=== PATIENT | female | born 1950 | race Caucasian/White ===

== ENCOUNTER 2017-10-15 06:20 | Inpatient (IN) | payer OTHER ==
[2017-10-15] VITALS (10 sets, daily range): BP systolic 91–163; BP diastolic 68–82; PULSE 101–125; TEMP 37–37.3; O2SAT 95–98; BMI 44.3
[~2017-10-15] VITALS: Ht 149.9 cm; Wt 93.9 kg
[~2017-10-15 06:20] MED LIST: AZIT500T3 PO; LISI-1116 PO; METF1000 PO; [UNRECOGNIZED DRUG - REMARK]
[2017-10-15] MEDS ORDERED: NITROGLYCERIN 0.4 MG SL PER TAB CHARGE SL STA (06:41)
[2017-10-15] MEDS ORDERED: FUROSEMIDE 40 MG/4 ML VIAL IV STA ×2 (06:41→10:15)
[2017-10-15] MEDS ORDERED: HydrALAZINE HCL 20 MG/ML VIAL IV. STA (06:41)
[2017-10-15] MEDS ORDERED: NITROGLYCERIN 2% OINTMENT 30GM TUBE EXT ONE (06:45)
[2017-10-15] MEDS ORDERED: SIMV-151 PO (06:46)
[2017-10-15] MEDS ORDERED: CAMPOIN7 TOP (06:48)
--- NOTE | 2017-10-15 06:55 | DIAGNOSTIC IMAGING REPORT ---
CHEST ONE VIEW PORTABLE CLINICAL HISTORY: 67 years-old Female presenting with Evaluate Fever/Sepsis. TECHNIQUE: Portable upright AP view of the chest was obtained. COMPARISON: 08/22/2012. FINDINGS: Atherosclerosis of aortic arch. Cardiac silhouette enlarged. Hazy right mid to lower lung opacities. Minimal left basilar opacity. No large effusion or pneumothorax. Degenerative changes of the thoracic spine. IMPRESSION: 1. Right mid to lower lung consolidation consistent with pneumonia. The left lung base may be minimally involved as well suggesting multifocal pneumonia. Electronically signed by: Selvin Hardin M.D. 10/15/2017 6:54 AM Dictated Date/Time: 10/15/2017 6:53 AM
[2017-10-15 07:26] LABS: PTT PATIENT 24.5 SECONDS (21.0-31.0)
[2017-10-15 07:42] LABS: ALBUMIN 2.4 gm/dl (3.4-5.0); ALT/SGPT 19 U/L (12-78); AST/SGOT 34 U/L (15-37); BLOOD UREA NITROGEN 14 mg/dl (7-18); CALCIUM 8.6 mg/dl (8.5-10.1); CARBON DIOXIDE 24 mmol/L (21-32); CREATININE 1.17 mg/dl (0.60-1.20); GLUCOSE 486 mg/dl (70-99); SODIUM 137 mmol/L (136-145)
[2017-10-15] MEDS ORDERED: CEFTRIAXONE SOD INJ 1 GM ADDVIAL IV STA (07:42)
[2017-10-15] MEDS ORDERED: NovoLIN-R INSULIN PER UNIT CHARGE SC STA (07:44)
[2017-10-15] MEDS ORDERED: AZITHROMYCIN IV 500 MG in DEXTROSE 5% 250ML 250 ML IV ONE (07:45)
[2017-10-15 07:51] LABS: ALKALINE PHOSPHATASE 70 U/L (45-117); CKMB 15.1 ng/ml (0.5-3.6); TOTAL PROTEIN 7.2 gm/dl (6.4-8.2)
[2017-10-15 07:56] LABS: BASO % 0.3 %; BASO ABS # 0.06 K/uL (0-0.2); EOS ABS # 0.23 K/uL (0-0.5); HEMATOCRIT 35.2 % (37-47); HEMOGLOBIN 10.3 g/dL (12.0-16.0); LYMPH ABS # 2.65 K/uL (1.2-3.4); MEAN CELL VOLUME 83.6 fL (80-100); MEAN CORPUSCULAR HEMOGLOBIN 24.5 pg (25-34); MEAN CORPUSCULAR HGB CONC 29.3 g/dl (32-36); MEAN PLATELET VOLUME 9.6 fL (7.4-10.4); MONO % 4.8 %; MONO ABS # 1.05 K/uL (0.11-0.59); NEUT % 81.4 %; NEUT ABS # 17.98 K/uL (1.4-6.5); PLATELET COUNT 550 K/uL (130-400); RED CELL DISTRIBUTION WIDTH CV 15.7 % (11.5-14.5); RED CELL DISTRIBUTION WIDTH SD 47.8 fL (36.4-46.3); WHITE BLOOD COUNT 22.07 K/uL (4.8-10.8)
[2017-10-15] MEDS ORDERED: ASPIRIN 81 MG CHEW PO STA (08:20)
[2017-10-15] MEDS ORDERED: ALBUT/IPRATROP 3MG/0.5MG NEB 3 ML VIAL INH STA (08:27)
[2017-10-15] MEDS ORDERED: POTASSIUM CHLORIDE 10 MEQ TABCR PO STA (09:05)
[2017-10-15] MEDS ORDERED: GLUCAGON FOR INJ 1 MG VIAL SQ PRN (09:15)
[2017-10-15] MEDS ORDERED: MAGNESIUM HYDROXIDE SUSP 30 ML UDC PO PRN (09:15)
[2017-10-15] MEDS ORDERED: ALUMINUM/MAGNESIUM/SIMETH (MAALOX MAX) 30 ML UDC PO PRN (09:15)
[2017-10-15] MEDS ORDERED: GLUCOSE 40% GEL 15 GM TUBE PO PRN (09:15)
[2017-10-15] MEDS ORDERED: NITROGLYCERIN 0.4 MG SL PER TAB CHARGE SL PRN (09:15)
[2017-10-15] MEDS ORDERED: POLYETHYLENE (MIRALAX) 17 GM PACK PO PRN (09:15)
[2017-10-15] MEDS ORDERED: MoRPHine SULFATE 2 MG/ML CARP IV PRN (09:15)
[2017-10-15] MEDS ORDERED: GUAIFENESIN 600 MG TABCR PO PRN (09:15)
[2017-10-15] MEDS ORDERED: GLUCOSE 10 TABS/TUBE PO PRN (09:15)
[2017-10-15] MEDS ORDERED: ZOLPIDEM TARTRATE 5 MG TAB PO PRN ×2 (09:15)
[2017-10-15] MEDS ORDERED: ONDANSETRON INJ 2 MG/ML 2 ML VIAL IV PRN (09:15)
[2017-10-15] MEDS ORDERED: PHARMACY GLYCEMIC MGMT CONSULT PRN (09:51)
--- NOTE | 2017-10-15 10:06 | EMERGENCY ROOM VISIT NOTE ---
History Report prepared by Piedad: Maylin Brar Under the Supervision of: Dr. Neeraj De Guzman D.O. First contact with patient: 06:27 Chief Complaint: SHORTNESS OF BREATH Stated Complaint: SHORT OF BREATH History of Present Illness The patient is a 67 year old female who presents to the Emergency Room with complaints of worsening SOB starting yesterday. The patient presents to the ED by EMS. She has been sick with cold symptoms for a couple days. reports she might have had a fever, but was not coughing. Yesterday, she started having some SOB and spent most of the day resting. She went to bed and woke up at 0200 with increased SOB. She called her home health nurse and they were applying an ointment for colds to no significant relief. They called EMS around 0530. The patient's oxygen saturation was 55 on room air. She was placed on CPAP and her oxygen saturation went up to 84. The patient has a history of diabetes and is on insulin. The history from the patient is limited due to her being on BiPAP. Additional history was obtained from EMS and the patient's . Source of History: spouse/significant other, EMS Onset: yesterday Position: other (breathing) Quality: other (SOB) Timing: worsening Associated Symptoms: + fevers, No cough Review of Systems See HPI for pertinent positives & negatives. A total of 10 systems reviewed and were otherwise negative. Past Medical & Surgical Medical Problems: (1) Diabetes (2) Pneumonia Family History Diabetes mellitus Social History Alcohol Use: none Marital Status: Housing Status: lives with family Current/Historical Medications Scheduled Lisinopril (Lisinopril), 2.5 MG PO DAILY Metformin Hcl (Glucophage), 1,000 MG PO BID Simvastatin (Simvastatin), 1 TAB PO DAILY Scheduled PRN Xoctdng-Unhlwvdddk-Twcvvdy (Vicks Vaporub), 1 APPLN TOP DIRECTED PRN for CONGESTION Allergies Coded Allergies: No Known Allergies (Unverified , 10/15/17) Physical Exam Vital Signs Date Time Temp Pulse Resp B/P (MAP) Pulse Ox O2 Delivery O2 Flow Rate FiO2 10/15/17 09:49 104 24 127/71 97 Room Air 10/15/17 09:23 98 Nasal Cannula 7.0 10/15/17 08:40 113 28 134/49 98 Nebulizer 7.0 10/15/17 07:48 112 28 138/65 100 BiPAP 100 10/15/17 06:50 117 24 192/102 100 BiPAP 10/15/17 06:48 BiPAP 10/15/17 06:47 100 BiPAP 10/15/17 06:35 100 CPAP 10/15/17 06:32 118 20 163/98 100 CPAP 10/15/17 06:27 123 10/15/17 06:25 121 26 199/143 99 BiPAP 100 10/15/17 06:25 125 95 100 Physical Exam CONSTITUTIONAL/VITAL SIGNS: Reviewed / noted above. GENERAL: Non-toxic in appearance. INTEGUMENTARY: Warm, dry, and [place]. HEAD: Normocephalic. EYES: without scleral icterus or trauma. ENT/OROPHARYNX: clear and moist. LYMPHADENOPATHY/NECK: Is supple without lymphadenopathy or meningismus. RESPIRATORY: Rales bilaterally throughout her lungs. CARDIOVASCULAR: Regular rate and rhythm. GI/ABDOMEN: Soft and nontender. No organomegaly or pulsatile mass. No rebound or guarding. Normal bowel sounds. EXTREMITIES: Mild pitting edema bilaterally. BACK: No CVA tenderness. NEUROLOGICAL: Intact without focal deficits. PSYCHIATRIC: normal affect. MUSCULOSKELETAL: Normally developed with good muscle tone. Medical Decision & Procedures ER Provider Diagnostic Interpretation: X ray results and stated below per my interpretation and radiology interpretation. CHEST ONE VIEW PORTABLE CLINICAL HISTORY: 67 years-old Female presenting with Evaluate Fever/Sepsis. TECHNIQUE: Portable upright AP view of the chest was obtained. COMPARISON: 08/22/2012. FINDINGS: Atherosclerosis of aortic arch. Cardiac silhouette enlarged. Hazy right mid to lower lung opacities. Minimal left basilar opacity. No large effusion or pneumothorax. Degenerative changes of the thoracic spine. IMPRESSION: 1. Right mid to lower lung consolidation consistent with pneumonia. The left lung base may be minimally involved as well suggesting multifocal pneumonia. Electronically signed by: Selvin Hardin M.D. 10/15/2017 6:54 AM Dictated Date/Time: 10/15/2017 6:53 AM Laboratory Results 10/15/17 06:59 Red Blood Count 4.21, Mean Corpuscular Volume 83.6, Mean Corpuscular Hemoglobin 24.5, Mean Corpuscular Hemoglobin Concent 29.3, Mean Platelet Volume 9.6, Neutrophils (%) (Auto) 81.4, Lymphocytes (%) (Auto) 12.0, Monocytes (%) (Auto) 4.8, Eosinophils (%) (Auto) 1.0, Basophils (%) (Auto) 0.3, Neutrophils # (Auto) 17.98, Lymphocytes # (Auto) 2.65, Monocytes # (Auto) 1.05, Eosinophils # (Auto) 0.23, Basophils # (Auto) 0.06 10/15/17 06:59 Test 10/15/17 06:37 10/15/17 06:59 10/15/17 07:00 10/15/17 09:12 Urine Color YELLOW Urine Appearance CLEAR (CLEAR) Urine pH 6.5 (4.5-7.5) Urine Specific [place] 1.020 (1.000-1.030) Urine Protein 3+ (NEG) Urine Glucose (UA) 3+ (NEG) Urine Ketones NEG (NEG) Urine Occult Blood 2+ (NEG) Urine Nitrite NEG (NEG) Urine Bilirubin NEG (NEG) Urine Urobilinogen NEG (NEG) Urine Leukocyte Esterase NEG (NEG) Urine WBC (Auto) 1-5 /hpf (0-5) Urine RBC (Auto) 0-4 /hpf (0-4) Urine Hyaline Casts (Auto) 5-10 /lpf (0-5) Urine Epithelial Cells (Auto) >30 /lpf (0-5) Urine Bacteria (Auto) NEG (NEG) White Blood Count 22.07 K/uL (4.8-10.8) Red Blood Count 4.21 M/uL (4.2-5.4) Hemoglobin 10.3 g/dL (12.0-16.0) Hematocrit 35.2 % (37-47) Mean Corpuscular Volume 83.6 fL (80-100) Mean Corpuscular Hemoglobin 24.5 pg (25-34) Mean Corpuscular Hemoglobin Concent 29.3 g/dl (32-36) Platelet Count 550 K/uL (130-400) Mean Platelet Volume 9.6 fL (7.4-10.4) Neutrophils (%) (Auto) 81.4 % Lymphocytes (%) (Auto) 12.0 % Monocytes (%) (Auto) 4.8 % Eosinophils (%) (Auto) 1.0 % Basophils (%) (Auto) 0.3 % Neutrophils # (Auto) 17.98 K/uL (1.4-6.5) Lymphocytes # (Auto) 2.65 K/uL (1.2-3.4) Monocytes # (Auto) 1.05 K/uL (0.11-0.59) Eosinophils # (Auto) 0.23 K/uL (0-0.5) Basophils # (Auto) 0.06 K/uL (0-0.2) RDW Standard Deviation 47.8 fL (36.4-46.3) RDW Coefficient of Variation 15.7 % (11.5-14.5) Immature Granulocyte % (Auto) 0.5 % Immature Granulocyte # (Auto) 0.10 K/uL (0.00-0.02) Prothrombin Time 10.6 SECONDS (9.0-12.0) Prothromb Time International Ratio 1.0 (0.9-1.1) Activated Partial Thromboplast Time 24.5 SECONDS (21.0-31.0) Partial Thromboplastin Ratio 0.9 Anion Gap 10.0 mmol/L (3-11) Estimated GFR () 55.4 Estimated GFR (Non- 47.8 BUN/Creatinine Ratio 12.1 (10-20) Calcium Level 8.6 mg/dl (8.5-10.1) Total Bilirubin 0.1 mg/dl (0.2-1) Direct Bilirubin 0.1 mg/dl (0-0.2) Aspartate Amino Transf (AST/SGOT) 34 U/L (15-37) Alanine Aminotransferase (ALT/SGPT) 19 U/L (12-78) Alkaline Phosphatase 70 U/L (45-117) Total Creatine Kinase 193 U/L (26-192) Creatine Kinase MB 15.1 ng/ml (0.5-3.6) Creatine Kinase MB Ratio 7.8 (0-3.0) Troponin I 0.962 ng/ml (0-0.045) Pro-B-Type Natriuretic Peptide 458 pg/ml (0-900) Total Protein 7.2 gm/dl (6.4-8.2) Albumin 2.4 gm/dl (3.4-5.0) Beta-Hydroxybutyric Acid 3.89 mg/dL (0.2-2.81) Thyroid Stimulating Hormone (TSH) 12.000 uIu/ml (0.300-4.500) Bedside Glucose 406 mg/dl (70-90) Laboratory results as stated above per my review. Medications Administered Medications (Trade) Dose Ordered Sig/Marcelo Route Start Time Stop Time Status Last Admin Dose Admin Nitroglycerin (Nitrostat Tab) 0.4 mg 0641 STAT SL 10/15/17 06:41 10/15/17 06:45 DC 10/15/17 06:57 0.4 MG Nitroglycerin (Nitroglycerin 2% Oint) 1 inch NOW ONCE EXT 10/15/17 06:45 10/15/17 06:46 DC 10/15/17 06:55 1 INCH Hydralazine HCl (HydrALAZINE INJ) 10 mg NOW STAT IV. 10/15/17 06:41 10/15/17 06:45 DC 10/15/17 06:54 10 MG Furosemide (Lasix Inj) 40 mg NOW STAT IV 10/15/17 06:41 10/15/17 06:45 DC 10/15/17 06:54 40 MG Ceftriaxone Sodium (Rocephin Inj) 1 gm NOW STAT IV 10/15/17 07:42 10/15/17 07:44 DC 10/15/17 08:05 1 GM Azithromycin 500 mg/Dextrose 255 ml @ 125 mls/hr ONE ONCE IV 10/15/17 07:45 10/15/17 09:47 DC 10/15/17 08:08 125 MLS/HR Insulin Human Regular (novoLIN-R U-100 PER UNIT) 8 units NOW STAT SC 10/15/17 07:44 10/15/17 07:45 DC 10/15/17 07:56 8 UNITS Aspirin (Aspirin Chew) 324 mg NOW STAT PO 10/15/17 08:20 10/15/17 08:22 DC 10/15/17 08:31 324 MG Albuterol/ Ipratropium (Duoneb) 3 ml NOW STAT INH 10/15/17 08:27 10/15/17 08:28 DC 10/15/17 08:31 3 ML Potassium Chloride (Klor-Con M10) 10 meq ONE STAT PO 10/15/17 09:05 10/15/17 09:38 DC 10/15/17 09:48 10 MEQ ECG Per My Interpretation Indication: SOB/dyspnea Rate (beats per minute): 123 Rhythm: sinus tachycardia Findings: ST depression (Inferolateral), no ectopy Comparison ECG Date: 21-Aug-2012 Change: Changes are new. ED Course 0629: Previous medical records were reviewed. The patient was evaluated in room B9. A complete history and physical examination was performed. 0641: Lasix Inj 40 mg IV, Hydralazine HCl 10 mg IV, Nitroglycerin 0.4 mg SL. 0645: Nitroglycerin 1 inch EXT. 0742: Rocephin Inj 1 gm IV. 0744: Insulin Human Regular 8 units SC. 0745: Azithromycin 500 mg/Dextrose 255 ml @ 125 mls/hr IV. 0809: On reevaluation, the patient is stable. I discussed the results and findings with her and her . They verbalized agreement of the treatment plan. The patient will be evaluated for further management and care. 0817: I discussed the patient's case with Dr. Valdes, [facility] hospitalist. The patient will be evaluated for further treatment and disposition. 0820: Aspirin 324 mg PO. 0827: Duoneb 3 ml INH. Medical Decision Differentials considered include acute myocardial infarction, acute coronary syndrome, myocarditis, pericarditis, pericardial effusions /tamponade, esophageal perforation, pulmonary embolism, pneumonia, pneumothorax, cardiomyopathy, congestive heart, anemia, and COPD/asthma exacerbation. This is a 67-year-old female who presents to the ED with a chief complaint of shortness of breath. History was somewhat difficult from the patient because she was on BiPAP. History was obtained from the . The patient has been reportedly not feeling well for the past couple of days. She became acutely short of breath overnight and was brought to the emergency department this morning by EMS. The patient has an exam suggestive of congestive heart failure and pulmonary edema. She has bilateral rales and also some pedal edema. The patient was placed on CPAP in route by EMS and placed on BiPAP here. Her oxygen saturations were in the 80s prior to BiPAP. With BiPAP she is saturating in the mid to high 90s. A 12-lead EKG shows sinus rhythm with ischemic changes in the inferolateral leads. The patient's white blood cell count was 22,000. Glucose was elevated at 4 86. Troponin was elevated at 0.962. Urine did not show infection. Chest x-ray is suggestive of a multifocal pneumonia. The patient was initially treated with Lasix 40 mg IV, sublingual nitroglycerin, Nitropaste and hydralazine IV for her significant hypertension and what was initially felt to be flash pulmonary edema. She was also placed on BiPAP for this. After this initial treatment, the patient's symptoms did significantly improve, her blood pressure improved and she diuresed 1 L of fluid via a Harris catheter. The patient was able to be removed off of the BiPAP and subsequently placed on nasal cannula oxygen. Her saturations were in the low to mid 90s with this. She was given a DuoNeb treatment, IV Rocephin and IV Zithromax as well as aspirin p.o. and insulin subcutaneously. The patient will be seen by the hospitalist service with whom I spoke. Her overall condition significantly improved during her ED stay. Medication Reconcilliation Current Medication List: was personally reviewed by me Blood Pressure Screening Patient's blood pressure: Elevated blood pressure Referred to hospitalist. Consults Time Called: 08 Consulting Physician: Dr. Valdes [facility] hospitalist Returned Call: 0817 Discussed the patient's case. The patient will be evaluated for further treatment and disposition. Impression Primary Impression: Pneumonia Additional Impressions: Hyperglycemia Hypertensive urgency Elevated troponin Critical Care I have personally spent 35 minutes of critical care time in the direct management of this patient. This includes bedside care, interpretation of diagnostic studies, and testing, discussion with consultants, patient, and family members, and other required patient management activities. Scribe Attestation The scribe's documentation has been prepared under my direction and personally reviewed by me in its entirety. I confirm that the note above accurately reflects all work, treatment, procedures, and medical decision making performed by me. Departure Information Dispostion Being Evaluated By Hospitalist Referrals No Doctor, Assigned (PCP) Patient Instructions My [facility] Problem Qualifiers
[2017-10-15] MEDS ORDERED: METOPROLOL SUCC 25MG EXT REL TAB PO ONE (10:15)
[2017-10-15] MEDS ORDERED: INSU70IN2 SC (10:39)
[2017-10-15] MEDS ORDERED: INSULIN PROTOCOL GOAL RANGE ONE (10:45)
[2017-10-15] MEDS ORDERED: MODERATE STRESS LEVEL ONE (10:45)
[2017-10-15] MEDS ORDERED: INSULIN ASPART 100 UNITS/ML 3 ML PEN SC SCH (11:00)
[2017-10-15] MEDS ORDERED: INSULIN IV INFUSION PROTOCOL STA (11:45)
[2017-10-15] MEDS: INSULIN ASPART 100 UNITS/ML 3 ML PEN SC SCH ×3 (12:00→20:31)
[2017-10-15] MEDS ORDERED: INSULIN HUMAN REGULAR IV BOLUS 2.5 UNIT in SYRINGE 0 ML IV SCH (12:00)
[2017-10-15] MEDS: METHYLPREDNISOLONE IV 20 MG in SYRINGE 0 ML IV SCH ×2 (12:29→20:17)
[2017-10-15] MEDS ORDERED: MAGNESIUM OXIDE 400 MG TAB PO ONE (12:30)
[2017-10-15] MEDS: INSULIN REGULAR 250 UNITS in SODIUM CHLORIDE 0.9% 250ML 250 ML IV SCH (12:35)
[2017-10-15] MEDS ORDERED: ENOXAPARIN 40 MG/0.4 ML SYR SC SCH (13:00)
--- NOTE | 2017-10-15 13:18 | Cardiology Consultation ---
Cardiology Consultation Date of Consultation: Oct 15, 2017. Requesting Physician: Brien Reason for Consultation: dyspnea Pt evaluation today including: conversation w/ patient, physical exam, chart review, lab review, review of studies, review of inpatient medication list History of Present Illness The patient is a 67-year-old woman who was a member of the [facility]. Early this morning she was having difficulty breathing. He states that for approximately 2 days she has had some diffuse symptoms of a nonproductive cough fatigue and mild breathing difficulty. This morning she became acutely worse. She was noted at some point to be significantly hypoxic. An ambulance was summoned and the patient was brought to [facility] for an evaluation. On arrival the patient was noted be dyspneic, tachypneic, hypertensive and tachycardic. She was administered BiPAP, steroids and beta agonists. The patient also underwent diuresis with intravenous Lasix. These interventions improved her symptoms to the point where she can now talk comfortably. Patient states she has had some chest discomfort. This was present primarily this morning while she was having difficulty breathing. She has not have any symptoms of chest discomfort currently. Patient denies symptoms of dizziness or lightheadedness. Patient is not experience palpitations recently. She states that her hands have been somewhat swollen but is not aware of any swelling in her lower extremities. Until the past 2 days she has been feeling well. She denies any difficulty with her bowel or bladder function. He has not noticed any increasing abdominal girth. Past Medical/Surgical History Diabetes mellitus Hyperlipidemia Past surgical history: Hernia repair Family History Diabetes mellitus No premature coronary disease. Diabetes runs in the family. Social History Smoking Status: Never Smoker History of Alcohol Use: No Lives locally with her family. A member of the [facility] Review of Systems Patient did not report subjective fevers or chills. Remainder of the review of systems in the HPI All Other Systems: Reviewed and Negative Allergies Coded Allergies: No Known Allergies (Unverified , 10/15/17) Medications Current Inpatient Medications Medications (Trade) Dose Ordered Sig/Marcelo Route Start Time Stop Time Status Last Admin Dose Admin Budesonide (Pulmicort Respules 0.5MG/ 2ML Neb Soln) 0.5 mg BIDR INH 10/15/17 20:00 11/14/17 19:59 Methylprednisolone Sodium Succinate 20 mg/Syringe 0.32 ml @ 1.5 mls/min Q8H IV 4/10/18 12:00 11/14/17 11:59 10/15/17 12:29 1.5 MLS/MIN Azithromycin 500 mg/Dextrose 255 ml @ 125 mls/hr Q24H IV 10/16/17 09:00 10/22/17 08:59 Guaifenesin (Mucinex Contr Rel Tab) 600 mg Q12 PRN PO 10/15/17 09:15 11/14/17 09:14 Enoxaparin Sodium (Lovenox Inj) 40 mg Q24H SC 10/15/17 13:00 11/14/17 12:59 Acetaminophen (Tylenol Tab) 650 mg Q4H PRN PO 10/15/17 09:15 11/14/17 09:14 Al Hydrox/Mg Hydrox/Simethicone (Maalox Max Susp) 15 ml Q4H PRN PO 10/15/17 09:15 11/14/17 09:14 Magnesium Hydroxide (Milk Of Magnesia Susp) 30 ml Q12H PRN PO 10/15/17 09:15 11/14/17 09:14 Zolpidem Tartrate (Ambien Tab) 5 mg HSZ PRN PO 10/15/17 09:15 11/14/17 09:14 Zolpidem Tartrate (Ambien Tab) 5 mg HSZ PRN PO 10/15/17 09:15 11/14/17 09:14 Ondansetron HCl (Zofran Inj) 4 mg Q6H PRN IV 10/15/17 09:15 11/14/17 09:14 Nitroglycerin (Nitrostat Tab) 0.4 mg UD PRN SL 10/15/17 09:15 11/14/17 09:14 Morphine Sulfate (MoRPHine SULFATE INJ) 2 mg Q30M PRN IV 10/15/17 09:15 10/29/17 09:14 Aspirin (Ecotrin Tab) 81 mg QAM PO 10/16/17 09:00 11/15/17 08:59 Polyethylene (Miralax Powder Packet) 17 gm DAILY PRN PO 10/15/17 09:15 11/14/17 09:14 Glucose (Glucose 40% Gel) 15-30 GRAMS 15 GRAMS... UD PRN PO 10/15/17 09:15 11/14/17 09:14 Glucose (Glucose Chew Tab) 4-8 Tablets 4 Tabl... UD PRN PO 10/15/17 09:15 11/14/17 09:14 Dextrose (Dextrose 50% 50ML Syringe) 25-50ML OF 50% DW IV FOR... UD PRN IV 10/15/17 09:15 11/14/17 09:14 Glucagon (Glucagon Inj) 1 mg UD PRN SQ 10/15/17 09:15 11/14/17 09:14 Miscellaneous Information (Consult Glycemic Management Pharmacy) 1 ea UD PRN N/A 10/15/17 09:51 11/14/17 09:50 Ceftriaxone Sodium 2000 mg/ Dextrose 70 ml @ 140 mls/hr Q24H IV 10/16/17 08:00 10/22/17 07:59 Metoprolol Succinate (Toprol Xl Tab) 12.5 mg BID PO 10/15/17 21:00 11/14/17 20:59 Furosemide 20 mg/ Syringe 2 ml @ 4 mls/min BID17 IV 10/15/17 17:00 11/14/17 16:59 Insulin Aspart (novoLOG ASPART) [facility] 10/15/17 12:00 11/14/17 12:59 Insulin Human Regular 250 units/ Sodium Chloride 252.5 ml @ 0 mls/hr Q24H IV 10/15/17 12:00 11/14/17 11:59 10/15/17 12:35 2.5 MLS/HR Pneumococcal Polysaccharide Vaccine (Pneumovax-23 Inj) 25 mcg ONCE ONCE IM. 10/15/17 14:00 10/15/17 14:01 Ipratropium [place] (Atrovent 0.02% 0.5MG/2.5ML Neb) 0.5 mg Q6R INH 10/15/17 15:00 11/14/17 14:59 Levalbuterol (Xopenex 0.63 Mg/ 3 Ml Neb) 0.63 mg Q6R INH 10/15/17 15:00 11/14/17 14:59 Physical Exam Vital Signs Past 12 Hours Date Time Temp Pulse Resp B/P (MAP) Pulse Ox O2 Delivery O2 Flow Rate FiO2 10/15/17 11:24 37.0 110 20 91/82 (85) 98 Nasal Cannula 4.0 10/15/17 10:58 113 20 125/65 99 Room Air 10/15/17 09:49 104 24 127/71 97 Room Air 10/15/17 09:23 98 Nasal Cannula 7.0 10/15/17 08:40 113 28 134/49 98 Nebulizer 7.0 10/15/17 07:48 112 28 138/65 100 BiPAP 100 10/15/17 06:50 117 24 192/102 100 BiPAP 10/15/17 06:48 BiPAP 10/15/17 06:47 100 BiPAP 10/15/17 06:35 100 CPAP 10/15/17 06:32 118 20 163/98 100 CPAP 10/15/17 06:27 123 10/15/17 06:25 121 26 199/143 99 BiPAP 100 10/15/17 06:25 125 95 100 She is alert and oriented x3. Mood affect appear normal. She answered all questions appropriately. Obese HEENT: Sclerae are anicteric. Pupils are equal and reactive to light and accommodation. Extraocular movements were intact. Neuro: Cranial nerves intact Neck: Examination of the submandibular region did not reveal any significant lymphadenopathy. Carotids are palpable bilaterally and free of bruits on auscultation. There was no evidence of jugular venous distention. The thyroid was not enlarged. Lungs: Reduced breath sounds in the right base. Occasional expiratory bronchial breath sounds. There are no rales or wheezing. She has normal respiratory effort without use of accessory muscles. There is normal pulmonary excursion. Cardiac: The rhythm was regular. S1 and S2 were normal. There are no murmurs on examination. The PMI was not markedly displaced on palpation. Abdomen: The abdomen was soft and nontender. Extremities: Patient has bilateral radial pulses that are equal in intensity. There is no evidence cyanosis or clubbing. There was mild bilateral lower extremity peripheral edema. Skin: There are no rashes noted on examination today. Data Laboratory Results: Last 24 Hours Test 10/15/17 06:37 10/15/17 06:59 10/15/17 07:00 10/15/17 09:12 Urine Color YELLOW Urine Appearance CLEAR Urine pH 6.5 Urine Specific [place] 1.020 Urine Protein 3+ Urine Glucose (UA) 3+ Urine Ketones NEG Urine Occult Blood 2+ Urine Nitrite NEG Urine Bilirubin NEG Urine Urobilinogen NEG Urine Leukocyte Esterase NEG Urine WBC (Auto) 1-5 /hpf Urine RBC (Auto) 0-4 /hpf Urine Hyaline Casts (Auto) 5-10 /lpf Urine Epithelial Cells (Auto) >30 /lpf Urine Bacteria (Auto) NEG White Blood Count 22.07 K/uL Red Blood Count 4.21 M/uL Hemoglobin 10.3 g/dL Hematocrit 35.2 % Mean Corpuscular Volume 83.6 fL Mean Corpuscular Hemoglobin 24.5 pg Mean Corpuscular Hemoglobin Concent 29.3 g/dl Platelet Count 550 K/uL Mean Platelet Volume 9.6 fL Neutrophils (%) (Auto) 81.4 % Lymphocytes (%) (Auto) 12.0 % Monocytes (%) (Auto) 4.8 % Eosinophils (%) (Auto) 1.0 % Basophils (%) (Auto) 0.3 % Neutrophils # (Auto) 17.98 K/uL Lymphocytes # (Auto) 2.65 K/uL Monocytes # (Auto) 1.05 K/uL Eosinophils # (Auto) 0.23 K/uL Basophils # (Auto) 0.06 K/uL RDW Standard Deviation 47.8 fL RDW Coefficient of Variation 15.7 % Immature Granulocyte % (Auto) 0.5 % Immature Granulocyte # (Auto) 0.10 K/uL Prothrombin Time 10.6 SECONDS Prothromb Time International Ratio 1.0 Activated Partial Thromboplast Time 24.5 SECONDS Partial Thromboplastin Ratio 0.9 Sodium Level 137 mmol/L Potassium Level 4.0 mmol/L Chloride Level 103 mmol/L Carbon Dioxide Level 24 mmol/L Anion Gap 10.0 mmol/L Blood Urea Nitrogen 14 mg/dl Creatinine 1.17 mg/dl Estimated GFR () 55.4 Estimated GFR (Non- 47.8 BUN/Creatinine Ratio 12.1 Random Glucose 486 mg/dl Calcium Level 8.6 mg/dl Total Bilirubin 0.1 mg/dl Direct Bilirubin 0.1 mg/dl Aspartate Amino Transf (AST/SGOT) 34 U/L Alanine Aminotransferase (ALT/SGPT) 19 U/L Alkaline Phosphatase 70 U/L Total Creatine Kinase 193 U/L Creatine Kinase MB 15.1 ng/ml Creatine Kinase MB Ratio 7.8 Troponin I 0.962 ng/ml Pro-B-Type Natriuretic Peptide 458 pg/ml Total Protein 7.2 gm/dl Albumin 2.4 gm/dl Beta-Hydroxybutyric Acid 3.89 mg/dL Thyroid Stimulating Hormone (TSH) 12.000 uIu/ml Procalcitonin 0.08 ng/ml Bedside Glucose 406 mg/dl Test 10/15/17 11:40 Imaging: Single-view chest x-ray suggests an infiltrative process involving the right lung EKG: Sinus tachycardia with ischemic ST segment changes Telemetry reviewed: No arrhythmia Echocardiogram performed today revealed preserved LV systolic function with an ejection fraction of 60%. Stage I diastolic dysfunction. Mild mitral regurgitation. Assessment & Plan 1. Dyspnea: This may be multifactorial but is most likely related to a primary pulmonary process. Patient did undergo a diuresis and she did have rapid improvement in her breathing with the use of BiPAP in the other interventions mentioned above. However, her N terminal proBNP was entirely normal. This would be unusual in the setting of significant pulmonary edema and respiratory decompensation due to heart failure. She has what appears to be an infiltrate on x-ray. She has a marked leukocytosis. I suspect the main etiology of her dyspnea is an infectious process. 2. Elevated cardiac biomarkers: While this could represented an acute coronary syndrome given her symptoms of chest discomfort, her symptoms would also be consistent with the aforementioned pulmonary process. Her markers are mildly elevated. They can be trended over time. Most likely this represents injury associated with her known hypoxia, tachycardia and hypertension. The best treatment at this time involves improving her oxygenation and high blood pressure. She has been administered aspirin. She has been started on beta- blockade which seems reasonable choice for an antihypertensive. She could be continued on her outpatient lisinopril as well. 3. Left ventricular hypertrophy: She has evidence of cardiac enlargement on her echocardiogram. She is also markedly hypertensive that time for initial evaluation. I suspect she has had some element of hypertension for long time and may require more aggressive treatment in this regard.
[2017-10-15 13:33] LABS: INFLUENZA A PCR Neg for Influ A (NEG); INFLUENZA B PCR Neg for Influ B (NEG)
[2017-10-15] MEDS ORDERED: PNEUMOCOCCAL ADMINISTRATION CHARGE ONE (14:00)
[2017-10-15] MEDS ORDERED: PNEUMOCOCCAL POLYSACCHARIDES 25 MCG/0.5 ML VIAL/SYR IM. ONE (14:00)
[2017-10-15] MEDS: IPRATROPIUM BROMIDE NEB SOLN 0.02% 2.5 ML VIAL INH SCH ×2 (14:11→18:57)
[2017-10-15] MEDS: LEVALBUTEROL 0.63MG/3 ML NEB INH SCH ×2 (14:11→18:57)
[2017-10-15] MEDS ORDERED: INSULIN GLARGINE SOLOSTAR 100 UNITS/ML 3 ML PEN SC SCH (14:30)
--- NOTE | 2017-10-15 14:41 | ECHOCARDIOGRAM REPORT ---
*NOTICE TO RECEIVING CONSTITUTION PARTY AGENCY This information is strictly Confidential and protected under [place] law. [place] law prohibits you from making any further disclosure of this information unless further disclosure is expressly permitted by the written consent of the person to whom it pertains or is authorized by law. A general authorization for the release of medical or other information is not sufficient for this purpose. Hospital accepts no responsibility if the information is made available to any other person, INCLUDING THE PATIENT. Interpretation Summary * Name: LAWRENCE VU Study Date: 10/15/2017 12:37 PM BP: 91/82 mmHg * Patient Location: C.2E\S\E202\S\1 HR: 107 * : 1950 (M/d/yyyy) Gender: Female Height: 59 in * Age: 67 yrs Ethnicity: CA Weight: 219 lb * Ordering Physician: Dorian Molina * Referring Physician: UNKNOWN * Performed By: Cande Valadez RDCS * * Reason For Study: CHF * BSA: 1.9 m2 * -- Conclusions -- * There is moderate concentric left ventricular hypertrophy. * Left ventricular systolic function is normal. * There is mild mitral regurgitation. Procedure Details * A contrast injection of Definity was performed to improve assessment of LV function. * Contrast was injected into an intravenous site in the left arm. * One vial of Definity ultrasound contrast was diluted in normal saline to a total volume of 10 ml. A total of '2' ml of solution was administered during imaging. * Lot # [id number] of Definity utilized for procedure. * Expiration date OCT 24. * The attending nurse who injected the contrast agent was JARED MUNOZ. Left Ventricle * The left ventricle is normal in size. * There is moderate concentric left ventricular hypertrophy. * Ejection Fraction = 55-60%. * Left ventricular systolic function is normal. * The left ventricular wall motion is normal. Right Ventricle * The right ventricle is grossly normal size. Atria * The left atrial size is normal. * Right atrial size is normal. Mitral Valve * The mitral valve is grossly normal. * There is mild mitral regurgitation. Tricuspid Valve * The tricuspid valve is not well visualized, but is grossly normal. * No tricuspid regurgitation. Aortic Valve * The aortic valve is not well visualized. * No hemodynamically significant valvular aortic stenosis. * There is no significant aortic regurgitation. Pulmonic Valve * The pulmonic valve is not well visualized. Great Vessels * The aortic root is normal size. Pericardium/Pleural * There is no pericardial effusion. MMode 2D Measurements and Calculations IVSd 1.5 cm IVSs 2.0 cm LVIDd 3.9 cm LVIDs 2.8 cm LVPWd 1.8 cm LVPWs 1.9 cm IVS/LVPW 0.83 FS 29.8 % EDV(Teich) 66.7 ml ESV(Teich) 28.3 ml EF(Teich) 57.5 % EDV(cubed) 60.2 ml ESV(cubed) 20.8 ml EF(cubed) 65.4 % % IVS thick 32.0 % % LVPW thick 7.9 % LV mass(C)d 261.4 grams LV mass(C)dI 136.4 grams/m\S\2 LV mass(C)s 228.6 grams LV mass(C)sI 119.3 grams/m\S\2 SV(Teich) 38.4 ml SI(Teich) 20.0 ml/m\S\2 SV(cubed) 39.4 ml SI(cubed) 20.5 ml/m\S\2 Ao root diam 2.7 cm Ao root area 5.5 cm\S\2 LA dimension 3.2 cm LA/Ao 1.2 LVAd ap2 32.0 cm\S\2 LVLd ap2 8.8 cm EDV(MOD-sp2) 97.2 ml EDV(sp2-el) 98.3 ml LVAs ap2 18.8 cm\S\2 LVLs ap2 7.7 cm ESV(MOD-sp2) 40.0 ml ESV(sp2-el) 38.8 ml EF(MOD-sp2) 58.9 % EF(sp2-el) 60.5 % SV(MOD-sp2) 57.3 ml SI(MOD-sp2) 29.9 ml/m\S\2 SV(sp2-el) 59.5 ml SI(sp2-el) 31.0 ml/m\S\2 Doppler Measurements and Calculations MV E max viviane 114.3 cm/sec MV A max viviane 91.7 cm/sec MV E/A 1.2 MV dec time 0.15 sec Ao V2 max 149.5 cm/sec Ao max PG 8.9 mmHg Ao max PG (full) 5.9 mmHg LV V1 max PG 3.0 mmHg LV V1 max 87.1 cm/sec
--- NOTE | 2017-10-15 14:58 | Pharmacy Progress Note ---
Glycemic Control Intl Consult Date of Service Oct 15, 2017. Scope Glycemic Pharmacist consulted by Dr Tesfaye on 10/15/17 for glycemic control and to write orders per [facility] inpatient glycemic control protocol Objective Weight (Kilograms): 99.500 Accuchecks BSG (last 24hrs): Test 10/15/17 06:59 10/15/17 09:12 10/15/17 13:59 Random Glucose 486 mg/dl (70-99) Bedside Glucose 406 mg/dl (70-90) 373 mg/dl (70-90) Laboratory Data (last 24hrs) Test 10/15/17 06:59 Anion Gap 10.0 mmol/L BUN/Creatinine Ratio 12.1 Blood Urea Nitrogen 14 mg/dl Creatinine 1.17 mg/dl Potassium Level 4.0 mmol/L Sodium Level 137 mmol/L White Blood Count 22.07 K/uL Red Blood Count 4.21 M/uL Hemoglobin 10.3 g/dL Hematocrit 35.2 % Mean Corpuscular Volume 83.6 fL Mean Corpuscular Hemoglobin 24.5 pg Mean Corpuscular Hemoglobin Concent 29.3 g/dl Platelet Count 550 K/uL Mean Platelet Volume 9.6 fL Neutrophils (%) (Auto) 81.4 % Lymphocytes (%) (Auto) 12.0 % Monocytes (%) (Auto) 4.8 % Eosinophils (%) (Auto) 1.0 % Basophils (%) (Auto) 0.3 % Neutrophils # (Auto) 17.98 K/uL Lymphocytes # (Auto) 2.65 K/uL Monocytes # (Auto) 1.05 K/uL Eosinophils # (Auto) 0.23 K/uL Basophils # (Auto) 0.06 K/uL HbA1c 11.8% 08/21/12 Recent Pertinent Medications Outpatient Anti-diabetic Regimen: * Metformin 1000mg BIDM, Novolog 70/30 BIDM * A1c = 11.8 % 08/21/12 Risk Factors for Insulin Resistance: * Steroids: solumedrol 20mg q8 * Infection: being treated for a potential underlying CAP: Rocephin + Zithromax * Diet: Low sodium + Boost Assessment & Plan ASSESSMENT: * Ms. Madden is 67yo F p/w dyspnea, elevated cardiac biomarkers, & severe hyperglycemia. Also being worked up for a potential underlying pulmonary infxn. Outpatient regimen is premixed basal/prandial insulin of 70units 70/30 mix insulin BIDM. Pre-mixed insulin is difficult to titrate since it is already in a fixed distribution of basal:prandial insulin. Continuing pre-mixed insulin for admission typically lead to hypoglycemia d/t changing PO status but rapid acting insulin is unable to be held. Ergo, home regimen will be held for admission per pharmacy consult. Her elevated TSH (dampened metabolism) is worrisome from a glycemic standpoint, unsure how her hypothyroidism will affect BSGs. Further, IV solumedrol may cause further glycemic complications. Spoke w / Dr. Tesfaye, he plans to initiate treatment for her elevated TSH on 10/16/17. PLAN FOR INPATIENT GLYCEMIC CONTROL: * Starting IV insulin infusion per moderate stress protocol * Goal Range 140 - 180 mg/dl * Holding outpatient oral diabetes medications * Basal insulin with LANTUS 50units SQ x1 to assist in transitioning Ms. Madden off of the drip * [facility] Novolog ordered * Please note that the plan above was derived based on current level of insulin resistance and hospital stress. These recommendations are appropriate for inpatient admission only. Plan of care upon discharge will need to be reassessed to avoid potential outpatient hypo/hyperglycemia. Thank you.
[2017-10-15] MEDS ORDERED: LEVALBUTEROL/IPRATROPIUM NEB INH SCH (15:00)
[2017-10-15] MEDS ORDERED: HEPARIN IV BOLUS 4,000 UNIT in SYRINGE 0 ML IV ONE (16:45)
[2017-10-15] MEDS ORDERED: INSULIN 70% ASPART PROTAMINE/30% ASPART SC SCH (16:45)
[2017-10-15] MEDS: FUROSEMIDE INJ 20 MG in SYRINGE 0 ML IV SCH (17:05)
[2017-10-15] MEDS: HEPARIN 25,000 UNIT/500ML D5W 500 ML IV SCH (17:24)
[2017-10-15] MEDS: BUDESONIDE 0.5 MG/2 ML VIAL (PULMICORT) INH SCH (18:57)
[2017-10-15] MEDS: METOPROLOL SUCC 25MG EXT REL TAB PO SCH (20:18)
--- NOTE | 2017-10-15 21:16 | History and Physical ---
History & Physical Date & Time of Service: Oct 15, 2017 at 21:06 Chief Complaint: Pneumonia Primary Care Physician: Geoffrey Milton M.D. History of Present Illness Source: patient, family, clinic records, hospital records Past Medical/Surgical History Medical Problems: (1) Diabetes (2) Pneumonia Family History Diabetes mellitus Social History Smoking Status: Never Smoker Marital Status: Immunizations History of Influenza Vaccine: No History of Tetanus Vaccine?: No History of Pneumococcal: No History of Hepatitis B Vaccine: No Allergies Coded Allergies: No Known Allergies (Unverified , 10/15/17) Home Medications Scheduled Insulin Isophan/Regular (Novolin 70/30), 70 SC BIDM Lisinopril (Lisinopril), 2.5 MG PO DAILY Metformin Hcl (Glucophage), 1,000 MG PO BID Simvastatin (Simvastatin), 1 TAB PO DAILY Scheduled PRN [id number] (Vicks Vaporub), 1 APPLN TOP DIRECTED PRN for CONGESTION Review of Systems Constitutional: + fever, + weakness, + fatigue Eyes: No worsening of vision, No eye pain, No redness, No discharge, No diplopia, No problem reported ENT: No hearing loss, No unusual epistaxis, No nasal symptoms, No sore throat, No tinnitus, No dental problems, No trouble swallowing, No problem reported Respiratory: + cough, + wheezing, + shortness of breath, + dyspnea on exertion , + dyspnea at rest, No sputum, No hemoptysis, No problem reported Cardiovascular: + orthopnea, No chest pain, No PND, No edema, No claudication, No palpitations, No problem reported Abdomen: No pain, No nausea, No vomiting, No diarrhea, No constipation, No GI bleeding, No problem reported Musculoskeletal: No joint pain, No muscle pain, No swelling, No calf pain, No problem reported Genitourinary - Female: No dysuria, No urinary frequency, No urinary urgency, No urinary incontinence, No urinary retention, No hematuria, No dysmenorrhea, No menorrhagia, No metrorrhagia, No rash, No vaginal bleeding, No vaginal discharge, No vaginal itching, No vulvodynia, No , No problem reported Neurologic: No memory loss, No paralysis, No weakness, No numbness/tingling, No vertigo, No balance problems, No problem reported Psychiatric: No depression symptoms, No anhedonism, No anxiety, No insomnia, No substance abuse, No problem reported Endocrine: + fatigue, No excessive thirst, No excessive urination, No problem reported Hematologic / Lymphatic: No abnormal bleeding/bruising, No clotting problems, No swollen lymph nodes, No night sweats, No problem reported Integumentary: No rash, No itch, No new/changing skin lesions, No color change , No bleeding, No problem reported Allergic / Immunologic: No environmental allergies, No seasonal allergies, No pet sensitivities, No food allergies, No hives, No frequent infections, No poor healing, No prolonged convalescence, No problem reported Physical Exam Vital Signs Date Time Temp Pulse Resp B/P (MAP) Pulse Ox O2 Delivery O2 Flow Rate FiO2 10/15/17 18:58 103 20 97 Nasal Cannula 2.0 10/15/17 18:44 37.3 101 24 163/82 (109) 97 Room Air 10/15/17 16:00 98 Nasal Cannula 2.0 10/15/17 15:13 37.0 102 23 153/68 (96) 97 Room Air 10/15/17 14:12 101 24 98 Nasal Cannula 2.0 10/15/17 12:00 96 Nasal Cannula 3.0 10/15/17 11:24 37.0 110 20 91/82 (85) 98 Nasal Cannula 4.0 10/15/17 10:58 113 20 125/65 99 Room Air 10/15/17 09:49 104 24 127/71 97 Room Air 10/15/17 09:23 98 Nasal Cannula 7.0 10/15/17 08:40 113 28 134/49 98 Nebulizer 7.0 10/15/17 07:48 112 28 138/65 100 BiPAP 100 10/15/17 06:50 117 24 192/102 100 BiPAP 10/15/17 06:48 BiPAP 10/15/17 06:47 100 BiPAP 10/15/17 06:35 100 CPAP 10/15/17 06:32 118 20 163/98 100 CPAP 10/15/17 06:27 123 10/15/17 06:25 121 26 199/143 99 BiPAP 100 10/15/17 06:25 125 95 100 General Appearance: + moderate distress, + obese Head: normocephalic, atraumatic Eyes: normal inspection, EOMI ENT: normal ENT inspection, hearing grossly normal Neck: supple Respiratory/Chest: + respiratory distress, + decreased breath sounds, + accessory muscle use, + rales, + rhonchi Cardiovascular: regular rate, rhythm, + tachycardia, + systolic murmur Abdomen/GI: normal bowel sounds, non tender, soft, no organomegaly, no pulsatile mass Back: normal inspection, no CVA tenderness Extremities/Musculoskelatal: normal inspection, + pedal edema Neurologic/Psych: underwear welter II-XII nml as tested, no motor/sensory deficits, alert, normal mood/affect, normal reflexes, oriented x 3 Skin: normal color, warm/dry, no rash Diagnostics Laboratory Results Results Past 24 Hours Test 10/15/17 06:37 10/15/17 06:59 10/15/17 07:00 10/15/17 09:12 Range/Units Urine Color YELLOW Urine Appearance CLEAR CLEAR Urine pH 6.5 4.5-7.5 Urine Specific [place] 1.020 1.000-1.030 Urine Protein 3+ NEG Urine Glucose (UA) 3+ NEG Urine Ketones NEG NEG Urine Occult Blood 2+ NEG Urine Nitrite NEG NEG Urine Bilirubin NEG NEG Urine Urobilinogen NEG NEG Urine Leukocyte Esterase NEG NEG Urine WBC (Auto) 1-5 0-5 /hpf Urine RBC (Auto) 0-4 0-4 /hpf Urine Hyaline Casts (Auto) 5-10 0-5 /lpf Urine Epithelial Cells (Auto) >30 0-5 /lpf Urine Bacteria (Auto) NEG NEG White Blood Count 22.07 4.8-10.8 K/uL Red Blood Count 4.21 4.2-5.4 M/uL Hemoglobin 10.3 12.0-16.0 g/dL Hematocrit 35.2 37-47 % Mean Corpuscular Volume 83.6 80-100 fL Mean Corpuscular Hemoglobin 24.5 25-34 pg Mean Corpuscular Hemoglobin Concent 29.3 32-36 g/dl Platelet Count 550 130-400 K/uL Mean Platelet Volume 9.6 7.4-10.4 fL Neutrophils (%) (Auto) 81.4 % Lymphocytes (%) (Auto) 12.0 % Monocytes (%) (Auto) 4.8 % Eosinophils (%) (Auto) 1.0 % Basophils (%) (Auto) 0.3 % Neutrophils # (Auto) 17.98 1.4-6.5 K/uL Lymphocytes # (Auto) 2.65 1.2-3.4 K/uL Monocytes # (Auto) 1.05 0.11-0.59 K/uL Eosinophils # (Auto) 0.23 0-0.5 K/uL Basophils # (Auto) 0.06 0-0.2 K/uL RDW Standard Deviation 47.8 36.4-46.3 fL RDW Coefficient of Variation 15.7 11.5-14.5 % Immature Granulocyte % (Auto) 0.5 % Immature Granulocyte # (Auto) 0.10 0.00-0.02 K/uL Prothrombin Time 10.6 9.0-12.0 SECONDS Prothromb Time International Ratio 1.0 0.9-1.1 Activated Partial Thromboplast Time 24.5 21.0-31.0 SECONDS Partial Thromboplastin Ratio 0.9 Sodium Level 137 136-145 mmol/L Potassium Level 4.0 3.5-5.1 mmol/L Chloride Level 103 98-107 mmol/L Carbon Dioxide Level 24 21-32 mmol/L Anion Gap 10.0 3-11 mmol/L Blood Urea Nitrogen 14 7-18 mg/dl Creatinine 1.17 0.60-1.20 mg/dl Estimated GFR () 55.4 Estimated GFR (Non- 47.8 BUN/Creatinine Ratio 12.1 10-20 Random Glucose 486 70-99 mg/dl Calcium Level 8.6 8.5-10.1 mg/dl Total Bilirubin 0.1 0.2-1 mg/dl Direct Bilirubin 0.1 0-0.2 mg/dl Aspartate Amino Transf (AST/SGOT) 34 15-37 U/L Alanine Aminotransferase (ALT/SGPT) 19 12-78 U/L Alkaline Phosphatase 70 45-117 U/L Total Creatine Kinase 193 26-192 U/L Creatine Kinase MB 15.1 0.5-3.6 ng/ml Creatine Kinase MB Ratio 7.8 0-3.0 Troponin I 0.962 0-0.045 ng/ml Pro-B-Type Natriuretic Peptide 458 0-900 pg/ml Total Protein 7.2 6.4-8.2 gm/dl Albumin 2.4 3.4-5.0 gm/dl Beta-Hydroxybutyric Acid 3.89 0.2-2.81 mg/dL Thyroid Stimulating Hormone (TSH) 12.000 0.300-4.500 uIu/ml Procalcitonin 0.08 0-0.5 ng/ml Bedside Glucose 406 70-90 mg/dl Test 10/15/17 11:25 10/15/17 11:40 10/15/17 12:50 10/15/17 13:59 Range/Units Bedside Glucose 357 373 70-90 mg/dl Influenza Type A (RT-PCR) Neg for Influ A NEG Influenza Type B (RT-PCR) Neg for Influ B NEG Test 10/15/17 14:53 10/15/17 15:04 10/15/17 15:49 10/15/17 16:55 Range/Units Bedside Glucose 302 303 267 70-90 mg/dl Troponin I 31.800 0-0.045 ng/ml Test 10/15/17 17:52 10/15/17 18:45 10/15/17 20:51 Range/Units Bedside Glucose 339 309 70-90 mg/dl Microbiology Results 10/15/17 Blood Culture, Received Pending 10/15/17 Blood Culture, Received Pending Impression Assessment and Plan Assessment: Acute respiratory failure with hypoxemia Acute CHF non specific NSTEMI Right mid to lower lung consolidation consistent with pneumonia Sepsis POA secondary to above Diabetes Mellitus insulin requiring New onset hypothyroidism HTN urgency plan: admit to telemetry obtain serial cardiac enz NTG SL/topical prn cp consult imcu specialist appreciated troponin jumped to 31.8 , EKG showed no change started CTX / Azithro start lactinex pain management repeat EKG prn chest pain Check hemoglobin A1c/lipids to stratify patient risk factors I/Os 2Decho gentle diuresis control blood pressure, afterload and preload DVT prophylaxis Hold on treatment of TSH due to concurrent tachycardia Advanced Directives Existing Living Will: No Existing Power of Lode [employer]: No Resuscitation Status VTE Prophylaxis Will order VTE Prophylaxis: Yes Note Total Time: Critical Care 30 - 74 minutes
[2017-10-15] MEDS: ACETAMINOPHEN 325 MG TAB PO PRN (23:20)
[2017-10-15 23:40] LABS: PTT PATIENT 29.3 SECONDS (21.0-31.0)
[2017-10-16] VITALS (10 sets, daily range): BP systolic 160–190; BP diastolic 79–98; PULSE 91–103; TEMP 36.7–37.1; O2SAT 92–98; BMI 42.9
[2017-10-16] MEDS: DEXTROSE 50% 50 ML SYR IV PRN ×3 (00:10→21:56)
[2017-10-16] MEDS: HEPARIN 25,000 UNIT/500ML D5W 500 ML IV SCH ×3 (00:13→22:11)
[2017-10-16] MEDS ORDERED: HEPARIN IV BOLUS 4,500 UNIT in SYRINGE 0 ML IV ONE ×4 (00:30→22:00)
[2017-10-16] MEDS: IPRATROPIUM BROMIDE NEB SOLN 0.02% 2.5 ML VIAL INH SCH ×5 (02:28→20:28)
[2017-10-16] MEDS: LEVALBUTEROL 0.63MG/3 ML NEB INH SCH ×5 (02:28→20:28)
[2017-10-16 03:21] LABS: BASO % 0.1 %; BASO ABS # 0.01 K/uL (0-0.2); HEMATOCRIT 30.4 % (37-47); HEMOGLOBIN 9.3 g/dL (12.0-16.0); IG# 0.04 K/uL (0.00-0.02); LYMPH ABS # 1.74 K/uL (1.2-3.4); MEAN CELL VOLUME 79.8 fL (80-100); MEAN CORPUSCULAR HEMOGLOBIN 24.4 pg (25-34); MEAN CORPUSCULAR HGB CONC 30.6 g/dl (32-36); MEAN PLATELET VOLUME 9.4 fL (7.4-10.4); MONO % 2.1 %; NEUT % 85.5 %; NEUT ABS # 12.42 K/uL (1.4-6.5); PLATELET COUNT 521 K/uL (130-400); RED CELL DISTRIBUTION WIDTH CV 15.6 % (11.5-14.5); RED CELL DISTRIBUTION WIDTH SD 45.6 fL (36.4-46.3); WHITE BLOOD COUNT 14.51 K/uL (4.8-10.8)
[2017-10-16 03:29] LABS: PTT PATIENT 42.7 SECONDS (21.0-31.0)
[2017-10-16 03:39] LABS: ALBUMIN 2.4 gm/dl (3.4-5.0); CALCIUM 8.5 mg/dl (8.5-10.1); CREATININE 1.26 mg/dl (0.60-1.20)
[2017-10-16 03:55] LABS: PHOSPHORUS 2.6 mg/dl (2.5-4.9); TOTAL PROTEIN 7.2 gm/dl (6.4-8.2)
[2017-10-16] MEDS: METHYLPREDNISOLONE IV 20 MG in SYRINGE 0 ML IV SCH ×3 (04:09→20:15)
[2017-10-16] MEDS: ACETAMINOPHEN 325 MG TAB PO PRN (04:13)
[2017-10-16 06:25] LABS: HEMOGLOBIN A1C 8.3 % (4.5-5.6)
[2017-10-16] MEDS: BUDESONIDE 0.5 MG/2 ML VIAL (PULMICORT) INH SCH ×2 (07:02→19:04)
[2017-10-16] MEDS: INSULIN ASPART 100 UNITS/ML 3 ML PEN SC SCH ×4 (07:58→21:00)
[2017-10-16] MEDS ORDERED: INSULIN ASPART 100 UNITS/ML 3 ML PEN SC ONE (09:00)
[2017-10-16] MEDS ORDERED: INSULIN GLARGINE SOLOSTAR 100 UNITS/ML 3 ML PEN SC ONE (09:15)
[2017-10-16] MEDS: FUROSEMIDE INJ 20 MG in SYRINGE 0 ML IV SCH ×2 (09:39→17:49)
[2017-10-16] MEDS: CEFTRIAXONE SOD INJ 2,000 MG in DEXTROSE 5% 50ML 50 ML IV SCH (09:39)
[2017-10-16] MEDS: ASPIRIN 81 MG ECTAB PO SCH (09:40)
[2017-10-16] MEDS: METOPROLOL SUCC 25MG EXT REL TAB PO SCH ×2 (09:40→21:58)
[2017-10-16] MEDS: AZITHROMYCIN IV 500 MG in DEXTROSE 5% 250ML 250 ML IV SCH (10:09)
[2017-10-16] MEDS: INSULIN REGULAR 250 UNITS in SODIUM CHLORIDE 0.9% 250ML 250 ML IV SCH (11:54)
--- NOTE | 2017-10-16 12:13 | Pharmacy Progress Note ---
Pharmacy Glycemic Short Note 2 Date of Service Oct 16, 2017. OUTPATIENT ANTIDIABETIC REGIMEN: * Premixed insulin: Novolin 70/30 insulin 70 units SQ BIDM * Metformin 1,000mg PO BIDM * A1c = 8.3% on 10/16/17 Item Value Date Time Bedside Glucose 406 mg/dl *H 10/15/17 0912 Bedside Glucose 357 mg/dl *H 10/15/17 1125 Bedside Glucose 373 mg/dl *H 10/15/17 1359 Bedside Glucose 302 mg/dl H 10/15/17 1453 Bedside Glucose 303 mg/dl H 10/15/17 1549 Bedside Glucose 267 mg/dl H 10/15/17 1655 Bedside Glucose 339 mg/dl H 10/15/17 1752 Bedside Glucose 309 mg/dl H 10/15/17 1845 Bedside Glucose 286 mg/dl H 10/15/17 1947 Bedside Glucose 196 mg/dl H 10/15/17 2053 Bedside Glucose 155 mg/dl H 10/15/17 2150 Bedside Glucose 133 mg/dl H 10/15/17 2251 Bedside Glucose 89 mg/dl 10/15/17 2352 Bedside Glucose 139 mg/dl H 10/16/17 0033 Bedside Glucose 132 mg/dl H 10/16/17 0055 Bedside Glucose 145 mg/dl H 10/16/17 0108 Bedside Glucose 164 mg/dl H 10/16/17 0207 Random Glucose 154 mg/dl H 10/16/17 0303 Bedside Glucose 154 mg/dl H 10/16/17 0305 Bedside Glucose 174 mg/dl H 10/16/17 0408 Bedside Glucose 147 mg/dl H 10/16/17 0612 Bedside Glucose 171 mg/dl H 10/16/17 0701 Bedside Glucose 332 mg/dl H 10/16/17 0852 Bedside Glucose 333 mg/dl H 10/16/17 0954 Bedside Glucose 350 mg/dl H 10/16/17 1100 ASSESSMENT: * 67yo T2DM female with severe hyperglycemia secondary to infection & steroids * Insulin resistance may improve with the treatment of hypothyroidism * Pt initiated on IV insulin infusion yesterday. SQ basal bolus insulin also initiated at the time of the infusion to facilitate transitioning off of the drip as quickly as possible * IV insulin infusion has been running at 4-12 units/hr with Lantus 50 units on board. * BSGs well controlled until this morning; now back in the 300's. * Pt uses 140 units of insulin as an outpatient --> need to stress outpatient dose for steroids which correlates to a total daily dose of ~ 180 units/day. * More basal needed since current dosing is based on a total daily dose of ~ 100 units/day. * More carb coverage needed as the max carb ratio the drip uses per protocol is 1 unit for every 5g CHO consumed. PLAN FOR INPATIENT GLYCEMIC CONTROL: Change Sq insulin regimen based on estimated total daily dose of 180 units/day while on IV steroids. Transition off of IV insulin infusion when criteria met * Transition off of IV insulin infusion when criteria met: * May d/c IV insulin infusion when BSG <180 mg/dl AND IV insulin infusion rate is 1 unit/hr or below. Both criteria must be met in order to stop infusion. * Hold outpatient oral diabetes medications * Basal insulin * Lantus 45 units SQ BID * Bolus insulin * Nutritional / Prandial insulin per carb ratio of 1 unit per 3 grams CHO consumed while on IV insulin infusion, do not use CR per protocol (not aggressive enough) * NovoLog per scale ACHS or Q6hrs while NPO (when IV insulin infusion stopped) * Goal Range: Low 110 mg/dL - High 140 mg/dL * Correction Factor: 10 mg/dL/unit * Nutritional / Prandial insulin per carb ratio of 1 unit per 3 grams CHO consumed
[2017-10-16 14:10] LABS: PTT PATIENT 35.2 SECONDS (21.0-31.0)
[2017-10-16] MEDS ORDERED: DC IV INSULIN INFUSION SCH (16:00)
[2017-10-16] MEDS ORDERED: METOPROLOL TARTRATE 1 MG/ML VIAL IV STA (16:42)
[2017-10-16] MEDS ORDERED: HydrALAZINE HCL 20 MG/ML VIAL IV. PRN (16:45)
--- NOTE | 2017-10-16 17:02 | Progress Note ---
Subjective Date of Service: Oct 16, 2017. Subjective Pt evaluation today including: conversation w/ patient, conversation w/ family , physical exam, chart review, lab review, review of studies, conversation w/ oncology consultant, review of inpatient medication list Pain: controlled PO Intake: adequate feeling better no new complaint asked to remove the [place] cath Problem List Medical Problems: (1) Elevated troponin Status: Acute (2) Hyperglycemia Status: Acute (3) Hypertensive urgency Status: Acute Review of Systems Constitutional: No see HPI, No fever, No chills, No sweats, No weight loss, No weakness, No fatigue, No problem reported Eyes: No see HPI, No worsening of vision, No eye pain, No redness, No discharge , No diplopia, No problem reported ENT: No see HPI, No hearing loss, No unusual epistaxis, No nasal symptoms, No sore throat, No tinnitus, No dental problems, No trouble swallowing, No problem reported Respiratory: + shortness of breath, + dyspnea on exertion, + dyspnea at rest, No see HPI, No cough, No sputum, No wheezing, No hemoptysis, No problem reported Cardiac: No see HPI, No chest pain, No orthopnea, No PND, No edema, No claudication, No palpitations, No problem reported Breast: No see HPI, No breast lump, No change in shape, No nipple discharge, No breast pain, No problem reported Abdomen: No see HPI, No pain, No nausea, No vomiting, No diarrhea, No constipation, No GI bleeding, No problem reported Musculoskeletal: No see HPI, No joint pain, No muscle pain, No swelling, No calf pain, No problem reported Female : No see HPI, No dysuria, No urinary frequency, No hematuria, No incontinence, No abnormal vaginal bleeding, No vaginal discharge, No problem reported Neurologic: No see HPI, No memory loss, No paralysis, No weakness, No numbness/ tingling, No vertigo, No balance problems, No problem reported Psychiatric: No see HPI, No depression symptoms, No anhedonism, No anxiety, No insomnia, No substance abuse, No problem reported Heme: No see HPI, No abnormal bleeding/bruising, No clotting problems, No swollen lymph nodes, No night sweats, No problem reported Endo: No see HPI, No fatigue, No excessive thirst, No excessive urination, No problem reported Skin: No see HPI, No rash, No itch, No new/changing skin lesions, No color change, No bleeding, No problem reported Medications Current Inpatient Medications Medications (Trade) Dose Ordered Sig/Marcelo Route Start Time Stop Time Status Last Admin Dose Admin Budesonide (Pulmicort Respules 0.5MG/ 2ML Neb Soln) 0.5 mg BIDR INH 10/15/17 20:00 11/14/17 19:59 10/16/17 07:02 0.5 MG Methylprednisolone Sodium Succinate 20 mg/Syringe 0.32 ml @ 1.5 mls/min Q8H IV 10/15/17 12:00 11/14/17 11:59 10/16/17 12:03 1.5 MLS/MIN Azithromycin 500 mg/Dextrose 255 ml @ 125 mls/hr Q24H IV 10/16/17 09:00 10/22/17 08:59 10/16/17 10:09 125 MLS/HR Guaifenesin (Mucinex Contr Rel Tab) 600 mg Q12 PRN PO 10/15/17 09:15 11/14/17 09:14 Enoxaparin Sodium (Lovenox Inj) 40 mg Q24H SC 10/15/17 13:00 11/14/17 12:59 Future Hold 10/15/17 14:58 40 MG Acetaminophen (Tylenol Tab) 650 mg Q4H PRN PO 10/15/17 09:15 11/14/17 09:14 10/16/17 04:13 650 MG Al Hydrox/Mg Hydrox/Simethicone (Maalox Max Susp) 15 ml Q4H PRN PO 10/15/17 09:15 11/14/17 09:14 Magnesium Hydroxide (Milk Of Magnesia Susp) 30 ml Q12H PRN PO 10/15/17 09:15 11/14/17 09:14 Zolpidem Tartrate (Ambien Tab) 5 mg HSZ PRN PO 10/15/17 09:15 11/14/17 09:14 Ondansetron HCl (Zofran Inj) 4 mg Q6H PRN IV 10/15/17 09:15 11/14/17 09:14 Nitroglycerin (Nitrostat Tab) 0.4 mg UD PRN SL 10/15/17 09:15 11/14/17 09:14 Morphine Sulfate (MoRPHine SULFATE INJ) 2 mg Q30M PRN IV 10/15/17 09:15 10/29/17 09:14 Aspirin (Ecotrin Tab) 81 mg QAM PO 10/16/17 09:00 11/15/17 08:59 10/16/17 09:40 81 MG Polyethylene (Miralax Powder Packet) 17 gm DAILY PRN PO 10/15/17 09:15 11/14/17 09:14 Glucose (Glucose 40% Gel) 15-30 GRAMS 15 GRAMS... UD PRN PO 10/15/17 09:15 11/14/17 09:14 Glucose (Glucose Chew Tab) 4-8 Tablets 4 Tabl... UD PRN PO 10/15/17 09:15 11/14/17 09:14 Dextrose (Dextrose 50% 50ML Syringe) 25-50ML OF 50% DW IV FOR... UD PRN IV 10/15/17 09:15 11/14/17 09:14 10/16/17 00:10 25 ML Glucagon (Glucagon Inj) 1 mg UD PRN SQ 10/15/17 09:15 11/14/17 09:14 Miscellaneous Information (Consult Glycemic Management Pharmacy) 1 ea UD PRN N/A 10/15/17 09:51 11/14/17 09:50 Ceftriaxone Sodium 2000 mg/ Dextrose 70 ml @ 140 mls/hr Q24H IV 10/16/17 08:00 10/22/17 07:59 10/16/17 09:39 140 MLS/HR Metoprolol Succinate (Toprol Xl Tab) 12.5 mg BID PO 10/15/17 21:00 11/14/17 20:59 10/16/17 09:40 12.5 MG Furosemide 20 mg/ Syringe 2 ml @ 4 mls/min BID17 IV 10/15/17 17:00 11/14/17 16:59 10/16/17 09:39 4 MLS/MIN Insulin Aspart (novoLOG ASPART) SLIDING SCALE [facility] 10/15/17 12:00 11/14/17 12:59 10/16/17 12:02 15 UNITS Insulin Human Regular 250 units/ Sodium Chloride 252.5 ml @ 0 mls/hr Q24H IV 10/15/17 12:00 11/14/17 11:59 10/16/17 11:54 12.6 MLS/HR Ipratropium [place] (Atrovent 0.02% 0.5MG/2.5ML Neb) 0.5 mg Q6R INH 10/15/17 15:00 11/14/17 14:59 10/16/17 14:10 0.5 MG Levalbuterol (Xopenex 0.63 Mg/ 3 Ml Neb) 0.63 mg Q6R INH 10/15/17 15:00 11/14/17 14:59 10/16/17 14:10 0.63 MG Heparin Sodium/ Dextrose 500 ml @ 25 mls/hr Q20H IV 10/15/17 16:45 11/14/17 16:44 10/16/17 00:13 16 MLS/HR Miscellaneous Information (Dc Iv Insulin Infusion) 1 ea Q1H N/A 10/16/17 16:00 11/15/17 15:59 Insulin Aspart (novoLOG ASPART) SLIDING SCALE ACHS SC 10/16/17 21:00 11/15/17 20:59 Future Hold Insulin Glargine (Lantus Solostar Pen) 45 units BID SC 10/16/17 18:00 11/15/17 17:59 Objective Vital Signs Date Time Temp Pulse Resp B/P (MAP) Pulse Ox O2 Delivery O2 Flow Rate FiO2 10/16/17 15:07 36.7 98 25 190/98 (128) 93 Room Air 10/16/17 14:12 97 18 93 Room Air 10/16/17 12:00 Room Air 10/16/17 11:05 37.0 96 20 160/81 (107) 94 Room Air 10/16/17 08:00 Room Air 10/16/17 07:39 37.1 98 20 162/90 (114) 97 Nasal Cannula 2.5 10/16/17 07:05 96 20 97 Nasal Cannula 2.0 10/16/17 04:00 Nasal Cannula 2.0 100 10/16/17 03:18 37.0 94 28 164/89 (114) 96 10/16/17 02:28 95 18 98 Nasal Cannula 2.0 10/16/17 00:00 37.1 103 18 172/79 (110) 98 2.0 10/15/17 23:59 97 Nasal Cannula 2.0 100 10/15/17 20:00 Nasal Cannula 2.0 10/15/17 18:58 103 20 97 Nasal Cannula 2.0 10/15/17 18:44 37.3 101 24 163/82 (109) 97 Room Air Physical Exam General Appearance: WD/WN, + obese Eyes: normal inspection, EOMI ENT: normal ENT inspection, hearing grossly normal Neck: supple Respiratory/Chest: chest non-tender, + decreased breath sounds, + rales, + rhonchi, + wheezing Cardiovascular: regular rate, rhythm, no edema, + systolic murmur Abdomen: normal bowel sounds, non tender, soft, no organomegaly, no pulsatile mass Extremities: normal range of motion, non-tender, normal inspection, no pedal edema, no calf tenderness Neurologic/Psychiatric: kick press setter II-XII nml as tested, no motor/sensory deficits, alert, normal mood/affect, oriented x 3 Skin: normal color, warm/dry, no rash Laboratory Results Last 24 Hours Test 10/15/17 16:55 10/15/17 17:52 10/15/17 18:45 10/15/17 19:47 Bedside Glucose 267 mg/dl 339 mg/dl 309 mg/dl 286 mg/dl Test 10/15/17 20:51 10/15/17 20:53 10/15/17 21:50 10/15/17 22:51 Troponin I 24.700 ng/ml Bedside Glucose 196 mg/dl 155 mg/dl 133 mg/dl Test 10/15/17 23:18 10/15/17 23:52 10/16/17 00:33 10/16/17 00:55 Activated Partial Thromboplast Time 29.3 SECONDS Partial Thromboplastin Ratio 1.1 Free Thyroxine 0.79 ng/dl Free Triiodothyronine 1.86 pg/ml Bedside Glucose 89 mg/dl 139 mg/dl 132 mg/dl Test 10/16/17 01:08 10/16/17 02:07 10/16/17 03:03 10/16/17 03:05 Bedside Glucose 145 mg/dl 164 mg/dl 154 mg/dl White Blood Count 14.51 K/uL Red Blood Count 3.81 M/uL Hemoglobin 9.3 g/dL Hematocrit 30.4 % Mean Corpuscular Volume 79.8 fL Mean Corpuscular Hemoglobin 24.4 pg Mean Corpuscular Hemoglobin Concent 30.6 g/dl Platelet Count 521 K/uL Mean Platelet Volume 9.4 fL Neutrophils (%) (Auto) 85.5 % Lymphocytes (%) (Auto) 12.0 % Monocytes (%) (Auto) 2.1 % Eosinophils (%) (Auto) 0.0 % Basophils (%) (Auto) 0.1 % Neutrophils # (Auto) 12.42 K/uL Lymphocytes # (Auto) 1.74 K/uL Monocytes # (Auto) 0.30 K/uL Eosinophils # (Auto) 0.00 K/uL Basophils # (Auto) 0.01 K/uL RDW Standard Deviation 45.6 fL RDW Coefficient of Variation 15.6 % Immature Granulocyte % (Auto) 0.3 % Immature Granulocyte # (Auto) 0.04 K/uL Activated Partial Thromboplast Time 42.7 SECONDS Partial Thromboplastin Ratio 1.6 Sodium Level 136 mmol/L Potassium Level 4.0 mmol/L Chloride Level 103 mmol/L Carbon Dioxide Level 27 mmol/L Anion Gap 6.0 mmol/L Blood Urea Nitrogen 22 mg/dl Creatinine 1.26 mg/dl Est Creatinine Clear Calc Drug Dose 44.3 ml/min Estimated GFR () 50.7 Estimated GFR (Non- 43.7 BUN/Creatinine Ratio 17.5 Random Glucose 154 mg/dl Estimated Average Glucose 192 mg/dl Hemoglobin A1c 8.3 % Lactic Acid Level 1.3 mmol/L Calcium Level 8.5 mg/dl Phosphorus Level 2.6 mg/dl Magnesium Level 2.1 mg/dl Total Bilirubin 0.2 mg/dl Aspartate Amino Transf (AST/SGOT) 100 U/L Alanine Aminotransferase (ALT/SGPT) 29 U/L Alkaline Phosphatase 62 U/L Troponin I 20.100 ng/ml Total Protein 7.2 gm/dl Albumin 2.4 gm/dl Globulin 4.8 gm/dl Albumin/Globulin Ratio 0.5 Triglycerides Level 148 mg/dl Cholesterol Level 151 mg/dl HDL Cholesterol 38 mg/dl LDL Cholesterol, Calculated 83 mg/dl VLDL Cholesterol, Calculated 30 mg/dl Cholesterol/HDL Ratio 4.0 Test 10/16/17 04:08 10/16/17 06:05 10/16/17 06:12 10/16/17 07:01 Bedside Glucose 174 mg/dl 147 mg/dl 171 mg/dl Activated Partial Thromboplast Time 35.0 SECONDS Partial Thromboplastin Ratio 1.3 Test 10/16/17 08:45 10/16/17 08:52 10/16/17 09:54 10/16/17 11:00 Troponin I 14.100 ng/ml Bedside Glucose 332 mg/dl 333 mg/dl 350 mg/dl Test 10/16/17 12:14 10/16/17 13:16 10/16/17 13:40 10/16/17 14:02 Bedside Glucose 378 mg/dl 307 mg/dl 228 mg/dl Activated Partial Thromboplast Time 35.2 SECONDS Partial Thromboplastin Ratio 1.4 Test 10/16/17 15:04 10/16/17 16:03 Bedside Glucose 177 mg/dl 178 mg/dl Assessment and Plan 67 years old female with IDDM P/W one month of progressive SOB, lower ext swelling, 3 days fever and cough, an episode of PND at 2 am in the day of admission. found to have pneumonia and NSTEMI Assessment: Acute respiratory failure with hypoxemia secondary to below Acute CHF non specific NSTEMI Right mid to lower lung consolidation consistent with pneumonia Sepsis POA secondary to above Diabetes Mellitus insulin requiring New onset hypothyroidism HTN urgency plan: continue telemetry troponin is trending down from 31 to 14 today after a long discussion with her and her family, she agreed to cardiac cath in am NTG SL/topical prn cp consult cigar inspector appreciated increase metoprolol dose hydralazine prn sbp>180 continue CTX / Azithro / lactinex continue bronchodilators and steroids pain management repeat EKG prn chest pain hemoglobin A1c is 8.3 lipids showed LDL of 85 I/Os 2Decho continue gentle diuresis, with lasix 20mg bid control blood pressure, afterload and preload DVT prophylaxis Hold on treatment of TSH due to concurrent tachycardia
--- NOTE | 2017-10-16 17:14 | Cardiology Follow-Up ---
Subjective Date of Service: Oct 16, 2017. Pt evaluation today including: conversation w/ patient, conversation w/ family , physical exam, chart review, lab review, review of studies, review of inpatient medication list, conversation w/ attending History of Present Illness The patient feels better this morning and is anxious to go home. She states that her breathing is much better. She has an occasional cough. She has a good appetite. No chest pain. Social History Smoking Status: Never Smoker History of Alcohol Use: No Review of Systems Respiratory: + shortness of breath, + dyspnea on exertion, + dyspnea at rest, No see HPI, No cough, No sputum, No wheezing, No hemoptysis, No problem reported Cardiac: No see HPI, No chest pain, No orthopnea, No PND, No edema, No claudication, No palpitations, No problem reported Patient did not report subjective fevers or chills. Remainder of the review of systems in the [facility] Objective Vital Signs Past 12 Hours Date Time Temp Pulse Resp B/P (MAP) Pulse Ox O2 Delivery O2 Flow Rate FiO2 10/16/17 15:07 36.7 98 25 190/98 (128) 93 Room Air 10/16/17 14:12 97 18 93 Room Air 10/16/17 12:00 Room Air 10/16/17 11:05 37.0 96 20 160/81 (107) 94 Room Air 10/16/17 08:00 Room Air 10/16/17 07:39 37.1 98 20 162/90 (114) 97 Nasal Cannula 2.5 10/16/17 07:05 96 20 97 Nasal Cannula 2.0 Last Recorded Weight-Kilograms: 96.300 Intake & Output 8-Hour Column 10/16/17 10/17/17 10/17/17 16:00 00:00 08:00 Intake Total 1045 ml Output Total 1200 ml Balance -155 ml 24-Hour Column 10/17/17 08:00 Intake Total 1045 ml Output Total 1200 ml Balance -155 ml Physical Exam She is alert and oriented x3. Mood affect appear normal. She answered all questions appropriately. Obese HEENT: Sclerae are anicteric. Pupils are equal and reactive to light and accommodation. Extraocular movements were intact. Neuro: Cranial nerves intact Neck: Examination of the submandibular region did not reveal any significant lymphadenopathy. Carotids are palpable bilaterally and free of bruits on auscultation. There was no evidence of jugular venous distention. The thyroid was not enlarged. Lungs: Reduced breath sounds in the right base. Occasional expiratory bronchial breath sounds. There are no rales or wheezing. She has normal respiratory effort without use of accessory muscles. There is normal pulmonary excursion. Cardiac: The rhythm was regular. S1 and S2 were normal. There are no murmurs on examination. The PMI was not markedly displaced on palpation. Abdomen: The abdomen was soft and nontender. Extremities: Patient has bilateral radial pulses that are equal in intensity. There is no evidence cyanosis or clubbing. There was mild bilateral lower extremity peripheral edema. Skin: There are no rashes noted on examination today. Data Laboratory Results: Last 24 Hours Test 10/15/17 17:52 10/15/17 18:45 10/15/17 19:47 10/15/17 20:51 Bedside Glucose 339 mg/dl 309 mg/dl 286 mg/dl Troponin I 24.700 ng/ml Test 10/15/17 20:53 10/15/17 21:50 10/15/17 22:51 10/15/17 23:18 Bedside Glucose 196 mg/dl 155 mg/dl 133 mg/dl Activated Partial Thromboplast Time 29.3 SECONDS Partial Thromboplastin Ratio 1.1 Free Thyroxine 0.79 ng/dl Free Triiodothyronine 1.86 pg/ml Test 10/15/17 23:52 10/16/17 00:33 10/16/17 00:55 10/16/17 01:08 Bedside Glucose 89 mg/dl 139 mg/dl 132 mg/dl 145 mg/dl Test 10/16/17 02:07 10/16/17 03:03 10/16/17 03:05 10/16/17 04:08 Bedside Glucose 164 mg/dl 154 mg/dl 174 mg/dl White Blood Count 14.51 K/uL Red Blood Count 3.81 M/uL Hemoglobin 9.3 g/dL Hematocrit 30.4 % Mean Corpuscular Volume 79.8 fL Mean Corpuscular Hemoglobin 24.4 pg Mean Corpuscular Hemoglobin Concent 30.6 g/dl Platelet Count 521 K/uL Mean Platelet Volume 9.4 fL Neutrophils (%) (Auto) 85.5 % Lymphocytes (%) (Auto) 12.0 % Monocytes (%) (Auto) 2.1 % Eosinophils (%) (Auto) 0.0 % Basophils (%) (Auto) 0.1 % Neutrophils # (Auto) 12.42 K/uL Lymphocytes # (Auto) 1.74 K/uL Monocytes # (Auto) 0.30 K/uL Eosinophils # (Auto) 0.00 K/uL Basophils # (Auto) 0.01 K/uL RDW Standard Deviation 45.6 fL RDW Coefficient of Variation 15.6 % Immature Granulocyte % (Auto) 0.3 % Immature Granulocyte # (Auto) 0.04 K/uL Activated Partial Thromboplast Time 42.7 SECONDS Partial Thromboplastin Ratio 1.6 Sodium Level 136 mmol/L Potassium Level 4.0 mmol/L Chloride Level 103 mmol/L Carbon Dioxide Level 27 mmol/L Anion Gap 6.0 mmol/L Blood Urea Nitrogen 22 mg/dl Creatinine 1.26 mg/dl Est Creatinine Clear Calc Drug Dose 44.3 ml/min Estimated GFR () 50.7 Estimated GFR (Non- 43.7 BUN/Creatinine Ratio 17.5 Random Glucose 154 mg/dl Estimated Average Glucose 192 mg/dl Hemoglobin A1c 8.3 % Lactic Acid Level 1.3 mmol/L Calcium Level 8.5 mg/dl Phosphorus Level 2.6 mg/dl Magnesium Level 2.1 mg/dl Total Bilirubin 0.2 mg/dl Aspartate Amino Transf (AST/SGOT) 100 U/L Alanine Aminotransferase (ALT/SGPT) 29 U/L Alkaline Phosphatase 62 U/L Troponin I 20.100 ng/ml Total Protein 7.2 gm/dl Albumin 2.4 gm/dl Globulin 4.8 gm/dl Albumin/Globulin Ratio 0.5 Triglycerides Level 148 mg/dl Cholesterol Level 151 mg/dl HDL Cholesterol 38 mg/dl LDL Cholesterol, Calculated 83 mg/dl VLDL Cholesterol, Calculated 30 mg/dl Cholesterol/HDL Ratio 4.0 Test 10/16/17 06:05 10/16/17 06:12 10/16/17 07:01 10/16/17 08:45 Activated Partial Thromboplast Time 35.0 SECONDS Partial Thromboplastin Ratio 1.3 Bedside Glucose 147 mg/dl 171 mg/dl Troponin I 14.100 ng/ml Test 10/16/17 08:52 10/16/17 09:54 10/16/17 11:00 10/16/17 12:14 Bedside Glucose 332 mg/dl 333 mg/dl 350 mg/dl 378 mg/dl Test 10/16/17 13:16 10/16/17 13:40 10/16/17 14:02 10/16/17 15:04 Bedside Glucose 307 mg/dl 228 mg/dl 177 mg/dl Activated Partial Thromboplast Time 35.2 SECONDS Partial Thromboplastin Ratio 1.4 Test 10/16/17 16:03 10/16/17 16:42 Bedside Glucose 178 mg/dl EKG:Sinus rhythm. ST segments improved. Telemetry reviewed: NO arrhythmia Assessment and Plan 1. Dyspnea: Much improved. She diuresed over 2 liters. She was treated for pneumonia. I don't think she has any pulmonary vascular congestion. i think her diuretics could be stopped. 2. Elevated cardiac biomarkers: She had a sizeable injury based on her degree of troponin elevation. Her echocardiogram at the time of admission was essentially normal. The mechanism of her injury is still in question but based on her elevation she was treated for an ACS. No recurrent sx. Would continue aspirin and heparin for now. She will also continue the BB and should be on statin for her risk factors despite any VT. I discussed an angiogram with the patient and her family. This morning they would not agree to a procedure but later they seemed more interested. At this point we will plan for a catheterization in the morning. 3. Left ventricular hypertrophy: She has evidence of cardiac enlargement on her echocardiogram. She is also markedly hypertensive that time for initial evaluation. I suspect she has had some element of hypertension for long time and may require more aggressive treatment in this regard. 4. HTN: Still with elevated BP. Her lisinopril should be re-started. Will continue NTG for now.
[2017-10-16] MEDS ORDERED: NITROGLYCERIN 0.4 MG/HR PATCH TD ONE (17:15)
[2017-10-16] MEDS: INSULIN GLARGINE SOLOSTAR 100 UNITS/ML 3 ML PEN SC SCH (18:10)
[2017-10-16 20:50] LABS: PTT PATIENT 36.6 SECONDS (21.0-31.0)
[2017-10-16] MEDS ORDERED: INSULIN GLARGINE SOLOSTAR 100 UNITS/ML 3 ML PEN SC SCH ×2 (21:00)
[2017-10-17] VITALS (25 sets, daily range): BP systolic 141–168; BP diastolic 54–85; PULSE 87–108; TEMP 36.3–36.9; O2SAT 91–95; Ht 149.9 cm; Wt 93.9 kg
[2017-10-17] MEDS: IPRATROPIUM BROMIDE NEB SOLN 0.02% 2.5 ML VIAL INH SCH ×4 (01:42→19:13)
[2017-10-17] MEDS: LEVALBUTEROL 0.63MG/3 ML NEB INH SCH ×4 (01:43→19:13)
[2017-10-17 03:38] LABS: BASO % 0.1 %; BASO ABS # 0.02 K/uL (0-0.2); HEMATOCRIT 30.9 % (37-47); HEMOGLOBIN 9.6 g/dL (12.0-16.0); IG# 0.08 K/uL (0.00-0.02); LYMPH % 15.1 %; LYMPH ABS # 2.58 K/uL (1.2-3.4); MEAN CELL VOLUME 79.6 fL (80-100); MEAN CORPUSCULAR HEMOGLOBIN 24.7 pg (25-34); MEAN CORPUSCULAR HGB CONC 31.1 g/dl (32-36); MEAN PLATELET VOLUME 9.3 fL (7.4-10.4); MONO % 4.1 %; MONO ABS # 0.71 K/uL (0.11-0.59); NEUT % 80.2 %; NEUT ABS # 13.75 K/uL (1.4-6.5); PLATELET COUNT 535 K/uL (130-400); RED CELL DISTRIBUTION WIDTH CV 15.9 % (11.5-14.5); RED CELL DISTRIBUTION WIDTH SD 46.1 fL (36.4-46.3); WHITE BLOOD COUNT 17.14 K/uL (4.8-10.8)
[2017-10-17 03:58] LABS: ALBUMIN 2.4 gm/dl (3.4-5.0); CALCIUM 8.8 mg/dl (8.5-10.1); CREATININE 1.24 mg/dl (0.60-1.20)
[2017-10-17] MEDS: METHYLPREDNISOLONE IV 20 MG in SYRINGE 0 ML IV SCH ×3 (03:59→21:08)
[2017-10-17 04:04] LABS: TOTAL PROTEIN 7.1 gm/dl (6.4-8.2)
[2017-10-17] MEDS: BUDESONIDE 0.5 MG/2 ML VIAL (PULMICORT) INH SCH ×2 (06:52→19:13)
[2017-10-17] MEDS ORDERED: DC IV INSULIN INFUSION SCH (08:00)
[2017-10-17] MEDS: INSULIN ASPART 100 UNITS/ML 3 ML PEN SC SCH ×4 (08:00→21:10)
--- NOTE | 2017-10-17 08:16 | Pre Sedation Assessment ---
Pre Sedation Assessment General Date of Sedation: Oct 17, 2017. Vital Signs Past 12 Hours Date Time Temp Pulse Resp B/P (MAP) Pulse Ox O2 Delivery O2 Flow Rate FiO2 10/17/17 08:13 36.3 95 16 168/81 (110) 95 Room Air 10/17/17 06:54 93 18 94 Room Air 10/17/17 04:07 36.6 100 18 167/85 (112) 93 Room Air 10/17/17 04:00 Room Air 10/17/17 01:43 96 18 91 Room Air 10/17/17 00:05 36.6 89 18 149/74 (99) 94 Room Air 10/16/17 23:59 Room Air 10/16/17 20:28 91 18 94 Room Air Review Cardiovascular: regular rate, rhythm Pre-Sedation Airway Assessment Smoking Status: Never Smoker Hx of Sleep Apnea: No Hx of difficult intubation: No Short Thick Neck: No Thyro-mental Distance: > 3 Finger Breadths Oral Cavity: Dentures Mallampati Classification: Class III ASA Classification: Class III NPO Status Date of Last Intake of Fluids: Oct 17, 2017 Time of Last Intake of Fluids: 0000 Date of Last Intake of Solids: Oct 16, 2017 Time of Last Intake of Solids: 2000 Procedure Planning Contraindications for Sedation: None Current Medications Reviewed: Yes Notes The planned sedation has been discussed with the patient. Informed Consent was obtained. I have identified the patient, determined the appropriateness of sedation and have assessed the patient immediately prior to the procedure. All medicine(s) and interventions are by my order.
[2017-10-17] MEDS: CEFTRIAXONE SOD INJ 2,000 MG in DEXTROSE 5% 50ML 50 ML IV SCH (08:55)
[2017-10-17] MEDS: AZITHROMYCIN IV 500 MG in DEXTROSE 5% 250ML 250 ML IV SCH (08:55)
[2017-10-17] MEDS: METOPROLOL SUCC 25MG EXT REL TAB PO SCH ×2 (09:24→21:08)
[2017-10-17] MEDS: NITROGLYCERIN 0.4 MG/HR PATCH TD SCH (09:24)
[2017-10-17] MEDS: ASPIRIN 81 MG ECTAB PO SCH (09:25)
[2017-10-17] MEDS: INSULIN GLARGINE SOLOSTAR 100 UNITS/ML 3 ML PEN SC SCH ×2 (09:26→21:11)
[2017-10-17 09:32] LABS: PTT PATIENT 39.4 SECONDS (21.0-31.0)
[2017-10-17] MEDS ORDERED: ACETYLCYSTEINE 600 MG CAP PO STA (09:59)
[2017-10-17] MEDS ORDERED: MIDAZOLAM HCL 1 MG/ML 2ML VIAL ONE ×4 (10:28→12:24)
[2017-10-17] MEDS: FENTANYL CITRATE INJ 50 MCG/1 ML 2 ML VIAL ONE ×2 (10:28→12:11)
[2017-10-17] MEDS ORDERED: NiCARDipine HCL INJ 2.5 MG/ML 10 ML AMP ONE (10:29)
[2017-10-17] MEDS ORDERED: NITROGLYCERIN/D5W 100MCG/ML 20ML SYR ONE (10:29)
[2017-10-17] MEDS ORDERED: HEPARIN SOD (PORCINE) 1000 UNIT/ML 10 ML VIAL ONE (10:29)
[2017-10-17] MEDS ORDERED: LIDOCAINE HCL 1% 20 ML VIAL ONE (10:36)
--- NOTE | 2017-10-17 11:24 | Pharmacy Progress Note ---
Pharmacy Glycemic Short Note 2 Date of Service Oct 17, 2017. OUTPATIENT ANTIDIABETIC REGIMEN: * Premixed insulin: Novolin 70/30 insulin 70 units SQ BIDM * Metformin 1,000mg PO BIDM * A1c = 8.3% on 10/16/17 Test 10/16/17 12:14 10/16/17 13:16 10/16/17 14:02 10/16/17 15:04 Bedside Glucose 378 mg/dl (70-90) 307 mg/dl (70-90) 228 mg/dl (70-90) 177 mg/dl (70-90) Test 10/16/17 16:03 10/16/17 17:04 10/16/17 17:56 10/16/17 19:01 Bedside Glucose 178 mg/dl (70-90) 171 mg/dl (70-90) 198 mg/dl (70-90) 169 mg/dl (70-90) Test 10/16/17 19:58 10/16/17 21:00 10/16/17 21:33 10/16/17 21:46 Bedside Glucose 137 mg/dl (70-90) 92 mg/dl (70-90) 121 mg/dl (70-90) 96 mg/dl (70-90) Test 10/16/17 22:17 10/16/17 22:31 10/16/17 22:48 10/16/17 23:03 Bedside Glucose 192 mg/dl (70-90) 159 mg/dl (70-90) 130 mg/dl (70-90) 121 mg/dl (70-90) Test 10/16/17 23:33 10/17/17 00:00 10/17/17 00:57 10/17/17 01:57 Bedside Glucose 98 mg/dl (70-90) 100 mg/dl (70-90) 105 mg/dl (70-90) 103 mg/dl (70-90) Test 10/17/17 03:07 10/17/17 03:26 10/17/17 03:53 10/17/17 06:06 Bedside Glucose 106 mg/dl (70-90) 111 mg/dl (70-90) 140 mg/dl (70-90) Random Glucose 111 mg/dl (70-99) ASSESSMENT: 10/17/17 * Over the past 24 hours, insulin drip needs have changed significantly * BSGs dropped last evening and the drip was on hold from ~5382-6516 this AM. The overnight pharmacist had the nurse this AM resume the drip at 6 units/hr (~1 /2 of previously stable dose) when the BSG increased to goal range. * Insulin drip course so far today: * 0600 - 1030: 6 units/hr -> 4.4 units/hr -> hold * 1030 - 1300: on hold while in cardiac cath * 1300 - 1430: 2.2 units/hr (BSG 113, 140) * Insulin drip rates today are significantly less than yesterday, with a majority of the time having the insulin drip on hold * Will d/c insulin drip effective now * Will execute previous orders as planned except to add an overnight accucheck and provide a scale for a higher basal dose if necessary 10/16/17 * 67yo T2DM female with severe hyperglycemia secondary to infection & steroids * Insulin resistance may improve with the treatment of hypothyroidism * Pt initiated on IV insulin infusion yesterday. SQ basal bolus insulin also initiated at the time of the infusion to facilitate transitioning off of the drip as quickly as possible * IV insulin infusion has been running at 4-12 units/hr with Lantus 50 units on board. * BSGs well controlled until this morning; now back in the 300's. * Pt uses 140 units of insulin as an outpatient --> need to stress outpatient dose for steroids which correlates to a total daily dose of ~ 180 units/day. * More basal needed since current dosing is based on a total daily dose of ~ 100 units/day. * More carb coverage needed as the max carb ratio the drip uses per protocol is 1 unit for every 5g CHO consumed. PLAN FOR INPATIENT GLYCEMIC CONTROL: * Continue to hold outpatient oral diabetes medications * d/c insulin drip now * Basal insulin - continue BID dosing but add scale * Lantus 45 units SQ BID * Lantus 50 units SQ BID if BSG > 160 * Bolus insulin * NovoLog per scale ACHS or Q6hrs while NPO + 0200 check * Goal Range: Low 110 mg/dL - High 140 mg/dL * Correction Factor: 10 mg/dL/unit * Nutritional / Prandial insulin per carb ratio of 1 unit per 3 grams CHO consumed
--- NOTE | 2017-10-17 12:01 | [facility] Operative Report ---
Operative Report Date of Service Oct 17, 2017. Operative Report Procedure performed: Cardiac catheterization Staff sodium methylate operator: Luke Ch Indication: The patient is a 59-year-old woman who presents to the hospital with symptoms of dyspnea. She did have some element of chest pain is noted to have a market elevation of troponin consistent with non ST elevation myocardial infarction. Based on her symptoms and objective findings she was advised undergo coronary angiography today. Procedure in detail: The patient was informed of the risks benefits and alternatives to the intended procedure, he understood such an which proceed. He was taken to the cardiac catheterization suite in a fasting state. Conscious sedation was administered per protocol the patient was monitored electrocardiographically throughout today 's procedure. The right wrist area was prepped and draped in usual sterile fashion. This area was anesthetized using subcutaneous menstruation lidocaine solution. The right ulnar artery was then accessed using Seldinger technique, and a arterial sheath was placed at this site over a guidewire. The sheath was used to facilitate passage of the cardiac catheter for coronary angiography and left heart catheterization. Coronary angiogram was then obtained in multiple orthogonal views prior to removal of the catheter. At the conclusion of the procedure the sheath was removed and hemostasis was achieved at the access site using manual pressure. The patient tolerated procedure well, there were no immediate complications. Equipment used: 5 Serbian tiger 4 Findings: Opening aortic pressure: 157/76 Closing aortic pressure: 179/85 Coronary angiography: Left main: Left main was normal in size and caliber. It bifurcated into the LAD left circumflex and also produced a medium-sized ramus intermedius. There is no significant disease in left main Left anterior descending: Left anterior descending was a large transapical vessel. It had some distal disease which compromised the lumen 40-50% it produced a medium size 1st diagonal and a diminutive 2nd diagonal. There appeared to be some collateralization from the LAD to the PDA Ramus intermedius: The ramus intermedius was a medium-sized vessel it did appear to have disease at its ostium which likely compromise the lumen to 60-70% . Left circumflex: Left circumflex was a codominant vessel. It produced a large 1st OM system with luminal regularities. The 2nd OM with a large vessel with a fairly discrete 60-70% stenosis in its distal portion. Right coronary artery: Right coronary artery was a dominant vessel producing a small PDA. The overall vessel caliber was small. There were luminal regularities throughout its course and a discrete subtotal occlusion in its midportion at the site of an acute marginal prior to takeoff of the PDA. Impression: Hypertension Acute lesion involving the mid to distal right coronary artery Nonobstructive disease involving the left circumflex and ramus intermedius. I attest to the content of the Intraoperative Record and any orders documented therein. Any exceptions are noted below.
[2017-10-17] MEDS ORDERED: NITROGLYCERIN 2% OINTMENT 30GM TUBE EXT ONE (12:12)
--- NOTE | 2017-10-17 12:30 | Cardiology Follow-Up ---
Subjective Date of Service: Oct 17, 2017. Pt evaluation today including: conversation w/ patient, conversation w/ family , physical exam, chart review, lab review, review of studies, review of inpatient medication list, conversation w/ attending History of Present Illness She claims to be feeling well. No chest pain or other pain. Up in a chair yesterday. Breathing is good. Eating well. Social History Smoking Status: Never Smoker History of Alcohol Use: No Review of Systems Respiratory: + shortness of breath, + dyspnea on exertion, + dyspnea at rest Cardiac: No see HPI, No chest pain, No orthopnea, No PND, No edema, No claudication, No palpitations, No problem reported Patient did not report subjective fevers or chills. Remainder of the review of systems in the [facility] Objective Vital Signs Past 12 Hours Date Time Temp Pulse Resp B/P (MAP) Pulse Ox O2 Delivery O2 Flow Rate FiO2 10/17/17 12:10 89 16 144/78 (100) 96 Mask 3 10/17/17 11:48 36.7 94 19 158/81 (106) 94 Nasal Cannula 3.0 10/17/17 09:23 161/54 (89) 10/17/17 08:13 36.3 95 16 168/81 (110) 95 Room Air 10/17/17 08:00 Room Air 10/17/17 06:54 93 18 94 Room Air 10/17/17 04:07 36.6 100 18 167/85 (112) 93 Room Air 10/17/17 04:00 Room Air 10/17/17 01:43 96 18 91 Room Air Last Recorded Weight-Kilograms: 92.800 Physical Exam She is alert and oriented x3. Mood affect appear normal. She answered all questions appropriately. Obese HEENT: Sclerae are anicteric. Pupils are equal and reactive to light and accommodation. Extraocular movements were intact. Neuro: Cranial nerves intact Neck: Examination of the submandibular region did not reveal any significant lymphadenopathy. Carotids are palpable bilaterally and free of bruits on auscultation. There was no evidence of jugular venous distention. The thyroid was not enlarged. Lungs: Reduced breath sounds in the right base. Occasional expiratory bronchial breath sounds. There are no rales or wheezing. She has normal respiratory effort without use of accessory muscles. There is normal pulmonary excursion. Cardiac: The rhythm was regular. S1 and S2 were normal. There are no murmurs on examination. The PMI was not markedly displaced on palpation. Abdomen: The abdomen was soft and nontender. Extremities: Patient has bilateral radial pulses that are equal in intensity. There is no evidence cyanosis or clubbing. There was mild bilateral lower extremity peripheral edema. Skin: There are no rashes noted on examination today. Data Laboratory Results: Last 24 Hours Test 10/16/17 13:16 10/16/17 13:40 10/16/17 14:02 10/16/17 15:04 Bedside Glucose 307 mg/dl 228 mg/dl 177 mg/dl Activated Partial Thromboplast Time 35.2 SECONDS Partial Thromboplastin Ratio 1.4 Test 10/16/17 16:03 10/16/17 17:04 10/16/17 17:23 10/16/17 17:56 Bedside Glucose 178 mg/dl 171 mg/dl 198 mg/dl Troponin I 10.800 ng/ml Test 10/16/17 19:01 10/16/17 19:58 10/16/17 20:19 10/16/17 21:00 Bedside Glucose 169 mg/dl 137 mg/dl 92 mg/dl Activated Partial Thromboplast Time 36.6 SECONDS Partial Thromboplastin Ratio 1.4 Test 10/16/17 21:33 10/16/17 21:46 10/16/17 22:17 10/16/17 22:31 Bedside Glucose 121 mg/dl 96 mg/dl 192 mg/dl 159 mg/dl Test 10/16/17 22:48 10/16/17 23:03 10/16/17 23:33 10/17/17 00:00 Bedside Glucose 130 mg/dl 121 mg/dl 98 mg/dl 100 mg/dl Test 10/17/17 00:57 10/17/17 01:57 10/17/17 03:07 10/17/17 03:26 Bedside Glucose 105 mg/dl 103 mg/dl 106 mg/dl White Blood Count 17.14 K/uL Red Blood Count 3.88 M/uL Hemoglobin 9.6 g/dL Hematocrit 30.9 % Mean Corpuscular Volume 79.6 fL Mean Corpuscular Hemoglobin 24.7 pg Mean Corpuscular Hemoglobin Concent 31.1 g/dl Platelet Count 535 K/uL Mean Platelet Volume 9.3 fL Neutrophils (%) (Auto) 80.2 % Lymphocytes (%) (Auto) 15.1 % Monocytes (%) (Auto) 4.1 % Eosinophils (%) (Auto) 0.0 % Basophils (%) (Auto) 0.1 % Neutrophils # (Auto) 13.75 K/uL Lymphocytes # (Auto) 2.58 K/uL Monocytes # (Auto) 0.71 K/uL Eosinophils # (Auto) 0.00 K/uL Basophils # (Auto) 0.02 K/uL RDW Standard Deviation 46.1 fL RDW Coefficient of Variation 15.9 % Immature Granulocyte % (Auto) 0.5 % Immature Granulocyte # (Auto) 0.08 K/uL Activated Partial Thromboplast Time 49.0 SECONDS Partial Thromboplastin Ratio 1.9 Sodium Level 138 mmol/L Potassium Level 4.0 mmol/L Chloride Level 104 mmol/L Carbon Dioxide Level 31 mmol/L Anion Gap 3.0 mmol/L Blood Urea Nitrogen 31 mg/dl Creatinine 1.24 mg/dl Est Creatinine Clear Calc Drug Dose 44.2 ml/min Estimated GFR () 51.7 Estimated GFR (Non- 44.6 BUN/Creatinine Ratio 24.8 Random Glucose 111 mg/dl Calcium Level 8.8 mg/dl Total Bilirubin 0.3 mg/dl Aspartate Amino Transf (AST/SGOT) 46 U/L Alanine Aminotransferase (ALT/SGPT) 26 U/L Alkaline Phosphatase 55 U/L Troponin I 10.700 ng/ml Total Protein 7.1 gm/dl Albumin 2.4 gm/dl Globulin 4.7 gm/dl Albumin/Globulin Ratio 0.5 Test 10/17/17 03:53 10/17/17 06:06 10/17/17 07:20 10/17/17 08:18 Bedside Glucose 111 mg/dl 140 mg/dl 135 mg/dl 112 mg/dl Test 10/17/17 09:08 10/17/17 09:20 10/17/17 10:23 Activated Partial Thromboplast Time 39.4 SECONDS Partial Thromboplastin Ratio 1.5 Troponin I 9.240 ng/ml Bedside Glucose 108 mg/dl 96 mg/dl Telemetry reviewed: no significant arrhythmia Cardiac cath: Acute right coronary lesion. Nonobstructive disease in the left coronary circulation. Assessment and Plan 1. Dyspnea: Much improved. She diuresed over 2 liters. She was treated for pneumonia. I don't think she has any pulmonary vascular congestion. i think her diuretics could be stopped. 2. NSTEMI: Coronary angiography revealed an acute right coronary lesion. She did in fact have an acute coronary syndrome associated with her initial presentation. Patient will need to be on dual anti-platelet therapy, continue beta-eileen, aggressive control of her hypertension and start high-dose atorvastatin. 3. Left ventricular hypertrophy: She has evidence of cardiac enlargement on her echocardiogram. She is also markedly hypertensive that time for initial evaluation. I suspect she has had some element of hypertension for long time and may require more aggressive treatment in this regard. 4. HTN: Still with elevated BP. Her lisinopril should be re-started perhaps at a higher dose.
--- NOTE | 2017-10-17 12:34 | Post Sedation Assessment ---
Post Sedation Assessment General Date of Sedation Oct 17, 2017. Vital Signs: Vital Signs Past 12 Hours Date Time Temp Pulse Resp B/P (MAP) Pulse Ox O2 Delivery O2 Flow Rate FiO2 10/17/17 12:30 86 16 132/75 (94) 97 Mask 3 10/17/17 12:20 85 16 155/88 (110) 97 Mask 3 10/17/17 12:10 89 16 144/78 (100) 96 Mask 3 10/17/17 11:48 36.7 94 19 158/81 (106) 94 Nasal Cannula 3.0 10/17/17 09:23 161/54 (89) 10/17/17 08:13 36.3 95 16 168/81 (110) 95 Room Air 10/17/17 08:00 Room Air 10/17/17 06:54 93 18 94 Room Air 10/17/17 04:07 36.6 100 18 167/85 (112) 93 Room Air 10/17/17 04:00 Room Air 10/17/17 01:43 96 18 91 Room Air Post Procedure Recovery Score Activity: (2) Moves 4 extremities * Respiration: (2) Deep breath/cough Circulation: (2) +/-20% PreAnes Value Consciousness: (2) Fully Awake Oxygen Saturation: (1) O2 needed for >90% Post Anesthesia Score: 9 Discharge Sedation Level of Care: Fast Track Phase II Post Sedation Plan On clinical assessment, the patient appears to have tolerated the sedation without complications. Patient is recovering as anticipated. Patient will continue to be monitored by nursing and may be discharged when sedation discharge criteria are met per below protocol. Upon Completions of procedure and additional 15 minutes continue every 5 minute vital signs and the P.A.R. score; then discharge to a Phase I or Fast Track to Phase II per the following guidelines: * Discharge Patient to appropriate Phase II area if PAR is 8 or greater or return to pre- procedure baseline. The post - procedure orders will be as directed. * If PAR score is less than 8 or not return to pre-procedure baseline then patient will follow Phase I monitoring till PAR is reached for Phase II. The Phase I may be done in procedure room or may call to secure a Phase I area. * If naloxone or flumazenil are used for reversal, hold in Phase I for an additional 60 -120 minutes before discharge to Phase II. Please call the Sedation Physician to re-evaluate and complete post-note for discharge to Phase II area. Do NOT discharge from procedure sedation or Phase 1 until post- sedation evaluation note is complete by procedure /sedation MD Sedation Discharge Instructions to be given to the patient at discharge to home.
--- NOTE | 2017-10-17 12:36 | [facility] Post Operative Brief Note ---
Preliminary Procedure Note Procedure Date Oct 17, 2017. Pre-Procedure Diagnosis Non STEMI AUC Score 8 Post-Procedure Diagnosis Severe CAD, Successful PCI Procedure(s) Performed Drug Eluting Stent Jig Grinder John Workplace Relations Adviser(s) Rich Estimated Blood Loss 10 Medication(s) Fentanyl, Heparin, Nicardipine, Nitroglycerin, Versed Preliminary Findings For full details of patient's coronary angiography please cath report dictated by Dr. Ch. Briefly, patient found to have multi-vessel disease including a 99% stenosis involving the mid RCA. Decision to proceed with PCI of RCA Successful PCI of mid RCA with single ALLYSSA (2.25 x 15 [place]). Recommendations Medical therapy and/or Counseling, PCI without planned CABG Specimens None Drains None Anesthesia Moderate Procedural Complication(s) None Disposition PCU
[2017-10-17] MEDS ORDERED: CLOPIDOGREL BISULFATE 300 MG TAB PO ONE (12:38)
[2017-10-17] MEDS ORDERED: SODIUM CHLORIDE 0.9% 1000ML 1,000 ML IV SCH (12:45)
--- NOTE | 2017-10-17 14:39 | Cardiac Catheterization ---
Procedure Note Procedure Date Oct 17, 2017. Pre-Procedure Diagnosis Non STEMI, Valvular Disease AUC Score 8 Post-Procedure Diagnosis Severe CAD Procedure(s) Performed Drug Eluting Stent Natural Resource Specialist John Shoemaking Cutter(s) Rich Estimated Blood Loss 10 Medication(s) Fentanyl, Heparin, Nicardipine, Nitroglycerin, Versed, Lidocaine 1% Summary of Findings Indication: NSTEMI Access: 6Fr right radial artery Catheters: 5Fr JR4 guide Findings: For full details of patient's coronary angiography please cath report dictated by Dr. Ch. Briefly, patient found to have multi-vessel disease including a 99% stenosis involving the mid RCA. Decision to proceed with PCI. -- PCI -- Antithrombotic therapy: Heparin, Clopidogrel Procedure: RCA cannulated with 5Fr JR4 guide Lpta 50 wire passed across lesion into distal vessel Mid RCA lesion predilated with 2.0 compliant balloon Dilated lesion stented with 2.25 x 15 [place] ALLYSSA Stent post-dilated with stent balloon IC vasodilators administered for spasm Post procedure LEONEL 3 flow, stent well expanded with minimal residual stenosis and no apparent cardiac complications. Arterial Closure: TR Band Summary: 1. Successful PCI of mid RCA with single ALLYSSA (2.25 x 15 Arjun) Recommendations: To PCU for continued monitoring Loaded with Clopidogrel 600mg in lab manager Continue dual-antiplatelet therapy for at least 1 year Continue statin, and ASCVD risk factor modification Consult cardiac Rehab Hemodynamics Rest Ao: 180/86/127 Final Ao: 124/41/79 LV: -- Recommendations PCI without planned CABG Specimens None Radiation Exposure (mGy) 2780 Contrast (mls) 115 Visi Fluids (cc crystalloids) 57 Drains None Anesthesia Moderate Procedural Complication(s) None Disposition PCU ACC Data Cardiac Status Clinical evaluation leading to the procedure CAD Presntation: Non STEMI Anginal Classification: CCS III Heart Failure: No Cardiogenic Shock w/in 24Hrs: No Cardiac Arrest w/in 24Hrs: No Imaging studies past 6 months: Yes Stress studies past 6 months: No Closure Device Percutaneous Entry Location: Radial Closure Device: Radial Band Recommendations: PCI without planned CABG PCI Indication: PCI for high risk Non-STEMI Lesion Segment Name: Mid RCA Culprit Artery: Yes Stenosis Prior to Rx (%): 99 Chronic Total Occlusion: No IVUS: No FFR: No Pre-Procedure LEONEL Flow: 3 Previously Treated Lesion: No Lesion Complexity: Non-High/Non-C Lesion Length (mm): 10 Thrombus Present: No Bifurcation Lesion: No Guidewire Across Lesion: Yes Guidewire: Stenosis Post-Procedure (%): 0 Post-Procedure LEONEL Flow: 3 Device(s) Deployed: Yes Intraprocedure Events Significant Dissection: No Perforation: No
--- NOTE | 2017-10-17 14:40 | Progress Note ---
Subjective Date of Service: Oct 17, 2017. Subjective Pt evaluation today including: conversation w/ patient, conversation w/ family , physical exam, chart review, lab review, review of inpatient medication list Pain: Controlled PO Intake: Adequate Voiding: no voiding problems Yesterday patient was resistant to having cardiac catheterization, After explaining the consequences of not doing the cardiac cath, patient agreed to have her cardiac catheterization done. Problem List Medical Problems: (1) Elevated troponin Status: Acute (2) Hyperglycemia Status: Acute (3) Hypertensive urgency Status: Acute Review of Systems Review of system Constitutional: No fever / no chills / no sweats / no weakness / no fatigue Eyes: no blurring of vision / no eye pain / no discharge / no redness ENT: no hearing loss / no epistaxis /no swallowing problems Respiratory: no cough / no wheezing /positive for shortness of breath Cardiovascular: no Chest pain / no lower extremity edema / no palpitation Abdomen: no pain / no nausea / no vomiting / no constipation Musculoskeletal: no joint pain / no muscle pain / no joint swelling Genitourinary: no dysuria / no incontinence / no urinary retention Neurologic: no focal weakness / no numbness/tingling / no ataxia Psychiatric: no depression symptoms / no anxiety / no insomnia Endocrine: no excessive thirst / no excessive urination Hematologic: no abnormal bleeding / no bruising / no LN swelling Skin: No rash / no pallor Objective Vital Signs Date Time Temp Pulse Resp B/P (MAP) Pulse Ox O2 Delivery O2 Flow Rate FiO2 10/17/17 14:29 89 18 92 Nasal Cannula 2.0 10/17/17 13:00 Room Air 10/17/17 12:30 86 16 132/75 (94) 97 Mask 3 10/17/17 12:20 85 16 155/88 (110) 97 Mask 3 10/17/17 12:10 89 16 144/78 (100) 96 Mask 3 10/17/17 11:48 36.7 94 19 158/81 (106) 94 Nasal Cannula 3.0 10/17/17 09:23 161/54 (89) 10/17/17 08:13 36.3 95 16 168/81 (110) 95 Room Air 10/17/17 08:00 Room Air 10/17/17 06:54 93 18 94 Room Air 10/17/17 04:07 36.6 100 18 167/85 (112) 93 Room Air 10/17/17 04:00 Room Air 10/17/17 01:43 96 18 91 Room Air 10/17/17 00:05 36.6 89 18 149/74 (99) 94 Room Air 10/16/17 23:59 Room Air 10/16/17 20:28 91 18 94 Room Air 10/16/17 20:00 Room Air 10/16/17 18:45 36.7 94 25 167/84 (111) 92 Room Air 10/16/17 18:08 108 10/16/17 16:00 Room Air 10/16/17 15:07 36.7 98 25 190/98 (128) 93 Room Air Physical Exam Comments: Physical examination General patient appears to be comfortable, not in acute distress, morbidly obese HEENT: Atraumatic , normocephalic /no jaundice /no pallor /anicteric /no dry mucous membrane /normal external ear inspection Neck: Supple /no swelling /central trach Heart: S1/S2 normal/regular rate and rhythm/no gallop /no rub /no murmur Lungs: Clear to auscultation bilaterally/normal chest with expansion/no rhonchi/ no rales/no wheezing/no use of accessory muscles of respiration Abdomen: Soft/nontender/no guarding/no rebound/no organomegaly/no pulsatile mass Musculoskeletal: No swelling/no edema/no tenderness/normal range of motion Neuro exam: Awake alert oriented 3/cranial nerves II through XII appear to be intact/sensation intact/moves all extremities/no abnormal movements Psychiatric evaluation: No depressed mood/normal affect Skin: No rash on exposed skin area/no erythema Extremity: Normal pulse/no pitting edema/no clubbing or cyanosis Endocrine/lymphatic: No obvious lymphadenopathy /no lymphedema Laboratory Results Last 24 Hours Test 10/16/17 15:04 10/16/17 16:03 10/16/17 17:04 10/16/17 17:23 Bedside Glucose 177 mg/dl 178 mg/dl 171 mg/dl Troponin I 10.800 ng/ml Test 10/16/17 17:56 10/16/17 19:01 10/16/17 19:58 10/16/17 20:19 Bedside Glucose 198 mg/dl 169 mg/dl 137 mg/dl Activated Partial Thromboplast Time 36.6 SECONDS Partial Thromboplastin Ratio 1.4 Test 10/16/17 21:00 10/16/17 21:33 10/16/17 21:46 10/16/17 22:17 Bedside Glucose 92 mg/dl 121 mg/dl 96 mg/dl 192 mg/dl Test 10/16/17 22:31 10/16/17 22:48 10/16/17 23:03 10/16/17 23:33 Bedside Glucose 159 mg/dl 130 mg/dl 121 mg/dl 98 mg/dl Test 10/17/17 00:00 10/17/17 00:57 10/17/17 01:57 10/17/17 03:07 Bedside Glucose 100 mg/dl 105 mg/dl 103 mg/dl 106 mg/dl Test 10/17/17 03:26 10/17/17 03:53 10/17/17 06:06 10/17/17 07:20 White Blood Count 17.14 K/uL Red Blood Count 3.88 M/uL Hemoglobin 9.6 g/dL Hematocrit 30.9 % Mean Corpuscular Volume 79.6 fL Mean Corpuscular Hemoglobin 24.7 pg Mean Corpuscular Hemoglobin Concent 31.1 g/dl Platelet Count 535 K/uL Mean Platelet Volume 9.3 fL Neutrophils (%) (Auto) 80.2 % Lymphocytes (%) (Auto) 15.1 % Monocytes (%) (Auto) 4.1 % Eosinophils (%) (Auto) 0.0 % Basophils (%) (Auto) 0.1 % Neutrophils # (Auto) 13.75 K/uL Lymphocytes # (Auto) 2.58 K/uL Monocytes # (Auto) 0.71 K/uL Eosinophils # (Auto) 0.00 K/uL Basophils # (Auto) 0.02 K/uL RDW Standard Deviation 46.1 fL RDW Coefficient of Variation 15.9 % Immature Granulocyte % (Auto) 0.5 % Immature Granulocyte # (Auto) 0.08 K/uL Activated Partial Thromboplast Time 49.0 SECONDS Partial Thromboplastin Ratio 1.9 Sodium Level 138 mmol/L Potassium Level 4.0 mmol/L Chloride Level 104 mmol/L Carbon Dioxide Level 31 mmol/L Anion Gap 3.0 mmol/L Blood Urea Nitrogen 31 mg/dl Creatinine 1.24 mg/dl Est Creatinine Clear Calc Drug Dose 44.2 ml/min Estimated GFR () 51.7 Estimated GFR (Non- 44.6 BUN/Creatinine Ratio 24.8 Random Glucose 111 mg/dl Calcium Level 8.8 mg/dl Total Bilirubin 0.3 mg/dl Aspartate Amino Transf (AST/SGOT) 46 U/L Alanine Aminotransferase (ALT/SGPT) 26 U/L Alkaline Phosphatase 55 U/L Troponin I 10.700 ng/ml Total Protein 7.1 gm/dl Albumin 2.4 gm/dl Globulin 4.7 gm/dl Albumin/Globulin Ratio 0.5 Bedside Glucose 111 mg/dl 140 mg/dl 135 mg/dl Test 10/17/17 08:18 10/17/17 09:08 10/17/17 09:20 10/17/17 10:23 Bedside Glucose 112 mg/dl 108 mg/dl 96 mg/dl Activated Partial Thromboplast Time 39.4 SECONDS Partial Thromboplastin Ratio 1.5 Troponin I 9.240 ng/ml Test 10/17/17 11:30 10/17/17 11:36 10/17/17 11:56 10/17/17 12:26 Bedside Glucose 89 mg/dl 100 mg/dl Kaolin Activated Coagulation Time 142 SECONDS 197 SECONDS Test 10/17/17 13:00 Bedside Glucose 113 mg/dl Assessment and Plan 67 years old female with IDDM P/W one month of progressive SOB, lower ext swelling, 3 days fever and cough, an episode of PND at 2 am in the day of admission. found to have pneumonia and NSTEMI Assessment: Acute respiratory failure with hypoxemia secondary to below Acute CHF non specific NSTEMI Right mid to lower lung consolidation consistent with pneumonia Sepsis POA secondary to above Diabetes Mellitus insulin requiring New onset hypothyroidism HTN urgency plan: continue telemetry Status post Successful PCI of mid RCA with single ALLYSSA (2.25 x 15 Arjun). troponin is trending down NTG SL/topical prn cp consult multimedia educational specialist appreciated increased metoprolol dose hydralazine prn sbp>180 continue CTX / Azithro / lactinex continue bronchodilators and steroids pain management repeat EKG prn chest pain hemoglobin A1c is 8.3 lipids showed LDL of 85 I/Os 2Decho continue gentle diuresis, with lasix 20mg bid control blood pressure, afterload and preload DVT prophylaxis Hold on treatment of TSH due to concurrent tachycardia We will start low dose of Synthroid in am
[2017-10-17] MEDS: ACETYLCYSTEINE 600 MG CAP PO SCH (21:08)
[2017-10-18] MEDS: LEVALBUTEROL 0.63MG/3 ML NEB INH SCH ×2 (01:51→07:08)
[2017-10-18] MEDS: IPRATROPIUM BROMIDE NEB SOLN 0.02% 2.5 ML VIAL INH SCH ×2 (01:51→07:08)
[2017-10-18 01:53] VITALS: PULSE 89; O2SAT 94
[2017-10-18] MEDS ORDERED: INSULIN ASPART 100 UNITS/ML 3 ML PEN SC ONE (02:00)
[2017-10-18] MEDS ORDERED: NURSING VERBAL MED ORDER ONE ×3 (02:30→10:30)
[2017-10-18] MEDS: METHYLPREDNISOLONE IV 20 MG in SYRINGE 0 ML IV SCH ×2 (04:20→11:46)
[2017-10-18 04:35] VITALS: BP 158/90; PULSE 92; TEMP 36.7; O2SAT 96
[2017-10-18] MEDS ORDERED: LEVOTHYROXINE 50 MCG TAB PO SCH (06:00)
[2017-10-18 06:35] LABS: BASO % 0.1 %; BASO ABS # 0.01 K/uL (0-0.2); HEMATOCRIT 30.5 % (37-47); HEMOGLOBIN 9.3 g/dL (12.0-16.0); IG# 0.08 K/uL (0.00-0.02); LYMPH % 17.6 %; LYMPH ABS # 2.49 K/uL (1.2-3.4); MEAN CELL VOLUME 79.6 fL (80-100); MEAN CORPUSCULAR HEMOGLOBIN 24.3 pg (25-34); MEAN CORPUSCULAR HGB CONC 30.5 g/dl (32-36); MEAN PLATELET VOLUME 9.4 fL (7.4-10.4); MONO % 5.5 %; MONO ABS # 0.77 K/uL (0.11-0.59); NEUT % 76.2 %; NEUT ABS # 10.77 K/uL (1.4-6.5); NUCLEATED RED BLOOD CELL ABS 0.02 K/uL (0-0); PLATELET COUNT 546 K/uL (130-400); PTT PATIENT 21.9 SECONDS (21.0-31.0); RED CELL DISTRIBUTION WIDTH SD 46.5 fL (36.4-46.3); WHITE BLOOD COUNT 14.12 K/uL (4.8-10.8)
[2017-10-18 07:07] LABS: ALBUMIN 2.5 gm/dl (3.4-5.0); CALCIUM 8.1 mg/dl (8.5-10.1); CREATININE 1.34 mg/dl (0.60-1.20); POTASSIUM 4.3 mmol/L (3.5-5.1); TOTAL PROTEIN 6.7 gm/dl (6.4-8.2)
[2017-10-18 07:08] VITALS: PULSE 81; O2SAT 95
[2017-10-18] MEDS: BUDESONIDE 0.5 MG/2 ML VIAL (PULMICORT) INH SCH (07:08)
[2017-10-18 07:55] VITALS: BP 136/60; PULSE 81; TEMP 36.5; O2SAT 97
[2017-10-18] MEDS: METOPROLOL SUCC 25MG EXT REL TAB PO SCH (07:58)
[2017-10-18] MEDS: ACETYLCYSTEINE 600 MG CAP PO SCH (07:58)
[2017-10-18] MEDS: ASPIRIN 81 MG ECTAB PO SCH (07:58)
[2017-10-18] MEDS: NITROGLYCERIN 0.4 MG/HR PATCH TD SCH (07:58)
[2017-10-18] MEDS: CEFTRIAXONE SOD INJ 2,000 MG in DEXTROSE 5% 50ML 50 ML IV SCH (07:59)
[2017-10-18] MEDS: INSULIN ASPART 100 UNITS/ML 3 ML PEN SC SCH ×2 (08:02→11:48)
[2017-10-18] MEDS: INSULIN GLARGINE SOLOSTAR 100 UNITS/ML 3 ML PEN SC SCH (08:03)
[2017-10-18] MEDS: AZITHROMYCIN IV 500 MG in DEXTROSE 5% 250ML 250 ML IV SCH (08:50)
[2017-10-18] MEDS ORDERED: ATORVASTATIN 40 MG TAB PO SCH (09:00)
[2017-10-18] MEDS ORDERED: CLOPIDOGREL BISULFATE 75 MG TAB PO SCH (09:00)
--- NOTE | 2017-10-18 09:40 | Cardiology Follow-Up ---
Subjective Date of Service: Oct 18, 2017. Pt evaluation today including: conversation w/ patient, conversation w/ family , physical exam, chart review, lab review, review of studies, review of inpatient medication list History of Present Illness No pain at the ulnar access site. No breathing difficulty. Occasional cough. No chest pain. Ambulatory to the commode without dizziness or other symptoms. She is anxious to go home. Social History Smoking Status: Never Smoker History of Alcohol Use: No Review of Systems Respiratory: + shortness of breath, + dyspnea on exertion, + dyspnea at rest Cardiac: No see HPI, No chest pain, No orthopnea, No PND, No edema, No claudication, No palpitations, No problem reported Patient did not report subjective fevers or chills. Remainder of the review of systems in the HPI Objective Vital Signs Past 12 Hours Date Time Temp Pulse Resp B/P (MAP) Pulse Ox O2 Delivery O2 Flow Rate FiO2 10/18/17 07:55 36.5 81 20 136/60 (85) 97 Room Air 10/18/17 07:08 81 18 95 Room Air 10/18/17 04:35 36.7 92 20 158/90 (112) 96 Room Air 10/18/17 04:00 Room Air 10/18/17 01:53 89 18 94 Room Air 10/17/17 23:59 Room Air 10/17/17 23:48 36.7 91 20 163/78 (106) 94 Room Air Last Recorded Weight-Kilograms: 93.900 Physical Exam She is alert and oriented x3. Mood affect appear normal. She answered all questions appropriately. Obese HEENT: Sclerae are anicteric. Pupils are equal and reactive to light and accommodation. Extraocular movements were intact. Neuro: Cranial nerves intact. Lungs: Reduced breath sounds in the right base. Occasional expiratory bronchial breath sounds. There are no rales or wheezing. She has normal respiratory effort without use of accessory muscles. There is normal pulmonary excursion. Cardiac: The rhythm was regular. S1 and S2 were normal. There are no murmurs on examination. The PMI was not markedly displaced on palpation. Abdomen: The abdomen was soft and nontender. Extremities: Patient has bilateral radial pulses that are equal in intensity. There is no evidence cyanosis or clubbing. There was mild bilateral lower extremity peripheral edema. The right wrist access site has some mild ecchymosis but the digits are warm. No significant swelling. Skin: There are no rashes noted on examination today. Data Laboratory Results: Last 24 Hours Test 10/17/17 10:23 10/17/17 11:30 10/17/17 11:36 10/17/17 11:56 Bedside Glucose 96 mg/dl 89 mg/dl Kaolin Activated Coagulation Time 142 SECONDS 197 SECONDS Test 10/17/17 12:26 10/17/17 13:00 10/17/17 14:00 10/17/17 15:00 Bedside Glucose 100 mg/dl 113 mg/dl 148 mg/dl Troponin I 7.940 ng/ml Test 10/17/17 16:26 10/17/17 20:00 10/17/17 20:46 10/18/17 02:09 Bedside Glucose 255 mg/dl 355 mg/dl 145 mg/dl Troponin I 6.520 ng/ml Test 10/18/17 05:26 10/18/17 06:56 White Blood Count 14.12 K/uL Red Blood Count 3.83 M/uL Hemoglobin 9.3 g/dL Hematocrit 30.5 % Mean Corpuscular Volume 79.6 fL Mean Corpuscular Hemoglobin 24.3 pg Mean Corpuscular Hemoglobin Concent 30.5 g/dl Platelet Count 546 K/uL Mean Platelet Volume 9.4 fL Neutrophils (%) (Auto) 76.2 % Lymphocytes (%) (Auto) 17.6 % Monocytes (%) (Auto) 5.5 % Eosinophils (%) (Auto) 0.0 % Basophils (%) (Auto) 0.1 % Neutrophils # (Auto) 10.77 K/uL Lymphocytes # (Auto) 2.49 K/uL Monocytes # (Auto) 0.77 K/uL Eosinophils # (Auto) 0.00 K/uL Basophils # (Auto) 0.01 K/uL RDW Standard Deviation 46.5 fL RDW Coefficient of Variation 16.0 % Immature Granulocyte % (Auto) 0.6 % Immature Granulocyte # (Auto) 0.08 K/uL Nucleated RBC Absolute Count (auto) 0.02 K/uL Nucleated Red Blood Cells % 0.2 % Activated Partial Thromboplast Time 21.9 SECONDS Partial Thromboplastin Ratio 0.8 Sodium Level 139 mmol/L Potassium Level 4.3 mmol/L Chloride Level 107 mmol/L Carbon Dioxide Level 26 mmol/L Anion Gap 7.0 mmol/L Blood Urea Nitrogen 33 mg/dl Creatinine 1.34 mg/dl Est Creatinine Clear Calc Drug Dose 40.3 ml/min Estimated GFR () 47.1 Estimated GFR (Non- 40.6 BUN/Creatinine Ratio 24.4 Random Glucose 138 mg/dl Calcium Level 8.1 mg/dl Magnesium Level 2.3 mg/dl Total Bilirubin 0.1 mg/dl Aspartate Amino Transf (AST/SGOT) 46 U/L Alanine Aminotransferase (ALT/SGPT) 30 U/L Alkaline Phosphatase 56 U/L Total Protein 6.7 gm/dl Albumin 2.5 gm/dl Globulin 4.2 gm/dl Albumin/Globulin Ratio 0.6 Chemistry Specimen Hemolysis Bedside Glucose 161 mg/dl Telemetry reviewed: Sinus rhythm without arrhythmia Assessment and Plan 1. Dyspnea: Clinically improved. Being treated for pneumonia 2. NSTEMI: Coronary angiography revealed an acute right coronary lesion. She did in fact have an acute coronary syndrome associated with her initial presentation. Patient will need to be on dual anti-platelet therapy, continue beta-eileen, aggressive control of her hypertension and start high-dose atorvastatin. 3. Left ventricular hypertrophy: She has evidence of cardiac enlargement on her echocardiogram. She is also markedly hypertensive that time for initial evaluation. I suspect she has had some element of hypertension for long time and may require more aggressive treatment in this regard. 4. HTN: Still with elevated BP. Her lisinopril should be re-started perhaps at a higher dose. Patient could be discharged from a cardiology standpoint. She needs to continue her dual anti-platelet therapy, beta blockers and high-dose atorvastatin. Aggressive blood pressure control is also advisable. Patient to follow-up in the cardiology clinic within 1 month.
[2017-10-18] MEDS ORDERED: NTRSLP4 SL (12:04)
[2017-10-18] MEDS ORDERED: SYN50 PO (12:04)
[2017-10-18] MEDS ORDERED: PLV75 PO (12:04)
[2017-10-18] MEDS ORDERED: ATRINS INH (12:04)
[2017-10-18] MEDS ORDERED: PRED10TA PO (12:04)
[2017-10-18] MEDS ORDERED: LPR25 PO (12:04)
[2017-10-18] MEDS ORDERED: ASPI-320 PO (12:04)
[2017-10-18] MEDS ORDERED: METF1000 PO (12:04)
[2017-10-18] MEDS ORDERED: LPT40 PO (12:04)
[2017-10-18] MEDS ORDERED: INSU70IN2 SC (12:06)
--- NOTE | 2017-10-18 12:07 | Discharge Instructions ---
Discharge Instructions Date of Service Oct 18, 2017. Admission Reason for Admission: Pneumonia Discharge Discharge Diagnosis / Problem: acute heart attack Discharge Goals Goal(s): Decrease discomfort Activity Recommendations Activity Limitations: per Instructions/Follow-up section (stop any activity upon shortness of breath or chest pain) . Current Hospital Diet Patient's current hospital diet: Low Sodium Diet (2gm Na), Diabetes Type 2 Diet Discharge Diet Recommended Diet: AHA Diet (Heart Healthy), Diabetes Type 2 Diet Pending Studies Studies pending at discharge: no Laboratory Results Hemoglobin A1c Test 10/16/17 03:03 Range/Units Estimated Average Glucose 192 mg/dl Hemoglobin A1c 8.3 H 4.5-5.6 % Lipid Panel Test 10/16/17 03:03 Range/Units Triglycerides Level 148 0-150 mg/dl Cholesterol Level 151 0-200 mg/dl HDL Cholesterol 38 mg/dl Cholesterol/HDL Ratio 4.0 LDL Cholesterol, Calculated 83 mg/dl Medical Emergencies . Who to Call and When: Medical Emergencies: If at any time you feel your situation is an emergency, please call 911 immediately. . Non-Emergent Contact Non-Emergency issues call your: Primary Care Provider, Orthotist Or Prosthetist . . "Provider Documentation" section prepared by Dorian So. .
--- NOTE | 2017-10-18 12:09 | Pharmacy Progress Note ---
Pharmacy Glycemic Short Note 2 Date of Service Oct 18, 2017. OUTPATIENT ANTIDIABETIC REGIMEN: * Premixed insulin: Novolin 70/30 insulin 70 units SQ BIDM * Metformin 1,000mg PO BIDM * A1c = 8.3% on 10/16/17 Item Value Date Time Bedside Glucose 111 mg/dl H 10/17/17 0353 Bedside Glucose 140 mg/dl H 10/17/17 0606 Bedside Glucose 135 mg/dl H 10/17/17 0720 Bedside Glucose 112 mg/dl H 10/17/17 0818 Bedside Glucose 108 mg/dl H 10/17/17 0920 Bedside Glucose 96 mg/dl H 10/17/17 1023 Bedside Glucose 89 mg/dl 10/17/17 1130 Bedside Glucose 100 mg/dl H 10/17/17 1226 Bedside Glucose 113 mg/dl H 10/17/17 1300 Bedside Glucose 148 mg/dl H 10/17/17 1400 Bedside Glucose 255 mg/dl H 10/17/17 1626 Bedside Glucose 355 mg/dl *H 10/17/17 2000 Bedside Glucose 145 mg/dl H 10/18/17 0209 Bedside Glucose 161 mg/dl H 10/18/17 0656 Bedside Glucose 245 mg/dl H 10/18/17 1107 ASSESSMENT: * 67yo T2DM female with severe hyperglycemia secondary to infection & steroids * Insulin resistance may improve with the treatment of hypothyroidism * Solumedrol dosing remains at 2mg IV Q8hrs --> spoke with hospitalist, pt to discharge today on prednisone taper. * Pt initiated on IV insulin infusion on admission and transitioned off on . SQ basal bolus insulin also initiated at the time of the infusion to facilitate transitioning off of the drip as quickly as possible * Pt initiated on "stressed" outpatient SQ insulin dosing for steroid induced hyperglycemia * Pt has been requiring ~140 units of SQ insulin + IV insulin infusion for near adequate control. * Pt with HIGH BSG last evening at bedtime for unknown reason. Pt did receive CHO coverage at dinner but it is likely that she had a snack between dinner and HS as dinner CHO counts were low. * AM fasting is in range with current orders PLAN FOR INPATIENT GLYCEMIC CONTROL: * May resume metformin since renal function WNL and PO intake adequate * Basal insulin - continue BID dosing but add scale * Lantus 45 units SQ BID * Lantus 50 units SQ BID if BSG > 160 * Bolus insulin * NovoLog per scale ACHS or Q6hrs while NPO + 0200 check * Goal Range: Low 110 mg/dL - High 140 mg/dL * Correction Factor: 10 mg/dL/unit * Nutritional / Prandial insulin per carb ratio of 1 unit per 3 grams CHO consumed Discharge Recommendations: * Pt to discharge on prednisone taper. Outpatient insulin regimen will need adjusted/increased to cover for additional hyperglycemia from steroids. * Recommend resuming outpatient pre-mixed insulin but increasing AM dose only. * Current outpatient regimen = Novolin 70/30 premixed insulin 70units SQ BIDM + metformin * Recommend changing to Novolin 70/30 premixed insulin 80-90 units SQ daily in AM with breakfast + 70 units SQ daily in PM with dinner + metformin * Decrease dose of Novolin 70/30 by 5 units with each step down in steroid dosing until dosing is back at previous outpatient dosing of 70 units SQ BIDM. * Pt to follow up with outpatient provider for further insulin adjustments. Goal A1c likely 7.5 - 8% based on age/comorbidities.
[2017-10-18 12:10] VITALS: BP 146/65; PULSE 92; TEMP 36.7; O2SAT 95
[2017-10-18] MEDS ORDERED: FURO20TA PO (12:24)
[2017-10-18] MEDS ORDERED: LCTX OR (12:39)
[2017-10-18] MEDS ORDERED: LVQ250 OR (12:39)
[2017-10-18 12:50] VITALS: BP 146/65; PULSE 92; TEMP 36.7; O2SAT 95
--- NOTE | 2017-10-18 18:23 | Discharge Summary ---
Discharge Summary Date of Service Oct 18, 2017. Discharge Summary Admission Date: Oct 15, 2017 at 09:20 Discharge Date: Oct 18, 2017 Discharge Disposition: Home Principal Diagnosis: NSTEMI with CHF and acute hypoxic respiratory failure Problems/Secondary Diagnoses: Acute respiratory failure with hypoxemia secondary to below Acute CHF non specific NSTEMI Right mid to lower lung consolidation Sepsis POA secondary to above Diabetes Mellitus insulin requiring New onset hypothyroidism HTN urgency Immunizations: Have You Had Influenza Vaccine: No History of Tetanus Vaccine?: No History of Pneumococcal: No History of Hepatitis B Vaccine: No Procedures: Cardiac catheterization s/p RCA stenting as below Procedure Note Procedure Date Oct 17, 2017. Pre-Procedure Diagnosis Non STEMI, Valvular Disease AUC Score 8 Post-Procedure Diagnosis Severe CAD Procedure(s) Performed Drug Eluting Stent Multiple Slide Operator John [employer] Temperer(s) Rich Estimated Blood Loss 10 Medication(s) Fentanyl, Heparin, Nicardipine, Nitroglycerin, Versed, Lidocaine 1% Summary of Findings Indication: NSTEMI Access: 6Fr right radial artery Catheters: 5Fr JR4 guide Findings: For full details of patient's coronary angiography please cath report dictated by Dr. Ch. Briefly, patient found to have multi-vessel disease including a 99% stenosis involving the mid RCA. Decision to proceed with PCI. -- PCI -- Antithrombotic therapy: Heparin, Clopidogrel Procedure: RCA cannulated with 5Fr JR4 guide Software Integrator 50 wire passed across lesion into distal vessel Mid RCA lesion predilated with 2.0 compliant balloon Dilated lesion stented with 2.25 x 15 [place] ALLYSSA Stent post-dilated with stent balloon IC vasodilators administered for spasm Post procedure LEONEL 3 flow, stent well expanded with minimal residual stenosis and no apparent cardiac complications. Arterial Closure: TR Band Summary: 1. 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 Continue dual-antiplatelet therapy for at least 1 year Continue statin, and ASCVD risk factor modification Consult cardiac Rehab Hemodynamics Rest Ao: 180/86/127 Final Ao: 124/41/79 LV: -- Recommendations PCI without planned CABG Specimens None Radiation Exposure (mGy) 2780 Contrast (mls) 115 Visi Fluids (cc crystalloids) 57 Drains None Anesthesia Moderate Procedural Complication(s) None Disposition PCU ACC Data Cardiac Status Clinical evaluation leading to the procedure CAD Presntation: Non STEMI Anginal Classification: CCS III Heart Failure: No Cardiogenic Shock w/in 24Hrs: No Cardiac Arrest w/in 24Hrs: No Imaging studies past 6 months: Yes Stress studies past 6 months: No Closure Device Percutaneous Entry Location: Radial Closure Device: Radial Band Recommendations: PCI without planned CABG PCI Indication: PCI for high risk Non-STEMI Lesion Segment Name: Mid RCA Culprit Artery: Yes Stenosis Prior to Rx (%): 99 Chronic Total Occlusion: No IVUS: No FFR: No Pre-Procedure LEONEL Flow: 3 Previously Treated Lesion: No Lesion Complexity: Non-High/Non-C Lesion Length (mm): 10 Thrombus Present: No Bifurcation Lesion: No Guidewire Across Lesion: Yes Guidewire: Stenosis Post-Procedure (%): 0 Post-Procedure LEONEL Flow: 3 Device(s) Deployed: Yes Intraprocedure Events Significant Dissection: No Perforation: No Medication Reconciliation New Medications: Furosemide (Lasix) 20 Mg Tab 1 TAB PO DAILY for 30 Days, #30 TAB 1 Refill Lactobacillus Acidophilus (Floranex) 1 Tab Tab 2 TAB OR TID for 7 Days Levofloxacin (Levofloxacin) 250 Mg Tab 2 TAB OR DAILY for 4 Days Metoprolol Tartrate (Lopressor) 25 Mg Tab 25 MG PO BID for 30 Days, #60 TAB 9 Refills Prednisone Tab (Prednisone) 10 Mg Tab 10 MG PO UD for 4 Days, #10 TAB dispense 10 tabs take 40mg (4 tabs) day # 1 take 30mg (3 tabs) day # 2 take 20mg (2 tabs) day # 3 take 10mg (1 tabs) day # 4 then stop Aspirin (Aspirin EC Low Dose) 81 Mg Ectab 81 MG PO QAM for 30 Days, #30 Atorvastatin (Lipitor) 40 Mg Tab 80 MG PO QAM for 30 Days, #60 TAB 9 Refills Clopidogrel Bisulfate (Clopidogrel) 75 Mg Tab 75 MG PO QAM for 30 Days, #30 TAB 11 Refills Levothyroxine Sodium (Synthroid) 50 Mcg Tab 50 MCG PO DAILYBB for 30 Days, #30 TAB Nitroglycerin (Nitrostat) 0.4 Mg/1 Tab Subl 0.4 MG SL UD PRN for Chest Pain for 30 Days, #25 Changed Medications: Insulin Isophan/Regular (Novolin 70/30) Susp 70-80 UNITS SC BIDM for 30 Days, #1 BTL (Changed from: 70 ) 80 units with breakfast 70 units with dinner Metformin Hcl (Glucophage) 1,000 Mg Tab 1000 MG PO BID for 30 Days, #60 TAB (Medication details modified) start the medicine on 10/19/2017 Continued Medications: Lisinopril (Lisinopril) 2.5 Mg Tab 2.5 MG PO DAILY, TAB Discontinued Medications: Bfoluev-Povalbcnlb-Ghzgmnj (Vicks Vaporub) 1 Oin Oin 1 APPLN TOP DIRECTED PRN for CONGESTION Simvastatin (Simvastatin) Unknown Strength Tab 1 TAB PO DAILY Referrals At Discharge Follow up Referrals: Multiple Slide Operator Referral - Within 1-2 Weeks with Luke Ch MD Discharge Exam 2D echo * -- Conclusions -- * There is moderate concentric left ventricular hypertrophy. * Left ventricular systolic function is normal. * There is mild mitral regurgitation. Review of system Constitutional: No fever / no chills / no sweats / no weakness / no fatigue Eyes: no blurring of vision / no eye pain / no discharge / no redness ENT: no hearing loss / no epistaxis /no swallowing problems Respiratory: no cough / no wheezing / no SOB / no hemoptysis Cardiovascular: no Chest pain / no lower extremity edema / no palpitation Abdomen: no pain / no nausea / no vomiting / no constipation Musculoskeletal: no joint pain / no muscle pain / no joint swelling Genitourinary: no dysuria / no incontinence / no urinary retention Neurologic: no focal weakness / no numbness/tingling / no ataxia Psychiatric: no depression symptoms / no anxiety / no insomnia Endocrine: no excessive thirst / no excessive urination Hematologic: no abnormal bleeding / no bruising / no LN swelling Skin: No rash / no pallor Physical examination General patient appears to be comfortable, not in acute distress, morbidly obese HEENT: Atraumatic , normocephalic /no jaundice /no pallor /anicteric /no dry mucous membrane /normal external ear inspection Neck: Supple /no swelling /central trach Heart: S1/S2 normal/regular rate and rhythm/no gallop /no rub /no murmur Lungs: Clear to auscultation bilaterally/normal chest with expansion/no rhonchi/ no rales/no wheezing/no use of accessory muscles of respiration Abdomen: Soft/nontender/no guarding/no rebound/no organomegaly/no pulsatile mass Musculoskeletal: No swelling/no edema/no tenderness/normal range of motion Neuro exam: Awake alert oriented 3/cranial nerves II through XII appear to be intact/sensation intact/moves all extremities/no abnormal movements Psychiatric evaluation: No depressed mood/normal affect Skin: No rash on exposed skin area/no erythema Extremity: Normal pulse/no pitting edema/no clubbing or cyanosis Endocrine/lymphatic: No obvious lymphadenopathy /no lymphedema Hospital Course 67 years old female with IDDM P/W one month of progressive SOB, lower ext swelling, 3 days fever and cough, an episode of PND at 2 am in the day of admission. found to have pneumonia and NSTEMI Patient was admitted to PCU/telemetry Started on Lasix 20 mg IV twice daily for diuresis Started on Solu-Medrol and bronchodilator. Multiple Slide Operator was consulted for troponin of 0.9 Her troponin jumped from 0.9 to 31 in less than 12 hours, she was started on heparin which was stopped after the cardiac catheterization She denied any chest pain. Initially she denied cardiac catheterization, then she agreed to have it. Cardiac cath report is attached above. But in summary she was found to have an RCA lesion status post ALLYSSA stent. She was started on aspirin and Plavix Blood sugar was adjusted as per pharmacy Upon discharge her insulin 7030 was increased from 70 units twice daily to 80 units in the morning and 70 at night, the reason of this change was her hemoglobin A1c being 8.3. lipids showed LDL of 85, simvastatin was switched to Lipitor CXR showed Right mid to lower lung consolidation consistent with pneumonia she was started on ceftriaxone/azithromycin, which was switched upon discharge to levofloxacin She was found to have a TSH of 12, started on a low-dose Synthroid 50 mcg. Instructed to follow-up with another TSH in 4 weeks and adjust Synthroid dose. Patient feels much better today and was stable for discharge Total Time Spent: Greater than 30 minutes This includes examination of the patient, discharge planning, medication reconciliation, and communication with other providers. Discharge Instructions Please refer to the electronic Patient Visit Report (Discharge Instructions) for additional information.
== END 2017-10-18 13:19 | disposition home or self-care (01) | DRG 853 ==
LOC: EDBD 06:20 → C.EDB 06:25 → C.2E 09:20 → ENRESERV 09:58 → CANRESERV 09:58 → ENRESERV 10:21
PROVIDERS: ADMIT Internal Medicine; ATTEND Internal Medicine
PROC: 4A023N7 Measurement of Cardiac Sampling and Pressure, Left Heart, Percutaneous Approach (ICD-10-PCS; 2017-10-17)
PROC: B2111ZZ Fluoroscopy of Multiple Coronary Arteries using Low Osmolar Contrast (ICD-10-PCS; 2017-10-17)
PROC: 027034Z Dilation of Coronary Artery, One Artery with Drug-eluting Intraluminal Device, Percutaneous Approach (ICD-10-PCS; principal; 2017-10-17 10:30)
PROC: 3E033PZ Introduction of Platelet Inhibitor into Peripheral Vein, Percutaneous Approach (ICD-10-PCS; principal; 2017-10-17 10:30)
DX: A41.9 Sepsis, unspecified organism (principal); J18.9 Pneumonia, unspecified organism; I21.4 Non-ST elevation (NSTEMI) myocardial infarction; J96.01 Acute respiratory failure with hypoxia; E11.65 Type 2 diabetes mellitus with hyperglycemia; I25.10 Atherosclerotic heart disease of native coronary artery without angina pectoris; I16.0 Hypertensive urgency; Z79.4 Long term (current) use of insulin; I11.0 Hypertensive heart disease with heart failure; Z79.84 Long term (current) use of oral hypoglycemic drugs; I50.9 Heart failure, unspecified; E03.9 Hypothyroidism, unspecified; E78.5 Hyperlipidemia, unspecified; R65.20 Severe sepsis without septic shock; Z83.3 Family history of diabetes mellitus

== ENCOUNTER 2018-08-08 08:33 | Inpatient (IN) ==
--- NOTE | 2018-08-08 09:05 | XRay Report ---
XR chest 1V portable HISTORY: 68 years-old Female weakness acute weakness COMPARISON: Chest radiograph 10/15/2017 TECHNIQUE: Portable AP view of the chest FINDINGS: Cardiac silhouette is enlarged, unchanged. Calcification of the thoracic aortic arch. Bilateral diffu se mixed alveolar and interstitial opacities are noted without pneumothorax. Mild blunting of the lef t costophrenic angle. Trace fluid noted about the minor fissure. No large pleural effusion. Degenerat francisco changes of the shoulders and spine. IMPRESSION: 1. Cardiomegaly. 2. Bilateral mixed interstitial and alveolar opacities are suggestive of pulmonary edema versus multi focal pneumonia. 3. Suggestion of a trace left pleural effusion. The above report was generated using voice recognition software. It may contain grammatical, syntax o r spelling errors. Electronically signed by: Cristian Dickey M.D. 08/08/2018 9:04 AM
[2018-08-08 09:07] LABS: Hematocrit (blood only) 24.9 % (37-47); Hemoglobin 6.3 g/dL (12.0-16.0); Mean Corpuscular Hgb Conc 25.3 g/dL (32-36); Mean Corpuscular Volume 69.2 fL (80-100); Nucleated RBC # (auto) 0.08 K/uL (0-0); Nucleated RBC % (auto) 0.3 %; Platelet Count 780 K/uL (130-400); RDW Coefficient of Variation 19.4 % (11.5-14.5); RDW Standard Deviation 49.4 fL (36.4-46.3); White Blood Count 29.02 K/uL (4.8-10.8)
[2018-08-08 09:09] LABS: iSTAT Hemoglobin 8.2 g/dl (12.0-16.0); iSTAT Ionized Calcium 1.06 mmol/l (1.12-1.32)
[2018-08-08 09:10] LABS: INR 1.1 (0.9-1.1); Prothrombin Time 11.4 Seconds (9.0-12.0)
[2018-08-08 09:17] LABS: BUN Creatinine Ratio 14.4 (10-20); Calcium 8.6 mg/dl (8.5-10.1); Creatinine Clr Calc Pharmacy 40.2 ml/min; Est GFR (African American) 43.6; Est GFR (Non-African American) 37.6; Magnesium 1.9 mg/dl (1.8-2.4); Potassium 4.4 mmol/L (3.5-5.1)
[2018-08-08] MEDS ORDERED: PIPERACILLIN/TAZOBACTAM 3.375 GM/115 ML BAG IV STA (09:17)
[2018-08-08] MEDS ORDERED: PIPERACILL/TAZOBAC CONSULT ACTIVE PRN (09:17)
[2018-08-08 09:27] LABS: Albumin Globulin Ratio 0.6 (0.9-2); Bilirubin,Total 0.2 mg/dl (0.2-1); Troponin I 2.2 ng/ml (0-0.045)
[2018-08-08 09:35] LABS: Basophils # (auto) 0.03 K/uL (0-0.2); Basophils % (auto) 0.1 %; Eosinophils # (auto) 0.09 K/uL (0-0.5); Eosinophils % (auto) 0.3 %; Immature Granulocytes # (auto) 0.15 K/uL (0.00-0.02); Immature Granulocytes % (auto) 0.5 %; Lymphocytes # (auto) 2.34 K/uL (1.2-3.4); Lymphocytes % (auto) 8.1 %; Microcytosis Present; Monocytes # (auto) 1.24 K/uL (0.11-0.59); Monocytes % (auto) 4.3 %; Neutrophils # (auto) 25.17 K/uL (1.4-6.5); Neutrophils % (auto) 86.7 %; Poikilocytosis Present; Polychromasia 1+; Spherocytes Occasional
[2018-08-08 09:36] LABS: Hematocrit (blood only) 26.2 % (37-47); Hemoglobin 6.8 g/dL (12.0-16.0)
--- NOTE | 2018-08-08 10:17 | Emergency Department Note ---
Entered by Rica Alberto acting as a scribe for Neeraj De Guzman DO History of Present Illness General Chief complaint: Shortness of Breath/Dyspnea Source: patient, family and EMS Mode of arrival: EMS History of Present Illness Provider complaint: shortness of breath Onset (ago): hour(s) (2.5) Location: chest Pain Consistency: + other (persistent) Quality: + other (shortness of breath) Associated symptoms: + other (Denies: chest pain, cold symptoms, runny nose, cough, fever) Treatments prior to arrival: other (oxygen) The patient is a 68 year old female who presents to the Emergency Room with complaints of persistent shortness of breath beginning 2.5 hours ago. EMS reports the patient had 70% O2 saturation on room air prior to being placed on oxygen. The patient denies chest pain. Her notes the patient has not had any cold symptoms recently. He denies recent runny nose, cough, or fever. The states the patient was seen by her PCP for a regular check up yesterday, and had no symptoms at that time. He reports she had pneumonia last year and has a history of stent placement, also last year. Home Medications Home Medications Medication Instructions Recorded Confirmed Type aspirin 81 mg PO QAM 08/08/18 08/08/18 History atorvastatin 40 mg PO BID 08/08/18 08/08/18 History clopidogrel [Plavix] 75 mg PO QAM 08/08/18 08/08/18 History furosemide [Lasix] 20 mg PO QAM 08/08/18 08/08/18 History insulin NPH and regular human 70 - 80 unit SUBCUT BIDM 08/08/18 08/08/18 History [Novolin 70-30 FlexPen U-100] lisinopril 2.5 mg PO QAM 08/08/18 08/08/18 History metformin 1,000 mg PO BID 08/08/18 08/08/18 History metoprolol tartrate [Lopressor] 50 mg PO BID 08/08/18 08/08/18 History nitroglycerin [Nitrostat] 0.4 mg SUBLINGUAL UD 08/08/18 08/08/18 History Allergies Allergy/AdvReac Type Severity Reaction Status Date / Time No Known Allergies Allergy Unverified 08/08/18 09:44 Past Med/Surg History Medical History Pneumonia Diabetes Non-STEMI (non-ST elevated myocardial infarction) Surgical History Hx of cardiac catheterization Family History Other Diabetes Social History marital status: Current Living Situation: Family Feels Safe at Home: Yes Smoking Status: Never smoker Review of Systems See HPI for pertinent positives & negatives. and A total of 10 systems reviewed and were otherwise negative Physical Exam Vital Signs Vital Signs - 24 hr 08/08/18 08:39 08/08/18 08:42 08/08/18 08:44 Temperature 36.4 C L Temperature Source Oral Sepsis Recent Fever Within 48 Hours No Sepsis Action Taken by Nursing No Action Required Pulse Rate 111 H 111 H 109 H Respiratory Rate 20 31 H Respiratory Effort / Characteristics Accessory Muscle Use Labored Short of Breath Spontaneous Short of Breath Respiratory Pattern Tachypnea Blood Pressure 95/64 L 95/64 L Blood Pressure Mean 74 74 Blood Pressure Position Sitting Pulse Oximetry 100 100 100 Oxygen Delivery Method Room Air Oxygen Flow Rate Fraction of Inspired Oxygen 40 08/08/18 08:45 08/08/18 08:54 08/08/18 08:56 Temperature Temperature Source Sepsis Recent Fever Within 48 Hours Sepsis Action Taken by Nursing Pulse Rate 110 H 112 H Respiratory Rate Respiratory Effort / Characteristics Respiratory Pattern Blood Pressure 160/76 H Blood Pressure Mean 104 Blood Pressure Position Pulse Oximetry 99 97 97 Oxygen Delivery Method CPAP Oxygen Flow Rate 40 Fraction of Inspired Oxygen 08/08/18 09:00 08/08/18 09:01 08/08/18 09:15 Temperature Temperature Source Sepsis Recent Fever Within 48 Hours Sepsis Action Taken by Nursing Pulse Rate 112 H 112 H 109 H Respiratory Rate Respiratory Effort / Characteristics Respiratory Pattern Blood Pressure 128/74 Blood Pressure Mean 92 Blood Pressure Position Pulse Oximetry 95 96 99 Oxygen Delivery Method Oxygen Flow Rate Fraction of Inspired Oxygen 08/08/18 09:17 08/08/18 09:30 08/08/18 09:31 Temperature Temperature Source Sepsis Recent Fever Within 48 Hours Sepsis Action Taken by Nursing Pulse Rate 108 H 108 H 107 H Respiratory Rate Respiratory Effort / Characteristics Respiratory Pattern Blood Pressure 113/67 150/66 H Blood Pressure Mean 82 94 Blood Pressure Position Pulse Oximetry 93 100 100 Oxygen Delivery Method Oxygen Flow Rate Fraction of Inspired Oxygen 08/08/18 09:45 08/08/18 09:46 08/08/18 10:00 Temperature Temperature Source Sepsis Recent Fever Within 48 Hours Sepsis Action Taken by Nursing Pulse Rate 108 H 105 H 107 H Respiratory Rate Respiratory Effort / Characteristics Respiratory Pattern Blood Pressure 146/75 H Blood Pressure Mean 98 Blood Pressure Position Pulse Oximetry 100 100 100 Oxygen Delivery Method Oxygen Flow Rate Fraction of Inspired Oxygen 08/08/18 10:01 Temperature Temperature Source Sepsis Recent Fever Within 48 Hours Sepsis Action Taken by Nursing Pulse Rate 108 H Respiratory Rate Respiratory Effort / Characteristics Respiratory Pattern Blood Pressure 161/112 H Blood Pressure Mean 128 Blood Pressure Position Pulse Oximetry 100 Oxygen Delivery Method Oxygen Flow Rate Fraction of Inspired Oxygen CONSTITUTIONAL/VITAL SIGNS: Reviewed / noted above. GENERAL: Non-toxic in appearance. INTEGUMENTARY: Warm, dry, and [place]. HEAD: Normocephalic. EYES: without scleral icterus or trauma. ENT/OROPHARYNX: clear and moist. LYMPHADENOPATHY/NECK: Is supple without lymphadenopathy or meningismus. RESPIRATORY: Rhonchi in bilateral lung schmid. CARDIOVASCULAR: Regular rate and rhythm. GI/ABDOMEN: Soft and nontender. No organomegaly or pulsatile mass. No rebound or guarding. Normal bowel sounds. EXTREMITIES: Warm and well perfused. RECTAL: Light brown stool, trace guaiac positive. BACK: No CVA tenderness. NEUROLOGICAL: Intact without focal deficits. PSYCHIATRIC: normal affect. MUSCULOSKELETAL: Normally developed with good muscle tone. Course 0836: Past medical records reviewed. The patient was evaluated in room B1, and a complete history and physical examination were performed. 0851: I discussed the case with Dr. Lopez [facility] director of publications. He will evaluate the patient. 0902: Upon reevaluation, the patient is feeling slightly better. 0907: I reevaluated the patient. 0942: Upon reevaluation, the patient is resting. I discussed test results. They verbalized agreement with the treatment plan. 0945: I reviewed the patient's case with Dr. Castillo [facility] slunk skinner. He will evaluate the patient. 0954: I discussed the patient's case with Abby Burton PA-C, [facility] hospitalist. She will evaluate the patient for further management. Consultations Consultation #1: I discussed the case with Dr. Lopez [facility] director of publications. He will evaluate the patient. Time: 08:51 Consultation #2: I reviewed the patient's case with Dr. Castillo [facility] slunk skinner. He will evaluate the patient for further management. Time: 09:45 Consultation #3: I discussed the patient's case with Abby Burton PA-C, [facility] hospitalist. She will evaluate the patient for further management. Time: 09:54 Administered Medications Discontinued Medications Piperacillin Sod/Tazobactam Sod (Zosyn) 3.375 gm in 115 mls @ 230 mls/hr IV NOW STA Stop: 08/08/18 09:46 Last Admin: 08/08/18 09:34 Dose: 230 mls/hr Medical Decision Making Differential Diagnosis Etiologies such as infections, reactive airway disease, COPD, pneumonia, pleural effusion, pulmonary edema, ARDS, pneumothorax, CHF, cardiac ischemia, cardiac tamponade, dysrhythmia, anemia, pulmonary embolism, musculoskeletal, gastrointestinal process, as well as others were entertained. Medical Records Attestation: I reviewed the patient's medical records. Home Medications Current Medication List: was personally reviewed by me Laboratory Data Attestation: I reviewed the patient's lab results. Result diagrams: 08/08/18 09:23 08/08/18 08:45 Lab Results 08/08/18 08/08/18 08/08/18 Range/Units 08:45 08:45 08:45 WBC 29.02 H (4.8-10.8) K/uL RBC 3.60 L (4.2-5.4) M/uL Hgb 6.3 L* (12.0-16.0) g/dL POC Hgb (12.0-16.0) g/dl Hct 24.9 L (37-47) % POC Hct (37-47) % MCV 69.2 L (80-100) fL MCH 17.5 L (25-34) pg MCHC 25.3 L (32-36) g/dL RDW Std Deviation 49.4 H (36.4-46.3) fL RDW Coeff of Ching 19.4 H (11.5-14.5) % Plt Count 780 H (130-400) K/uL MPV 9.0 (7.4-10.4) fL Immature Gran % (Auto) 0.5 % Neut % (Auto) 86.7 % Lymph % (Auto) 8.1 % Owsley % (Auto) 4.3 % Eos % (Auto) 0.3 % Baso % (Auto) 0.1 % Immature Gran # (Auto) 0.15 H (0.00-0.02) K/uL Neut # (Auto) 25.17 H (1.4-6.5) K/uL Lymph # (Auto) 2.34 (1.2-3.4) K/uL Owsley # (Auto) 1.24 H (0.11-0.59) K/uL Eos # (Auto) 0.09 (0-0.5) K/uL Baso # (Auto) 0.03 (0-0.2) K/uL Absolute Nucleated RBC 0.08 H (0-0) K/uL Nucleated RBC % (auto) 0.3 % Polychromasia 1+ Poikilocytosis Present Microcytosis Present Spherocytes Occasional PT 11.4 (9.0-12.0) Seconds INR 1.1 (0.9-1.1) POC Sodium (135-144) mEq/L Sodium 135 L (136-145) mmol/L POC Potassium (3.3-5.0) mEq/L Potassium 4.4 (3.5-5.1) mmol/L POC Chloride (101-112) mEq/L Chloride 101 (98-107) mmol/L Carbon Dioxide 23 (21-32) mmol/L POC Total CO2 (24-31) mEq/l Anion Gap 12.0 H (3-11) POC Anion Gap (16-25) mmol/L POC BUN (7-18) mg/dl BUN 21 H (7-18) mg/dl Creatinine 1.42 H (0.6-1.2) mg/dl POC Creatinine (0.6-1.3) mg/dl Est Cr Clr Drug Dosing 40.2 ml/min Est GFR ( Amer) 43.6 Est GFR (Non-Af Amer) 37.6 BUN/Creatinine Ratio 14.4 (10-20) Glucose 367 H* (70-99) mg/dl POC Glucose (other) (70-99) mg/dl POC Lactic Acid Monty (0.90-1.70) mmol/L Calcium 8.6 (8.5-10.1) mg/dl POC Ioniz Calcium Pablo (1.12-1.32) mmol/l Magnesium 1.9 (1.8-2.4) mg/dl Total Bilirubin 0.2 (0.2-1) mg/dl AST 44 H (15-37) U/L ALT 15 (12-78) U/L Alkaline Phosphatase 96 (45-117) U/L POC Troponin I (0-0.045) ng/ml Troponin I 2.200 H* (0-0.045) ng/ml Total Protein 8.0 (6.4-8.2) gm/dl Albumin 3.0 L (3.4-5.0) gm/dl Globulin 5.0 H (2.5-4.0) gm/dl Albumin/Globulin Ratio 0.6 L (0.9-2) Beta-Hydroxybutyric Acd 2.55 (0.2-2.81) mg/dl TSH 6.590 H (0.300-4.500) uIu/ml Influenza Type A Ag (Neg) Influenza Type B Ag (Neg) Crossmatch 08/08/18 08/08/18 08/08/18 Range/Units 08:45 08:50 08:54 WBC (4.8-10.8) K/uL RBC (4.2-5.4) M/uL Hgb (12.0-16.0) g/dL POC Hgb 8.2 L (12.0-16.0) g/dl Hct (37-47) % POC Hct 24 L (37-47) % MCV (80-100) fL MCH (25-34) pg MCHC (32-36) g/dL RDW Std Deviation (36.4-46.3) fL RDW Coeff of Ching (11.5-14.5) % Plt Count (130-400) K/uL MPV (7.4-10.4) fL Immature Gran % (Auto) % Neut % (Auto) % Lymph % (Auto) % Owsley % (Auto) % Eos % (Auto) % Baso % (Auto) % Immature Gran # (Auto) (0.00-0.02) K/uL Neut # (Auto) (1.4-6.5) K/uL Lymph # (Auto) (1.2-3.4) K/uL Owsley # (Auto) (0.11-0.59) K/uL Eos # (Auto) (0-0.5) K/uL Baso # (Auto) (0-0.2) K/uL Absolute Nucleated RBC (0-0) K/uL Nucleated RBC % (auto) % Polychromasia Poikilocytosis Microcytosis Spherocytes PT (9.0-12.0) Seconds INR (0.9-1.1) POC Sodium 137 (135-144) mEq/L Sodium (136-145) mmol/L POC Potassium 4.5 (3.3-5.0) mEq/L Potassium (3.5-5.1) mmol/L POC Chloride 102 (101-112) mEq/L Chloride (98-107) mmol/L Carbon Dioxide (21-32) mmol/L POC Total CO2 21 L (24-31) mEq/l Anion Gap (3-11) POC Anion Gap 20.0 (16-25) mmol/L POC BUN 18 (7-18) mg/dl BUN (7-18) mg/dl Creatinine (0.6-1.2) mg/dl POC Creatinine 1.1 (0.6-1.3) mg/dl Est Cr Clr Drug Dosing ml/min Est GFR ( Amer) Est GFR (Non-Af Amer) BUN/Creatinine Ratio (10-20) Glucose (70-99) mg/dl POC Glucose (other) 375 H* (70-99) mg/dl POC Lactic Acid Monty 6.20 H (0.90-1.70) mmol/L Calcium (8.5-10.1) mg/dl POC Ioniz Calcium Pablo 1.06 L (1.12-1.32) mmol/l Magnesium (1.8-2.4) mg/dl Total Bilirubin (0.2-1) mg/dl AST (15-37) U/L ALT (12-78) U/L Alkaline Phosphatase (45-117) U/L POC Troponin I (0-0.045) ng/ml Troponin I (0-0.045) ng/ml Total Protein (6.4-8.2) gm/dl Albumin (3.4-5.0) gm/dl Globulin (2.5-4.0) gm/dl Albumin/Globulin Ratio (0.9-2) Beta-Hydroxybutyric Acd (0.2-2.81) mg/dl TSH (0.300-4.500) uIu/ml Influenza Type A Ag Neg for Influ A (Neg) Influenza Type B Ag Neg for Influ B (Neg) Crossmatch 08/08/18 08/08/18 08/08/18 Range/Units 08:58 09:23 09:23 WBC (4.8-10.8) K/uL RBC (4.2-5.4) M/uL Hgb 6.8 L* (12.0-16.0) g/dL POC Hgb (12.0-16.0) g/dl Hct 26.2 L (37-47) % POC Hct (37-47) % MCV (80-100) fL MCH (25-34) pg MCHC (32-36) g/dL RDW Std Deviation (36.4-46.3) fL RDW Coeff of Ching (11.5-14.5) % Plt Count (130-400) K/uL MPV (7.4-10.4) fL Immature Gran % (Auto) % Neut % (Auto) % Lymph % (Auto) % Owsley % (Auto) % Eos % (Auto) % Baso % (Auto) % Immature Gran # (Auto) (0.00-0.02) K/uL Neut # (Auto) (1.4-6.5) K/uL Lymph # (Auto) (1.2-3.4) K/uL Owsley # (Auto) (0.11-0.59) K/uL Eos # (Auto) (0-0.5) K/uL Baso # (Auto) (0-0.2) K/uL Absolute Nucleated RBC (0-0) K/uL Nucleated RBC % (auto) % Polychromasia Poikilocytosis Microcytosis Spherocytes PT (9.0-12.0) Seconds INR (0.9-1.1) POC Sodium (135-144) mEq/L Sodium (136-145) mmol/L POC Potassium (3.3-5.0) mEq/L Potassium (3.5-5.1) mmol/L POC Chloride (101-112) mEq/L Chloride (98-107) mmol/L Carbon Dioxide (21-32) mmol/L POC Total CO2 (24-31) mEq/l Anion Gap (3-11) POC Anion Gap (16-25) mmol/L POC BUN (7-18) mg/dl BUN (7-18) mg/dl Creatinine (0.6-1.2) mg/dl POC Creatinine (0.6-1.3) mg/dl Est Cr Clr Drug Dosing ml/min Est GFR ( Amer) Est GFR (Non-Af Amer) BUN/Creatinine Ratio (10-20) Glucose (70-99) mg/dl POC Glucose (other) (70-99) mg/dl POC Lactic Acid Monty (0.90-1.70) mmol/L Calcium (8.5-10.1) mg/dl POC Ioniz Calcium Pablo (1.12-1.32) mmol/l Magnesium (1.8-2.4) mg/dl Total Bilirubin (0.2-1) mg/dl AST (15-37) U/L ALT (12-78) U/L Alkaline Phosphatase (45-117) U/L POC Troponin I 1.20 H (0-0.045) ng/ml Troponin I (0-0.045) ng/ml Total Protein (6.4-8.2) gm/dl Albumin (3.4-5.0) gm/dl Globulin (2.5-4.0) gm/dl Albumin/Globulin Ratio (0.9-2) Beta-Hydroxybutyric Acd (0.2-2.81) mg/dl TSH (0.300-4.500) uIu/ml Influenza Type A Ag (Neg) Influenza Type B Ag (Neg) Crossmatch See Detail Imaging Data Radiologist's Impression: Radiology results as stated below per my review and the radiologist's interpretation: XR chest 1V portable HISTORY: 68 years-old Female weakness acute weakness COMPARISON: Chest radiograph 10/15/2017 TECHNIQUE: Portable AP view of the chest FINDINGS: Cardiac silhouette is enlarged, unchanged. Calcification of the thoracic aortic arch. Bilateral diffuse mixed alveolar and interstitial opacities are noted without pneumothorax. Mild blunting of the left costophrenic angle. Trace fluid noted about the minor fissure. No large pleural effusion. Degenerative changes of the shoulders and spine. IMPRESSION: 1. Cardiomegaly. 2. Bilateral mixed interstitial and alveolar opacities are suggestive of pulmonary edema versus multifocal pneumonia. 3. Suggestion of a trace left pleural effusion. The above report was generated using voice recognition software. It may contain grammatical, syntax or spelling errors. Electronically signed by: Cristian Dickey M.D. 08/08/2018 9:04 AM ECG Data Attestation: I personally reviewed and interpreted this ECG as follows: Indication: SOB/dyspnea Rate (beats per minute): 112 Rhythm: sinus tachycardia Findings: + ST depression (marked ST depressions in inferior, anterior, lateral) Comparison ECG Date: from (08/19/17) Change: the following changes noted (ST depressions are new) Blood Pressure Blood Pressure Findings: Elevated blood pressure Blood Pressure Disposition: further management by hospitalist QUINTON Narrative This is a 68-year-old female who presents to the ED with a chief complaint of acute respiratory failure. The patient presented via EMS. She reported that she suddenly developed shortness of breath at 6 AM today. When EMS arrived on scene, they found her to have a pulse ox of 70%. The patient was started here. During transport, the EMS transport team contacted me in route here. They reported the patient's symptoms and history and I ordered them to give her 40 mg of IV Lasix as well as 3 additional sublingual nitroglycerin for her hypertension as her blood pressure was around 190 systolic. Upon her arrival, she had received the 40 mg of IV Lasix as well as 6 sublingual nitroglycerin tablets. The patient was also on CPAP. She was transferred [facility] here. Her blood pressure initially here was 95 systolic. Her exam reveals findings concerning for acute pulmonary edema. She does have rales on exam as well as some bilateral pedal edema. Her twelve-lead EKG reveals a sinus tach at a rate of 112 with symptoms that are concerning for a posterior TN. She is has diffuse ST depressions. I did speak with Dr. Lopez about the patient. He evaluated the patient in the emergency department. She does have a history of cardiac cath with stent to the RCA in October of last year. Because the patient' s hemoglobin came back at 6.3, the patient does not have chest pain and she is in acute pulmonary edema, the decision was made to stabilize the patient as opposed to take her immediately to the cardiac minilab operator. A flu swab was negative, the white blood cell count was 29,000. Chest x-ray was read by the radiologist as pulmonary edema versus bilateral pneumonia. She was treated empirically with Zosyn IV. Blood transfusion for 2 units has been ordered. The patient's rectal exam was light brown and at best, trace positive. I spoke with the slunk skinner about the patient. They saw the patient in the emergency department. 2 IVs were established by nursing staff here. The patient's symptoms did improve some during her ED stay and her breathing seemed to improve. I spoke with the hospitalist as well about the patient. They will admit the patient. Impression & Plan Respiratory failure, Myocardial infarction, Acute pulmonary edema, Anemia Critical Care Time I have personally spent greater than 35 minutes of critical care time in the direct management of this patient. This includes bedside care, interpretation of diagnostic studies, and testing, discussion with consultants, patient, and family members, and other required patient management activities. This 35 minutes is in excess of all separately billable procedures. Critical Care Time: Yes Total Critical Care Time: 35 Discharge Plan Visit Data Chief Complaint: Shortness of Breath/Dyspnea ED Provider: Neeraj De Guzman Discharge Problem: Respiratory failure, Myocardial infarction, Acute pulmonary edema, Anemia Patient Disposition: Admitted As Inpatient Forms Stand Alone Forms: [facility] Prescriptions Prescriptions: No Action atorvastatin 80 mg Tablet 40 mg PO BID RF: 0 clopidogrel [Plavix] 75 mg Tablet 75 mg PO QAM RF: 0 aspirin 81 mg Tablet,Delayed Release (Dr/Ec) 81 mg PO QAM RF: 0 metformin 1,000 mg Tablet 1,000 mg PO BID RF: 0 metoprolol tartrate [Lopressor] 50 mg Tablet 50 mg PO BID RF: 0 nitroglycerin [Nitrostat] 0.4 mg Tablet, Sublingual 0.4 mg Sublingual UD RF: 0 furosemide [Lasix] 20 mg Tablet 20 mg PO QAM RF: 0 lisinopril 2.5 mg Tablet 2.5 mg PO QAM RF: 0 insulin NPH and regular human [Novolin 70-30 FlexPen U-100] 100 unit/mL (70-30 ) Insulin Pen 70 - 80 unit SUBCUT BIDM RF: 0 Referrals Referrals: Geoffrey Milton [Primary Care Provider] - The scribe's documentation has been prepared under my direction and personally reviewed by me in its entirety. I confirm that the note above accurately reflects all work, treatment, procedures, and medical decision making performed by me.
--- NOTE | 2018-08-08 10:17 | History & Physical Report ---
Date of Service August 08, 2018 Assessment & Plan (1) Acute respiratory failure with hypoxia: -Admit the patient to the ICU -Continue BiPAP, typically does not wear supplemental O2 at baseline, Sats were low 70s prior to O2. -Likely secondary to volume overload in the setting of myocardial infarction and acute diastolic CHF exacerbation -If worsening status will check ABG, no prior ABG to review. patient appears comfortable on BiPAP at this time. -Treat anemia as below, administer IV Lasix after first PRBC to prevent further volume overload. (2) Pneumonia: -WBC significantly elevated at 20 9K, with a left shift, LA elevated at 6. so will trend for resolvement, patient reports being afebrile yet has slight chills. -Treated with IV Zosyn in the ER, will continue for now -Supportive care with BiPAP, no supplemental O2 at baseline, sputum culture not indicated as patient with dry cough. If she begins producing mucus then will order. -CXR reviewed: will treat her infectious process with diffuse pulmonary edema versus multifocal pneumonia (3) Acute pulmonary edema: -Likely secondary to CHF exacerbation -IV Lasix 40 mg IV administered in EMS upon arrival. Continue IV diuresis pending response. -Follow strict I/os with fluid restriction once diet allowed, daily weights, dry weight of 199-200. -Consult cardiology, follows with Dr. Lopez as an outpatient (4) Myocardial infarction: -EKG reviewed: Possible inferior and anteriolateral HI with marked ST wave elevation. -ER had spoken with Dr. Lopez, cardiology and reported that they would treat the patient conservatively at this time. -Cardiology consulted for further recommendations -History of previous NSTEMI with stent x1 in RCA -Continue atorvastatin, lisinopril, metoprolol. -HOLD asa and plavix in the setting of possible GI bleed. (5) Anemia: -Hemoglobin upon arrival was 6.3, rechecked at 6.8, possibly secondary acute GI bleed with trace positive guaiac stools im ER. -Discussed w/ cardiology, Dr. Lopez: will hold asa and plavix at this time. Appreciate recs. -Blood consented, type and screen, plan to transfuse 2 U PRBC, give Lasix in between units. -Hgb baseline of 9-10 (6) HTN (hypertension): -Continue antihypertensive meds as above -BP within acceptable range at this time. (7) HLD (hyperlipidemia): -Continue high-dose statin (8) CAD (coronary artery disease): - Multivessel - Previous stenting to the RCA in October 2017, holding asa and plavix. (9) DM II (diabetes mellitus, type II), controlled: -Hold NovoLog 70/30 mix, glycemic pharmacy consulted with administration of Zosyn and ICU status -ISS with Accu-Cheks ACHS or q6h while n.p.o. -Glucose =375 on admission. -Follows with special educator as an outpatient, saw this provider yesterday in [place]. -Last A1c was 8.2 in October 2017 (10) DVT prophylaxis: -Teds, SCDs. No chemical anticoagulation in the setting of possible GI bleed and significant anemia. History of Present Illness Chief Complaint: shortness of breath Primary Care Provider: Geoffrey Milton This is a 68 yo F with PMHx of Acute respiratory failure with hypoxemia secondary to flash pulmonary edema, chronic diastolic CHF, multivessel CAD, hx of NSTEMI in October 2017 s/p PCI and stent to the RCA, DM II, hypothyroidism, HTN , HLD who presented with shortness of breath which started around 6 AM this morning. Patient reports progressive SOB over the last 3-4 weeks. This morning she was unable to get out of bed or perform ADLs without significant exertional dyspnea. She admits to having a dry cough. Patient denies any chest pain, palpitation, flutter, dizziness, lightheadedness or recent falls. She did admit to a slight headache this morning. She has never required supplemental O2 before. Patient denies any recent change in diet, excessive fluid intake, high sodium diet, and states her dry weight is typically around 200 lbs. Yesterday she was seen by her diabetic nurse in [place], and reports her weight was 199 pounds, and that other vital signs were reasonable. She denies any recent sick contacts. Patient reports she has been having regular bowel movements, denies dark tarry stools, BRBPR, or blood streaking. She has been taking her medications routinely which include Plavix and baby aspirin daily for cardiac stent. Patient did not take any medications this morning. EMS was called at the time of their arrival SBP was elevated in the 190s, Lasix and sublingual nitro was administered in EMS, BP improved down to systolic 95 at the time of arrival in the ER. Patient found to have an elevated lactic acid = 6.2. Hemoglobin is significantly low at 6.8 on recheck, trace positive guaiac stool. Glucose elevated = 375. Her troponin is elevated at 2.20. Allergies Allergy/AdvReac Type Severity Reaction Status Date / Time No Known Allergies Allergy Unverified 08/08/18 09:44 Home Medications Home Medications Medication Instructions Recorded Confirmed Type aspirin 81 mg PO QAM 08/08/18 08/08/18 History atorvastatin 40 mg PO BID 08/08/18 08/08/18 History insulin NPH and regular human 70 - 80 unit SUBCUT BIDM 08/08/18 08/08/18 History [Novolin 70-30 FlexPen U-100] metformin 1,000 mg PO BID 08/08/18 08/08/18 History metoprolol tartrate [Lopressor] 50 mg PO BID 08/08/18 08/08/18 History nitroglycerin [Nitrostat] 0.4 mg SUBLINGUAL UD 08/08/18 08/08/18 History ferrous sulfate 325 mg PO QAM 30 Days #30 tab 08/12/18 Rx folic acid 1 mg PO QAM #30 tab 08/12/18 Rx furosemide [Lasix] 40 mg PO QAM 30 Days #60 tab 08/12/18 Rx lisinopril [Zestril] 5 mg PO QAM 30 Days #30 tab 08/12/18 Rx pantoprazole 40 mg PO DAILY 30 Days #30 tab 08/12/18 Rx Past Med/Surg History Medical History DVT prophylaxis DM II (diabetes mellitus, type II), controlled (Chronic) CAD (coronary artery disease) (Chronic) HLD (hyperlipidemia) HTN (hypertension) (Chronic) Acute respiratory failure with hypoxia (Resolved) Myocardial infarction (Acute) Acute pulmonary edema (Acute) Anemia (Acute) Pneumonia Diabetes Non-STEMI (non-ST elevated myocardial infarction) Surgical History Hx of cardiac catheterization Family History Other Diabetes Social History marital status: Current Living Situation: Spouse and Family Other Information That Helps Us Care for You: No Feels Safe at Home: Yes Safety Concerns: Feels Safe At This Time Smoking Status: Never smoker Do You Dip or Chew Tobacco: No Second Hand Exposure: No Tobacco Cessation Education Requested by Patient: No Hx Alcohol Use: No Hx Substance Use: No Beliefs That Will Affect Care: None Preferred Language: Occitan Review of Systems Constitutional: No fever, sweats or chills Eyes: No diplopia, no worsening or blurred vision ENT: normal hearing, no trouble swallowing Respiratory: See HPI. Cardiovascular: See HPI. Abdomen: No pain, nausea, vomiting, diarrhea or constipation Musculoskeletal: No joint pain, calf pain, swelling Neurologic: No weakness, numbness/tingling, or balance problems Psychiatric: No anxiety or depression Skin: No rash or itch Physical Exam 2 Vital Signs (Past 24 Hours): Last Vital Signs Temp 36.4 C L 08/08/18 08:42 Pulse 108 H 08/08/18 10:01 Resp 31 H 08/08/18 08:44 BP 161/112 H 08/08/18 10:01 Pulse Ox 100 08/08/18 10:01 Physical Exam: General: awake, alert, no apparent distress, wearing BiPAP, obese Head: Normocephalic, atraumatic ENT: PERRL, EOMI, oropharynx not examined due to wearing BiPAP Chest: On BiPAP, diminished breath sounds throughout, no wheezes, rales or rhonchi Cardiac: Tachycardic, HR = low 100s at bedside, no murmur, JVD difficult to assess due to body habitus, normal peripheral pulses, good capillary refill Abdominal: NABS x 4 quadrants, soft, nontender to palpation, no rebound, guarding or tenderness Extremities: Normal inspection, +1 peripheral edema of BLE, no erythema, calfs nontender to palpation Psych: Normal mood and affect Neuro: AAO x 3, no motor deficits, speech is clear, no peripheral sensory deficits Results & Data Diagnostic Findings XR chest 1V portable HISTORY: 68 years-old Female weakness acute weakness COMPARISON: Chest radiograph 10/15/2017 TECHNIQUE: Portable AP view of the chest FINDINGS: Cardiac silhouette is enlarged, unchanged. Calcification of the thoracic aortic arch. Bilateral diffuse mixed alveolar and interstitial opacities are noted without pneumothorax. Mild blunting of the left costophrenic angle. Trace fluid noted about the minor fissure. No large pleural effusion. Degenerative changes of the shoulders and spine. IMPRESSION: 1. Cardiomegaly. 2. Bilateral mixed interstitial and alveolar opacities are suggestive of pulmonary edema versus multifocal pneumonia. 3. Suggestion of a trace left pleural effusion. The above report was generated using voice recognition software. It may contain grammatical, syntax or spelling errors. Electronically signed by: Cristian Dickey M.D. 08/08/2018 9:04 AM ECG Additional Comments: 08-AUG-2018 08:39:13 [facility] Sinus tachycardia with Premature atrial complexes with Aberrant conduction Marked ST abnormality, possible inferior subendocardial injury Marked ST abnormality, possible anterolateral subendocardial injury Abnormal ECG When compared with ECG of 17-OCT-2017 14:06, Aberrant conduction is now Present ST now depressed in Inferior leads ST more depressed Anterolateral leads T wave inversion now evident in Anterior leads Vent. rate 112 BPM W[place] interval 162 ms QRS duration 78 ms QT/QTc 342/466 ms P-R-T axes 82 62 207 Code Status & VTE Plan Code Status DNR Supervising Physician Co-Signing Physician Notes I obtained a history and physical during my face to face encounter with the patient. I agree with above note. Patient appears to be in respiratory distress due to fluid overload likely from heart failure. Patient has signs of pulmonary edema. Will maintain patient on bipap. Patient will be admitted to the ICU. Combined patient encounter with myself and physician academic affairs assistant, 31 minutes in critical care management. _ (1) Anemia Anemia type: unspecified type Bone marrow failure anemia type: Chronic kidney disease stage: Folate deficiency anemia type: Hemolytic anemia type: Iron deficiency anemia type: Other causes of anemia: Vitamin B12 deficiency anemia type: Qualified Code(s): D64.9 - Anemia, unspecified (2) Myocardial infarction Involved coronary artery: Myocardial infarction type: non-ST elevation myocardial infarction Qualified Code(s): I21.4 - Non-ST elevation (NSTEMI) myocardial infarction
[2018-08-08] MEDS ORDERED: DEXTROSE 50% 50 ML SYRINGE IV PRN (11:30)
[2018-08-08] MEDS ORDERED: GLUCOSE 40% GEL 15 GM TUBE PO PRN (11:30)
[2018-08-08] MEDS ORDERED: NITROGLYCERIN SL 0.4 MG/TAB TAB SL PRN (11:30)
[2018-08-08] MEDS ORDERED: INSULIN ASPART 100 UNITS/ML 3 ML PEN SC SCH (11:30)
[2018-08-08] MEDS ORDERED: GLUCAGON FOR INJ 1 MG VIAL SQ PRN (11:30)
[2018-08-08] MEDS ORDERED: CARBOHYDRATES FOR HYPOGLYCEMIA PO PRN (11:30)
[2018-08-08] MEDS ORDERED: GLUCOSE 10 TABS/TUBE PO PRN (11:30)
[2018-08-08] MEDS ORDERED: ONDANSETRON INJ 2 MG/ML 2 ML VIAL IV PRN (11:30)
--- NOTE | 2018-08-08 11:36 | Critical Care Consultation ---
Date of Consultation August 08, 2018 Assessment & Plan (1) Acute respiratory failure with hypoxia: 68-year-old female was admitted to the ICU on 08 August 2018 for acute shortness of breath, anemia, and potential posterior LA. 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 No known acute issues. Pulm: Presented with acute hypoxic respiratory failure. Placed on BiPAP with noted improvement. CXR suggestive of edema vs. multifocal pneumonia. Given IV Lasix and sublingual nitroglycerin. CVS: Patient denies chest pain. EKG is sinus tachycardia [address] depressions inferiolaterally and anteriorly, concerning for posterior LA. TnI 2.2, will trend. Some brief initial hypotension, resolved. Discussed with cardiology early, will stabilize with transfusion prior to potential cath. PMH NSTEMI and PCI with stent to RCA in October 2017, HTN, HLD. Continue ASA, lipitor , plavix, lisinopril, metoprolol. - Ordered echocardiogram. ID: Initially afebrile, WBC 29 influenza negative, POC lactate 6.2, with potential bilateral pneumonia on CXR. Will trend lactates. BCx pending. Treated empirically with Zosyn. - Will hold on further antibiotics for now. Checking pro-calcitonin. Endo: PMH hypothyroidism. TSH here 6.59. At home is on synthroid. PMH insulin -dependent DM2. Admit glucose 367, normal BHB. Begin ICU hyperglycemia protocol. Checking hemoglobin A1c. Renal/Lytes: Admit Cr 1.42, with Oct 2017 comparisions in 1.2 range. Mild BUN elevation. Monitoring. GI: By report, rectal exam was light brown with questionable trace positive Hemoccult. LFTs okay. NPO for now. - Checking iron and reticulocyte studies. Heme: Admit Hb 6.3. No obvious source of bleeding. Consented and will transfuse TWO units PRBCs. Goal Hb >10. Platelets 780, likely acute stress reaction. Serial monitoring. INR 1.1. DVT prophy: SCDs. Held due to acute anemia. Lines: PIV x 2. Code status: After discussion with patient and family in the ED, she would NOT wish to have cardiac compressions in the event of cardiac arrest. However, she DOES consent to endotracheal intubation and placement of a central line if needed. PT/OT: Ordered. Disposition: Critically ill. Admitted to ICU. (2) Acute pulmonary edema: (3) Myocardial infarction: (4) HTN (hypertension): (5) HLD (hyperlipidemia): (6) CAD (coronary artery disease): (7) Hypothyroidism: (8) Diabetes mellitus: (9) Anemia: Supervising Physician Co-Signing Physician Notes Dr. Mixon was resident physician during care of patient. I separately evaluated patient for culp portions of the history and the exam. I was present during the critical portion of medical decision making, and I discussed the case with the resident. I generally agree with the findings and plan. Patient with known triple-vessel cardiac disease, EKG felt to be consistent with global ischemia, will transfuse the patient to hemoglobin of 10, will need evaluation for blood loss anemia, I feel this is subacute. Patient is critically ill due to active cardiac ischemia in the setting of anemia. An extensive discussion with the patient with in the presence of the patient's son and [id number] and . She would not want to go undergo heroic resuscitative efforts in event of cardiac arrest however she would undergo temporary intubation and mechanical ventilation for correctable conditions. I have personally spent 35 minutes of critical care time in the direct management of this patient. This is a life/limb threatening event. This includes time spent evaluating patient, direct bedside care, chart review, placing orders, interpretation of diagnostic studies, discussion with consultants, patient, and/or family members regarding treatment decisions, as well as other required patient management activities. This time is exclusive of all separately billable procedures, and teaching time and separate from and in addition to any other critical care service time. History of Present Illness Attending Physician: Solo Valdes History of Present Illness 68-year-old female presented to the emergency department with shortness of breath beginning about 2 hours prior to arrival. She was noted to be hypoxic ( room SpO2 70%). Apparently she had a PCP checkup yesterday with no symptoms at that time. She denies any other concurrent symptoms to include chest pain, abdominal pain, recent fever illness, or other acute concerns. Allergies Allergy/AdvReac Type Severity Reaction Status Date / Time No Known Allergies Allergy Unverified 08/08/18 09:44 Home Medications Home Medications Medication Instructions Recorded Confirmed Type aspirin 81 mg PO QAM 08/08/18 08/08/18 History atorvastatin 40 mg PO BID 08/08/18 08/08/18 History clopidogrel [Plavix] 75 mg PO QAM 08/08/18 08/08/18 History furosemide [Lasix] 20 mg PO QAM 08/08/18 08/08/18 History insulin NPH and regular human 70 - 80 unit SUBCUT BIDM 08/08/18 08/08/18 History [Novolin 70-30 FlexPen U-100] lisinopril 2.5 mg PO QAM 08/08/18 08/08/18 History metformin 1,000 mg PO BID 08/08/18 08/08/18 History metoprolol tartrate [Lopressor] 50 mg PO BID 08/08/18 08/08/18 History nitroglycerin [Nitrostat] 0.4 mg SUBLINGUAL UD 08/08/18 08/08/18 History Patient History Medical History DVT prophylaxis DM II (diabetes mellitus, type II), controlled CAD (coronary artery disease) HLD (hyperlipidemia) HTN (hypertension) Acute respiratory failure with hypoxia Myocardial infarction (Acute) Acute pulmonary edema (Acute) Anemia (Acute) Pneumonia Diabetes Non-STEMI (non-ST elevated myocardial infarction) Surgical History Hx of cardiac catheterization Family History Other Diabetes Social History marital status: Current Living Situation: Spouse and Family Other Information That Helps Us Care for You: No Feels Safe at Home: Yes Safety Concerns: Feels Safe At This Time Smoking Status: Never smoker Do You Dip or Chew Tobacco: No Second Hand Exposure: No Tobacco Cessation Education Requested by Patient: No Hx Alcohol Use: No Hx Substance Use: No Beliefs That Will Affect Care: None Preferred Language: [place]orese Communication Ability: Effective Guide Plant Required: No Review of Systems Constitutional: Denies fevers, chills, focal weakness Eyes: Denies any visual loss or diplopia ENT: Denies any ear/nose/throat pain or difficulty speaking or swallowing Respiratory: See HPI. Cardiovascular: Denies any chest pain or feeling of edema Gastrointestinal: Denies any abdominal pain, nausea/vomiting/diarrhea Musculoskeletal: Denies any acute extremity pains, myalgias, or focal weakness Skin: Denies any known acute rashes or lesions Neuro: Denies any headache, acute focal weakness or numbness, or difficulties with speech or swallow. Physical Exam 2 Vital Signs (Past 24 Hours): Last Vital Signs Temp 36.4 C L 08/08/18 11:05 Pulse 102 H 08/08/18 11:05 Resp 16 08/08/18 11:05 BP 150/70 H 08/08/18 11:05 Pulse Ox 100 08/08/18 10:44 Physical Exam: Vital signs reviewed. Patient examined on arrival to the ICU. GENERAL: Awake, alert, well-appearing, has BiPAP in place, does not appear in acute distress. HENT: Normocephalic, atraumatic. EYES: Normal conjunctiva. Sclera non-icteric. NECK: Inspection normal. Non-tender. Supple and full ROM. No nuchal rigidity. CARDIAC: +S1S2 regular tachycardia, no murmurs. RESPIRATORY: Rhonchi in bilateral lung schmid. Normal respiratory effort on BiPAP. GI: +BS, soft, non-distended. No tenderness to palpation. No rebound or guarding. EXTREMITIES: No pedal edema or calf tenderness. Moving all extremities naturally and easily. NEURO: No gross neuro deficits. Results & Data Laboratory Results 08/08/18 08/08/18 08/08/18 Range/Units 10:00 09:23 09:23 WBC (4.8-10.8) K/uL RBC (4.2-5.4) M/uL Hgb 6.8 L* (12.0-16.0) g/dL POC Hgb (12.0-16.0) g/dl Hct 26.2 L (37-47) % POC Hct (37-47) % MCV (80-100) fL MCH (25-34) pg MCHC (32-36) g/dL RDW Std Deviation (36.4-46.3) fL RDW Coeff of Ching (11.5-14.5) % Plt Count (130-400) K/uL MPV (7.4-10.4) fL Immature Gran % (Auto) % Neut % (Auto) % Lymph % (Auto) % [place] % (Auto) % Eos % (Auto) % Baso % (Auto) % Immature Gran # (Auto) (0.00-0.02) K/uL Neut # (Auto) (1.4-6.5) K/uL Lymph # (Auto) (1.2-3.4) K/uL [place] # (Auto) (0.11-0.59) K/uL Eos # (Auto) (0-0.5) K/uL Baso # (Auto) (0-0.2) K/uL Absolute Nucleated RBC (0-0) K/uL Nucleated RBC % (auto) % Polychromasia Poikilocytosis Microcytosis Spherocytes PT (9.0-12.0) Seconds INR (0.9-1.1) POC Sodium (135-144) mEq/L Sodium (136-145) mmol/L POC Potassium (3.3-5.0) mEq/L Potassium (3.5-5.1) mmol/L POC Chloride (101-112) mEq/L Chloride (98-107) mmol/L Carbon Dioxide (21-32) mmol/L POC Total CO2 (24-31) mEq/l Anion Gap (3-11) POC Anion Gap (16-25) mmol/L POC BUN (7-18) mg/dl BUN (7-18) mg/dl Creatinine (0.6-1.2) mg/dl POC Creatinine (0.6-1.3) mg/dl Est Cr Clr Drug Dosing ml/min Est GFR ( Amer) Est GFR (Non-Af Amer) BUN/Creatinine Ratio (10-20) Glucose (70-99) mg/dl POC Glucose (other) (70-99) mg/dl POC Lactic Acid Monty (0.90-1.70) mmol/L Calcium (8.5-10.1) mg/dl POC Ioniz Calcium Pablo (1.12-1.32) mmol/l Magnesium (1.8-2.4) mg/dl Total Bilirubin (0.2-1) mg/dl AST (15-37) U/L ALT (12-78) U/L Alkaline Phosphatase (45-117) U/L POC Troponin I (0-0.045) ng/ml Troponin I (0-0.045) ng/ml Total Protein (6.4-8.2) gm/dl Albumin (3.4-5.0) gm/dl Globulin (2.5-4.0) gm/dl Albumin/Globulin Ratio (0.9-2) Beta-Hydroxybutyric Acd (0.2-2.81) mg/dl TSH (0.300-4.500) uIu/ml Influenza Type A Ag (Neg) Influenza Type B Ag (Neg) Blood Type A Positive Blood Type Recheck A Positive Antibody Screen NEGATIVE Crossmatch See Detail 08/08/18 08/08/18 08/08/18 Range/Units 08:58 08:54 08:50 WBC (4.8-10.8) K/uL RBC (4.2-5.4) M/uL Hgb (12.0-16.0) g/dL POC Hgb 8.2 L (12.0-16.0) g/dl Hct (37-47) % POC Hct 24 L (37-47) % MCV (80-100) fL MCH (25-34) pg MCHC (32-36) g/dL RDW Std Deviation (36.4-46.3) fL RDW Coeff of Ching (11.5-14.5) % Plt Count (130-400) K/uL MPV (7.4-10.4) fL Immature Gran % (Auto) % Neut % (Auto) % Lymph % (Auto) % [place] % (Auto) % Eos % (Auto) % Baso % (Auto) % Immature Gran # (Auto) (0.00-0.02) K/uL Neut # (Auto) (1.4-6.5) K/uL Lymph # (Auto) (1.2-3.4) K/uL [place] # (Auto) (0.11-0.59) K/uL Eos # (Auto) (0-0.5) K/uL Baso # (Auto) (0-0.2) K/uL Absolute Nucleated RBC (0-0) K/uL Nucleated RBC % (auto) % Polychromasia Poikilocytosis Microcytosis Spherocytes PT (9.0-12.0) Seconds INR (0.9-1.1) POC Sodium 137 (135-144) mEq/L Sodium (136-145) mmol/L POC Potassium 4.5 (3.3-5.0) mEq/L Potassium (3.5-5.1) mmol/L POC Chloride 102 (101-112) mEq/L Chloride (98-107) mmol/L Carbon Dioxide (21-32) mmol/L POC Total CO2 21 L (24-31) mEq/l Anion Gap (3-11) POC Anion Gap 20.0 (16-25) mmol/L POC BUN 18 (7-18) mg/dl BUN (7-18) mg/dl Creatinine (0.6-1.2) mg/dl POC Creatinine 1.1 (0.6-1.3) mg/dl Est Cr Clr Drug Dosing ml/min Est GFR ( Amer) Est GFR (Non-Af Amer) BUN/Creatinine Ratio (10-20) Glucose (70-99) mg/dl POC Glucose (other) 375 H* (70-99) mg/dl POC Lactic Acid Monty 6.20 H (0.90-1.70) mmol/L Calcium (8.5-10.1) mg/dl POC Ioniz Calcium Pablo 1.06 L (1.12-1.32) mmol/l Magnesium (1.8-2.4) mg/dl Total Bilirubin (0.2-1) mg/dl AST (15-37) U/L ALT (12-78) U/L Alkaline Phosphatase (45-117) U/L POC Troponin I 1.20 H (0-0.045) ng/ml Troponin I (0-0.045) ng/ml Total Protein (6.4-8.2) gm/dl Albumin (3.4-5.0) gm/dl Globulin (2.5-4.0) gm/dl Albumin/Globulin Ratio (0.9-2) Beta-Hydroxybutyric Acd (0.2-2.81) mg/dl TSH (0.300-4.500) uIu/ml Influenza Type A Ag (Neg) Influenza Type B Ag (Neg) Blood Type Blood Type Recheck Antibody Screen Crossmatch 08/08/18 08/08/18 08/08/18 Range/Units 08:45 08:45 08:45 WBC (4.8-10.8) K/uL RBC (4.2-5.4) M/uL Hgb (12.0-16.0) g/dL POC Hgb (12.0-16.0) g/dl Hct (37-47) % POC Hct (37-47) % MCV (80-100) fL MCH (25-34) pg MCHC (32-36) g/dL RDW Std Deviation (36.4-46.3) fL RDW Coeff of Ching (11.5-14.5) % Plt Count (130-400) K/uL MPV (7.4-10.4) fL Immature Gran % (Auto) % Neut % (Auto) % Lymph % (Auto) % [place] % (Auto) % Eos % (Auto) % Baso % (Auto) % Immature Gran # (Auto) (0.00-0.02) K/uL Neut # (Auto) (1.4-6.5) K/uL Lymph # (Auto) (1.2-3.4) K/uL [place] # (Auto) (0.11-0.59) K/uL Eos # (Auto) (0-0.5) K/uL Baso # (Auto) (0-0.2) K/uL Absolute Nucleated RBC (0-0) K/uL Nucleated RBC % (auto) % Polychromasia Poikilocytosis Microcytosis Spherocytes PT 11.4 (9.0-12.0) Seconds INR 1.1 (0.9-1.1) POC Sodium (135-144) mEq/L Sodium 135 L (136-145) mmol/L POC Potassium (3.3-5.0) mEq/L Potassium 4.4 (3.5-5.1) mmol/L POC Chloride (101-112) mEq/L Chloride 101 (98-107) mmol/L Carbon Dioxide 23 (21-32) mmol/L POC Total CO2 (24-31) mEq/l Anion Gap 12.0 H (3-11) POC Anion Gap (16-25) mmol/L POC BUN (7-18) mg/dl BUN 21 H (7-18) mg/dl Creatinine 1.42 H (0.6-1.2) mg/dl POC Creatinine (0.6-1.3) mg/dl Est Cr Clr Drug Dosing 40.2 ml/min Est GFR ( Amer) 43.6 Est GFR (Non-Af Amer) 37.6 BUN/Creatinine Ratio 14.4 (10-20) Glucose 367 H* (70-99) mg/dl POC Glucose (other) (70-99) mg/dl POC Lactic Acid Monty (0.90-1.70) mmol/L Calcium 8.6 (8.5-10.1) mg/dl POC Ioniz Calcium Pablo (1.12-1.32) mmol/l Magnesium 1.9 (1.8-2.4) mg/dl Total Bilirubin 0.2 (0.2-1) mg/dl AST 44 H (15-37) U/L ALT 15 (12-78) U/L Alkaline Phosphatase 96 (45-117) U/L POC Troponin I (0-0.045) ng/ml Troponin I 2.200 H* (0-0.045) ng/ml Total Protein 8.0 (6.4-8.2) gm/dl Albumin 3.0 L (3.4-5.0) gm/dl Globulin 5.0 H (2.5-4.0) gm/dl Albumin/Globulin Ratio 0.6 L (0.9-2) Beta-Hydroxybutyric Acd 2.55 (0.2-2.81) mg/dl TSH 6.590 H (0.300-4.500) uIu/ml Influenza Type A Ag Neg for Influ A (Neg) Influenza Type B Ag Neg for Influ B (Neg) Blood Type Blood Type Recheck Antibody Screen Crossmatch 08/08/18 Range/Units 08:45 WBC 29.02 H (4.8-10.8) K/uL RBC 3.60 L (4.2-5.4) M/uL Hgb 6.3 L* (12.0-16.0) g/dL POC Hgb (12.0-16.0) g/dl Hct 24.9 L (37-47) % POC Hct (37-47) % MCV 69.2 L (80-100) fL MCH 17.5 L (25-34) pg MCHC 25.3 L (32-36) g/dL RDW Std Deviation 49.4 H (36.4-46.3) fL RDW Coeff of Ching 19.4 H (11.5-14.5) % Plt Count 780 H (130-400) K/uL MPV 9.0 (7.4-10.4) fL Immature Gran % (Auto) 0.5 % Neut % (Auto) 86.7 % Lymph % (Auto) 8.1 % [place] % (Auto) 4.3 % Eos % (Auto) 0.3 % Baso % (Auto) 0.1 % Immature Gran # (Auto) 0.15 H (0.00-0.02) K/uL Neut # (Auto) 25.17 H (1.4-6.5) K/uL Lymph # (Auto) 2.34 (1.2-3.4) K/uL [place] # (Auto) 1.24 H (0.11-0.59) K/uL Eos # (Auto) 0.09 (0-0.5) K/uL Baso # (Auto) 0.03 (0-0.2) K/uL Absolute Nucleated RBC 0.08 H (0-0) K/uL Nucleated RBC % (auto) 0.3 % Polychromasia 1+ Poikilocytosis Present Microcytosis Present Spherocytes Occasional PT (9.0-12.0) Seconds INR (0.9-1.1) POC Sodium (135-144) mEq/L Sodium (136-145) mmol/L POC Potassium (3.3-5.0) mEq/L Potassium (3.5-5.1) mmol/L POC Chloride (101-112) mEq/L Chloride (98-107) mmol/L Carbon Dioxide (21-32) mmol/L POC Total CO2 (24-31) mEq/l Anion Gap (3-11) POC Anion Gap (16-25) mmol/L POC BUN (7-18) mg/dl BUN (7-18) mg/dl Creatinine (0.6-1.2) mg/dl POC Creatinine (0.6-1.3) mg/dl Est Cr Clr Drug Dosing ml/min Est GFR ( Amer) Est GFR (Non-Af Amer) BUN/Creatinine Ratio (10-20) Glucose (70-99) mg/dl POC Glucose (other) (70-99) mg/dl POC Lactic Acid Monty (0.90-1.70) mmol/L Calcium (8.5-10.1) mg/dl POC Ioniz Calcium Pablo (1.12-1.32) mmol/l Magnesium (1.8-2.4) mg/dl Total Bilirubin (0.2-1) mg/dl AST (15-37) U/L ALT (12-78) U/L Alkaline Phosphatase (45-117) U/L POC Troponin I (0-0.045) ng/ml Troponin I (0-0.045) ng/ml Total Protein (6.4-8.2) gm/dl Albumin (3.4-5.0) gm/dl Globulin (2.5-4.0) gm/dl Albumin/Globulin Ratio (0.9-2) Beta-Hydroxybutyric Acd (0.2-2.81) mg/dl TSH (0.300-4.500) uIu/ml Influenza Type A Ag (Neg) Influenza Type B Ag (Neg) Blood Type Blood Type Recheck Antibody Screen Crossmatch Medications Administered Current Inpatient Medications Acetaminophen (Tylenol) 650 mg PO Q4H PRN PRN Reason: Moderate Pain Stop: 09/07/18 11:29 Atorvastatin Calcium (Lipitor) 40 mg PO BID MARCELO Stop: 09/07/18 11:29 Dextrose (Dextrose 50%) 25 - 50 ml IV UD PRN; Protocol PRN Reason: Hypoglycemia Protocol Stop: 09/07/18 11:29 Furosemide (Lasix) 20 mg IV ONE ONE Stop: 08/08/18 12:01 Glucagon (Glucagen) 1 mg SQ UD PRN; Protocol PRN Reason: Hypoglycemia Protocol Stop: 09/07/18 11:29 Glucose (Glucose 40%) 15 - 30 gm PO UD PRN; Protocol PRN Reason: Hypoglycemia Protocol Stop: 09/07/18 11:29 Glucose (Dex4 Glucose) 4 - 8 tabs PO UD PRN; Protocol PRN Reason: Hypoglycemia Protocol Stop: 09/07/18 11:29 Insulin Aspart (Novolog Flexpen) 0 units SC ACHS [facility] Stop: 09/07/18 11:29 Lisinopril (Zestril) 2.5 mg PO QAM MARCELO Stop: 09/08/18 08:59 Metoprolol Tartrate (Lopressor) 50 mg PO BID [facility] Stop: 09/07/18 20:59 Miscellaneous (Carbohydrates For Hypoglycemia) 15 - 30 gm PO UD PRN PRN Reason: Hypoglycemia Treatment Stop: 09/07/18 11:29 Miscellaneous Information (Consult) 1 ea N/A UD PRN PRN Reason: Consult Stop: 09/07/18 09:16 Miscellaneous Information (Consult Glycemic Management Pharmacy) 1 ea N/A NOW STA; Protocol Stop: 08/08/18 11:31 Nitroglycerin (Nitrostat) 0.4 mg SL UD [facility] Stop: 09/07/18 11:29 Ondansetron HCl (Zofran) 4 mg IV Q4H PRN PRN Reason: Nausea And Vomiting Stop: 09/07/18 11:29 Resident Activity Tracking Resident Involvement: Resident Care Provided Care Provided: Adult [facility] Medicine _ (1) Anemia Anemia type: unspecified type Bone marrow failure anemia type: Chronic kidney disease stage: Folate deficiency anemia type: Hemolytic anemia type: Iron deficiency anemia type: Other causes of anemia: Vitamin B12 deficiency anemia type: Qualified Code(s): D64.9 - Anemia, unspecified (2) Myocardial infarction Involved coronary artery: Myocardial infarction type: non-ST elevation myocardial infarction Qualified Code(s): I21.4 - Non-ST elevation (NSTEMI) myocardial infarction
[2018-08-08] MEDS ORDERED: PHARMACY GLYCEMIC MGMT CONSULT PRN (11:43)
[2018-08-08] MEDS ORDERED: MODERATE STRESS LEVEL ONE (11:48)
[2018-08-08] MEDS ORDERED: INSULIN PROTOCOL GOAL RANGE ONE (11:48)
[2018-08-08 11:49] LABS: Reticulocyte % 2.7 % (0.5-2.0)
[2018-08-08 11:53] LABS: Estimated Average Glucose 157 mg/dl
[2018-08-08] MEDS ORDERED: Nursing to Pharmacy Communication ONE (11:54)
[2018-08-08] MEDS ORDERED: ICU PROTOCOL FOR HYPERGLYCEMIA ONE (12:00)
[2018-08-08] MEDS ORDERED: FUROSEMIDE 40 MG/4 ML VIAL IV SCH (12:00)
[2018-08-08 12:08] LABS: Ferritin 6.5 ng/ml (8-388)
[2018-08-08] MEDS ORDERED: NovoLIN-R BOLUS FROM BAG IV ONE (12:15)
[2018-08-08] MEDS: INSULIN REGULAR 250 UNITS in SODIUM CHLORIDE 0.9% 247.5 ML IV SCH (12:22)
[2018-08-08] MEDS: ATORVASTATIN 40 MG TAB PO SCH ×2 (12:24→20:33)
[2018-08-08] MEDS: INSULIN ASPART 100 UNITS/ML 3 ML PEN SC SCH ×3 (13:36→20:34)
--- NOTE | 2018-08-08 14:15 | Cardiology Consultation ---
Date of Consultation August 08, 2018 Assessment & Plan (1) Acute diastolic heart failure: 2. Acute anemia 3. Multivessel coronary artery disease post prior PCI to mid RCA 4. Hypertension 5. Mild ELLA 6. Type 2 diabetes Patient seen in the setting of respiratory failure requiring BiPAP secondary to apparent acute decompensated heart failure. Some initial concern that acute event triggered by acute coronary syndrome. However, feel that EKG more consistent with global ischemia and suspect EKG/elevated troponin secondary to new anemia, chronic multivessel disease and heart failure. Patient now comfortable in the ICU receiving first unit of packed red blood cells and with respiratory status improved now on nasal cannula following diuresis of more than 800 following Lasix in the ED. Going forward: Continue twice daily IV diuretics. Agree with transfusion to hemoglobin greater than 8. Okay to hold aspirin/Plavix. Continue home beta-eileen, high intensity statin. Trend troponin until peak Repeat echocardiogram In the setting of anemia/questionable bleeding we defer cardiac catheterization/intervention unless refractory chest pain, hemodynamic instability. Thank you for allowing us to participate in the care of this patient. Please contact with any questions. History of Present Illness Attending Physician: Solo Valdes History of Present Illness Mrs. Madden is a very pleasant 67-year-old woman who was seen urgently in the [facility] ED in the setting of acute onset dyspnea, dynamic ST changes and apparent heart failure. Patient known to me from prior hospitalization and outpatient follow-up. Follows with Dr. Ch. She was previously admitted to [facility] back in October 2017 when admitted with progressive shortness of breath. Treated with IV diuretics for acute heart failure. Echo showed preserved LV function with moderate LVH. Troponin peaked 31 and cardiac catheterization revealed a acute subtotal occlusion of mid RCA which was treated with 1 drug-eluting stent. Patient discharged on dual antiplatelet therapy with aspirin and Plavix and p.o. Lasix 20 mg daily. Was last seen by Dr. Ch in May 2018 at which time noted to have mild congestion and maintenance Lasix increased to 40 mg daily. Patient has been doing well until 6 AM this morning when was awoken with acute onset shortness of breath. Denies any associated chest pain, palpitations, presyncope. No recent illness, change in dietary habits, change in medications. In route received sublingual nitroglycerin, Lasix. On arrival initially hypertensive to the 160s, SBP down to the 90s with nitro. She was hypoxic to the 70s requiring initiation of BiPAP. Initial EKG showed sinus tachycardia with prominent anterolateral ST depressions, inferior ST depressions and elevation in aVR. Interventional cardiology contacted for need of possible emergent intervention. Noted to have new anemia with hemoglobin down to 6 and intervention was deferred. Prior cardiovascular studies: Cardiac catheterization (10/2017): Lad to 50% distal, moderate caliber ramus with 60-70% ostial, codominant circumflex gives off large OM 2 with 60-70% distal stenosis; RCA dominant focal 99% mid segment stenosis, small PDA with some [id number] collaterals noted PCI to mid RCA with single drug-eluting stent (2.25 x 15 bong) Echo (10/2017): Moderate LVH, LVEF 55-60%, no significant valvular pathology Allergies Allergy/AdvReac Type Severity Reaction Status Date / Time No Known Allergies Allergy Unverified 08/08/18 09:44 Home Medications Home Medications Medication Instructions Recorded Confirmed Type aspirin 81 mg PO QAM 08/08/18 08/08/18 History atorvastatin 40 mg PO BID 08/08/18 08/08/18 History clopidogrel [Plavix] 75 mg PO QAM 08/08/18 08/08/18 History furosemide [Lasix] 20 mg PO QAM 08/08/18 08/08/18 History insulin NPH and regular human 70 - 80 unit SUBCUT BIDM 08/08/18 08/08/18 History [Novolin 70-30 FlexPen U-100] lisinopril 2.5 mg PO QAM 08/08/18 08/08/18 History metformin 1,000 mg PO BID 08/08/18 08/08/18 History metoprolol tartrate [Lopressor] 50 mg PO BID 08/08/18 08/08/18 History nitroglycerin [Nitrostat] 0.4 mg SUBLINGUAL UD 08/08/18 08/08/18 History Patient History Medical History DVT prophylaxis DM II (diabetes mellitus, type II), controlled CAD (coronary artery disease) HLD (hyperlipidemia) HTN (hypertension) Acute respiratory failure with hypoxia Myocardial infarction (Acute) Acute pulmonary edema (Acute) Anemia (Acute) Pneumonia Diabetes Non-STEMI (non-ST elevated myocardial infarction) Surgical History Hx of cardiac catheterization Family History Other Diabetes Social History marital status: Current Living Situation: Spouse and Family Other Information That Helps Us Care for You: No Feels Safe at Home: Yes Safety Concerns: Feels Safe At This Time Smoking Status: Never smoker Do You Dip or Chew Tobacco: No Second Hand Exposure: No Tobacco Cessation Education Requested by Patient: No Hx Alcohol Use: No Hx Substance Use: No Beliefs That Will Affect Care: None Preferred Language: Malay Communication Ability: Effective Trailer Steerer Required: No Review of Systems 10 point review of systems was completed and was otherwise negative unless stated in HPI Physical Exam 2 Vital Signs (Past 24 Hours): Last Vital Signs Temp 36.5 C 08/08/18 13:45 Pulse 103 H 08/08/18 13:45 Resp 20 08/08/18 13:45 BP 140/70 08/08/18 13:45 Pulse Ox 98 08/08/18 13:45 Physical Exam: General: Comfortable, respiratory distress on arrival with BiPAP Eyes: Sclerae anicteric, extraocular movements intact HENT: Oropharynx clear mucous membranes moist Neck: Unable to assess JVD Lungs: Tachypnea, diffuse rhonchi, crackles at the bases bilaterally Cardiac: Distant heart sounds, tachycardic, no regional murmurs Vascular: Extremities warm, no significant edema Abdomen: Soft, nontender, nondistended, positive bowel sounds. Skin: No rashes or lesions. Neuro: Nonfocal Psych: Alert orient x3, normal affect and mood
[2018-08-08] MEDS ORDERED: FUROSEMIDE 20 MG in SYRINGE 0 ML IV ONE (16:00)
--- NOTE | 2018-08-08 16:17 | XRay Report ---
XR chest 1V portable CLINICAL HISTORY: eval edema status pain. Dyspnea. COMPARISON STUDY: 08/08/2018 8:44 AM FINDINGS: Study again confirms pulmonary edema. Improved aeration both lung bases. Mild stable cardio megaly. IMPRESSION: ] Pulmonary edema slightly improved from the prior exam. The above report was generated using voice recognition software. It may contain grammatical, syntax or spelling errors. Electronically signed by: Bradley Landry M.D. 08/08/2018 4:15 PM
[2018-08-08] MEDS ORDERED: FUROSEMIDE 40 MG in SYRINGE 0 ML IV ONE (16:26)
[2018-08-08] MEDS: NITROGLYCERIN 2% OINTMENT 30GM TUBE ONE ×2 (16:28→16:43)
[2018-08-08] MEDS ORDERED: NITROGLYCERIN 2% OINTMENT 30GM TUBE EXT SCH (16:30)
[2018-08-08] MEDS: NITROGLYCERIN/D5W 100MCG/ML 250 ML IV SCH (16:44)
[2018-08-08] MEDS ORDERED: LABETALOL HCL IV 5 MG/ML 20ML IV STA (16:46)
[2018-08-08] MEDS ORDERED: MoRPHine SULFATE 2 MG/ML CARP IV STA (16:52)
[2018-08-08] MEDS ORDERED: MoRPHine SULFATE 4 MG/ML 1 ML CARP\\VIAL ONE (16:52)
[2018-08-08] MEDS ORDERED: BUMETANIDE 1 MG in SYRINGE 0 ML IV ONE (20:00)
[2018-08-08] MEDS: POTASSIUM ACETATE 10 MEQ in 0.9 % SODIUM CHLORIDE 100 ML IV SCH ×2 (20:14→21:30)
[2018-08-08] MEDS: MAGNESIUM OXIDE 400 MG TAB PO SCH (20:33)
[2018-08-08] MEDS: METOPROLOL TARTRATE 50 MG TAB PO SCH (20:33)
[2018-08-08 20:53] LABS: BUN Creatinine Ratio 17.4 (10-20); Calcium 8.6 mg/dl (8.5-10.1); Est GFR (African American) 49.4; Est GFR (Non-African American) 42.6
[2018-08-08 22:06] LABS: Troponin I 65.9 ng/ml (0-0.045)
[2018-08-09] MEDS: ACETAMINOPHEN 325 MG TAB PO PRN ×3 (00:11→15:43)
[2018-08-09] MEDS: NITROGLYCERIN/D5W 100MCG/ML 250 ML IV SCH (03:20)
[2018-08-09 04:36] LABS: Hematocrit (blood only) 31.3 % (37-47); Hemoglobin 9.5 g/dL (12.0-16.0); Mean Corpuscular Hgb Conc 30.4 g/dL (32-36); Mean Corpuscular Volume 71.6 fL (80-100); Mean Platelet Volume 9.4 fL (7.4-10.4); Platelet Count 546 K/uL (130-400); RDW Coefficient of Variation 21.1 % (11.5-14.5); RDW Standard Deviation 54.9 fL (36.4-46.3); Red Blood Count 4.37 M/uL (4.2-5.4); White Blood Count 14.19 K/uL (4.8-10.8)
[2018-08-09 04:43] LABS: INR 1.1 (0.9-1.1); Prothrombin Time 11.4 Seconds (9.0-12.0)
[2018-08-09 04:50] LABS: Albumin Level 2.7 gm/dl (3.4-5.0); BUN Creatinine Ratio 19.4 (10-20); Calcium 8.5 mg/dl (8.5-10.1); Creatinine Clr Calc Pharmacy 45.8 ml/min; Est GFR (African American) 51.8; Est GFR (Non-African American) 44.7; Magnesium 1.9 mg/dl (1.8-2.4); Potassium 4.3 mmol/L (3.5-5.1)
[2018-08-09 04:53] LABS: Albumin Globulin Ratio 0.6 (0.9-2); Bilirubin,Total 0.6 mg/dl (0.2-1); Globulin 4.3 gm/dl (2.5-4.0); Phosphorus 4.1 mg/dl (2.5-4.9)
[2018-08-09] MEDS: MAGNESIUM SULFATE / D5W 1 GM/100 ML BAG IV SCH ×2 (06:15→07:14)
--- NOTE | 2018-08-09 07:18 | Cardiology Progress Note ---
Date of Service August 09, 2018 Assessment & Plan (1) NSTEMI (non-ST elevated myocardial infarction): No angina. Her troponin peaked at 65.9. She presented with profound anemia with documented CAD and prior RCA stent. Overall, she has improved. Aspirin and Plavix have been held secondary to hemoglobin of less than 7 on presentation and concern for potential bleed. If/when safe, would recommend restarting anti-platelet therapy. Ideally dual anti-platelet therapy should be continued for a full year from prior PCI in October of 2017, but with current presentation, anti-platelet therapy has been held due to risk of life- threatening bleed. Continue high-intensity statin therapy. Continue beta- eileen and NORBERTO-inhibitor. LV systolic function mildly reduced per echo report. Medical therapy has been recommended unless refractory angina (but no angina thus far). (2) Acute diastolic heart failure: She has improved with diuresis. She has had a mild response to diuretic therapy but also received units of packed red blood cells. It is difficult to assess her volume status on exam but she does continue to have rales and requires oxygen, suggesting hypervolemia. Recommend Lasix 40 mg IV x1 now. If she does not have an adequate response for a goal of at least 1 L negative today , consider another dose this afternoon. Low-sodium diet. Strict I&Os. Daily weights. (3) CAD (coronary artery disease): Prior RCA PCI in October 2017. She also had distal LAD 50% ostial ramus 60- 70%. Codominant circumflex. Large OM2 distal 60-70%. [id number] collaterals with mid RCA 99% which underwent 2.25 x 15 mm PCI. Continue medical therapy as above. Cardiac catheterization has not been performed for her presentation due to profound anemia. She was evaluated by interventional Cardiology upon presentation. (4) HTN (hypertension): Blood pressure is reasonably controlled however while in the room, her blood pressure was elevated with a systolic of 160mmHg. Increase lisinopril to 5 mg daily. (5) HLD (hyperlipidemia): Continue high-intensity statin therapy. (6) Anemia: She presented with profound anemia. Anti-platelet therapy held as above. Consider GI consultation. Anemia workup as per primary service and critical care team. She has received packed red blood cells and her hemoglobin has improved. (7) Acute respiratory failure with hypoxia: Likely secondary to acute diastolic CHF related to ischemic heart disease in the setting of profound anemia and underlying coronary artery disease. She has improved with medical therapy, diuresis, and blood transfusion. Continue to wean supplemental oxygen as possible. Disposition: Cardiology will continue to follow. Patient care discussed with Dr. Mixon or the critical care team. Subjective She denies chest pain, syncope, near-syncope, palpitations, or bleeding such as melena, hematochezia, or hematuria. She states that her breathing is back to baseline although she is still using supplemental oxygen. She denies orthopnea overnight but admits that she had orthopnea prior to presentation. Her , son, [id number] are present at the bedside. Her biggest complaint is that she is hungry. Review of systems: As above. Physical Exam 2 Vital Signs (Past 24 Hours): Last Vital Signs Temp 37.0 C 08/09/18 06:00 Pulse 83 08/09/18 07:01 Resp 16 08/09/18 07:01 BP 154/54 H 08/09/18 07:01 Pulse Ox 97 08/09/18 07:01 Intake & Output 08/07/18 08/08/18 08/09/18 08/10/18 06:59 06:59 06:59 06:59 Intake Total 1881.758 / 1881.75 8 182.233 / 182.233 Output Total 2400 / 2400 Balance -518.242 / -518.24 2 182.233 / 182.233 Weight 89.3 kg 89.7 kg Physical Exam: Gen.: No acute distress. Alert and oriented. HEENT: Anicteric sclera. Neck: Thick neck. Cardiac: Regular rate and rhythm. Normal S1-S2. No audible murmurs, rubs, or gallops. Pulmonary: Bibasilar rales. Abdomen: Soft, nontender, nondistended, with normoactive bowel sounds. No bruits noted. Extremities: 2+ radial pulses bilaterally. 2+ posterior tibialis pulses bilaterally. No edema or cyanosis. Psychiatric: Affect appears appropriate. Results & Data Laboratory Results Laboratory Results - last 24 hr 08/08/18 08/08/18 08/08/18 08:45 08:45 08:45 WBC 29.02 H RBC 3.60 L Hgb 6.3 L* POC Hgb Hct 24.9 L POC Hct MCV 69.2 L MCH 17.5 L MCHC 25.3 L RDW Std Deviation 49.4 H RDW Coeff of Ching 19.4 H Plt Count 780 H MPV 9.0 Immature Gran % (Auto) 0.5 Neut % (Auto) 86.7 Lymph % (Auto) 8.1 [place] % (Auto) 4.3 Eos % (Auto) 0.3 Baso % (Auto) 0.1 Reticulocyte % (Auto) 2.7 H Immature Gran # (Auto) 0.15 H Neut # (Auto) 25.17 H Lymph # (Auto) 2.34 [place] # (Auto) 1.24 H Eos # (Auto) 0.09 Baso # (Auto) 0.03 Reticulocyte # 0.10 Absolute Nucleated RBC 0.08 H Nucleated RBC % (auto) 0.3 Polychromasia 1+ Poikilocytosis Present Microcytosis Present Spherocytes Occasional Peripher Smr Path Cons PT 11.4 INR 1.1 POC Sodium Sodium 135 L POC Potassium Potassium 4.4 POC Chloride Chloride 101 Carbon Dioxide 23 POC Total CO2 Anion Gap 12.0 H POC Anion Gap POC BUN BUN 21 H Creatinine 1.42 H POC Creatinine Est Cr Clr Drug Dosing 40.2 Est GFR ( Amer) 43.6 Est GFR (Non-Af Amer) 37.6 BUN/Creatinine Ratio 14.4 Glucose 367 H* POC Glucose POC Glucose (other) Estimat Average Glucose Hemoglobin A1c POC Lactic Acid Monty Lactate Calcium 8.6 POC Ioniz Calcium Pablo Phosphorus Magnesium 1.9 Iron TIBC Ferritin Total Bilirubin 0.2 AST 44 H ALT 15 Alkaline Phosphatase 96 POC Troponin I Troponin I 2.200 H* Total Protein 8.0 Albumin 3.0 L Globulin 5.0 H Albumin/Globulin Ratio 0.6 L Beta-Hydroxybutyric Acd 2.55 Procalcitonin TSH 6.590 H Nasal Screen MRSA (PCR) Influenza Type A Ag Influenza Type B Ag Blood Type Blood Type Recheck Antibody Screen Crossmatch 08/08/18 08/08/18 08/08/18 08:45 08:45 08:50 WBC RBC Hgb POC Hgb Hct POC Hct MCV MCH MCHC RDW Std Deviation RDW Coeff of Ching Plt Count MPV Immature Gran % (Auto) Neut % (Auto) Lymph % (Auto) [place] % (Auto) Eos % (Auto) Baso % (Auto) Reticulocyte % (Auto) Immature Gran # (Auto) Neut # (Auto) Lymph # (Auto) [place] # (Auto) Eos # (Auto) Baso # (Auto) Reticulocyte # Absolute Nucleated RBC Nucleated RBC % (auto) Polychromasia Poikilocytosis Microcytosis Spherocytes Peripher Smr Path Cons PT INR POC Sodium Sodium POC Potassium Potassium POC Chloride Chloride Carbon Dioxide POC Total CO2 Anion Gap POC Anion Gap POC BUN BUN Creatinine POC Creatinine Est Cr Clr Drug Dosing Est GFR ( Amer) Est GFR (Non-Af Amer) BUN/Creatinine Ratio Glucose POC Glucose POC Glucose (other) Estimat Average Glucose Hemoglobin A1c POC Lactic Acid Monty 6.20 H Lactate Calcium POC Ioniz Calcium Pablo Phosphorus Magnesium Iron 12 L TIBC 406 Ferritin 6.5 L Total Bilirubin AST ALT Alkaline Phosphatase POC Troponin I Troponin I Cancelled Total Protein Albumin Globulin Albumin/Globulin Ratio Beta-Hydroxybutyric Acd Procalcitonin TSH Nasal Screen MRSA (PCR) Influenza Type A Ag Neg for Influ A Influenza Type B Ag Neg for Influ B Blood Type Blood Type Recheck Antibody Screen Crossmatch 08/08/18 08/08/18 08/08/18 08:54 08:58 09:23 WBC RBC Hgb POC Hgb 8.2 L Hct POC Hct 24 L MCV MCH MCHC RDW Std Deviation RDW Coeff of Ching Plt Count MPV Immature Gran % (Auto) Neut % (Auto) Lymph % (Auto) [place] % (Auto) Eos % (Auto) Baso % (Auto) Reticulocyte % (Auto) Immature Gran # (Auto) Neut # (Auto) Lymph # (Auto) [place] # (Auto) Eos # (Auto) Baso # (Auto) Reticulocyte # Absolute Nucleated RBC Nucleated RBC % (auto) Polychromasia Poikilocytosis Microcytosis Spherocytes Peripher Smr Path Cons PT INR POC Sodium 137 Sodium POC Potassium 4.5 Potassium POC Chloride 102 Chloride Carbon Dioxide POC Total CO2 21 L Anion Gap POC Anion Gap 20.0 POC BUN 18 BUN Creatinine POC Creatinine 1.1 Est Cr Clr Drug Dosing Est GFR ( Amer) Est GFR (Non-Af Amer) BUN/Creatinine Ratio Glucose POC Glucose POC Glucose (other) 375 H* Estimat Average Glucose Hemoglobin A1c POC Lactic Acid Monty Lactate Calcium POC Ioniz Calcium Pablo 1.06 L Phosphorus Magnesium Iron TIBC Ferritin Total Bilirubin AST ALT Alkaline Phosphatase POC Troponin I 1.20 H Troponin I Total Protein Albumin Globulin Albumin/Globulin Ratio Beta-Hydroxybutyric Acd Procalcitonin TSH Nasal Screen MRSA (PCR) Influenza Type A Ag Influenza Type B Ag Blood Type A Positive Blood Type Recheck Antibody Screen NEGATIVE Crossmatch See Detail 08/08/18 08/08/18 08/08/18 09:23 10:00 11:30 WBC RBC Hgb 6.8 L* POC Hgb Hct 26.2 L POC Hct MCV MCH MCHC RDW Std Deviation RDW Coeff of Ching Plt Count MPV Immature Gran % (Auto) Neut % (Auto) Lymph % (Auto) [place] % (Auto) Eos % (Auto) Baso % (Auto) Reticulocyte % (Auto) Immature Gran # (Auto) Neut # (Auto) Lymph # (Auto) [place] # (Auto) Eos # (Auto) Baso # (Auto) Reticulocyte # Absolute Nucleated RBC Nucleated RBC % (auto) Polychromasia Poikilocytosis Microcytosis Spherocytes Peripher Smr Path Cons PT INR POC Sodium Sodium POC Potassium Potassium POC Chloride Chloride Carbon Dioxide POC Total CO2 Anion Gap POC Anion Gap POC BUN BUN Creatinine POC Creatinine Est Cr Clr Drug Dosing Est GFR ( Amer) Est GFR (Non-Af Amer) BUN/Creatinine Ratio Glucose POC Glucose POC Glucose (other) Estimat Average Glucose Hemoglobin A1c POC Lactic Acid Monty Lactate Calcium POC Ioniz Calcium Pablo Phosphorus Magnesium Iron TIBC Ferritin Total Bilirubin AST ALT Alkaline Phosphatase POC Troponin I Troponin I Total Protein Albumin Globulin Albumin/Globulin Ratio Beta-Hydroxybutyric Acd Procalcitonin TSH Nasal Screen MRSA (PCR) Negative Influenza Type A Ag Influenza Type B Ag Blood Type Blood Type Recheck A Positive Antibody Screen Crossmatch 08/08/18 08/08/18 08/08/18 11:32 11:36 11:36 WBC RBC Hgb POC Hgb Hct POC Hct MCV MCH MCHC RDW Std Deviation RDW Coeff of Ching Plt Count MPV Immature Gran % (Auto) Neut % (Auto) Lymph % (Auto) [place] % (Auto) Eos % (Auto) Baso % (Auto) Reticulocyte % (Auto) Immature Gran # (Auto) Neut # (Auto) Lymph # (Auto) [place] # (Auto) Eos # (Auto) Baso # (Auto) Reticulocyte # Absolute Nucleated RBC Nucleated RBC % (auto) Polychromasia Poikilocytosis Microcytosis Spherocytes Peripher Smr Path Cons PT INR POC Sodium Sodium POC Potassium Potassium POC Chloride Chloride Carbon Dioxide POC Total CO2 Anion Gap POC Anion Gap POC BUN BUN Creatinine POC Creatinine Est Cr Clr Drug Dosing Est GFR ( Amer) Est GFR (Non-Af Amer) BUN/Creatinine Ratio Glucose POC Glucose POC Glucose (other) Estimat Average Glucose 157 Hemoglobin A1c 7.1 H POC Lactic Acid Monty Lactate 2.0 Calcium POC Ioniz Calcium Pablo Phosphorus Magnesium Iron TIBC Ferritin Total Bilirubin AST ALT Alkaline Phosphatase POC Troponin I Troponin I Total Protein Albumin Globulin Albumin/Globulin Ratio Beta-Hydroxybutyric Acd Procalcitonin 0.48 TSH Nasal Screen MRSA (PCR) Influenza Type A Ag Influenza Type B Ag Blood Type Blood Type Recheck Antibody Screen Crossmatch 08/08/18 08/08/18 08/08/18 11:36 13:17 14:24 WBC RBC Hgb POC Hgb Hct POC Hct MCV MCH MCHC RDW Std Deviation RDW Coeff of Ching Plt Count MPV Immature Gran % (Auto) Neut % (Auto) Lymph % (Auto) [place] % (Auto) Eos % (Auto) Baso % (Auto) Reticulocyte % (Auto) Immature Gran # (Auto) Neut # (Auto) Lymph # (Auto) [place] # (Auto) Eos # (Auto) Baso # (Auto) Reticulocyte # Absolute Nucleated RBC Nucleated RBC % (auto) Polychromasia Poikilocytosis Microcytosis Spherocytes Peripher Smr Path Cons PT INR POC Sodium Sodium POC Potassium Potassium POC Chloride Chloride Carbon Dioxide POC Total CO2 Anion Gap POC Anion Gap POC BUN BUN Creatinine POC Creatinine Est Cr Clr Drug Dosing Est GFR ( Amer) Est GFR (Non-Af Amer) BUN/Creatinine Ratio Glucose POC Glucose 321 H 227 H 189 H POC Glucose (other) Estimat Average Glucose Hemoglobin A1c POC Lactic Acid Monty Lactate Calcium POC Ioniz Calcium Pablo Phosphorus Magnesium Iron TIBC Ferritin Total Bilirubin AST ALT Alkaline Phosphatase POC Troponin I Troponin I Total Protein Albumin Globulin Albumin/Globulin Ratio Beta-Hydroxybutyric Acd Procalcitonin TSH Nasal Screen MRSA (PCR) Influenza Type A Ag Influenza Type B Ag Blood Type Blood Type Recheck Antibody Screen Crossmatch 08/08/18 08/08/18 08/08/18 15:22 16:34 17:34 WBC RBC Hgb POC Hgb Hct POC Hct MCV MCH MCHC RDW Std Deviation RDW Coeff of Ching Plt Count MPV Immature Gran % (Auto) Neut % (Auto) Lymph % (Auto) [place] % (Auto) Eos % (Auto) Baso % (Auto) Reticulocyte % (Auto) Immature Gran # (Auto) Neut # (Auto) Lymph # (Auto) [place] # (Auto) Eos # (Auto) Baso # (Auto) Reticulocyte # Absolute Nucleated RBC Nucleated RBC % (auto) Polychromasia Poikilocytosis Microcytosis Spherocytes Peripher Smr Path Cons PT INR POC Sodium Sodium POC Potassium Potassium POC Chloride Chloride Carbon Dioxide POC Total CO2 Anion Gap POC Anion Gap POC BUN BUN Creatinine POC Creatinine Est Cr Clr Drug Dosing Est GFR ( Amer) Est GFR (Non-Af Amer) BUN/Creatinine Ratio Glucose POC Glucose 184 H 226 H 244 H POC Glucose (other) Estimat Average Glucose Hemoglobin A1c POC Lactic Acid Monty Lactate Calcium POC Ioniz Calcium Pablo Phosphorus Magnesium Iron TIBC Ferritin Total Bilirubin AST ALT Alkaline Phosphatase POC Troponin I Troponin I Total Protein Albumin Globulin Albumin/Globulin Ratio Beta-Hydroxybutyric Acd Procalcitonin TSH Nasal Screen MRSA (PCR) Influenza Type A Ag Influenza Type B Ag Blood Type Blood Type Recheck Antibody Screen Crossmatch 08/08/18 08/08/18 08/08/18 17:47 17:48 18:29 WBC RBC Hgb 8.5 L POC Hgb Hct POC Hct MCV MCH MCHC RDW Std Deviation RDW Coeff of Ching Plt Count MPV Immature Gran % (Auto) Neut % (Auto) Lymph % (Auto) [place] % (Auto) Eos % (Auto) Baso % (Auto) Reticulocyte % (Auto) Immature Gran # (Auto) Neut # (Auto) Lymph # (Auto) [place] # (Auto) Eos # (Auto) Baso # (Auto) Reticulocyte # Absolute Nucleated RBC Nucleated RBC % (auto) Polychromasia Poikilocytosis Microcytosis Spherocytes Peripher Smr Path Cons PT INR POC Sodium Sodium POC Potassium Potassium POC Chloride Chloride Carbon Dioxide POC Total CO2 Anion Gap POC Anion Gap POC BUN BUN Creatinine POC Creatinine Est Cr Clr Drug Dosing Est GFR ( Amer) Est GFR (Non-Af Amer) BUN/Creatinine Ratio Glucose POC Glucose 209 H POC Glucose (other) Estimat Average Glucose Hemoglobin A1c POC Lactic Acid Monty Lactate 1.4 Calcium POC Ioniz Calcium Pablo Phosphorus Magnesium Iron TIBC Ferritin Total Bilirubin AST ALT Alkaline Phosphatase POC Troponin I Troponin I Total Protein Albumin Globulin Albumin/Globulin Ratio Beta-Hydroxybutyric Acd Procalcitonin TSH Nasal Screen MRSA (PCR) Influenza Type A Ag Influenza Type B Ag Blood Type Blood Type Recheck Antibody Screen Crossmatch 08/08/18 08/08/18 08/08/18 19:42 19:59 20:42 WBC RBC Hgb POC Hgb Hct POC Hct MCV MCH MCHC RDW Std Deviation RDW Coeff of Ching Plt Count MPV Immature Gran % (Auto) Neut % (Auto) Lymph % (Auto) [place] % (Auto) Eos % (Auto) Baso % (Auto) Reticulocyte % (Auto) Immature Gran # (Auto) Neut # (Auto) Lymph # (Auto) [place] # (Auto) Eos # (Auto) Baso # (Auto) Reticulocyte # Absolute Nucleated RBC Nucleated RBC % (auto) Polychromasia Poikilocytosis Microcytosis Spherocytes Peripher Smr Path Cons PT INR POC Sodium Sodium 138 POC Potassium Potassium 5.0 POC Chloride Chloride 103 Carbon Dioxide 26 POC Total CO2 Anion Gap 9.0 POC Anion Gap POC BUN BUN 22 H Creatinine 1.28 H POC Creatinine Est Cr Clr Drug Dosing 44.0 Est GFR ( Amer) 49.4 Est GFR (Non-Af Amer) 42.6 BUN/Creatinine Ratio 17.4 Glucose 160 H POC Glucose 156 H 154 H POC Glucose (other) Estimat Average Glucose Hemoglobin A1c POC Lactic Acid Monty Lactate Calcium 8.6 POC Ioniz Calcium Pablo Phosphorus Magnesium Iron TIBC Ferritin Total Bilirubin AST ALT Alkaline Phosphatase POC Troponin I Troponin I 65.900 H* Total Protein Albumin Globulin Albumin/Globulin Ratio Beta-Hydroxybutyric Acd Procalcitonin TSH Nasal Screen MRSA (PCR) Influenza Type A Ag Influenza Type B Ag Blood Type Blood Type Recheck Antibody Screen Crossmatch 08/08/18 08/08/18 08/08/18 21:32 22:39 23:32 WBC RBC Hgb POC Hgb Hct POC Hct MCV MCH MCHC RDW Std Deviation RDW Coeff of Ching Plt Count MPV Immature Gran % (Auto) Neut % (Auto) Lymph % (Auto) [place] % (Auto) Eos % (Auto) Baso % (Auto) Reticulocyte % (Auto) Immature Gran # (Auto) Neut # (Auto) Lymph # (Auto) [place] # (Auto) Eos # (Auto) Baso # (Auto) Reticulocyte # Absolute Nucleated RBC Nucleated RBC % (auto) Polychromasia Poikilocytosis Microcytosis Spherocytes Peripher Smr Path Cons PT INR POC Sodium Sodium POC Potassium Potassium POC Chloride Chloride Carbon Dioxide POC Total CO2 Anion Gap POC Anion Gap POC BUN BUN Creatinine POC Creatinine Est Cr Clr Drug Dosing Est GFR ( Amer) Est GFR (Non-Af Amer) BUN/Creatinine Ratio Glucose POC Glucose 129 H 140 H 132 H POC Glucose (other) Estimat Average Glucose Hemoglobin A1c POC Lactic Acid Monty Lactate Calcium POC Ioniz Calcium Pablo Phosphorus Magnesium Iron TIBC Ferritin Total Bilirubin AST ALT Alkaline Phosphatase POC Troponin I Troponin I Total Protein Albumin Globulin Albumin/Globulin Ratio Beta-Hydroxybutyric Acd Procalcitonin TSH Nasal Screen MRSA (PCR) Influenza Type A Ag Influenza Type B Ag Blood Type Blood Type Recheck Antibody Screen Crossmatch 08/09/18 08/09/18 08/09/18 00:33 01:26 02:28 WBC RBC Hgb POC Hgb Hct POC Hct MCV MCH MCHC RDW Std Deviation RDW Coeff of Ching Plt Count MPV Immature Gran % (Auto) Neut % (Auto) Lymph % (Auto) [place] % (Auto) Eos % (Auto) Baso % (Auto) Reticulocyte % (Auto) Immature Gran # (Auto) Neut # (Auto) Lymph # (Auto) [place] # (Auto) Eos # (Auto) Baso # (Auto) Reticulocyte # Absolute Nucleated RBC Nucleated RBC % (auto) Polychromasia Poikilocytosis Microcytosis Spherocytes Peripher Smr Path Cons PT INR POC Sodium Sodium POC Potassium Potassium POC Chloride Chloride Carbon Dioxide POC Total CO2 Anion Gap POC Anion Gap POC BUN BUN Creatinine POC Creatinine Est Cr Clr Drug Dosing Est GFR ( Amer) Est GFR (Non-Af Amer) BUN/Creatinine Ratio Glucose POC Glucose 152 H 124 H POC Glucose (other) Estimat Average Glucose Hemoglobin A1c POC Lactic Acid Monty Lactate Calcium POC Ioniz Calcium Pablo Phosphorus Magnesium Iron TIBC Ferritin Total Bilirubin AST ALT Alkaline Phosphatase POC Troponin I Troponin I 53.200 H* Total Protein Albumin Globulin Albumin/Globulin Ratio Beta-Hydroxybutyric Acd Procalcitonin TSH Nasal Screen MRSA (PCR) Influenza Type A Ag Influenza Type B Ag Blood Type Blood Type Recheck Antibody Screen Crossmatch 08/09/18 08/09/18 08/09/18 04:15 04:15 04:15 WBC 14.19 H D RBC 4.37 Hgb 9.5 L POC Hgb Hct 31.3 L POC Hct MCV 71.6 L MCH 21.7 L MCHC 30.4 L D RDW Std Deviation 54.9 H RDW Coeff of Ching 21.1 H Plt Count 546 H MPV 9.4 Immature Gran % (Auto) Neut % (Auto) Lymph % (Auto) [place] % (Auto) Eos % (Auto) Baso % (Auto) Reticulocyte % (Auto) Immature Gran # (Auto) Neut # (Auto) Lymph # (Auto) [place] # (Auto) Eos # (Auto) Baso # (Auto) Reticulocyte # Absolute Nucleated RBC Nucleated RBC % (auto) Polychromasia Poikilocytosis Microcytosis Spherocytes Peripher Smr Path Cons PT 11.4 INR 1.1 POC Sodium Sodium POC Potassium Potassium POC Chloride Chloride Carbon Dioxide POC Total CO2 Anion Gap POC Anion Gap POC BUN BUN Creatinine POC Creatinine Est Cr Clr Drug Dosing Est GFR ( Amer) Est GFR (Non-Af Amer) BUN/Creatinine Ratio Glucose POC Glucose POC Glucose (other) Estimat Average Glucose Hemoglobin A1c POC Lactic Acid Monty Lactate 1.1 Calcium POC Ioniz Calcium Pablo Phosphorus Magnesium Iron TIBC Ferritin Total Bilirubin AST ALT Alkaline Phosphatase POC Troponin I Troponin I Total Protein Albumin Globulin Albumin/Globulin Ratio Beta-Hydroxybutyric Acd Procalcitonin TSH Nasal Screen MRSA (PCR) Influenza Type A Ag Influenza Type B Ag Blood Type Blood Type Recheck Antibody Screen Crossmatch 08/09/18 08/09/18 08/09/18 04:15 04:35 06:26 WBC RBC Hgb POC Hgb Hct POC Hct MCV MCH MCHC RDW Std Deviation RDW Coeff of [place] Plt Count MPV Immature Gran % (Auto) Neut % (Auto) Lymph % (Auto) [place] % (Auto) Eos % (Auto) Baso % (Auto) Reticulocyte % (Auto) Immature Gran # (Auto) Neut # (Auto) Lymph # (Auto) [place] # (Auto) Eos # (Auto) Baso # (Auto) Reticulocyte # Absolute Nucleated RBC Nucleated RBC % (auto) Polychromasia Poikilocytosis Microcytosis Spherocytes Peripher Smr Path Cons PT INR POC Sodium Sodium 137 POC Potassium Potassium 4.3 POC Chloride Chloride 102 Carbon Dioxide 29 POC Total CO2 Anion Gap 6.0 POC Anion Gap POC BUN BUN 24 H Creatinine 1.23 H POC Creatinine Est Cr Clr Drug Dosing 45.8 Est GFR ( Amer) 51.8 Est GFR (Non-Af Amer) 44.7 BUN/Creatinine Ratio 19.4 Glucose 109 H POC Glucose 115 H 103 H POC Glucose (other) Estimat Average Glucose Hemoglobin A1c POC Lactic Acid Monty Lactate Calcium 8.5 POC Ioniz Calcium Pablo Phosphorus 4.1 Magnesium 1.9 Iron TIBC Ferritin Total Bilirubin 0.6 AST 153 H ALT 24 Alkaline Phosphatase 76 POC Troponin I Troponin I Total Protein 7.0 Albumin 2.7 L Globulin 4.3 H Albumin/Globulin Ratio 0.6 L Beta-Hydroxybutyric Acd Procalcitonin TSH Nasal Screen MRSA (PCR) Influenza Type A Ag Influenza Type B Ag Blood Type Blood Type Recheck Antibody Screen Crossmatch Diagnostic Findings Telemetry personally reviewed: Sinus rhythm. No arrhythmia. ECG personally reviewed: ECG 08/09/2018: Sinus rhythm [address] abnormality diffusely. Echo 08/08/2018: Reported as mildly reduced systolic function with an EF of 45- 50%. Hypokinesis of the apical inferior wall. Mild MR. Normal RVSP. Medications Administered Current Inpatient Medications Acetaminophen (Tylenol) 650 mg PO Q4H PRN PRN Reason: Moderate Pain Stop: 09/07/18 11:29 Last Admin: 08/09/18 06:21 Dose: 650 mg Ascorbic Acid (Vitamin C) 500 mg PO QAM [facility] Stop: 09/08/18 08:59 Atorvastatin Calcium (Lipitor) 40 mg PO BID [facility] Stop: 09/07/18 11:29 Last Admin: 08/08/18 20:33 Dose: 40 mg Dextrose (Dextrose 50%) 25 - 50 ml IV UD PRN; Protocol PRN Reason: Hypoglycemia Protocol Stop: 09/07/18 11:29 Ferrous Sulfate (Feosol) 325 mg PO QAM [facility] Stop: 09/08/18 08:59 Folic Acid (Folvite) 1 mg PO QAM [facility] Stop: 09/08/18 08:59 Glucagon (Glucagen) 1 mg SQ UD PRN; Protocol PRN Reason: Hypoglycemia Protocol Stop: 09/07/18 11:29 Glucose (Glucose 40%) 15 - 30 gm PO UD PRN; Protocol PRN Reason: Hypoglycemia Protocol Stop: 09/07/18 11:29 Glucose (Dex4 Glucose) 4 - 8 tabs PO UD PRN; Protocol PRN Reason: Hypoglycemia Protocol Stop: 09/07/18 11:29 Insulin Human Regular 250 (units/ Sodium Chloride) 250 mls @ 1 mls/hr IV .Q24H [facility]; Protocol Stop: 09/07/18 11:59 Last Titration: 08/09/18 07:09 Dose: 1 units/hr, 1 mls/hr Nitroglycerin/Dextrose (Nitroglycerin/D5w 100 Mcg/Ml) 250 mls @ 24 mls/hr IV .[id number] [facility]; Protocol Stop: 09/07/18 16:29 Last Titration: 08/09/18 07:09 Dose: 40 mcg/min, 24 mls/hr Magnesium Sulfate/Dextrose (Magnesium Sulfate / D5w) 1 gm in 100 mls @ 100 mls/ hr IV Q1H [facility] Stop: 08/09/18 08:00 Last Infusion: 08/09/18 07:09 Dose: 100 mls/hr Furosemide 40 mg/ Syringe 4 mls @ 4 mls/min IV ONE ONE Stop: 08/09/18 07:16 Insulin Aspart (Novolog Flexpen) 0 units SC [facility] Stop: 09/07/18 12:59 Last Admin: 08/08/18 20:34 Dose: Not Given Lisinop[facility] ([facility]estril) [facility] [place] Stop: 09/08/18 08:59 Magnesium Oxide (Mag-Ox) 400 mg PO [facility] Stop: 09/07/18 20:59 Last Admin: 08/08/18 20:33 Dose: 400 mg Metoprolol Tartrate (Lopressor) 50 mg PO BID [facility] Stop: 09/07/18 20:59 Last Admin: 08/08/18 20:33 Dose: 50 mg Miscellaneous (Carbohydrates For Hypoglycemia) 15 - 30 gm PO UD PRN PRN Reason: Hypoglycemia Treatment Stop: 09/07/18 11:29 Multivitamins (Multivitamin Tab) 1 tab PO [facility] Stop: 09/08/18 08:59 Nitroglycerin (Nitrostat) 0.4 mg SL UD PRN PRN Reason: CHEST PAIN Stop: 09/07/18 11:29 Ondansetron HCl (Zofran) 4 mg IV Q4H PRN PRN Reason: Nausea And Vomiting Stop: 09/07/18 11:29 _ (1) Anemia Anemia type: unspecified type Bone marrow failure anemia type: Chronic kidney disease stage: Folate deficiency anemia type: Hemolytic anemia type: Iron deficiency anemia type: Other causes of anemia: Vitamin B12 deficiency anemia type: Qualified Code(s): D64.9 - Anemia, unspecified
--- NOTE | 2018-08-09 07:57 | Critical Care Progress Note ---
Date of Service August 09, 2018 Assessment & Plan (1) Acute respiratory failure with hypoxia: 68-year-old female was admitted to the ICU on 08 August 2018 for acute shortness of breath, anemia, and potential posterior OH. 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 No known acute issues. Pulm: Presented with acute hypoxic respiratory failure. Placed on BiPAP with noted improvement. CXR suggestive of edema vs. multifocal pneumonia. Given IV Lasix and (at times) nitroglycerin drip. CVS: Patient denies chest pain. EKG is sinus tachycardia [address] depressions inferiolaterally and anteriorly, concerning for global ischemia. TnI max to 65.9. Some brief initial hypotension, resolved. Discussed with cardiology, no role for emergent cath. Echo notes EF 45-50% with interval reduced LVSF and worse MR. PMH NSTEMI and PCI with stent to RCA in October 2017, HTN, HLD. Continue lipitor, plavix, lisinopril, metoprolol. - May need ASA and/or plavix restarted in near-term. ID: Initially afebrile, WBC down to 14, influenza negative, lactate down to 1.1 , with potential bilateral pneumonia on CXR. BCx pending. Single empiric Zosyn in ED. Procalcitonin negative. Holding on further antibiotics for now. Endo: PMH hypothyroidism. TSH here 6.59. May have been previously on synthroid. PMH insulin-dependent DM2. Admit glucose 367, trending to normal, with normal BHB. On ICU hyperglycemia protocol. HbA1c 7.1. Renal/Lytes: Admit Cr 1.42, back down to around baseline 1.2 range. Mild BUN elevation. Monitoring. GI: By report, rectal exam was light brown with questionable trace positive Hemoccult. LFTs okay. - Advance to heart healthy, carb count diabetic diet. - Consulted GI to help evaluation potential cause of anemia. Heme: Admit Hb 6.3. No obvious source of bleeding. Transfused THREE units PRBCs. Repeat Hb 9.5. Has some iron-deficiency, started on iron supplement. Thrombocytosis improving to 546. INR 1.1. Elevated retic count. DVT prophy: SCDs. Held due to acute anemia. Lines: PIV x 2. Code status: After discussion with patient and family in the ED, she would NOT wish to have cardiac compressions in the event of cardiac arrest. However, she DOES consent to endotracheal intubation and placement of a central line if needed. PT/OT: Ordered. Disposition: Admitted to ICU. Stable for downgrade to telemetry. (2) Acute pulmonary edema: (3) Myocardial infarction: (4) HTN (hypertension): (5) HLD (hyperlipidemia): (6) CAD (coronary artery disease): (7) Hypothyroidism: (8) Diabetes mellitus: (9) Anemia: Supervising Physician Co-Signing Physician Notes Dr. Mixon was resident physician during care of patient. I separately evaluated patient for culp portions of the history and the exam. I was present during the critical portion of medical decision making, and I discussed the case with the resident. I generally agree with the findings and plan. No chest pain no shortness of breath now at hemoglobin goal. Troponins downtrending. Transitioning off insulin infusion will have carb consistent diet. Stable for downgrade to telemetry status. Subjective The patient sitting up in bed this morning, getting her hair done. She appeared quite comfortable. She says that she has no present shortness of breath, no chest pain or abdominal concerns, or any other immediate concerns. Physical Exam 2 Vital Signs (Past 24 Hours): Last Vital Signs Temp 37.0 C 08/09/18 06:00 Pulse 83 08/09/18 07:01 Resp 16 08/09/18 07:01 BP 154/54 H 08/09/18 07:01 Pulse Ox 97 08/09/18 07:01 Physical Exam: General Appearance: Awake, alert & oriented, comfortable in general, NAD. CV: +S1S2 RRR, no murmur. Pulm: Diminished breath sounds in the bases. Oxygen mask in place. Abdomen: +BS, soft, non-tender, non-distended. Extremities: No pedal edema or calf tenderness. Moving all extremities naturally and easily. Neuro: No gross neuro deficits. Results & Data Laboratory Results 08/09/18 08/09/18 08/09/18 Range/Units 07:38 06:26 04:35 WBC (4.8-10.8) K/uL RBC (4.2-5.4) M/uL Hgb (12.0-16.0) g/dL POC Hgb (12.0-16.0) g/dl Hct (37-47) % POC Hct (37-47) % MCV (80-100) fL MCH (25-34) pg MCHC (32-36) g/dL RDW Std Deviation (36.4-46.3) fL RDW Coeff of Ching (11.5-14.5) % Plt Count (130-400) K/uL MPV (7.4-10.4) fL Immature Gran % (Auto) % Neut % (Auto) % Lymph % (Auto) % [place] % (Auto) % Eos % (Auto) % Baso % (Auto) % Reticulocyte % (Auto) (0.5-2.0) % Immature Gran # (Auto) (0.00-0.02) K/uL Neut # (Auto) (1.4-6.5) K/uL Lymph # (Auto) (1.2-3.4) K/uL [place] # (Auto) (0.11-0.59) K/uL Eos # (Auto) (0-0.5) K/uL Baso # (Auto) (0-0.2) K/uL Reticulocyte # (0.02-0.10) 10^6/uL Absolute Nucleated RBC (0-0) K/uL Nucleated RBC % (auto) % Polychromasia Poikilocytosis Microcytosis Spherocytes Peripher Smr Path Cons PT (9.0-12.0) Seconds INR (0.9-1.1) POC Sodium (135-144) mEq/L Sodium (136-145) mmol/L POC Potassium (3.3-5.0) mEq/L Potassium (3.5-5.1) mmol/L POC Chloride (101-112) mEq/L Chloride (98-107) mmol/L Carbon Dioxide (21-32) mmol/L POC Total CO2 (24-31) mEq/l Anion Gap (3-11) POC Anion Gap (16-25) mmol/L POC BUN (7-18) mg/dl BUN (7-18) mg/dl Creatinine (0.6-1.2) mg/dl POC Creatinine (0.6-1.3) mg/dl Est Cr Clr Drug Dosing ml/min Est GFR ( Amer) Est GFR (Non-Af Amer) BUN/Creatinine Ratio (10-20) Glucose (70-99) mg/dl POC Glucose 130 H 103 H 115 H (70-99) POC Glucose (other) (70-99) mg/dl Estimat Average Glucose mg/dl Hemoglobin A1c (4.5-5.6) % POC Lactic Acid Monty (0.90-1.70) mmol/L Lactate (0.4-2.0) mmol/L Calcium (8.5-10.1) mg/dl POC Ioniz Calcium Pablo (1.12-1.32) mmol/l Phosphorus (2.5-4.9) mg/dl Magnesium (1.8-2.4) mg/dl Iron (35-150) mcg/dl TIBC (250-450) mcg/dl Ferritin (8-388) ng/ml Total Bilirubin (0.2-1) mg/dl AST (15-37) U/L ALT (12-78) U/L Alkaline Phosphatase (45-117) U/L POC Troponin I (0-0.045) ng/ml Troponin I (0-0.045) ng/ml Total Protein (6.4-8.2) gm/dl Albumin (3.4-5.0) gm/dl Globulin (2.5-4.0) gm/dl Albumin/Globulin Ratio (0.9-2) Vitamin B12 Folate Beta-Hydroxybutyric Acd (0.2-2.81) mg/dl Procalcitonin (0-0.5) ng/ml TSH (0.300-4.500) uIu/ml Nasal Screen MRSA (PCR) (Negative) Influenza Type A Ag (Neg) Influenza Type B Ag (Neg) Blood Type Blood Type Recheck Antibody Screen Crossmatch 08/09/18 08/09/18 08/09/18 Range/Units 04:15 04:15 04:15 WBC (4.8-10.8) K/uL RBC (4.2-5.4) M/uL Hgb (12.0-16.0) g/dL POC Hgb (12.0-16.0) g/dl Hct (37-47) % POC Hct (37-47) % MCV (80-100) fL MCH (25-34) pg MCHC (32-36) g/dL RDW Std Deviation (36.4-46.3) fL RDW Coeff of Ching (11.5-14.5) % Plt Count (130-400) K/uL MPV (7.4-10.4) fL Immature Gran % (Auto) % Neut % (Auto) % Lymph % (Auto) % [place] % (Auto) % Eos % (Auto) % Baso % (Auto) % Reticulocyte % (Auto) (0.5-2.0) % Immature Gran # (Auto) (0.00-0.02) K/uL Neut # (Auto) (1.4-6.5) K/uL Lymph # (Auto) (1.2-3.4) K/uL [place] # (Auto) (0.11-0.59) K/uL Eos # (Auto) (0-0.5) K/uL Baso # (Auto) (0-0.2) K/uL Reticulocyte # (0.02-0.10) 10^6/uL Absolute Nucleated RBC (0-0) K/uL Nucleated RBC % (auto) % Polychromasia Poikilocytosis Microcytosis Spherocytes Peripher Smr Path Cons PT 11.4 (9.0-12.0) Seconds INR 1.1 (0.9-1.1) POC Sodium (135-144) mEq/L Sodium 137 (136-145) mmol/L POC Potassium (3.3-5.0) mEq/L Potassium 4.3 (3.5-5.1) mmol/L POC Chloride (101-112) mEq/L Chloride 102 (98-107) mmol/L Carbon Dioxide 29 (21-32) mmol/L POC Total CO2 (24-31) mEq/l Anion Gap 6.0 (3-11) POC Anion Gap (16-25) mmol/L POC BUN (7-18) mg/dl BUN 24 H (7-18) mg/dl Creatinine 1.23 H (0.6-1.2) mg/dl POC Creatinine (0.6-1.3) mg/dl Est Cr Clr Drug Dosing 45.8 ml/min Est GFR ( Amer) 51.8 Est GFR (Non-Af Amer) 44.7 BUN/Creatinine Ratio 19.4 (10-20) Glucose 109 H (70-99) mg/dl POC Glucose (70-99) POC Glucose (other) (70-99) mg/dl Estimat Average Glucose mg/dl Hemoglobin A1c (4.5-5.6) % POC Lactic Acid Monty (0.90-1.70) mmol/L Lactate (0.4-2.0) mmol/L Calcium 8.5 (8.5-10.1) mg/dl POC Ioniz Calcium Pablo (1.12-1.32) mmol/l Phosphorus 4.1 (2.5-4.9) mg/dl Magnesium 1.9 (1.8-2.4) mg/dl Iron (35-150) mcg/dl TIBC (250-450) mcg/dl Ferritin (8-388) ng/ml Total Bilirubin 0.6 (0.2-1) mg/dl AST 153 H (15-37) U/L ALT 24 (12-78) U/L Alkaline Phosphatase 76 (45-117) U/L POC Troponin I (0-0.045) ng/ml Troponin I (0-0.045) ng/ml Total Protein 7.0 (6.4-8.2) gm/dl Albumin 2.7 L (3.4-5.0) gm/dl Globulin 4.3 H (2.5-4.0) gm/dl Albumin/Globulin Ratio 0.6 L (0.9-2) Vitamin B12 Pending Folate Pending Beta-Hydroxybutyric Acd (0.2-2.81) mg/dl Procalcitonin (0-0.5) ng/ml TSH (0.300-4.500) uIu/ml Nasal Screen MRSA (PCR) (Negative) Influenza Type A Ag (Neg) Influenza Type B Ag (Neg) Blood Type Blood Type Recheck Antibody Screen Crossmatch 08/09/18 08/09/18 08/09/18 Range/Units 04:15 04:15 02:28 WBC 14.19 H D (4.8-10.8) K/uL RBC 4.37 (4.2-5.4) M/uL Hgb 9.5 L (12.0-16.0) g/dL POC Hgb (12.0-16.0) g/dl Hct 31.3 L (37-47) % POC Hct (37-47) % MCV 71.6 L (80-100) fL MCH 21.7 L (25-34) pg MCHC 30.4 L D (32-36) g/dL RDW Std Deviation 54.9 H (36.4-46.3) fL RDW Coeff of Ching 21.1 H (11.5-14.5) % Plt Count 546 H (130-400) K/uL MPV 9.4 (7.4-10.4) fL Immature Gran % (Auto) % Neut % (Auto) % Lymph % (Auto) % [place] % (Auto) % Eos % (Auto) % Baso % (Auto) % Reticulocyte % (Auto) (0.5-2.0) % Immature Gran # (Auto) (0.00-0.02) K/uL Neut # (Auto) (1.4-6.5) K/uL Lymph # (Auto) (1.2-3.4) K/uL [place] # (Auto) (0.11-0.59) K/uL Eos # (Auto) (0-0.5) K/uL Baso # (Auto) (0-0.2) K/uL Reticulocyte # (0.02-0.10) 10^6/uL Absolute Nucleated RBC (0-0) K/uL Nucleated RBC % (auto) % Polychromasia Poikilocytosis Microcytosis Spherocytes Peripher Smr Path Cons PT (9.0-12.0) Seconds INR (0.9-1.1) POC Sodium (135-144) mEq/L Sodium (136-145) mmol/L POC Potassium (3.3-5.0) mEq/L Potassium (3.5-5.1) mmol/L POC Chloride (101-112) mEq/L Chloride (98-107) mmol/L Carbon Dioxide (21-32) mmol/L POC Total CO2 (24-31) mEq/l Anion Gap (3-11) POC Anion Gap (16-25) mmol/L POC BUN (7-18) mg/dl BUN (7-18) mg/dl Creatinine (0.6-1.2) mg/dl POC Creatinine (0.6-1.3) mg/dl Est Cr Clr Drug Dosing ml/min Est GFR ( Amer) Est GFR (Non-Af Amer) BUN/Creatinine Ratio (10-20) Glucose (70-99) mg/dl POC Glucose 124 H (70-99) POC Glucose (other) (70-99) mg/dl Estimat Average Glucose mg/dl Hemoglobin A1c (4.5-5.6) % POC Lactic Acid Monty (0.90-1.70) mmol/L Lactate 1.1 (0.4-2.0) mmol/L Calcium (8.5-10.1) mg/dl POC Ioniz Calcium Pablo (1.12-1.32) mmol/l Phosphorus (2.5-4.9) mg/dl Magnesium (1.8-2.4) mg/dl Iron (35-150) mcg/dl TIBC (250-450) mcg/dl Ferritin (8-388) ng/ml Total Bilirubin (0.2-1) mg/dl AST (15-37) U/L ALT (12-78) U/L Alkaline Phosphatase (45-117) U/L POC Troponin I (0-0.045) ng/ml Troponin I (0-0.045) ng/ml Total Protein (6.4-8.2) gm/dl Albumin (3.4-5.0) gm/dl Globulin (2.5-4.0) gm/dl Albumin/Globulin Ratio (0.9-2) Vitamin B12 Folate Beta-Hydroxybutyric Acd (0.2-2.81) mg/dl Procalcitonin (0-0.5) ng/ml TSH (0.300-4.500) uIu/ml Nasal Screen MRSA (PCR) (Negative) Influenza Type A Ag (Neg) Influenza Type B Ag (Neg) Blood Type Blood Type Recheck Antibody Screen Crossmatch 08/09/18 08/09/18 08/08/18 Range/Units 01:26 00:33 23:32 WBC (4.8-10.8) K/uL RBC (4.2-5.4) M/uL Hgb (12.0-16.0) g/dL POC Hgb (12.0-16.0) g/dl Hct (37-47) % POC Hct (37-47) % MCV (80-100) fL MCH (25-34) pg MCHC (32-36) g/dL RDW Std Deviation (36.4-46.3) fL RDW Coeff of Ching (11.5-14.5) % Plt Count (130-400) K/uL MPV (7.4-10.4) fL Immature Gran % (Auto) % Neut % (Auto) % Lymph % (Auto) % [place] % (Auto) % Eos % (Auto) % Baso % (Auto) % Reticulocyte % (Auto) (0.5-2.0) % Immature Gran # (Auto) (0.00-0.02) K/uL Neut # (Auto) (1.4-6.5) K/uL Lymph # (Auto) (1.2-3.4) K/uL [place] # (Auto) (0.11-0.59) K/uL Eos # (Auto) (0-0.5) K/uL Baso # (Auto) (0-0.2) K/uL Reticulocyte # (0.02-0.10) 10^6/uL Absolute Nucleated RBC (0-0) K/uL Nucleated RBC % (auto) % Polychromasia Poikilocytosis Microcytosis Spherocytes Peripher Smr Path Cons PT (9.0-12.0) Seconds INR (0.9-1.1) POC Sodium (135-144) mEq/L Sodium (136-145) mmol/L POC Potassium (3.3-5.0) mEq/L Potassium (3.5-5.1) mmol/L POC Chloride (101-112) mEq/L Chloride (98-107) mmol/L Carbon Dioxide (21-32) mmol/L POC Total CO2 (24-31) mEq/l Anion Gap (3-11) POC Anion Gap (16-25) mmol/L POC BUN (7-18) mg/dl BUN (7-18) mg/dl Creatinine (0.6-1.2) mg/dl POC Creatinine (0.6-1.3) mg/dl Est Cr Clr Drug Dosing ml/min Est GFR ( Amer) Est GFR (Non-Af Amer) BUN/Creatinine Ratio (10-20) Glucose (70-99) mg/dl POC Glucose 152 H 132 H (70-99) POC Glucose (other) (70-99) mg/dl Estimat Average Glucose mg/dl Hemoglobin A1c (4.5-5.6) % POC Lactic Acid Monty (0.90-1.70) mmol/L Lactate (0.4-2.0) mmol/L Calcium (8.5-10.1) mg/dl POC Ioniz Calcium Pablo (1.12-1.32) mmol/l Phosphorus (2.5-4.9) mg/dl Magnesium (1.8-2.4) mg/dl Iron (35-150) mcg/dl TIBC (250-450) mcg/dl Ferritin (8-388) ng/ml Total Bilirubin (0.2-1) mg/dl AST (15-37) U/L ALT (12-78) U/L Alkaline Phosphatase (45-117) U/L POC Troponin I (0-0.045) ng/ml Troponin I 53.200 H* (0-0.045) ng/ml Total Protein (6.4-8.2) gm/dl Albumin (3.4-5.0) gm/dl Globulin (2.5-4.0) gm/dl Albumin/Globulin Ratio (0.9-2) Vitamin B12 Folate Beta-Hydroxybutyric Acd (0.2-2.81) mg/dl Procalcitonin (0-0.5) ng/ml TSH (0.300-4.500) uIu/ml Nasal Screen MRSA (PCR) (Negative) Influenza Type A Ag (Neg) Influenza Type B Ag (Neg) Blood Type Blood Type Recheck Antibody Screen Crossmatch 08/08/18 08/08/18 08/08/18 Range/Units 22:39 21:32 20:42 WBC (4.8-10.8) K/uL RBC (4.2-5.4) M/uL Hgb (12.0-16.0) g/dL POC Hgb (12.0-16.0) g/dl Hct (37-47) % POC Hct (37-47) % MCV (80-100) fL MCH (25-34) pg MCHC (32-36) g/dL RDW Std Deviation (36.4-46.3) fL RDW Coeff of Ching (11.5-14.5) % Plt Count (130-400) K/uL MPV (7.4-10.4) fL Immature Gran % (Auto) % Neut % (Auto) % Lymph % (Auto) % [place] % (Auto) % Eos % (Auto) % Baso % (Auto) % Reticulocyte % (Auto) (0.5-2.0) % Immature Gran # (Auto) (0.00-0.02) K/uL Neut # (Auto) (1.4-6.5) K/uL Lymph # (Auto) (1.2-3.4) K/uL [place] # (Auto) (0.11-0.59) K/uL Eos # (Auto) (0-0.5) K/uL Baso # (Auto) (0-0.2) K/uL Reticulocyte # (0.02-0.10) 10^6/uL Absolute Nucleated RBC (0-0) K/uL Nucleated RBC % (auto) % Polychromasia Poikilocytosis Microcytosis Spherocytes Peripher Smr Path Cons PT (9.0-12.0) Seconds INR (0.9-1.1) POC Sodium (135-144) mEq/L Sodium (136-145) mmol/L POC Potassium (3.3-5.0) mEq/L Potassium (3.5-5.1) mmol/L POC Chloride (101-112) mEq/L Chloride (98-107) mmol/L Carbon Dioxide (21-32) mmol/L POC Total CO2 (24-31) mEq/l Anion Gap (3-11) POC Anion Gap (16-25) mmol/L POC BUN (7-18) mg/dl BUN (7-18) mg/dl Creatinine (0.6-1.2) mg/dl POC Creatinine (0.6-1.3) mg/dl Est Cr Clr Drug Dosing ml/min Est GFR ( Amer) Est GFR (Non-Af Amer) BUN/Creatinine Ratio (10-20) Glucose (70-99) mg/dl POC Glucose 140 H 129 H 154 H (70-99) POC Glucose (other) (70-99) mg/dl Estimat Average Glucose mg/dl Hemoglobin A1c (4.5-5.6) % POC Lactic Acid Monty (0.90-1.70) mmol/L Lactate (0.4-2.0) mmol/L Calcium (8.5-10.1) mg/dl POC Ioniz Calcium Pablo (1.12-1.32) mmol/l Phosphorus (2.5-4.9) mg/dl Magnesium (1.8-2.4) mg/dl Iron (35-150) mcg/dl TIBC (250-450) mcg/dl Ferritin (8-388) ng/ml Total Bilirubin (0.2-1) mg/dl AST (15-37) U/L ALT (12-78) U/L Alkaline Phosphatase (45-117) U/L POC Troponin I (0-0.045) ng/ml Troponin I (0-0.045) ng/ml Total Protein (6.4-8.2) gm/dl Albumin (3.4-5.0) gm/dl Globulin (2.5-4.0) gm/dl Albumin/Globulin Ratio (0.9-2) Vitamin B12 Folate Beta-Hydroxybutyric Acd (0.2-2.81) mg/dl Procalcitonin (0-0.5) ng/ml TSH (0.300-4.500) uIu/ml Nasal Screen MRSA (PCR) (Negative) Influenza Type A Ag (Neg) Influenza Type B Ag (Neg) Blood Type Blood Type Recheck Antibody Screen Crossmatch 08/08/18 08/08/18 08/08/18 Range/Units 19:59 19:42 18:29 WBC (4.8-10.8) K/uL RBC (4.2-5.4) M/uL Hgb (12.0-16.0) g/dL POC Hgb (12.0-16.0) g/dl Hct (37-47) % POC Hct (37-47) % MCV (80-100) fL MCH (25-34) pg MCHC (32-36) g/dL RDW Std Deviation (36.4-46.3) fL RDW Coeff of Ching (11.5-14.5) % Plt Count (130-400) K/uL MPV (7.4-10.4) fL Immature Gran % (Auto) % Neut % (Auto) % Lymph % (Auto) % [place] % (Auto) % Eos % (Auto) % Baso % (Auto) % Reticulocyte % (Auto) (0.5-2.0) % Immature Gran # (Auto) (0.00-0.02) K/uL Neut # (Auto) (1.4-6.5) K/uL Lymph # (Auto) (1.2-3.4) K/uL [place] # (Auto) (0.11-0.59) K/uL Eos # (Auto) (0-0.5) K/uL Baso # (Auto) (0-0.2) K/uL Reticulocyte # (0.02-0.10) 10^6/uL Absolute Nucleated RBC (0-0) K/uL Nucleated RBC % (auto) % Polychromasia Poikilocytosis Microcytosis Spherocytes Peripher Smr Path Cons PT (9.0-12.0) Seconds INR (0.9-1.1) POC Sodium (135-144) mEq/L Sodium 138 (136-145) mmol/L POC Potassium (3.3-5.0) mEq/L Potassium 5.0 (3.5-5.1) mmol/L POC Chloride (101-112) mEq/L Chloride 103 (98-107) mmol/L Carbon Dioxide 26 (21-32) mmol/L POC Total CO2 (24-31) mEq/l Anion Gap 9.0 (3-11) POC Anion Gap (16-25) mmol/L POC BUN (7-18) mg/dl BUN 22 H (7-18) mg/dl Creatinine 1.28 H (0.6-1.2) mg/dl POC Creatinine (0.6-1.3) mg/dl Est Cr Clr Drug Dosing 44.0 ml/min Est GFR ( Amer) 49.4 Est GFR (Non-Af Amer) 42.6 BUN/Creatinine Ratio 17.4 (10-20) Glucose 160 H (70-99) mg/dl POC Glucose 156 H 209 H (70-99) POC Glucose (other) (70-99) mg/dl Estimat Average Glucose mg/dl Hemoglobin A1c (4.5-5.6) % POC Lactic Acid Monty (0.90-1.70) mmol/L Lactate (0.4-2.0) mmol/L Calcium 8.6 (8.5-10.1) mg/dl POC Ioniz Calcium Pablo (1.12-1.32) mmol/l Phosphorus (2.5-4.9) mg/dl Magnesium (1.8-2.4) mg/dl Iron (35-150) mcg/dl TIBC (250-450) mcg/dl Ferritin (8-388) ng/ml Total Bilirubin (0.2-1) mg/dl AST (15-37) U/L ALT (12-78) U/L Alkaline Phosphatase (45-117) U/L POC Troponin I (0-0.045) ng/ml Troponin I 65.900 H* (0-0.045) ng/ml Total Protein (6.4-8.2) gm/dl Albumin (3.4-5.0) gm/dl Globulin (2.5-4.0) gm/dl Albumin/Globulin Ratio (0.9-2) Vitamin B12 Folate Beta-Hydroxybutyric Acd (0.2-2.81) mg/dl Procalcitonin (0-0.5) ng/ml TSH (0.300-4.500) uIu/ml Nasal Screen MRSA (PCR) (Negative) Influenza Type A Ag (Neg) Influenza Type B Ag (Neg) Blood Type Blood Type Recheck Antibody Screen Crossmatch 08/08/18 08/08/18 08/08/18 Range/Units 17:48 17:47 17:34 WBC (4.8-10.8) K/uL RBC (4.2-5.4) M/uL Hgb 8.5 L (12.0-16.0) g/dL POC Hgb (12.0-16.0) g/dl Hct (37-47) % POC Hct (37-47) % MCV (80-100) fL MCH (25-34) pg MCHC (32-36) g/dL RDW Std Deviation (36.4-46.3) fL RDW Coeff of Ching (11.5-14.5) % Plt Count (130-400) K/uL MPV (7.4-10.4) fL Immature Gran % (Auto) % Neut % (Auto) % Lymph % (Auto) % [place] % (Auto) % Eos % (Auto) % Baso % (Auto) % Reticulocyte % (Auto) (0.5-2.0) % Immature Gran # (Auto) (0.00-0.02) K/uL Neut # (Auto) (1.4-6.5) K/uL Lymph # (Auto) (1.2-3.4) K/uL [place] # (Auto) (0.11-0.59) K/uL Eos # (Auto) (0-0.5) K/uL Baso # (Auto) (0-0.2) K/uL Reticulocyte # (0.02-0.10) 10^6/uL Absolute Nucleated RBC (0-0) K/uL Nucleated RBC % (auto) % Polychromasia Poikilocytosis Microcytosis Spherocytes Peripher Smr Path Cons PT (9.0-12.0) Seconds INR (0.9-1.1) POC Sodium (135-144) mEq/L Sodium (136-145) mmol/L POC Potassium (3.3-5.0) mEq/L Potassium (3.5-5.1) mmol/L POC Chloride (101-112) mEq/L Chloride (98-107) mmol/L Carbon Dioxide (21-32) mmol/L POC Total CO2 (24-31) mEq/l Anion Gap (3-11) POC Anion Gap (16-25) mmol/L POC BUN (7-18) mg/dl BUN (7-18) mg/dl Creatinine (0.6-1.2) mg/dl POC Creatinine (0.6-1.3) mg/dl Est Cr Clr Drug Dosing ml/min Est GFR ( Amer) Est GFR (Non-Af Amer) BUN/Creatinine Ratio (10-20) Glucose (70-99) mg/dl POC Glucose 244 H (70-99) POC Glucose (other) (70-99) mg/dl Estimat Average Glucose mg/dl Hemoglobin A1c (4.5-5.6) % POC Lactic Acid Monty (0.90-1.70) mmol/L Lactate 1.4 (0.4-2.0) mmol/L Calcium (8.5-10.1) mg/dl POC Ioniz Calcium Pablo (1.12-1.32) mmol/l Phosphorus (2.5-4.9) mg/dl Magnesium (1.8-2.4) mg/dl Iron (35-150) mcg/dl TIBC (250-450) mcg/dl Ferritin (8-388) ng/ml Total Bilirubin (0.2-1) mg/dl AST (15-37) U/L ALT (12-78) U/L Alkaline Phosphatase (45-117) U/L POC Troponin I (0-0.045) ng/ml Troponin I (0-0.045) ng/ml Total Protein (6.4-8.2) gm/dl Albumin (3.4-5.0) gm/dl Globulin (2.5-4.0) gm/dl Albumin/Globulin Ratio (0.9-2) Vitamin B12 Folate Beta-Hydroxybutyric Acd (0.2-2.81) mg/dl Procalcitonin (0-0.5) ng/ml TSH (0.300-4.500) uIu/ml Nasal Screen MRSA (PCR) (Negative) Influenza Type A Ag (Neg) Influenza Type B Ag (Neg) Blood Type Blood Type Recheck Antibody Screen Crossmatch 08/08/18 08/08/18 08/08/18 Range/Units 16:34 15:22 14:24 WBC (4.8-10.8) K/uL RBC (4.2-5.4) M/uL Hgb (12.0-16.0) g/dL POC Hgb (12.0-16.0) g/dl Hct (37-47) % POC Hct (37-47) % MCV (80-100) fL MCH (25-34) pg MCHC (32-36) g/dL RDW Std Deviation (36.4-46.3) fL RDW Coeff of Ching (11.5-14.5) % Plt Count (130-400) K/uL MPV (7.4-10.4) fL Immature Gran % (Auto) % Neut % (Auto) % Lymph % (Auto) % [place] % (Auto) % Eos % (Auto) % Baso % (Auto) % Reticulocyte % (Auto) (0.5-2.0) % Immature Gran # (Auto) (0.00-0.02) K/uL Neut # (Auto) (1.4-6.5) K/uL Lymph # (Auto) (1.2-3.4) K/uL [place] # (Auto) (0.11-0.59) K/uL Eos # (Auto) (0-0.5) K/uL Baso # (Auto) (0-0.2) K/uL Reticulocyte # (0.02-0.10) 10^6/uL Absolute Nucleated RBC (0-0) K/uL Nucleated RBC % (auto) % Polychromasia Poikilocytosis Microcytosis Spherocytes Peripher Smr Path Cons PT (9.0-12.0) Seconds INR (0.9-1.1) POC Sodium (135-144) mEq/L Sodium (136-145) mmol/L POC Potassium (3.3-5.0) mEq/L Potassium (3.5-5.1) mmol/L POC Chloride (101-112) mEq/L Chloride (98-107) mmol/L Carbon Dioxide (21-32) mmol/L POC Total CO2 (24-31) mEq/l Anion Gap (3-11) POC Anion Gap (16-25) mmol/L POC BUN (7-18) mg/dl BUN (7-18) mg/dl Creatinine (0.6-1.2) mg/dl POC Creatinine (0.6-1.3) mg/dl Est Cr Clr Drug Dosing ml/min Est GFR ( Amer) Est GFR (Non-Af Amer) BUN/Creatinine Ratio (10-20) Glucose (70-99) mg/dl POC Glucose 226 H 184 H 189 H (70-99) POC Glucose (other) (70-99) mg/dl Estimat Average Glucose mg/dl Hemoglobin A1c (4.5-5.6) % POC Lactic Acid Monty (0.90-1.70) mmol/L Lactate (0.4-2.0) mmol/L Calcium (8.5-10.1) mg/dl POC Ioniz Calcium Pablo (1.12-1.32) mmol/l Phosphorus (2.5-4.9) mg/dl Magnesium (1.8-2.4) mg/dl Iron (35-150) mcg/dl TIBC (250-450) mcg/dl Ferritin (8-388) ng/ml Total Bilirubin (0.2-1) mg/dl AST (15-37) U/L ALT (12-78) U/L Alkaline Phosphatase (45-117) U/L POC Troponin I (0-0.045) ng/ml Troponin I (0-0.045) ng/ml Total Protein (6.4-8.2) gm/dl Albumin (3.4-5.0) gm/dl Globulin (2.5-4.0) gm/dl Albumin/Globulin Ratio (0.9-2) Vitamin B12 Folate Beta-Hydroxybutyric Acd (0.2-2.81) mg/dl Procalcitonin (0-0.5) ng/ml TSH (0.300-4.500) uIu/ml Nasal Screen MRSA (PCR) (Negative) Influenza Type A Ag (Neg) Influenza Type B Ag (Neg) Blood Type Blood Type Recheck Antibody Screen Crossmatch 08/08/18 08/08/18 08/08/18 Range/Units 13:17 11:36 11:36 WBC (4.8-10.8) K/uL RBC (4.2-5.4) M/uL Hgb (12.0-16.0) g/dL POC Hgb (12.0-16.0) g/dl Hct (37-47) % POC Hct (37-47) % MCV (80-100) fL MCH (25-34) pg MCHC (32-36) g/dL RDW Std Deviation (36.4-46.3) fL RDW Coeff of Ching (11.5-14.5) % Plt Count (130-400) K/uL MPV (7.4-10.4) fL Immature Gran % (Auto) % Neut % (Auto) % Lymph % (Auto) % [place] % (Auto) % Eos % (Auto) % Baso % (Auto) % Reticulocyte % (Auto) (0.5-2.0) % Immature Gran # (Auto) (0.00-0.02) K/uL Neut # (Auto) (1.4-6.5) K/uL Lymph # (Auto) (1.2-3.4) K/uL [place] # (Auto) (0.11-0.59) K/uL Eos # (Auto) (0-0.5) K/uL Baso # (Auto) (0-0.2) K/uL Reticulocyte # (0.02-0.10) 10^6/uL Absolute Nucleated RBC (0-0) K/uL Nucleated RBC % (auto) % Polychromasia Poikilocytosis Microcytosis Spherocytes Peripher Smr Path Cons PT (9.0-12.0) Seconds INR (0.9-1.1) POC Sodium (135-144) mEq/L Sodium (136-145) mmol/L POC Potassium (3.3-5.0) mEq/L Potassium (3.5-5.1) mmol/L POC Chloride (101-112) mEq/L Chloride (98-107) mmol/L Carbon Dioxide (21-32) mmol/L POC Total CO2 (24-31) mEq/l Anion Gap (3-11) POC Anion Gap (16-25) mmol/L POC BUN (7-18) mg/dl BUN (7-18) mg/dl Creatinine (0.6-1.2) mg/dl POC Creatinine (0.6-1.3) mg/dl Est Cr Clr Drug Dosing ml/min Est GFR ( Amer) Est GFR (Non-Af Amer) BUN/Creatinine Ratio (10-20) Glucose (70-99) mg/dl POC Glucose 227 H 321 H (70-99) POC Glucose (other) (70-99) mg/dl Estimat Average Glucose mg/dl Hemoglobin A1c (4.5-5.6) % POC Lactic Acid Monty (0.90-1.70) mmol/L Lactate (0.4-2.0) mmol/L Calcium (8.5-10.1) mg/dl POC Ioniz Calcium Pablo (1.12-1.32) mmol/l Phosphorus (2.5-4.9) mg/dl Magnesium (1.8-2.4) mg/dl Iron (35-150) mcg/dl TIBC (250-450) mcg/dl Ferritin (8-388) ng/ml Total Bilirubin (0.2-1) mg/dl AST (15-37) U/L ALT (12-78) U/L Alkaline Phosphatase (45-117) U/L POC Troponin I (0-0.045) ng/ml Troponin I (0-0.045) ng/ml Total Protein (6.4-8.2) gm/dl Albumin (3.4-5.0) gm/dl Globulin (2.5-4.0) gm/dl Albumin/Globulin Ratio (0.9-2) Vitamin B12 Folate Beta-Hydroxybutyric Acd (0.2-2.81) mg/dl Procalcitonin 0.48 (0-0.5) ng/ml TSH (0.300-4.500) uIu/ml Nasal Screen MRSA (PCR) (Negative) Influenza Type A Ag (Neg) Influenza Type B Ag (Neg) Blood Type Blood Type Recheck Antibody Screen Crossmatch 08/08/18 08/08/18 08/08/18 Range/Units 11:36 11:32 11:30 WBC (4.8-10.8) K/uL RBC (4.2-5.4) M/uL Hgb (12.0-16.0) g/dL POC Hgb (12.0-16.0) g/dl Hct (37-47) % POC Hct (37-47) % MCV (80-100) fL MCH (25-34) pg MCHC (32-36) g/dL RDW Std Deviation (36.4-46.3) fL RDW Coeff of Ching (11.5-14.5) % Plt Count (130-400) K/uL MPV (7.4-10.4) fL Immature Gran % (Auto) % Neut % (Auto) % Lymph % (Auto) % Coryell % (Auto) % Eos % (Auto) % Baso % (Auto) % Reticulocyte % (Auto) (0.5-2.0) % Immature Gran # (Auto) (0.00-0.02) K/uL Neut # (Auto) (1.4-6.5) K/uL Lymph # (Auto) (1.2-3.4) K/uL Coryell # (Auto) (0.11-0.59) K/uL Eos # (Auto) (0-0.5) K/uL Baso # (Auto) (0-0.2) K/uL Reticulocyte # (0.02-0.10) 10^6/uL Absolute Nucleated RBC (0-0) K/uL Nucleated RBC % (auto) % Polychromasia Poikilocytosis Microcytosis Spherocytes Peripher Smr Path Cons PT (9.0-12.0) Seconds INR (0.9-1.1) POC Sodium (135-144) mEq/L Sodium (136-145) mmol/L POC Potassium (3.3-5.0) mEq/L Potassium (3.5-5.1) mmol/L POC Chloride (101-112) mEq/L Chloride (98-107) mmol/L Carbon Dioxide (21-32) mmol/L POC Total CO2 (24-31) mEq/l Anion Gap (3-11) POC Anion Gap (16-25) mmol/L POC BUN (7-18) mg/dl BUN (7-18) mg/dl Creatinine (0.6-1.2) mg/dl POC Creatinine (0.6-1.3) mg/dl Est Cr Clr Drug Dosing ml/min Est GFR ( Amer) Est GFR (Non-Af Amer) BUN/Creatinine Ratio (10-20) Glucose (70-99) mg/dl POC Glucose (70-99) POC Glucose (other) (70-99) mg/dl Estimat Average Glucose 157 mg/dl Hemoglobin A1c 7.1 H (4.5-5.6) % POC Lactic Acid Monty (0.90-1.70) mmol/L Lactate 2.0 (0.4-2.0) mmol/L Calcium (8.5-10.1) mg/dl POC Ioniz Calcium Pablo (1.12-1.32) mmol/l Phosphorus (2.5-4.9) mg/dl Magnesium (1.8-2.4) mg/dl Iron (35-150) mcg/dl TIBC (250-450) mcg/dl Ferritin (8-388) ng/ml Total Bilirubin (0.2-1) mg/dl AST (15-37) U/L ALT (12-78) U/L Alkaline Phosphatase (45-117) U/L POC Troponin I (0-0.045) ng/ml Troponin I (0-0.045) ng/ml Total Protein (6.4-8.2) gm/dl Albumin (3.4-5.0) gm/dl Globulin (2.5-4.0) gm/dl Albumin/Globulin Ratio (0.9-2) Vitamin B12 Folate Beta-Hydroxybutyric Acd (0.2-2.81) mg/dl Procalcitonin (0-0.5) ng/ml TSH (0.300-4.500) uIu/ml Nasal Screen MRSA (PCR) Negative (Negative) Influenza Type A Ag (Neg) Influenza Type B Ag (Neg) Blood Type Blood Type Recheck Antibody Screen Crossmatch 08/08/18 08/08/18 08/08/18 Range/Units 10:00 09:23 09:23 WBC (4.8-10.8) K/uL RBC (4.2-5.4) M/uL Hgb 6.8 L* (12.0-16.0) g/dL POC Hgb (12.0-16.0) g/dl Hct 26.2 L (37-47) % POC Hct (37-47) % MCV (80-100) fL MCH (25-34) pg MCHC (32-36) g/dL RDW Std Deviation (36.4-46.3) fL RDW Coeff of Ching (11.5-14.5) % Plt Count (130-400) K/uL MPV (7.4-10.4) fL Immature Gran % (Auto) % Neut % (Auto) % Lymph % (Auto) % [place] % (Auto) % Eos % (Auto) % Baso % (Auto) % Reticulocyte % (Auto) (0.5-2.0) % Immature Gran # (Auto) (0.00-0.02) K/uL Neut # (Auto) (1.4-6.5) K/uL Lymph # (Auto) (1.2-3.4) K/uL Coryell # (Auto) (0.11-0.59) K/uL Eos # (Auto) (0-0.5) K/uL Baso # (Auto) (0-0.2) K/uL Reticulocyte # (0.02-0.10) 10^6/uL Absolute Nucleated RBC (0-0) K/uL Nucleated RBC % (auto) % Polychromasia Poikilocytosis Microcytosis Spherocytes Peripher Smr Path Cons PT (9.0-12.0) Seconds INR (0.9-1.1) POC Sodium (135-144) mEq/L Sodium (136-145) mmol/L POC Potassium (3.3-5.0) mEq/L Potassium (3.5-5.1) mmol/L POC Chloride (101-112) mEq/L Chloride (98-107) mmol/L Carbon Dioxide (21-32) mmol/L POC Total CO2 (24-31) mEq/l Anion Gap (3-11) POC Anion Gap (16-25) mmol/L POC BUN (7-18) mg/dl BUN (7-18) mg/dl Creatinine (0.6-1.2) mg/dl POC Creatinine (0.6-1.3) mg/dl Est Cr Clr Drug Dosing ml/min Est GFR ( Amer) Est GFR (Non-Af Amer) BUN/Creatinine Ratio (10-20) Glucose (70-99) mg/dl POC Glucose (70-99) POC Glucose (other) (70-99) mg/dl Estimat Average Glucose mg/dl Hemoglobin A1c (4.5-5.6) % POC Lactic Acid Monty (0.90-1.70) mmol/L Lactate (0.4-2.0) mmol/L Calcium (8.5-10.1) mg/dl POC Ioniz Calcium Pablo (1.12-1.32) mmol/l Phosphorus (2.5-4.9) mg/dl Magnesium (1.8-2.4) mg/dl Iron (35-150) mcg/dl TIBC (250-450) mcg/dl Ferritin (8-388) ng/ml Total Bilirubin (0.2-1) mg/dl AST (15-37) U/L ALT (12-78) U/L Alkaline Phosphatase (45-117) U/L POC Troponin I (0-0.045) ng/ml Troponin I (0-0.045) ng/ml Total Protein (6.4-8.2) gm/dl Albumin (3.4-5.0) gm/dl Globulin (2.5-4.0) gm/dl Albumin/Globulin Ratio (0.9-2) Vitamin B12 Folate Beta-Hydroxybutyric Acd (0.2-2.81) mg/dl Procalcitonin (0-0.5) ng/ml TSH (0.300-4.500) uIu/ml Nasal Screen MRSA (PCR) (Negative) Influenza Type A Ag (Neg) Influenza Type B Ag (Neg) Blood Type A Positive Blood Type Recheck A Positive Antibody Screen NEGATIVE Crossmatch See Detail 08/08/18 08/08/18 08/08/18 Range/Units 08:58 08:54 08:50 WBC (4.8-10.8) K/uL RBC (4.2-5.4) M/uL Hgb (12.0-16.0) g/dL POC Hgb 8.2 L (12.0-16.0) g/dl Hct (37-47) % POC Hct 24 L (37-47) % MCV (80-100) fL MCH (25-34) pg MCHC (32-36) g/dL RDW Std Deviation (36.4-46.3) fL RDW Coeff of Ching (11.5-14.5) % Plt Count (130-400) K/uL MPV (7.4-10.4) fL Immature Gran % (Auto) % Neut % (Auto) % Lymph % (Auto) % [place] % (Auto) % Eos % (Auto) % Baso % (Auto) % Reticulocyte % (Auto) (0.5-2.0) % Immature Gran # (Auto) (0.00-0.02) K/uL Neut # (Auto) (1.4-6.5) K/uL Lymph # (Auto) (1.2-3.4) K/uL [place] # (Auto) (0.11-0.59) K/uL Eos # (Auto) (0-0.5) K/uL Baso # (Auto) (0-0.2) K/uL Reticulocyte # (0.02-0.10) 10^6/uL Absolute Nucleated RBC (0-0) K/uL Nucleated RBC % (auto) % Polychromasia Poikilocytosis Microcytosis Spherocytes Peripher Smr Path Cons PT (9.0-12.0) Seconds INR (0.9-1.1) POC Sodium 137 (135-144) mEq/L Sodium (136-145) mmol/L POC Potassium 4.5 (3.3-5.0) mEq/L Potassium (3.5-5.1) mmol/L POC Chloride 102 (101-112) mEq/L Chloride (98-107) mmol/L Carbon Dioxide (21-32) mmol/L POC Total CO2 21 L (24-31) mEq/l Anion Gap (3-11) POC Anion Gap 20.0 (16-25) mmol/L POC BUN 18 (7-18) mg/dl BUN (7-18) mg/dl Creatinine (0.6-1.2) mg/dl POC Creatinine 1.1 (0.6-1.3) mg/dl Est Cr Clr Drug Dosing ml/min Est GFR ( Amer) Est GFR (Non-Af Amer) BUN/Creatinine Ratio (10-20) Glucose (70-99) mg/dl POC Glucose (70-99) POC Glucose (other) 375 H* (70-99) mg/dl Estimat Average Glucose mg/dl Hemoglobin A1c (4.5-5.6) % POC Lactic Acid Monty 6.20 H (0.90-1.70) mmol/L Lactate (0.4-2.0) mmol/L Calcium (8.5-10.1) mg/dl POC Ioniz Calcium Pablo 1.06 L (1.12-1.32) mmol/l Phosphorus (2.5-4.9) mg/dl Magnesium (1.8-2.4) mg/dl Iron (35-150) mcg/dl TIBC (250-450) mcg/dl Ferritin (8-388) ng/ml Total Bilirubin (0.2-1) mg/dl AST (15-37) U/L ALT (12-78) U/L Alkaline Phosphatase (45-117) U/L POC Troponin I 1.20 H (0-0.045) ng/ml Troponin I (0-0.045) ng/ml Total Protein (6.4-8.2) gm/dl Albumin (3.4-5.0) gm/dl Globulin (2.5-4.0) gm/dl Albumin/Globulin Ratio (0.9-2) Vitamin B12 Folate Beta-Hydroxybutyric Acd (0.2-2.81) mg/dl Procalcitonin (0-0.5) ng/ml TSH (0.300-4.500) uIu/ml Nasal Screen MRSA (PCR) (Negative) Influenza Type A Ag (Neg) Influenza Type B Ag (Neg) Blood Type Blood Type Recheck Antibody Screen Crossmatch 08/08/18 08/08/1819 Range/Units 08:45 08:45 08:45 WBC (4.8-10.8) K/uL RBC (4.2-5.4) M/uL Hgb (12.0-16.0) g/dL POC Hgb (12.0-16.0) g/dl Hct (37-47) % POC Hct (37-47) % MCV (80-100) fL MCH (25-34) pg MCHC (32-36) g/dL RDW Std Deviation (36.4-46.3) fL RDW Coeff of Ching (11.5-14.5) % Plt Count (130-400) K/uL MPV (7.4-10.4) fL Immature Gran % (Auto) % Neut % (Auto) % Lymph % (Auto) % [place] % (Auto) % Eos % (Auto) % Baso % (Auto) % Reticulocyte % (Auto) (0.5-2.0) % Immature Gran # (Auto) (0.00-0.02) K/uL Neut # (Auto) (1.4-6.5) K/uL Lymph # (Auto) (1.2-3.4) K/uL [place] # (Auto) (0.11-0.59) K/uL Eos # (Auto) (0-0.5) K/uL Baso # (Auto) (0-0.2) K/uL Reticulocyte # (0.02-0.10) 10^6/uL Absolute Nucleated RBC (0-0) K/uL Nucleated RBC % (auto) % Polychromasia Poikilocytosis Microcytosis Spherocytes Peripher Smr Path Cons PT (9.0-12.0) Seconds INR (0.9-1.1) POC Sodium (135-144) mEq/L Sodium 135 L (136-145) mmol/L POC Potassium (3.3-5.0) mEq/L Potassium 4.4 (3.5-5.1) mmol/L POC Chloride (101-112) mEq/L Chloride 101 (98-107) mmol/L Carbon Dioxide 23 (21-32) mmol/L POC Total CO2 (24-31) mEq/l Anion Gap 12.0 H (3-11) POC Anion Gap (16-25) mmol/L POC BUN (7-18) mg/dl BUN 21 H (7-18) mg/dl Creatinine 1.42 H (0.6-1.2) mg/dl POC Creatinine (0.6-1.3) mg/dl Est Cr Clr Drug Dosing 40.2 ml/min Est GFR ( Amer) 43.6 Est GFR (Non-Af Amer) 37.6 BUN/Creatinine Ratio 14.4 (10-20) Glucose 367 H* (70-99) mg/dl POC Glucose (70-99) POC Glucose (other) (70-99) mg/dl Estimat Average Glucose mg/dl Hemoglobin A1c (4.5-5.6) % POC Lactic Acid Monty (0.90-1.70) mmol/L Lactate (0.4-2.0) mmol/L Calcium 8.6 (8.5-10.1) mg/dl POC Ioniz Calcium Pablo (1.12-1.32) mmol/l Phosphorus (2.5-4.9) mg/dl Magnesium 1.9 (1.8-2.4) mg/dl Iron 12 L (35-150) mcg/dl TIBC 406 (250-450) mcg/dl Ferritin 6.5 L (8-388) ng/ml Total Bilirubin 0.2 (0.2-1) mg/dl AST 44 H (15-37) U/L ALT 15 (12-78) U/L Alkaline Phosphatase 96 (45-117) U/L POC Troponin I (0-0.045) ng/ml Troponin I Cancelled 2.200 H* (0-0.045) ng/ml Total Protein 8.0 (6.4-8.2) gm/dl Albumin 3.0 L (3.4-5.0) gm/dl Globulin 5.0 H (2.5-4.0) gm/dl Albumin/Globulin Ratio 0.6 L (0.9-2) Vitamin B12 Folate Beta-Hydroxybutyric Acd 2.55 (0.2-2.81) mg/dl Procalcitonin (0-0.5) ng/ml TSH 6.590 H (0.300-4.500) uIu/ml Nasal Screen MRSA (PCR) (Negative) Influenza Type A Ag Neg for Influ A (Neg) Influenza Type B Ag Neg for Influ B (Neg) Blood Type Blood Type Recheck Antibody Screen Crossmatch 08/08/18 08/08/18 Range/Units 08:45 08:45 WBC 29.02 H (4.8-10.8) K/uL RBC 3.60 L (4.2-5.4) M/uL Hgb 6.3 L* (12.0-16.0) g/dL POC Hgb (12.0-16.0) g/dl Hct 24.9 L (37-47) % POC Hct (37-47) % MCV 69.2 L (80-100) fL MCH 17.5 L (25-34) pg MCHC 25.3 L (32-36) g/dL RDW Std Deviation 49.4 H (36.4-46.3) fL RDW Coeff of Ching 19.4 H (11.5-14.5) % Plt Count 780 H (130-400) K/uL MPV 9.0 (7.4-10.4) fL Immature Gran % (Auto) 0.5 % Neut % (Auto) 86.7 % Lymph % (Auto) 8.1 % [place] % (Auto) 4.3 % Eos % (Auto) 0.3 % Baso % (Auto) 0.1 % Reticulocyte % (Auto) 2.7 H (0.5-2.0) % Immature Gran # (Auto) 0.15 H (0.00-0.02) K/uL Neut # (Auto) 25.17 H (1.4-6.5) K/uL Lymph # (Auto) 2.34 (1.2-3.4) K/uL [place] # (Auto) 1.24 H (0.11-0.59) K/uL Eos # (Auto) 0.09 (0-0.5) K/uL Baso # (Auto) 0.03 (0-0.2) K/uL Reticulocyte # 0.10 (0.02-0.10) 10^6/uL Absolute Nucleated RBC 0.08 H (0-0) K/uL Nucleated RBC % (auto) 0.3 % Polychromasia 1+ Poikilocytosis Present Microcytosis Present Spherocytes Occasional Peripher Smr Path Cons PT 11.4 (9.0-12.0) Seconds INR 1.1 (0.9-1.1) POC Sodium (135-144) mEq/L Sodium (136-145) mmol/L POC Potassium (3.3-5.0) mEq/L Potassium (3.5-5.1) mmol/L POC Chloride (101-112) mEq/L Chloride (98-107) mmol/L Carbon Dioxide (21-32) mmol/L POC Total CO2 (24-31) mEq/l Anion Gap (3-11) POC Anion Gap (16-25) mmol/L POC BUN (7-18) mg/dl BUN (7-18) mg/dl Creatinine (0.6-1.2) mg/dl POC Creatinine (0.6-1.3) mg/dl Est Cr Clr Drug Dosing ml/min Est GFR ( Amer) Est GFR (Non-Af Amer) BUN/Creatinine Ratio (10-20) Glucose (70-99) mg/dl POC Glucose (70-99) POC Glucose (other) (70-99) mg/dl Estimat Average Glucose mg/dl Hemoglobin A1c (4.5-5.6) % POC Lactic Acid Monty (0.90-1.70) mmol/L Lactate (0.4-2.0) mmol/L Calcium (8.5-10.1) mg/dl POC Ioniz Calcium Pablo (1.12-1.32) mmol/l Phosphorus (2.5-4.9) mg/dl Magnesium (1.8-2.4) mg/dl Iron (35-150) mcg/dl TIBC (250-450) mcg/dl Ferritin (8-388) ng/ml Total Bilirubin (0.2-1) mg/dl AST (15-37) U/L ALT (12-78) U/L Alkaline Phosphatase (45-117) U/L POC Troponin I (0-0.045) ng/ml Troponin I (0-0.045) ng/ml Total Protein (6.4-8.2) gm/dl Albumin (3.4-5.0) gm/dl Globulin (2.5-4.0) gm/dl Albumin/Globulin Ratio (0.9-2) Vitamin B12 Folate Beta-Hydroxybutyric Acd (0.2-2.81) mg/dl Procalcitonin (0-0.5) ng/ml TSH (0.300-4.500) uIu/ml Nasal Screen MRSA (PCR) (Negative) Influenza Type A Ag (Neg) Influenza Type B Ag (Neg) Blood Type Blood Type Recheck Antibody Screen Crossmatch Medications Administered Current Inpatient Medications Acetaminophen (Tylenol) 650 mg PO Q4H PRN PRN Reason: Moderate Pain Stop: 09/07/18 11:29 Last Admin: 08/09/18 06:21 Dose: 650 mg Ascorbic Acid (Vitamin C) 500 mg PO [facility] Stop: 09/08/18 08:59 Last Admin: 08/09/18 08:24 Dose: 500 mg Atorvastatin Calcium (Lipitor) 40 mg PO BID [facility] Stop: 09/07/18 11:29 Last Admin: 08/09/18 08:24 Dose: 40 mg Dextrose (Dextrose 50%) 25 - 50 ml IV UD PRN; Protocol PRN Reason: Hypoglycemia Protocol Stop: 09/07/18 11:29 Ferrous Sulfate (Feosol) 325 mg PO [facility] Stop: 09/08/18 08:59 Last Admin: 08/09/18 08:24 Dose: 325 mg Folic Acid (Folvite) 1 mg PO [facility] Stop: 09/08/18 08:59 Last Admin: 08/09/18 08:24 Dose: 1 mg Glucagon (Glucagen) 1 mg SQ UD PRN; Protocol PRN Reason: Hypoglycemia Protocol Stop: 09/07/18 11:29 Glucose (Glucose 40%) 15 - 30 gm PO UD PRN; Protocol PRN Reason: Hypoglycemia Protocol Stop: 09/07/18 11:29 Glucose (Dex4 Glucose) 4 - 8 tabs PO UD PRN; Protocol PRN Reason: Hypoglycemia Protocol Stop: 09/07/18 11:29 Nitroglycerin/Dextrose (Nitroglycerin/D5w 100 Mcg/Ml) 250 mls @ 24 mls/hr IV .[id number] [facility]; Protocol Stop: 09/07/18 16:29 Last Titration: 08/09/18 07:09 Dose: 40 mcg/min, 24 mls/hr Insulin Aspart (Novolog Flexpen) 0 units SC [facility] Stop: 09/07/18 12:59 Last Admin: 08/08/18 20:34 Dose: Not Given Lisinopril (Zestril) 5 mg PO QAM [facility] Stop: 09/08/18 08:59 Last Admin: 08/09/18 08:24 Dose: 5 mg Magnesium Oxide (Mag-Ox) 400 mg PO HS [facility] Stop: 09/07/18 20:59 Last Admin: 08/08/18 20:33 Dose: 400 mg Metoprolol Tartrate (Lopressor) 50 mg PO BID [facility] Stop: 09/07/18 20:59 Last Admin: 08/09/18 08:25 Dose: 50 mg Miscellaneous (Carbohydrates For Hypoglycemia) 15 - 30 gm PO UD PRN PRN Reason: Hypoglycemia Treatment Stop: 09/07/18 11:29 Multivitamins (Multivitamin Tab) 1 tab PO QAM [facility] Stop: 09/08/18 08:59 Last Admin: 08/09/18 08:24 Dose: 1 tab Nitroglycerin (Nitrostat) 0.4 mg SL UD PRN PRN Reason: CHEST PAIN Stop: 09/07/18 11:29 Ondansetron HCl (Zofran) 4 mg IV Q4H PRN PRN Reason: Nausea And Vomiting Stop: 09/07/18 11:29 Resident Activity Tracking Resident Involvement: Resident Care Provided Care Provided: [facility] _ (1) Anemia Anemia type: unspecified type Bone marrow failure anemia type: Chronic kidney disease stage: Folate deficiency anemia type: Hemolytic anemia type: Iron deficiency anemia type: Other causes of anemia: Vitamin B12 deficiency anemia type: Qualified Code(s): D64.9 - Anemia, unspecified (2) Myocardial infarction Involved coronary artery: Myocardial infarction type: non-ST elevation myocardial infarction Qualified Code(s): I21.4 - Non-ST elevation (NSTEMI) myocardial infarction
[2018-08-09] MEDS ORDERED: FUROSEMIDE 40 MG in SYRINGE 0 ML IV ONE ×2 (08:15→15:15)
[2018-08-09] MEDS: ASCORBIC ACID 500 MG TAB PO SCH (08:24)
[2018-08-09] MEDS: ATORVASTATIN 40 MG TAB PO SCH ×2 (08:24→20:02)
[2018-08-09] MEDS: LISINOPRIL 5 MG TAB PO SCH (08:24)
[2018-08-09] MEDS: FERROUS SULFATE 325 MG TAB PO SCH (08:24)
[2018-08-09] MEDS: MULTIVITAMIN TAB PO SCH (08:24)
[2018-08-09] MEDS: FOLIC ACID 1 MG TAB PO SCH (08:24)
[2018-08-09] MEDS: METOPROLOL TARTRATE 50 MG TAB PO SCH ×2 (08:25→20:02)
[2018-08-09 08:46] LABS: Folate (Folic Acid) 14.62 ng/ml (>5.38)
[2018-08-09] MEDS ORDERED: LISINOPRIL 2.5 MG TAB PO SCH (09:00)
[2018-08-09] MEDS: INSULIN ASPART 100 UNITS/ML 3 ML PEN SC SCH ×5 (09:09→20:08)
[2018-08-09] MEDS ORDERED: DC IV INSULIN INFUSION 1 EA DEVI ONE (09:41)
[2018-08-09] MEDS ORDERED: INSULIN GLARGINE SOLOSTAR 100 UNITS/ML 3 ML PEN SC ONE (10:00)
--- NOTE | 2018-08-09 10:48 | Pharmacy Report ---
Glycemic Control Consultation - Date of Service August 09, 2018 - Scope Scope: Glycemic Pharmacist consulted by Dr Mixon on 08/09 for glycemic control and to write orders per [facility] inpatient glycemic control protocol - Objective Weight: 89.7 kg Accuchecks BSG (last 24hrs): 08/08/18 08/08/18 08/08/18 11:36 13:17 14:24 Glucose POC Glucose 321 H 227 H 189 H 08/08/18 08/08/18 08/08/18 15:22 16:34 17:34 Glucose POC Glucose 184 H 226 H 244 H 08/08/18 08/08/18 08/08/18 18:29 19:42 19:59 Glucose 160 H POC Glucose 209 H 156 H 08/08/18 08/08/18 08/08/18 20:42 21:32 22:39 Glucose POC Glucose 154 H 129 H 140 H 08/08/18 08/09/18 08/09/18 23:32 00:33 02:28 Glucose POC Glucose 132 H 152 H 124 H 08/09/18 08/09/18 08/09/18 04:15 04:35 06:26 Glucose 109 H POC Glucose 115 H 103 H 08/09/18 08/09/18 08/09/18 07:38 08:37 09:36 Glucose POC Glucose 130 H 127 H 232 H Laboratory Data (last 24hrs): 08/08/18 08/09/18 19:59 04:15 Potassium 5.0 4.3 Carbon Dioxide 26 29 Anion Gap 9.0 6.0 Creatinine 1.28 H 1.23 H Est Cr Clr Drug Dosing 44.0 45.8 HbA1c: Hemoglobin A1c 7.1 % (4.5-5.6) H 08/08/18 11:36 - Recent Pertinent Medications Outpatient Anti-diabetic Regimen: * metformin 1000mg BID; insulin 70/30 70-80 units BIDM * A1c = 7.1 % 08/08/18 The patient is currently receiving: * Basal insulin: insulin infusion * Correctional Insulin: Novolog Correction per scale [facility] Risk Factors for Insulin Resistance: * Resp failure/flash pulm * Diet: snacking - Assessment & Plan Assessment & Plan: ASSESSMENT: * Patient presenting with acute respiratory failure and hyperglycemia necessitating an insulin infusion. Now ready to transition off the drip. It is noted patient is ordered a diet, but is snacking per nurse. PLAN FOR INPATIENT GLYCEMIC CONTROL: * IV insulin infusion * Drip to turn off by itself or be shut off in 6 hours (~1600), whichever comes first * Basal insulin * Lantus 22 units SQ X 1 to facilitate drip transition * Lantus 15 units BID @ 2100 * Bolus insulin * NovoLog per scale ACHS (starting when drip off) * Goal Range: Low 120 mg/dL - High 160 mg/dL * Correction Factor: 25 mg/dL/unit * Nutritional / Prandial insulin per carb ratio of 1 unit per 10 grams CHO consumed * Please note that the plan above was derived based on current level of insulin resistance and hospital stress. These recommendations are appropriate for inpatient admission only. Plan of care upon discharge will need to be reassessed to avoid potential outpatient hypo/hyperglycemia. Thank you.
--- NOTE | 2018-08-09 12:00 | Gastrointestinal Consultation ---
Date of Consultation August 09, 2018 Assessment & Plan (1) Anemia: No overt ongoing GI bleeding, H/H improved with PRBC transfusion. Antiplatelet on hold. She will definitely benefit from EGD and colonoscopy only once she is stable from her cardiopulmonary stand point. Recommend: PO PPI for now. Monitor H/H will arrange for EGD/Colonoscopy this admission once out of the ICU and stable from cardiopulmonary point. Can resume low dose ASA from GI point. History of Present Illness Attending Physician: Solo Valdes 68 years old female patient with medical comorbids of CHF, CAD, hx of NSTEMI in October 2017 s/p PCI and stent placement, on ASA and Plavix, DM II, hypothyroidism , HTN, HLD admitted to the ICU with Acute respiratory failure and acute CHF exacerbation. GI consulted for acute anemia. Patient denies any abdominal pain, nausea or vomiting, no diarrhea or constipation, no hematemesis, rectal bleeding or melena and her stool is brown. Her baseline Hgb is 10 based on records in 2012, on admission it was 6.8 which improved tpo >9 after PRBC transfusion. Never had any endoscopy in the past. Allergies Allergy/AdvReac Type Severity Reaction Status Date / Time No Known Allergies Allergy Unverified 08/08/18 09:44 Home Medications Home Medications Medication Instructions Recorded Confirmed Type aspirin 81 mg PO QAM 08/08/18 08/08/18 History atorvastatin 40 mg PO BID 08/08/18 08/08/18 History clopidogrel [Plavix] 75 mg PO QAM 08/08/18 08/08/18 History furosemide [Lasix] 20 mg PO QAM 08/08/18 08/08/18 History insulin NPH and regular human 70 - 80 unit SUBCUT BIDM 08/08/18 08/08/18 History [Novolin 70-30 FlexPen U-100] lisinopril 2.5 mg PO QAM 08/08/18 08/08/18 History metformin 1,000 mg PO BID 08/08/18 08/08/18 History metoprolol tartrate [Lopressor] 50 mg PO BID 08/08/18 08/08/18 History nitroglycerin [Nitrostat] 0.4 mg SUBLINGUAL UD 08/08/18 08/08/18 History Patient History Medical History DVT prophylaxis DM II (diabetes mellitus, type II), controlled CAD (coronary artery disease) HLD (hyperlipidemia) HTN (hypertension) Acute respiratory failure with hypoxia Myocardial infarction (Acute) Acute pulmonary edema (Acute) Anemia (Acute) Pneumonia Diabetes Non-STEMI (non-ST elevated myocardial infarction) Surgical History Hx of cardiac catheterization Family History Other Diabetes Social History marital status: Current Living Situation: Spouse and Family Other Information That Helps Us Care for You: No Feels Safe at Home: Yes Safety Concerns: Feels Safe At This Time Smoking Status: Never smoker Do You Dip or Chew Tobacco: No Second Hand Exposure: No Tobacco Cessation Education Requested by Patient: No Hx Alcohol Use: No Hx Substance Use: No Beliefs That Will Affect Care: None Preferred Language: German Communication Ability: Effective Mail Room Clerk Required: No Review of Systems Constitutional: no fever, no chills, no fatigue and no weight loss Eyes: no eye pain and no worsening vision Ear, Nose, Mouth, Throat: no tinnitus, no dizziness, no nasal discharge and no epistaxis Respiratory: + dyspnea and + dyspnea on exertion; no cough and no wheezing Cardiovascular: no chest pain, no orthopnea, no palpitations and no edema Gastrointestinal: as per Subjective / HPI Genitourinary (Female): no dysuria, no urinary frequency, no urinary incontinence and no hematuria Musculoskeletal: no stiffness and no myalgia Neurologic: no localized weakness, no paralysis, no tremor(s) and no headache(s) Endocrine: no polydipsia and no polyuria Hematologic / Lymphatic: no easy bleeding and no night sweats Physical Exam 2 Vital Signs (Past 24 Hours): Last Vital Signs Temp 36.7 C 08/09/18 08:00 Pulse 81 08/09/18 10:00 Resp 14 08/09/18 10:00 BP 108/50 L 08/09/18 10:00 Pulse Ox 96 08/09/18 10:00 Constitutional: + well hydrated, cooperative and comfortable Eyes: PERRL, conjunctivae normal, anicteric sclerae ENMT: external ear and nose normal, oropharynx normal Neck: normal visual inspection and trachea midline Respiratory: normal respiratory effort, lungs clear to auscultation Auscultation: no wheezes Cardiovascular: RRR, no murmur, no edema Gastrointestinal (Abdomen): normal bowel sounds, soft, nontender, no hepatosplenomegaly Musculoskeletal: no cyanosis or clubbing, extremities motor strength 5/5 Skin: no rashes, warm and dry Neurologic: awake; no focal motor deficits Motor/Sensory: no tremor Results & Data Laboratory Results Laboratory Results - last 24 hr 08/08/18 08/08/18 08/08/18 08:45 09:23 11:30 WBC 29.02 H RBC 3.60 L Hgb 6.3 L* Hct 24.9 L MCV 69.2 L MCH 17.5 L MCHC 25.3 L RDW Std Deviation 49.4 H RDW Coeff of Ching 19.4 H Plt Count 780 H MPV 9.0 Immature Gran % (Auto) 0.5 Neut % (Auto) 86.7 Lymph % (Auto) 8.1 Harlan % (Auto) 4.3 Eos % (Auto) 0.3 Baso % (Auto) 0.1 Reticulocyte % (Auto) 2.7 H Immature Gran # (Auto) 0.15 H Neut # (Auto) 25.17 H Lymph # (Auto) 2.34 Harlan # (Auto) 1.24 H Eos # (Auto) 0.09 Baso # (Auto) 0.03 Reticulocyte # 0.10 Absolute Nucleated RBC 0.08 H Nucleated RBC % (auto) 0.3 Polychromasia 1+ Poikilocytosis Present Microcytosis Present Spherocytes Occasional Peripher Smr Path Cons PT INR Sodium Potassium Chloride Carbon Dioxide Anion Gap BUN Creatinine Est Cr Clr Drug Dosing Est GFR ( Amer) Est GFR (Non-Af Amer) BUN/Creatinine Ratio Glucose POC Glucose Lactate Calcium Phosphorus Magnesium Total Bilirubin AST ALT Alkaline Phosphatase Troponin I Total Protein Albumin Globulin Albumin/Globulin Ratio Vitamin B12 Folate Nasal Screen MRSA (PCR) Negative Blood Type A Positive Antibody Screen NEGATIVE Crossmatch See Detail 08/08/18 08/08/18 08/08/18 14:24 15:22 16:34 WBC RBC Hgb Hct MCV MCH MCHC RDW Std Deviation RDW Coeff of Chnig Plt Count MPV Immature Gran % (Auto) Neut % (Auto) Lymph % (Auto) Harlan % (Auto) Eos % (Auto) Baso % (Auto) Reticulocyte % (Auto) Immature Gran # (Auto) Neut # (Auto) Lymph # (Auto) Harlan # (Auto) Eos # (Auto) Baso # (Auto) Reticulocyte # Absolute Nucleated RBC Nucleated RBC % (auto) Polychromasia Poikilocytosis Microcytosis Spherocytes Peripher Smr Path Cons PT INR Sodium Potassium Chloride Carbon Dioxide Anion Gap BUN Creatinine Est Cr Clr Drug Dosing Est GFR ( Amer) Est GFR (Non-Af Amer) BUN/Creatinine Ratio Glucose POC Glucose 189 H 184 H 226 H Lactate Calcium Phosphorus Magnesium Total Bilirubin AST ALT Alkaline Phosphatase Troponin I Total Protein Albumin Globulin Albumin/Globulin Ratio Vitamin B12 Folate Nasal Screen MRSA (PCR) Blood Type Antibody Screen Crossmatch 08/08/18 08/08/18 08/08/18 17:34 17:47 17:48 WBC RBC Hgb 8.5 L Hct MCV MCH MCHC RDW Std Deviation RDW Coeff of Ching Plt Count MPV Immature Gran % (Auto) Neut % (Auto) Lymph % (Auto) Harlan % (Auto) Eos % (Auto) Baso % (Auto) Reticulocyte % (Auto) Immature Gran # (Auto) Neut # (Auto) Lymph # (Auto) Harlan # (Auto) Eos # (Auto) Baso # (Auto) Reticulocyte # Absolute Nucleated RBC Nucleated RBC % (auto) Polychromasia Poikilocytosis Microcytosis Spherocytes Peripher Smr Path Cons PT INR Sodium Potassium Chloride Carbon Dioxide Anion Gap BUN Creatinine Est Cr Clr Drug Dosing Est GFR ( Amer) Est GFR (Non-Af Amer) BUN/Creatinine Ratio Glucose POC Glucose 244 H Lactate 1.4 Calcium Phosphorus Magnesium Total Bilirubin AST ALT Alkaline Phosphatase Troponin I Total Protein Albumin Globulin Albumin/Globulin Ratio Vitamin B12 Folate Nasal Screen MRSA (PCR) Blood Type Antibody Screen Crossmatch 08/08/18 08/08/18 08/08/18 18:29 19:42 19:59 WBC RBC Hgb Hct MCV MCH MCHC RDW Std Deviation RDW Coeff of Ching Plt Count MPV Immature Gran % (Auto) Neut % (Auto) Lymph % (Auto) Harlan % (Auto) Eos % (Auto) Baso % (Auto) Reticulocyte % (Auto) Immature Gran # (Auto) Neut # (Auto) Lymph # (Auto) Harlan # (Auto) Eos # (Auto) Baso # (Auto) Reticulocyte # Absolute Nucleated RBC Nucleated RBC % (auto) Polychromasia Poikilocytosis Microcytosis Spherocytes Peripher Smr Path Cons PT INR Sodium 138 Potassium 5.0 Chloride 103 Carbon Dioxide 26 Anion Gap 9.0 BUN 22 H Creatinine 1.28 H Est Cr Clr Drug Dosing 44.0 Est GFR ( Amer) 49.4 Est GFR (Non-Af Amer) 42.6 BUN/Creatinine Ratio 17.4 Glucose 160 H POC Glucose 209 H 156 H Lactate Calcium 8.6 Phosphorus Magnesium Total Bilirubin AST ALT Alkaline Phosphatase Troponin I 65.900 H* Total Protein Albumin Globulin Albumin/Globulin Ratio Vitamin B12 Folate Nasal Screen MRSA (PCR) Blood Type Antibody Screen Crossmatch 08/08/18 08/08/18 08/08/18 20:42 21:32 22:39 WBC RBC Hgb Hct MCV MCH MCHC RDW Std Deviation RDW Coeff of Ching Plt Count MPV Immature Gran % (Auto) Neut % (Auto) Lymph % (Auto) Harlan % (Auto) Eos % (Auto) Baso % (Auto) Reticulocyte % (Auto) Immature Gran # (Auto) Neut # (Auto) Lymph # (Auto) Harlan # (Auto) Eos # (Auto) Baso # (Auto) Reticulocyte # Absolute Nucleated RBC Nucleated RBC % (auto) Polychromasia Poikilocytosis Microcytosis Spherocytes Peripher Smr Path Cons PT INR Sodium Potassium Chloride Carbon Dioxide Anion Gap BUN Creatinine Est Cr Clr Drug Dosing Est GFR ( Amer) Est GFR (Non-Af Amer) BUN/Creatinine Ratio Glucose POC Glucose 154 H 129 H 140 H Lactate Calcium Phosphorus Magnesium Total Bilirubin AST ALT Alkaline Phosphatase Troponin I Total Protein Albumin Globulin Albumin/Globulin Ratio Vitamin B12 Folate Nasal Screen MRSA (PCR) Blood Type Antibody Screen Crossmatch 08/08/18 08/09/18 08/09/18 23:32 00:33 01:26 WBC RBC Hgb Hct MCV MCH MCHC RDW Std Deviation RDW Coeff of Ching Plt Count MPV Immature Gran % (Auto) Neut % (Auto) Lymph % (Auto) Harlan % (Auto) Eos % (Auto) Baso % (Auto) Reticulocyte % (Auto) Immature Gran # (Auto) Neut # (Auto) Lymph # (Auto) Harlan # (Auto) Eos # (Auto) Baso # (Auto) Reticulocyte # Absolute Nucleated RBC Nucleated RBC % (auto) Polychromasia Poikilocytosis Microcytosis Spherocytes Peripher Smr Path Cons PT INR Sodium Potassium Chloride Carbon Dioxide Anion Gap BUN Creatinine Est Cr Clr Drug Dosing Est GFR ( Amer) Est GFR (Non-Af Amer) BUN/Creatinine Ratio Glucose POC Glucose 132 H 152 H Lactate Calcium Phosphorus Magnesium Total Bilirubin AST ALT Alkaline Phosphatase Troponin I 53.200 H* Total Protein Albumin Globulin Albumin/Globulin Ratio Vitamin B12 Folate Nasal Screen MRSA (PCR) Blood Type Antibody Screen Crossmatch 08/09/18 08/09/18 08/09/18 02:28 04:15 04:15 WBC 14.19 H D RBC 4.37 Hgb 9.5 L Hct 31.3 L MCV 71.6 L MCH 21.7 L MCHC 30.4 L D RDW Std Deviation 54.9 H RDW Coeff of Ching 21.1 H Plt Count 546 H MPV 9.4 Immature Gran % (Auto) Neut % (Auto) Lymph % (Auto) Harlan % (Auto) Eos % (Auto) Baso % (Auto) Reticulocyte % (Auto) Immature Gran # (Auto) Neut # (Auto) Lymph # (Auto) Harlan # (Auto) Eos # (Auto) Baso # (Auto) Reticulocyte # Absolute Nucleated RBC Nucleated RBC % (auto) Polychromasia Poikilocytosis Microcytosis Spherocytes Peripher Smr Path Cons PT INR Sodium Potassium Chloride Carbon Dioxide Anion Gap BUN Creatinine Est Cr Clr Drug Dosing Est GFR ( Amer) Est GFR (Non-Af Amer) BUN/Creatinine Ratio Glucose POC Glucose 124 H Lactate 1.1 Calcium Phosphorus Magnesium Total Bilirubin AST ALT Alkaline Phosphatase Troponin I Total Protein Albumin Globulin Albumin/Globulin Ratio Vitamin B12 Folate Nasal Screen MRSA (PCR) Blood Type Antibody Screen Crossmatch 08/09/18 08/09/18 08/09/18 04:15 04:15 04:15 WBC RBC Hgb Hct MCV MCH MCHC RDW Std Deviation RDW Coeff of Ching Plt Count MPV Immature Gran % (Auto) Neut % (Auto) Lymph % (Auto) Harlan % (Auto) Eos % (Auto) Baso % (Auto) Reticulocyte % (Auto) Immature Gran # (Auto) Neut # (Auto) Lymph # (Auto) Harlan # (Auto) Eos # (Auto) Baso # (Auto) Reticulocyte # Absolute Nucleated RBC Nucleated RBC % (auto) Polychromasia Poikilocytosis Microcytosis Spherocytes Peripher Smr Path Cons PT 11.4 INR 1.1 Sodium 137 Potassium 4.3 Chloride 102 Carbon Dioxide 29 Anion Gap 6.0 BUN 24 H Creatinine 1.23 H Est Cr Clr Drug Dosing 45.8 Est GFR ( Amer) 51.8 Est GFR (Non-Af Amer) 44.7 BUN/Creatinine Ratio 19.4 Glucose 109 H POC Glucose Lactate Calcium 8.5 Phosphorus 4.1 Magnesium 1.9 Total Bilirubin 0.6 AST 153 H ALT 24 Alkaline Phosphatase 76 Troponin I Total Protein 7.0 Albumin 2.7 L Globulin 4.3 H Albumin/Globulin Ratio 0.6 L Vitamin B12 140 L Folate 14.62 Nasal Screen MRSA (PCR) Blood Type Antibody Screen Crossmatch 08/09/18 08/09/18 08/09/18 04:35 06:26 07:38 WBC RBC Hgb Hct MCV MCH MCHC RDW Std Deviation RDW Coeff of Ching Plt Count MPV Immature Gran % (Auto) Neut % (Auto) Lymph % (Auto) Harlan % (Auto) Eos % (Auto) Baso % (Auto) Reticulocyte % (Auto) Immature Gran # (Auto) Neut # (Auto) Lymph # (Auto) Harlan # (Auto) Eos # (Auto) Baso # (Auto) Reticulocyte # Absolute Nucleated RBC Nucleated RBC % (auto) Polychromasia Poikilocytosis Microcytosis Spherocytes Peripher Smr Path Cons PT INR Sodium Potassium Chloride Carbon Dioxide Anion Gap BUN Creatinine Est Cr Clr Drug Dosing Est GFR ( Amer) Est GFR (Non-Af Amer) BUN/Creatinine Ratio Glucose POC Glucose 115 H 103 H 130 H Lactate Calcium Phosphorus Magnesium Total Bilirubin AST ALT Alkaline Phosphatase Troponin I Total Protein Albumin Globulin Albumin/Globulin Ratio Vitamin B12 Folate Nasal Screen MRSA (PCR) Blood Type Antibody Screen Crossmatch 08/09/18 08/09/18 08/09/18 08:37 09:36 10:38 WBC RBC Hgb Hct MCV MCH MCHC RDW Std Deviation RDW Coeff of Ching Plt Count MPV Immature Gran % (Auto) Neut % (Auto) Lymph % (Auto) Harlan % (Auto) Eos % (Auto) Baso % (Auto) Reticulocyte % (Auto) Immature Gran # (Auto) Neut # (Auto) Lymph # (Auto) Harlan # (Auto) Eos # (Auto) Baso # (Auto) Reticulocyte # Absolute Nucleated RBC Nucleated RBC % (auto) Polychromasia Poikilocytosis Microcytosis Spherocytes Peripher Smr Path Cons PT INR Sodium Potassium Chloride Carbon Dioxide Anion Gap BUN Creatinine Est Cr Clr Drug Dosing Est GFR ( Amer) Est GFR (Non-Af Amer) BUN/Creatinine Ratio Glucose POC Glucose 127 H 232 H 267 H Lactate Calcium Phosphorus Magnesium Total Bilirubin AST ALT Alkaline Phosphatase Troponin I Total Protein Albumin Globulin Albumin/Globulin Ratio Vitamin B12 Folate Nasal Screen MRSA (PCR) Blood Type Antibody Screen Crossmatch 08/09/18 08/09/18 11:35 12:41 WBC RBC Hgb Hct MCV MCH MCHC RDW Std Deviation RDW Coeff of Ching Plt Count MPV Immature Gran % (Auto) Neut % (Auto) Lymph % (Auto) Harlan % (Auto) Eos % (Auto) Baso % (Auto) Reticulocyte % (Auto) Immature Gran # (Auto) Neut # (Auto) Lymph # (Auto) Harlan # (Auto) Eos # (Auto) Baso # (Auto) Reticulocyte # Absolute Nucleated RBC Nucleated RBC % (auto) Polychromasia Poikilocytosis Microcytosis Spherocytes Peripher Smr Path Cons PT INR Sodium Potassium Chloride Carbon Dioxide Anion Gap BUN Creatinine Est Cr Clr Drug Dosing Est GFR ( Amer) Est GFR (Non-Af Amer) BUN/Creatinine Ratio Glucose POC Glucose 242 H 266 H Lactate Calcium Phosphorus Magnesium Total Bilirubin AST ALT Alkaline Phosphatase Troponin I Total Protein Albumin Globulin Albumin/Globulin Ratio Vitamin B12 Folate Nasal Screen MRSA (PCR) Blood Type Antibody Screen Crossmatch _ (1) Anemia Anemia type: unspecified type Bone marrow failure anemia type: Chronic kidney disease stage: Folate deficiency anemia type: Hemolytic anemia type: Iron deficiency anemia type: Other causes of anemia: Vitamin B12 deficiency anemia type: Qualified Code(s): D64.9 - Anemia, unspecified
[2018-08-09] MEDS: INSULIN REGULAR 250 UNITS in SODIUM CHLORIDE 0.9% 247.5 ML IV SCH (12:03)
--- NOTE | 2018-08-09 14:54 | Hospitalist Progress Note ---
Date of Service August 09, 2018 Assessment & Plan (1) Acute respiratory failure with hypoxia: -Admitted the patient to the ICU -Patient is now off bipap. Patient rpeorts having less shortness of breath on rest. Patient is now on nasal cannula. Patient will continue on intermitten diuretics. Patient will receive about 80 mg of IV lasix today. Patient is negative 500 ml. Will transfer patient to PACU. (2) Pneumonia: -WBC significantly elevated at 20 9K, with a left shift, LA elevated at 6 WBC improved to 14 -Treated with IV Zosyn in the ER, will continue for now -CXR reviewed: will treat her infectious process with diffuse pulmonary edema versus multifocal pneumonia (3) Acute pulmonary edema: -Likely secondary to CHF exacerbation -IV Lasix 40 mg IV administered in EMS upon arrival. Continue IV diuresis -Follow strict I/os with fluid restriction once diet allowed, daily weights, dry weight of 199-200. Appreciate cardio input (4) Myocardial infarction: -EKG reviewed: Possible inferior and anteriolateral DC with marked ST wave elevation. -ER had spoken with Dr. Lopez, cardiology and reported that they would treat the patient conservatively at this time. -Cardiology consulted for further recommendations -History of previous NSTEMI with stent x1 in RCA -Continue atorvastatin, lisinopril, metoprolol. -HOLD asa and plavix in the setting of possible GI bleed. (5) Anemia: -Hemoglobin upon arrival was 6.3, rechecked at 6.8, possibly secondary acute GI bleed with trace positive guaiac stools im ER. -Discussed w/ cardiology, Dr. Lopez: will hold asa and plavix at this time. Appreciate recs. -Blood consented, type and screen, plan to transfuse 2 U PRBC, give Lasix in between units. -Hgb baseline of 9-10 Hemoglobin today is at baseline 9.5 (2/2) (6) HTN (hypertension): -Continue antihypertensive meds as above -BP within acceptable range at this time. (7) HLD (hyperlipidemia): -Continue high-dose statin (8) CAD (coronary artery disease): - Multivessel - Previous stenting to the RCA in October 2017, holding asa and plavix. (9) DM II (diabetes mellitus, type II), controlled: -Hold NovoLog 70/30 mix, glycemic pharmacy consulted with administration of Zosyn and ICU status -ISS with Accu-Cheks ACHS -Glucose =375 on admission. -Follows with staff development educator as an outpatient, saw this provider yesterday in [place]. -Last A1c was 8.2 in October 2017 (10) DVT prophylaxis: -Teds, SCDs. No chemical anticoagulation in the setting of possible GI bleed and significant anemia. SPent 35 minutes in management of patient. Subjective 68 yo female reports feeling better. She is less short of breath at rest. Patient denies fever, chill,s nausea, vomiting. Physical Exam 2 Vital Signs (Past 24 Hours): Last Vital Signs Temp 36.8 C 08/09/18 12:00 Pulse 85 08/09/18 13:01 Resp 14 08/09/18 13:01 BP 126/50 L 08/09/18 13:01 Pulse Ox 95 08/09/18 13:01 Physical Exam: General: awake, alert, no apparent distress, obese Head: Normocephalic, atraumatic ENT: PERRL, EOMI, oropharynx not examined due to wearing BiPAP Chest: Improved breath sounds, no wheezes, rales or rhonchi Cardiac: normal rate, no murmur, JVD difficult to assess due to body habitus, normal peripheral pulses, good capillary refill Abdominal: NABS x 4 quadrants, soft, nontender to palpation, no rebound, guarding or tenderness Extremities: Normal inspection, +1 peripheral edema of BLE, no erythema, calfs nontender to palpation Psych: Normal mood and affect Neuro: AAO x 3, no motor deficits, speech is clear, no peripheral sensory deficits _ (1) Anemia Anemia type: unspecified type Bone marrow failure anemia type: Chronic kidney disease stage: Folate deficiency anemia type: Hemolytic anemia type: Iron deficiency anemia type: Other causes of anemia: Vitamin B12 deficiency anemia type: Qualified Code(s): D64.9 - Anemia, unspecified (2) Myocardial infarction Involved coronary artery: Myocardial infarction type: non-ST elevation myocardial infarction Qualified Code(s): I21.4 - Non-ST elevation (NSTEMI) myocardial infarction
[2018-08-09] MEDS ORDERED: INSULIN GLARGINE SOLOSTAR 100 UNITS/ML 3 ML PEN SC STA (15:13)
[2018-08-09] MEDS ORDERED: Nursing to Pharmacy Communication STA (15:16)
[2018-08-09] MEDS ORDERED: Nursing to Pharmacy Communication ONE (16:02)
[2018-08-09] MEDS: MAGNESIUM OXIDE 400 MG TAB PO SCH (20:03)
[2018-08-09] MEDS ORDERED: INSULIN GLARGINE SOLOSTAR 100 UNITS/ML 3 ML PEN SC SCH (21:00)
[2018-08-10] MEDS: INSULIN ASPART 100 UNITS/ML 3 ML PEN SC SCH ×6 (00:03→20:44)
[2018-08-10 06:40] LABS: Hematocrit (blood only) 32.1 % (37-47); Hemoglobin 9.6 g/dL (12.0-16.0); Mean Corpuscular Hgb Conc 29.9 g/dL (32-36); Mean Corpuscular Volume 73.8 fL (80-100); Mean Platelet Volume 9.4 fL (7.4-10.4); Platelet Count 537 K/uL (130-400); RDW Coefficient of Variation 22.2 % (11.5-14.5); Red Blood Count 4.35 M/uL (4.2-5.4); White Blood Count 12.28 K/uL (4.8-10.8)
[2018-08-10 06:50] LABS: INR 1.1 (0.9-1.1)
[2018-08-10 07:15] LABS: Albumin Level 2.5 gm/dl (3.4-5.0); BUN Creatinine Ratio 21.4 (10-20); Calcium 8.5 mg/dl (8.5-10.1); Creatinine Clr Calc Pharmacy 42.4 ml/min; Est GFR (African American) 47.6; Est GFR (Non-African American) 41.1; Magnesium 2.4 mg/dl (1.8-2.4); Potassium 3.9 mmol/L (3.5-5.1)
[2018-08-10 07:18] LABS: Albumin Globulin Ratio 0.6 (0.9-2); Bilirubin,Total 0.3 mg/dl (0.2-1); Globulin 4.5 gm/dl (2.5-4.0)
[2018-08-10] MEDS: METOPROLOL TARTRATE 50 MG TAB PO SCH ×2 (08:26→20:42)
[2018-08-10] MEDS: ASCORBIC ACID 500 MG TAB PO SCH (08:27)
[2018-08-10] MEDS: LISINOPRIL 5 MG TAB PO SCH (08:27)
[2018-08-10] MEDS: FERROUS SULFATE 325 MG TAB PO SCH (08:27)
[2018-08-10] MEDS: MULTIVITAMIN TAB PO SCH (08:27)
[2018-08-10] MEDS: ATORVASTATIN 40 MG TAB PO SCH ×2 (08:27→20:42)
[2018-08-10] MEDS: INSULIN GLARGINE SOLOSTAR 100 UNITS/ML 3 ML PEN SC SCH ×2 (08:27→20:43)
[2018-08-10] MEDS: FOLIC ACID 1 MG TAB PO SCH (08:27)
--- NOTE | 2018-08-10 10:39 | Pharmacy Report ---
Pharmacy Glycemic Short Note 2 - Date of Service August 10, 2018 - Glycemic Short BSG Results (Last 24 hours): 08/09/18 08/09/18 08/09/18 10:38 11:35 12:41 Glucose POC Glucose 267 H 242 H 266 H 08/09/18 08/09/18 08/09/18 13:53 14:59 16:23 Glucose POC Glucose 232 H 222 H 165 H 08/09/18 08/09/18 08/09/18 17:49 20:06 23:54 Glucose POC Glucose 185 H 201 H 234 H 08/10/18 08/10/18 08/10/18 04:04 05:52 07:27 Glucose 179 H POC Glucose 192 H 180 H OUTPATIENT ANTIDIABETIC REGIMEN: * Metformin 1,000mg PO BIDM * Novolin 70/30 pre-mixed insulin * 60 units with breakfast * 40 units with dinner * A1c = 7.1% on 08/08/18 ASSESSMENT: * 68yo T2DM female with adequate outpatient control per A1c * Pt with severe hyperglycemia on admission requiring IV insulin infusion. Pt transitioned to SQ basal bolus insulin regimen yesterday when criteria met. * Pt transitioned to Lantus + NovoLog since outpatient regimen is pre-mixed insulin * Pre-mixed insulin is difficult to titrate since it is already in a fixed distribution of basal:prandial insulin. Continuing pre-mixed insulin for admission typically lead to hypoglycemia d/t changing PO status but rapid acting insulin is unable to be held. * Anticipating that patient will need ~ 100 units/day which is similar to outpatient regimen * Will distribute this in a 50%basal:50%prandial ratio to prevent hypo if/when PO intake changes PLAN FOR INPATIENT GLYCEMIC CONTROL: * Hold outpatient oral diabetes medications * Basal insulin * Lantus 25 units SQ BID * Bolus insulin * NovoLog per scale ACHS or Q6hrs while NPO * Goal Range: Low 110 mg/dL - High 140 mg/dL * Correction Factor: 15 mg/dL/unit * Nutritional / Prandial insulin per carb ratio of 1 unit per 5 grams CHO consumed PLAN FOR DISCHARGE: * No changes needed to outpatient regimen. A1c is in target range based on age/ co-morbidities.
--- NOTE | 2018-08-10 12:30 | Progress Note ---
Date of Service August 10, 2018 Subjective I have seen and examined the patient, she is much better, sitting in chair comfortably. I have discussed with her and her family at bedside regarding the need for EGD and colonoscopy in order to r/o GI source of blood loss prior to reinstating her dual antiplatelet therapy. On exam abdomen is soft. Recommend: - EGD and colonoscopy tomorrow, patient and family agreed. - Clear liquids now. - NPO after midnight. - Golytely 4L and Dulcolax 25mg. - Continue PPI. Physical Exam 2 Vital Signs (Past 24 Hours): Last Vital Signs Temp 36.9 C 08/10/18 11:50 Pulse 70 08/10/18 11:50 Resp 20 08/10/18 11:50 BP 134/77 08/10/18 11:50 Pulse Ox 98 08/10/18 11:50
--- NOTE | 2018-08-10 14:19 | Cardiology Progress Note ---
Date of Service August 10, 2018 Assessment & Plan (1) NSTEMI (non-ST elevated myocardial infarction): No angina. Her troponin peaked at 65.9. She presented with profound anemia with documented CAD and prior RCA stent. Overall, she has improved. Aspirin and Plavix have been held secondary to hemoglobin of less than 7 on presentation and concern for potential bleed. If/when safe, would recommend restarting anti-platelet therapy. Ideally dual anti-platelet therapy should be continued for a full year from prior PCI in October of 2017, but with current presentation, anti-platelet therapy has been held due to risk of life- threatening bleed. GI evaluated her and stated that aspirin 81 mg daily can be restarted. Continue high-intensity statin therapy. Continue beta-eileen and NORBERTO-inhibitor. LV systolic function mildly reduced per echo report. Medical therapy has been recommended unless refractory angina (but no angina thus far). Continue medical therapy. (2) Acute diastolic heart failure: Symptoms have improved with diuresis. She continues to have rales and her breathing is not back to baseline. Lasix 40 mg IV x1 now and daily. Low- sodium diet. Strict I&Os. Daily weights. (3) CAD (coronary artery disease): Prior RCA PCI in October 2017. She also had distal LAD 50% ostial ramus 60- 70%. Codominant circumflex. Large OM2 distal 60-70%. Tend-db-udrcg collaterals with mid RCA 99% which underwent 2.25 x 15 mm PCI. Continue medical therapy as above. Cardiac catheterization has not been performed for her presentation due to profound anemia. She was evaluated by interventional Cardiology upon presentation. Continue medical therapy. Resume anti-platelet therapy in the form of aspirin 81 mg daily (okay by GI). (4) HTN (hypertension): Blood pressure well controlled. Lisinopril was increased to 5 mg yesterday. Continue current regimen. (5) HLD (hyperlipidemia): Continue high-intensity statin therapy. (6) Anemia: She presented with profound anemia. Appreciate GI consultation. She is not yet euvolemic and therefore would recommend further diuresis before elective endoscopy. Hopefully within 1 or 2 days, she would be better optimized. (7) Acute respiratory failure with hypoxia: Likely secondary to acute diastolic CHF related to ischemic heart disease in the setting of profound anemia and underlying coronary artery disease. She has improved with medical therapy, diuresis, and blood transfusion. Continue to wean supplemental oxygen as possible. Disposition: Cardiology will continue to follow. Dr. Lopez or Dr. Ch resume her cardiology care tomorrow. Patient care communicated with Dr. Valdes of primary service. Subjective Her breathing is much better than yesterday. Her breathing is not yet back to baseline however. She denies chest pain, syncope, near-syncope, palpitations, or bleeding. Review of systems: As above. Physical Exam 2 Vital Signs (Past 24 Hours): Last Vital Signs Temp 36.9 C 08/10/18 11:50 Pulse 70 08/10/18 11:50 Resp 20 08/10/18 11:50 BP 134/77 08/10/18 11:50 Pulse Ox 98 08/10/18 11:50 Intake & Output 08/08/18 08/09/18 08/10/18 08/11/18 06:59 06:59 06:59 06:59 Intake Total 1881.758 / 1881.75 8 1285.488 / 1285.48 8 Output Total 2400 / 2400 2801 / 2801 Balance -518.242 / -518.24 2 -1515.512 / -1515. 512 Weight 89.3 kg 88.4 kg Physical Exam: Gen.: No acute distress. Alert and oriented. HEENT: Anicteric sclera. Neck: No appreciable JVD. Cardiac: Regular. Normal S1-S2. 1/6 systolic ejection murmur. No rubs, or gallops. Pulmonary: Bilateral rales. Abdomen: Soft, nontender, nondistended, with normoactive bowel sounds. No bruits noted. Extremities: Trace bilateral lower extremity edema. No cyanosis. Psychiatric: Affect appears appropriate. Results & Data Laboratory Results Laboratory Results - last 24 hr 08/09/18 08/09/18 08/09/18 13:53 14:59 16:23 WBC RBC Hgb Hct MCV MCH MCHC RDW Std Deviation RDW Coeff of Ching Plt Count MPV PT INR Sodium Potassium Chloride Carbon Dioxide Anion Gap BUN Creatinine Est Cr Clr Drug Dosing Est GFR ( Amer) Est GFR (Non-Af Amer) BUN/Creatinine Ratio Glucose POC Glucose 232 H 222 H 165 H Calcium Magnesium Total Bilirubin AST ALT Alkaline Phosphatase Total Protein Albumin Globulin Albumin/Globulin Ratio 08/09/18 08/09/18 08/09/18 17:49 20:06 23:54 WBC RBC Hgb Hct MCV MCH MCHC RDW Std Deviation RDW Coeff of Ching Plt Count MPV PT INR Sodium Potassium Chloride Carbon Dioxide Anion Gap BUN Creatinine Est Cr Clr Drug Dosing Est GFR ( Amer) Est GFR (Non-Af Amer) BUN/Creatinine Ratio Glucose POC Glucose 185 H 201 H 234 H Calcium Magnesium Total Bilirubin AST ALT Alkaline Phosphatase Total Protein Albumin Globulin Albumin/Globulin Ratio 08/10/18 08/10/18 08/10/18 04:04 05:52 05:52 WBC 12.28 H RBC 4.35 Hgb 9.6 L Hct 32.1 L MCV 73.8 L MCH 22.1 L MCHC 29.9 L RDW Std Deviation 59.0 H RDW Coeff of Ching 22.2 H Plt Count 537 H MPV 9.4 PT 11.0 INR 1.1 Sodium Potassium Chloride Carbon Dioxide Anion Gap BUN Creatinine Est Cr Clr Drug Dosing Est GFR ( Amer) Est GFR (Non-Af Amer) BUN/Creatinine Ratio Glucose POC Glucose 192 H Calcium Magnesium Total Bilirubin AST ALT Alkaline Phosphatase Total Protein Albumin Globulin Albumin/Globulin Ratio 08/10/18 08/10/18 08/10/18 05:52 07:27 11:18 WBC RBC Hgb Hct MCV MCH MCHC RDW Std Deviation RDW Coeff of [place] Plt Count MPV PT INR Sodium 140 Potassium 3.9 Chloride 103 Carbon Dioxide 30 Anion Gap 7.0 BUN 28 H Creatinine 1.32 H Est Cr Clr Drug Dosing 42.4 Est GFR ( Amer) 47.6 Est GFR (Non-Af Amer) 41.1 BUN/Creatinine Ratio 21.4 H Glucose 179 H POC Glucose 180 H 225 H Calcium 8.5 Magnesium 2.4 Total Bilirubin 0.3 AST 58 H ALT 18 Alkaline Phosphatase 76 Total Protein 7.0 Albumin 2.5 L Globulin 4.5 H Albumin/Globulin Ratio 0.6 L Diagnostic Findings Telemetry personally reviewed: Sinus rhythm. No arrhythmia. Medications Administered Current Inpatient Medications Acetaminophen (Tylenol) 650 mg PO Q4H PRN PRN Reason: Moderate Pain Stop: 09/07/18 11:29 Last Admin: 08/09/18 15:43 Dose: 650 mg Ascorbic Acid (Vitamin C) 500 mg PO QAM MARCELO Stop: 09/08/18 08:59 Last Admin: 08/10/18 08:27 Dose: 500 mg Atorvastatin Calcium (Lipitor) 40 mg PO BID ON LICENSE OF [facility] Stop: 09/07/18 11:29 Last Admin: 08/10/18 08:27 Dose: 40 mg Bisacodyl (Dulcolax) 20 mg PO HS ONE Stop: 08/10/18 21:01 Dextrose (Dextrose 50%) 25 - 50 ml IV UD PRN; Protocol PRN Reason: Hypoglycemia Protocol Stop: 09/07/18 11:29 Ferrous Sulfate (Feosol) 325 mg PO QAM ON LICENSE OF [facility] Stop: 09/08/18 08:59 Last Admin: 08/10/18 08:27 Dose: 325 mg Folic Acid (Folvite) [facility] Stop: 09/08/18 08:59 Last Admin: 08/10/18 08:27 Dose: 1 mg Glucagon (Glucagen) 1 mg SQ UD PRN; Protocol PRN Reason: Hypoglycemia Protocol Stop: 09/07/18 11:29 Glucose (Glucose 40%) 15 - 30 gm PO UD PRN; Protocol PRN Reason: Hypoglycemia Protocol Stop: 09/07/18 11:29 Glucose (Dex4 Glucose) 4 - 8 tabs PO UD PRN; Protocol PRN Reason: Hypoglycemia Protocol Stop: 09/07/18 11:29 Furosemide 40 mg/ Syringe 4 mls @ 4 mls/min [facility] Stop: 09/09/18 14:14 Insulin Aspart (Novolog Flexpen) 0 units SC ACHS ON LICENSE OF [facility] Stop: 09/08/18 16:29 Last Admin: 08/10/18 12:25 Dose: 6 units Insulin Glargine (Lantus Solostar Pen) 25 units SC Q12 ON LICENSE OF [facility]; Protocol Stop: 09/09/18 08:59 Last Admin: 08/10/18 08:27 Dose: 25 units Lisinopril (Zestril) 5 mg PO QAM ON LICENSE OF [facility] Stop: 09/08/18 08:59 Last Admin: 08/10/18 08:27 Dose: 5 mg Magnesium Oxide (Mag-Ox) 400 mg PO HS ON LICENSE OF [facility] Stop: 09/07/18 20:59 Last Admin: 08/09/18 20:03 Dose: 400 mg Metoprolol Tartrate (Lopressor) 50 mg PO BID ON LICENSE OF [facility] Stop: 09/07/18 20:59 Last Admin: 08/10/18 08:26 Dose: 50 mg Miscellaneous (Carbohydrates For Hypoglycemia) 15 - 30 gm PO UD PRN PRN Reason: Hypoglycemia Treatment Stop: 09/07/18 11:29 Miscellaneous Information (Consult Glycemic Management Pharmacy) 1 ea N/A UD PRN; Protocol PRN Reason: Consult Stop: 09/07/18 11:42 Multivitamins (Multivitamin Tab) 1 tab PO QAM MARCELO Stop: 09/08/18 08:59 Last Admin: 08/10/18 08:27 Dose: 1 tab Nitroglycerin (Nitrostat) 0.4 mg SL UD PRN PRN Reason: CHEST PAIN Stop: 09/07/18 11:29 Ondansetron HCl (Zofran) 4 mg IV Q4H PRN PRN Reason: Nausea And Vomiting Stop: 09/07/18 11:29 Polyethylene Glycol/Electrolytes (Golytely) 16 dose PO TODAY@1600 MARCELO Stop: 08/10/18 16:01 _ (1) Anemia Anemia type: unspecified type Bone marrow failure anemia type: Chronic kidney disease stage: Folate deficiency anemia type: Hemolytic anemia type: Iron deficiency anemia type: Other causes of anemia: Vitamin B12 deficiency anemia type: Qualified Code(s): D64.9 - Anemia, unspecified
[2018-08-10] MEDS: FUROSEMIDE 40 MG in SYRINGE 0 ML IV SCH (15:00)
[2018-08-10] MEDS: ASPIRIN 81 MG ECTAB PO SCH (15:01)
--- NOTE | 2018-08-10 15:06 | Progress Note ---
Date of Service August 10, 2018 Subjective Patient seen by Cardiology who recommended further optimization of her cardiopulmonary status with diuresis for 1 to 2 days prior to EGD and colonoscopy hence will hold off on the planned procedure for tomorrow till patient is cleared by Cardiology. Please resume diet and cancel her bowel prep. Please recall GI when ready for scope. Physical Exam 2 Vital Signs (Past 24 Hours): Last Vital Signs Temp 36.9 C 08/10/18 11:50 Pulse 70 08/10/18 11:50 Resp 20 08/10/18 11:50 BP 134/77 08/10/18 11:50 Pulse Ox 98 08/10/18 11:50
[2018-08-10] MEDS ORDERED: LAVAGE SOLUTION 4000ML PO SCH (16:00)
[2018-08-10] MEDS ORDERED: FUROSEMIDE 40 MG in SYRINGE 0 ML IV ONE (16:00)
[2018-08-10] MEDS: MAGNESIUM OXIDE 400 MG TAB PO SCH (20:42)
[2018-08-10] MEDS ORDERED: BISACODYL 5 MG TABEC PO ONE (21:00)
--- NOTE | 2018-08-10 23:37 | Hospitalist Progress Note ---
Date of Service August 10, 2018 Assessment & Plan (1) Acute respiratory failure with hypoxia: -Admitted the patient to the ICU Now in telemetry. -Patient is now off bipap. Patient reports having less shortness of breath on rest. Patient is now on nasal cannula. Patient will continue on intermitten diuretics. Patient will receive about 40 mg of IV lasix today. (2/3) Patient is negative 2 liters since admission Patient still in failure though, will hold off GI scope once she has diuresed/ (2) Pneumonia: Doubt diagnosis. Patient only received zosyn in ED. Patient is improving. cornelio hold further antibioitcs. (3) Acute pulmonary edema: -Likely secondary to CHF exacerbation -IV Lasix 40 mg IV administered in EMS upon arrival. Continue IV diuresis -Follow strict I/os with fluid restriction once diet allowed, daily weights, dry weight of 199-200. Appreciate cardio input (4) Myocardial infarction: -EKG reviewed: Possible inferior and anteriolateral VA with marked ST wave elevation. -ER had spoken with Dr. Lopez, cardiology and reported that they would treat the patient conservatively at this time. -Cardiology consulted for further recommendations -History of previous NSTEMI with stent x1 in RCA -Continue atorvastatin, lisinopril, metoprolol. -HOLD asa and plavix in the setting of possible GI bleed. (5) Anemia: -Hemoglobin upon arrival was 6.3, rechecked at 6.8, possibly secondary acute GI bleed with trace positive guaiac stools im ER. -Discussed w/ cardiology, Dr. Lopez: will hold asa and plavix at this time. Appreciate recs. -Blood consented, type and screen, plan to transfuse 2 U PRBC, give Lasix in between units. -Hgb baseline of 9-10 Hemoglobin today is at baseline (2/3) Awaiting scope upper and lower once patient is not in failure. will need prep. Please inform GI once patient can take prep. (6) HTN (hypertension): -Continue antihypertensive meds as above -BP within acceptable range at this time. (7) HLD (hyperlipidemia): -Continue high-dose statin (8) CAD (coronary artery disease): - Multivessel - Previous stenting to the RCA in October 2017, holding asa and plavix. (9) DM II (diabetes mellitus, type II), controlled: -Hold NovoLog 70/30 mix, glycemic pharmacy consulted with administration of Zosyn and ICU status -ISS with Accu-Cheks ACHS -Glucose =375 on admission. -Follows with coding educator as an outpatient, saw this provider yesterday in [place]. -Last A1c was 8.2 in October 2017 (10) DVT prophylaxis: -Teds, SCDs. No chemical anticoagulation in the setting of possible GI bleed and significant anemia. SPent 35 minutes in management of patient. Subjective 68 yo female reports feeling better. She is less short of breath at rest. Patient denies any new complaints. Patient denies fever, chill,s nausea, vomiting. Physical Exam 2 Vital Signs (Past 24 Hours): Last Vital Signs Temp 36.3 C L 08/10/18 23: Pulse 79 08/10/18 23:03 Resp 16 08/10/18 23:03 BP 150/80 H 08/10/18 23: Pulse Ox 99 08/10/18 23:03 Physical Exam: General: awake, alert, no apparent distress, obese Head: Normocephalic, atraumatic ENT: PERRL, EOMI, oropharynx not examined due to wearing BiPAP Chest: Improved breath sounds, no wheezes, rales or rhonchi Cardiac: normal rate, no murmur, JVD difficult to assess due to body habitus, normal peripheral pulses, good capillary refill Abdominal: NABS x 4 quadrants, soft, nontender to palpation, no rebound, guarding or tenderness Extremities: Normal inspection, +1 peripheral edema of BLE, no erythema, calfs nontender to palpation Psych: Normal mood and affect Neuro: AAO x 3, no motor deficits, speech is clear, no peripheral sensory deficits _ (1) Anemia Anemia type: unspecified type Bone marrow failure anemia type: Chronic kidney disease stage: Folate deficiency anemia type: Hemolytic anemia type: Iron deficiency anemia type: Other causes of anemia: Vitamin B12 deficiency anemia type: Qualified Code(s): D64.9 - Anemia, unspecified (2) Myocardial infarction Involved coronary artery: Myocardial infarction type: non-ST elevation myocardial infarction Qualified Code(s): I21.4 - Non-ST elevation (NSTEMI) myocardial infarction
[2018-08-11 05:33] LABS: Hematocrit (blood only) 34.2 % (37-47); Hemoglobin 9.9 g/dL (12.0-16.0); Mean Corpuscular Hgb Conc 28.9 g/dL (32-36); Mean Corpuscular Volume 74.8 fL (80-100); Mean Platelet Volume 9.5 fL (7.4-10.4); Platelet Count 548 K/uL (130-400); RDW Coefficient of Variation 23.2 % (11.5-14.5); RDW Standard Deviation 62.9 fL (36.4-46.3); Red Blood Count 4.57 M/uL (4.2-5.4); White Blood Count 12.49 K/uL (4.8-10.8)
[2018-08-11 05:38] LABS: INR 1.1 (0.9-1.1); Prothrombin Time 10.8 Seconds (9.0-12.0)
[2018-08-11 05:57] LABS: Albumin Level 2.6 gm/dl (3.4-5.0); BUN Creatinine Ratio 23.3 (10-20); Calcium 8.9 mg/dl (8.5-10.1); Creatinine Clr Calc Pharmacy 42.3 ml/min; Est GFR (African American) 47.2; Est GFR (Non-African American) 40.7; Magnesium 2.4 mg/dl (1.8-2.4); Potassium 4.2 mmol/L (3.5-5.1)
[2018-08-11 05:59] LABS: Albumin Globulin Ratio 0.6 (0.9-2); Bilirubin,Total 0.4 mg/dl (0.2-1); Globulin 4.3 gm/dl (2.5-4.0); Total Protein 6.9 gm/dl (6.4-8.2)
[2018-08-11] MEDS: METOPROLOL TARTRATE 50 MG TAB PO SCH ×2 (08:30→20:35)
[2018-08-11] MEDS: ATORVASTATIN 40 MG TAB PO SCH ×2 (08:30→20:35)
[2018-08-11] MEDS: ASPIRIN 81 MG ECTAB PO SCH (08:30)
[2018-08-11] MEDS: FERROUS SULFATE 325 MG TAB PO SCH (08:30)
[2018-08-11] MEDS: FUROSEMIDE 40 MG in SYRINGE 0 ML IV SCH (08:30)
[2018-08-11] MEDS: LISINOPRIL 5 MG TAB PO SCH (08:30)
[2018-08-11] MEDS: FOLIC ACID 1 MG TAB PO SCH (08:30)
[2018-08-11] MEDS: MULTIVITAMIN TAB PO SCH (08:30)
[2018-08-11] MEDS: ASCORBIC ACID 500 MG TAB PO SCH (08:30)
[2018-08-11] MEDS: INSULIN GLARGINE SOLOSTAR 100 UNITS/ML 3 ML PEN SC SCH ×2 (08:31→20:31)
[2018-08-11] MEDS: INSULIN ASPART 100 UNITS/ML 3 ML PEN SC SCH ×4 (08:35→20:32)
--- NOTE | 2018-08-11 09:06 | Procedure Note ---
Procedure Note Date of Service August 11, 2018 GI quick note. Pt was seen and evaluated this AM, chart reviewed. Denies any past/current evidence of GI blood loss, specifically denies black/bloody stools/ emesis. No abd pain, dysphagia. Has never had EGD/Colon. No CP. Denies SOB. Feels as if her breathing is slowly improving - although still weak/tired. No acute distress + systolic murmur. Regular rate, rhythm Abd is soft, non-distended, non-tender without rebound or guarding. Bowel sounds present x 4. 68 year old female admitted with NSTEMI, acute respiratory failure secondary to acute pulm edema and heart failure w profound anemia w/o evidence of acute GI blood loss. Presently hemodynamically stable w/ stable H&H post RBC transfusion. Once clinically stable, GI would recommend endoscopic evaluation with both EGD/Colonoscopy. This can also be performed as an outpatient pending her clinical course. We will sign off for now - but please recall with any questions or concerns or it she is deemed a candidate for endoscopy. Supervising Physician Co-Signing Physician Notes I saw and evaluated the patient. She notes that her shortness of breath is improving. Given the patient's complicated history I think it may be best to postpone her upper endoscopy and colonoscopy for a few weeks until she recovers from her non-STEMI myocardial infarction. If there is any questions or concerns during the remainder of the hospital admission please feel free to contact our service.
[2018-08-11] MEDS: INSULIN REGULAR 250 UNITS in SODIUM CHLORIDE 0.9% 247.5 ML IV SCH ×2 (10:20→10:21)
[2018-08-11] MEDS ORDERED: INSULIN GLARGINE SOLOSTAR 100 UNITS/ML 3 ML PEN SC STA (14:38)
--- NOTE | 2018-08-11 14:48 | Pharmacy Report ---
Pharmacy Glycemic Short Note 2 - Date of Service August 11, 2018 - Glycemic Short BSG Results (Last 24 hours): 08/10/18 08/10/18 08/11/18 16:03 19:55 05:09 Glucose 194 H POC Glucose 229 H 190 H 08/11/18 08/11/18 07:15 11:03 Glucose POC Glucose 240 H 226 H OUTPATIENT ANTIDIABETIC REGIMEN: * Metformin 1,000mg PO BIDM * Novolin 70/30 pre-mixed insulin * 60 units with breakfast * 40 units with dinner * A1c = 7.1% on 08/08/18 ASSESSMENT: * Ms. Madden has had sustained hyperglycemia over the previous 24 hrs. Will increase lantus to 30 units BID and tighten correctional insulin PLAN FOR INPATIENT GLYCEMIC CONTROL: * Hold outpatient oral diabetes medications * Basal insulin - increased * Lantus 30 units SQ BID * Bolus insulin - tightened * NovoLog per scale ACHS or Q6hrs while NPO * Goal Range: Low 110 mg/dL - High 140 mg/dL * Correction Factor: 15 mg/dL/unit * Nutritional / Prandial insulin per carb ratio of 1 unit per 4 grams CHO consumed * will add checks PLAN FOR DISCHARGE: * No changes needed to outpatient regimen. A1c is in target range based on age/ co-morbidities.
--- NOTE | 2018-08-11 16:26 | Hospitalist Progress Note ---
Date of Service August 11, 2018 Assessment & Plan (1) Acute respiratory failure with hypoxia: - Initially admitted to the ICU and currently weaned to RA and reporting baseline respiratory status at this time - This appears related to pulmonary edema/CHF exacerbation - still slightly volume up but doing well Present on Admission?: Yes (2) Acute diastolic heart failure: - Currently at a negative 3.3 L and weaned to RA - Will continue Lasix 40 mg IV daily and follow labs in AM Present on Admission?: Yes (3) NSTEMI (non-ST elevated myocardial infarction): - Troponins peaked at 65.9 and trending down - no cardiac symptoms at this time - Continue medical management at this time - ASA 81 mg daily; Plavix on hold 2/2 suspected GI bleed - Cardiology following - appreciate input Present on Admission?: Yes (4) Anemia: - Hgb was 6.3 on admission and currently remaining stable at 9.9 after transfusion support - baseline around 9-10 - Holding on EGD/Colonoscopy due to needs for diuresis - if counts stay stable could consider outpatient scopes - GI saw patient today and can be consulted again if necessary vs outpatient F/U - Check CBC in AM Present on Admission?: Yes (5) CAD (coronary artery disease): - H/O PCI in October 2017 - ASA therapy; Holding Plavix - Atorvastatin 40 mg BID?; Lisinopril 5 mg daily (recently increased); Metoprolol 50 mg BID Present on Admission?: Yes (6) HTN (hypertension): - STABLE Present on Admission?: Yes (7) DM II (diabetes mellitus, type II), controlled: - Holding home regimen; Glycemic management following - appreciate input -Last A1c was 8.2 in October 2017 Present on Admission?: Yes (8) DVT prophylaxis: - ARISTIDES/SCDs; No chemical anticoagulation in the setting of possible GI bleed and significant anemia. Disposition: Possible D/C next 1-2 days with outpatient EGD/Colonoscopy - will await AM labs and clinical assessment of resolution of hypervolemia Subjective Reports feeling much better today and feels that her breathing is back to baseline. Has been up into the bathroom and denies SOB. Hgb remaining stable at 9.9. States she hasn't noticed any rectal bleeding/ melena. Never had scopes in the past Constitutional: no fever and no chills Respiratory: no cough, no dyspnea and no dyspnea on exertion Cardiovascular: no chest pain, no palpitations, no edema and no calf pain Gastrointestinal: no abdominal pain, no nausea, no vomiting, no constipation, no diarrhea/loose stools and no melena Genitourinary (Female): no dysuria Integumentary: no rash Physical Exam 2 Vital Signs (Past 24 Hours): Last Vital Signs Temp 36.9 C 08/11/18 15:10 Pulse 85 08/11/18 15:10 Resp 16 08/11/18 15:10 BP 130/75 08/11/18 15:10 Pulse Ox 92 08/11/18 15:10 Constitutional: well developed and well nourished; no acute distress Eyes: + anicteric sclerae Neck: trachea midline Respiratory: normal respiratory effort Auscultation: + crackles (bases b/l ) Cardiovascular: Rate/Rhythm: regular rate and regular rhythm Heart Sounds: + murmur Extremities: no calf tenderness and no edema Gastrointestinal (Abdomen): Inspection/Auscultation: normal bowel sounds Percussion/Palpation: abdomen soft; abdomen nontender Musculoskeletal: Head/Neck/Chest: normocephalic, head atraumatic and neck supple Skin: no rashes, warm and dry Neurologic: moves all extremities Psychiatric: A+Ox3, euthymic affect _ (1) Anemia Anemia type: unspecified type Bone marrow failure anemia type: Chronic kidney disease stage: Folate deficiency anemia type: Hemolytic anemia type: Iron deficiency anemia type: Other causes of anemia: Vitamin B12 deficiency anemia type: Qualified Code(s): D64.9 - Anemia, unspecified
[2018-08-11] MEDS: MAGNESIUM OXIDE 400 MG TAB PO SCH (20:35)
[2018-08-12 06:36] LABS: Hematocrit (blood only) 35.7 % (37-47); Hemoglobin 10.7 g/dL (12.0-16.0); Mean Corpuscular Volume 73.9 fL (80-100); Platelet Count 572 K/uL (130-400); Red Blood Count 4.83 M/uL (4.2-5.4); White Blood Count 12.33 K/uL (4.8-10.8)
[2018-08-12 06:49] LABS: BUN Creatinine Ratio 26.3 (10-20); Calcium 8.9 mg/dl (8.5-10.1); Est GFR (African American) 49.4; Est GFR (Non-African American) 42.6
[2018-08-12] MEDS: METOPROLOL TARTRATE 50 MG TAB PO SCH (07:55)
[2018-08-12] MEDS: ATORVASTATIN 40 MG TAB PO SCH (07:56)
[2018-08-12] MEDS: FOLIC ACID 1 MG TAB PO SCH (07:56)
[2018-08-12] MEDS: FUROSEMIDE 40 MG in SYRINGE 0 ML IV SCH (07:56)
[2018-08-12] MEDS: MULTIVITAMIN TAB PO SCH (07:56)
[2018-08-12] MEDS: ASPIRIN 81 MG ECTAB PO SCH (07:56)
[2018-08-12] MEDS: ASCORBIC ACID 500 MG TAB PO SCH (07:56)
[2018-08-12] MEDS: INSULIN ASPART 100 UNITS/ML 3 ML PEN SC SCH ×2 (08:06→11:58)
[2018-08-12] MEDS: INSULIN GLARGINE SOLOSTAR 100 UNITS/ML 3 ML PEN SC SCH (08:06)
[2018-08-12] MEDS: LISINOPRIL 5 MG TAB PO SCH (08:13)
[2018-08-12] MEDS: FERROUS SULFATE 325 MG TAB PO SCH (08:13)
--- NOTE | 2018-08-12 13:35 | Cardiology Progress Note ---
Date of Service August 12, 2018 Assessment & Plan (1) NSTEMI (non-ST elevated myocardial infarction): No angina. She did receive a transfusion. He has not had symptoms with ambulation. Aspirin has been restarted and in an ideal scenario she would be back on Plavix until October. (2) Acute diastolic heart failure: Symptoms have improved with diuresis. She continues to have rales. However, she claims to be asymptomatic. I think would be reasonable to discharge her on a higher dose of oral diuretic. We can follow her in the clinic for improvement in her exam. (3) CAD (coronary artery disease): Prior RCA PCI in October 2017. She also had distal LAD 50% ostial ramus 60- 70%. Codominant circumflex. Large OM2 distal 60-70%. [id number] collaterals with mid RCA 99% which underwent 2.25 x 15 mm PCI. Continue medical therapy as above. Cardiac catheterization has not been performed for her presentation due to profound anemia. She was evaluated by interventional Cardiology upon presentation. Continue medical therapy. Resume anti-platelet therapy in the form of aspirin 81 mg daily (okay by GI). (4) HTN (hypertension): Blood pressure well controlled. Lisinopril was increased to 5 mg Continue current regimen. (5) HLD (hyperlipidemia): Continue high-intensity statin therapy. (6) Anemia: She presented with profound anemia. She did not undergo endoscopy. However, hemoglobin appears to have stabilized.. (7) Acute respiratory failure with hypoxia: Likely secondary to acute diastolic CHF related to ischemic heart disease in the setting of profound anemia and underlying coronary artery disease. She has improved and reportedly back to baseline. Subjective This morning the patient claims to be feeling back to her baseline. She states she did not have significant dyspnea while ambulating yesterday. She has no symptoms of chest pain or palpitation. Physical Exam 2 Vital Signs (Past 24 Hours): Last Vital Signs Temp 36.7 C 08/12/18 12:43 Pulse 85 08/12/18 12:43 Resp 18 08/12/18 12:43 BP 144/66 H 08/12/18 12:43 Pulse Ox 93 08/12/18 12:43 Physical Exam: She is alert and oriented x3. Mood affect appear normal. She answered all questions appropriately. HEENT: Sclerae are anicteric. Pupils are equal and reactive to light and accommodation. Extraocular movements were intact. Neuro: Cranial nerves intact Neck: Examination of the submandibular region did not reveal any significant lymphadenopathy. Carotids are palpable bilaterally and free of bruits on auscultation. There was no evidence of jugular venous distention. The thyroid was not enlarged. Lungs: Bibasilar rales. Cardiac: The rhythm was regular. S1 and S2 were normal. There are no murmurs on examination. The PMI was not markedly displaced on palpation. Abdomen: The abdomen was soft and nontender. Extremities: Patient has bilateral radial pulses that are equal in intensity. There is no evidence cyanosis or clubbing. Skin: There are no rashes noted on examination today. Results & Data Laboratory Results Abnormal Lab Results 08/11/18 08/11/18 08/12/18 16:08 20:01 05:58 WBC 12.33 H RBC 4.83 Hgb 10.7 L Hct 35.7 L MCV 73.9 L MCH 22.2 L MCHC 30.0 L Plt Count 572 H Sodium Potassium Chloride Carbon Dioxide Anion Gap BUN Creatinine Est Cr Clr Drug Dosing Est GFR ( Amer) Est GFR (Non-Af Amer) BUN/Creatinine Ratio Glucose POC Glucose 164 H 286 H Calcium 08/12/18 08/12/18 08/12/18 05:58 07:17 11:35 WBC RBC Hgb Hct MCV MCH MCHC Plt Count Sodium 139 Potassium 4.0 Chloride 103 Carbon Dioxide 29 Anion Gap 6.0 BUN 34 H Creatinine 1.28 H Est Cr Clr Drug Dosing 43.0 Est GFR ( Amer) 49.4 Est GFR (Non-Af Amer) 42.6 BUN/Creatinine Ratio 26.3 H Glucose 137 H POC Glucose 160 H 256 H Calcium 8.9 _ (1) Anemia Anemia type: unspecified type Bone marrow failure anemia type: Chronic kidney disease stage: Folate deficiency anemia type: Hemolytic anemia type: Iron deficiency anemia type: Other causes of anemia: Vitamin B12 deficiency anemia type: Qualified Code(s): D64.9 - Anemia, unspecified
--- NOTE | 2018-08-12 17:47 | Discharge Summary ---
Date of Service August 12, 2018 Admission HPI Per Admitting Provider This is a 68 yo F with PMHx of Acute respiratory failure with hypoxemia secondary to flash pulmonary edema, chronic diastolic CHF, multivessel CAD, hx of NSTEMI in October 2017 s/p PCI and stent to the RCA, DM II, hypothyroidism, HTN , HLD who presented with shortness of breath which started around 6 AM this morning. Patient reports progressive SOB over the last 3-4 weeks. This morning she was unable to get out of bed or perform ADLs without significant exertional dyspnea. She admits to having a dry cough. Patient denies any chest pain, palpitation, flutter, dizziness, lightheadedness or recent falls. She did admit to a slight headache this morning. She has never required supplemental O2 before. Patient denies any recent change in diet, excessive fluid intake, high sodium diet, and states her dry weight is typically around 200 lbs. Yesterday she was seen by her diabetic nurse in [place], and reports her weight was 199 pounds, and that other vital signs were reasonable. She denies any recent sick contacts. Patient reports she has been having regular bowel movements, denies dark tarry stools, BRBPR, or blood streaking. She has been taking her medications routinely which include Plavix and baby aspirin daily for cardiac stent. Patient did not take any medications this morning. EMS was called at the time of their arrival SBP was elevated in the 190s, Lasix and sublingual nitro was administered in EMS, BP improved down to systolic 95 at the time of arrival in the ER. Patient found to have an elevated lactic acid = 6.2. Hemoglobin is significantly low at 6.8 on recheck, trace positive guaiac stool. Glucose elevated = 375. Her troponin is elevated at 2.20. Principal Diagnosis Acute hypoxic respiratory failure due to diastolic CHF; anemia requiring transfusion Discharge Exam Constitutional well developed and well nourished; no acute distress Eyes + anicteric sclerae Neck trachea midline Respiratory normal respiratory effort Auscultation: + crackles (bases b/l) Cardiovascular Rate/Rhythm: regular rate and regular rhythm Heart Sounds: + murmur Extremities: no calf tenderness and no edema Gastrointestinal (Abdomen) Inspection/Auscultation: normal bowel sounds Percussion/Palpation: abdomen soft; abdomen nontender Musculoskeletal Head/Neck/Chest: normocephalic, head atraumatic and neck supple Skin no rashes, warm and dry Neurologic moves all extremities Psychiatric A+Ox3, euthymic affect Discharge Data Allergies Allergy/AdvReac Type Severity Reaction Status Date / Time No Known Allergies Allergy Unverified 08/08/18 09:44 Consultations 08/08/18 10:07 ED Decision to Admit Stat 08/08/18 11:30 Consult Cardiology Routine Consult Materials Tech Routine 08/09/18 08:30 Consult Gastroenterology Routine Hospital Course (1) Acute respiratory failure with hypoxia: - Initially admitted to the ICU and currently weaned to RA and reporting baseline respiratory status at this time - This appears related to pulmonary edema/CHF exacerbation - still slightly volume up but doing well -no indication for supplemental oxygen at this time (2) Acute diastolic heart failure: - Currently at a negative 4.4 L and weaned to RA -Planning to utilize Lasix 40 mg daily which is slightly increased from her normal baseline dose -does have some mild crackles on assessment and will need close follow-up with the CHF clinic -Have a call out to Gloria Stringer PA-C to discuss case. Follow-up appointment has been established (3) NSTEMI (non-ST elevated myocardial infarction): - Troponins peaked at 65.9 and trending down - no cardiac symptoms at this time - Continue medical management at this time - ASA 81 mg daily; Plavix on hold 2/2 suspected GI bleed -ultimately should be on dual coverage until October 2018 however this can be further discussed after outpatient EGD/colonoscopy - Cardiology followed -discussed with Dr. Ch prior to discharge -plan as above (4) Anemia: - Hgb was 6.3 on admission and currently remaining stable at 10.7 after transfusion support - baseline around 9-10 -Due to stabilization of her hemoglobin -plan is to pursue an outpatient EGD/ colonoscopy -Did provide a prescription for repeat blood work in the next couple days to further assess for any changes in her hemoglobin -results to PCP -Started Protonix 40 mg daily -at this time it is unknown if gastric or duodenal ulcers could be contributing -patient does not report any history of changes in bowel habits or melena/hematochezia -she reports no previous colonoscopies and will need to determine because of anemia (5) CAD (coronary artery disease): - H/O PCI in October 2017 - ASA therapy; Holding Plavix until proven no GI bleed - Atorvastatin 40 mg BID?; Lisinopril 5 mg daily (increased this admission); Metoprolol 50 mg BID (6) HTN (hypertension): - STABLE (7) DM II (diabetes mellitus, type II), controlled: -Follows with a diabetic specialist -continue metformin 1000 mg BID and NPH -Last A1c was 8.2 in October 2017 (8) DVT prophylaxis: Disposition: Will have close follow-up with CHF clinic; provided patient and family with contact information for [facility] to coordinate outpatient follow-up and EGD/colonoscopy -Patient and family provided a different number to contact them -[phone] at extension 2 Total Time Total Time Spent Total Time Spent (In Minutes): Greater than 30 minutes Discharge Plan Discharge Items Patient Disposition: Home - Self-Care Reason For Visit: PULMONARY EDEMA, ANEMIA Discharge Diagnosis: Heart Failure and Low Blood Counts Discharge Goals: Decrease discomfort, Improve function and Prevent disease Activity: Resume your previous activity Non-emergency contact: Primary Care Provider Call non-emergency contact if: you have any medication questions, your symptoms worsen and you have a fever Follow-up/Referrals: Gloria Stringer PA-C [Physician] - 08/20/18 2:00 pm (Please, follow up at [facility] Cardiology Office (CHF Clinic) with Edith Stringer PA-C on SaturdayAugust 20 at 2:00 pm. *This office is located in [address] [facility]. This is the big building next to this [facility]. If you need to change this appointment, call the office at [phone].) Geoffrey Milton [Primary Care Provider] - 08/15/18 10:00 am (Please, follow up at Dr. Geoffrey Milton's office on SaturdayAugust 15 at 10:00 am. *If you need to change this appointment, call the office at [phone].) Diet: Carb Consistent or DM2 Addtl Provider Instructions: Shortness of Breath from Heart Failure: - Some times the heart causes some back up of fluid that can push around the lungs making breathing hard to do - The treatment for this is to use a diuretic or "water pill" like Furosemide ( Lasix). - To help get more fluid off we did increase your home Furosemide to 40 mg daily - Recommend to check your weight on the same scale every day and write them down for your heart doctor. If you gain more than 2-3 pounds in a day please call the heart doctor. - We will have a follow-up appointment placed for the heart clinic to help monitor you to help prevent this from happening again. We will have them call you. Heart Disease: - You had a history of needing a stent placed in your heart vessels in October 2017. Due to the low blood counts (hemoglobin) the plan is to just use a daily aspirin 81 mg daily and stop the Plavix for now to prevent issues with bleeding. - Your Lisinopril was increased to 5 mg daily and a new prescription was sent to your pharmacy Anemia: - Low blood counts or low hemoglobin levels. Hemoglobin is responsible for transporting oxygen through the blood to all your body parts. When this hemoglobin level drops low you can get shortness of breath, chest pain, and feeling very tired. You did get some blood to help bring these blood counts ( hemoglobin) up to a good level - You will need a scope to look at the stomach and a scope to look at the bowels to check for any signs of bleeding. The doctors that will perform these tests are GI doctors. -- [facility] [place]: [address] [place] [id number] and there number is [phone] and you can call and make a follow-up appointment for these test - Also gave a prescription for iron supplements daily and folic acid which are two supplements that help the body make blood cells. - Will also give a prescription for a once daily acid reducing medication. This is in case there is a stomach ulcer that is causing your low blood counts. - Will give you a prescription to have your blood work checked in a couple days. You can take this to where you normally get your blood work. Prescriptions: New folic acid 1 mg Tablet 1 mg PO QAM Qty: 30 RF: 0 lisinopril [Zestril] 5 mg Tablet 5 mg PO QAM 30 Days Qty: 30 RF: 0 ferrous sulfate 325 mg (65 mg iron) Tablet,Delayed Release (Dr/Ec) 325 mg PO QAM 30 Days Qty: 30 RF: 0 pantoprazole 40 mg tablet,delayed release (DR/EC) 40 mg PO DAILY 30 Days Qty: 30 RF: 0 Continue atorvastatin 80 mg Tablet 40 mg PO BID RF: 0 aspirin 81 mg Tablet,Delayed Release (Dr/Ec) 81 mg PO QAM RF: 0 metformin 1,000 mg Tablet 1,000 mg PO BID RF: 0 metoprolol tartrate [Lopressor] 50 mg Tablet 50 mg PO BID RF: 0 nitroglycerin [Nitrostat] 0.4 mg Tablet, Sublingual 0.4 mg Sublingual UD RF: 0 insulin NPH and regular human [Novolin 70-30 FlexPen U-100] 100 unit/mL (70-30 ) Insulin Pen 70 - 80 unit SUBCUT BIDM RF: 0 Changed furosemide [Lasix] 20 mg Tablet 40 mg PO QAM 30 Days Qty: 60 RF: 0 Discontinued clopidogrel [Plavix] 75 mg Tablet 75 mg PO QAM RF: 0 lisinopril 2.5 mg Tablet 2.5 mg PO QAM RF: 0 Stand-Alone Forms: [facility] Discharge Orders: Discharge Order (Routine); Ordered 08/12/18 Ordered By: Jm Segura Admission Data Admit Date/Time: 08/08/18 10:41 Attending Provider: Jm Segura Admit Provider: Solo Valdes Primary Care Provider: Geoffrey Milton Other Providers: Solo Valdes ; Kirk Ch ; Vineet Rodriguez ; Yue Roger ; Selvin Guzmán ; Miguelito Castillo ; Pietro Napoles ; Jatinder Patterson ; Jazmin Nuñez ; Chelsea Moore ; Dena Casey ; Vladislav Clements ; Agustin Zuleta ; Davis Allen ; Uriah Solis Service: Telemetry Other Interventions: Discharge Summary Assessment (RN) Last Done: 08/12/18 12:43 Pending Studies at Discharge: No DC Date/Time DO NOT enter until pt leaves facility: 08/12/18 13:34
== END 2018-08-12 13:34 | disposition home or self-care (01) | DRG 280 ==
LOC: ED 08:33 → SUATTDRO 10:41 → 1E 10:41 → 2S 08-09 21:27

== ENCOUNTER 2024-07-25 21:03 | Inpatient (IN) ==
--- OUTSIDE RECORDS SUMMARY | 2024-07-25 21:09 | External Medical Summary | Summary of Care ---
Author Name Unknown Organization [facility] Address [address] [facility] [address] [address] [address] Care Team Providers Care Steel Heater Name Role Phone Peg Galvan PA-C Primary Care Pr ovider Reason for Visit * Reason Comments eRx-Medication Refill Encounter Details Date Type Department Care Team (Late st Contact Info) Description 07/06/2024 Refill Family Medicine, [facility] [address] [place] [phone] Tabby Diana PA-C [address] [place] [address] [address] Wheezing* Allergies No known active allergiesdocumented as of this encounter (statuses as of 07/07/2024) Medications Folic Acid 1 MG Oral Tablet TAKE 1 TABLET BY MOUTH DAILY 90 Tablet 3 3 Active Aspirin 81 MG Oral Tablet Delayed Release Take 1 Tablet by mouth in the morning. Active Levothyroxine Sodium 25 MCG Oral Capsule (Tirosint) Take 1 Capsule by mouth daily first thing in the morning. (at least 30 min prior to breakfast or other meds) Active Insulin Aspart Prot & Aspart (70-30) 100 UNIT/ML Subcutaneous Suspension Inject under the skin at bedtime. 60 U in the am, 40 U in the pm Active metFORMIN HCl 1000 MG Oral Tablet (Glucophage) Take 1 Tablet by mouth 2 times a day with morning and evening meals. Active Nitroglycerin 0.4 MG Sublingual Tablet Sublingual (Nitrostat) Place 1 Tablet under the tongue every 5 minutes as needed. Active Metoprolol Tartrate 50 MG Oral Tablet (Lopressor) TAKE 1 TABLET BY MOUTH DAILY 90 Tablet 3 3 Active Furosemide 20 MG Oral Tablet (Lasix) TAKE 2 TABLETS ONCE DAILY FOR FLUID 180 Tablet 3 3 Active Atorvastatin Calcium 80 MG Oral Tablet (Lipitor) TAKE 1 TABLET ONCE DAILY FOR CHOLESTEROL. 90 Tablet 3 3 Active Ventolin HFA 108 (90 Base) MCG/ACT Inhalation Aerosol SolutionIndicatio ns:Wheezing Inhale 2 Puffs by mouth every 4 hours as needed for Wheezing or Shortness of Breath. 18 g 4 Active documented as of this encounter (statuses as of 07/07/2024) Active Problems Problem Noted Date Diagnosed Date Anemia 10/02/2022 Diastolic heart failure 10/02/2022 Type 2 diabetes mellitus wit h hemoglobin A1c goal of less than 7.0% 10/02/2022 Essential hypertension 10/02/2022 Hypothyroidism 10/02/2022 Hyperlipidemia 10/02/2022 H/O heart artery stent 10/02/2022 Microalbuminuria 10/02/2022 GERD (gastroesophageal reflux disease) Coronary arteriosclerosis 10/02/2022 Chronic ischemic heart disease 10/02/2022 documented as of this encounter (statuses as of 07/07/2024) Immunizations Name Administration Dates Next Due Pneumococcal Polysaccharide PPV23 (Pneumovax) Seasonal Influenza Virus Vac cine, Unspecified Formulation 07/08/2014 documented as of this encounter Social History Tobacco Use Types Packs/Day Years Used Date Smoking Tobacco: Never Assessed PHQ-2 Answer Date Recorded PHQ Adult Total Score 0 12/05/2023 Hunger Vital Sign Answer Date Recorded Within the past 12 months, y ou worried that your food would run out before you got the money to buy more. Patient declined Within the past 12 months, t he food you bought just didn't last and you didn't have money to get more. Patient declined Childcare Answer Date Recorded Do you feel overwhelmed with taking care of a child, family member or friend? No 12/05/2023 Does your family need help f inding childcare? (Household - for ages 0-17 years) Not on file 12/05/2023 Clothing Answer Date Recorded Have you been unable to get clothing when it was really needed? No 12/05/2023 Is your family able to get c lothes or diapers when needed? (Household - for ages 0-17 years) Not on file 12/05/2023 Personal Safety Answer Date Recorded Do you feel unsafe or have concerns for your saf ety? No 12/05/2023 Do you have concerns for you r family's safety? (Household - for ages 0-17 years) Not on file 12/05/2023 Utilities Answer Date Recorded Do you have trouble paying y our heating, water, or electric bill? No 12/05/2023 Is your family able to pay t he heat, water, or electric bill? (Household - for ages 0-17 years) Not on file 12/05/2023 Does your family have access to good internet? (Household - for ages 0-17 years) Not on file 12/05/2023 Employment Status Answer Date Recorded Are you unemployed or without regular income? No 12/05/2023 Does the household have a re lar source of income? (Household - for ages 0-17 years) Not on file 12/05/2023 Social Connections Answer Date Recorded How often do you feel lonely or isolated from th ose around you? Never 12/05/2023 Financial Resource Strain Answer Date R ecorded Do you have any trouble payi ng for your medications, or do you think you might in the future? No 12/05/2023 Does your family have troubl e paying for medicine? (Household - for ages 0-17 years) Not on file 12/05/2023 Transportation Needs Answer Date Record ed READ ONLY Do you have troubl e getting a ride to medical visits or work? Never True 12/05/2023 Does your family have a hard time getting a ride to doctors visits? (Household - for ages 0-17 years) Not on file 12/05/2023 Has lack of transportation k ept you from medical appointments, meetings, work, or from getting things needed for daily living? Check all that apply. (Adult - for ages 18 years and over) Not on file 12/05/2023 Do you (or your family) have trouble finding or paying for a ride (transportation)? (Household - for ages 0-17 years) Not on file 12/05/2023 Housing Stability Answer Date Recorded Do you currently live in a s helter or have no steady place to sleep at night? No 12/05/2023 READ ONLY Do you think you a re at risk of becoming homeless? No 12/05/2023 Does your family worry about paying for your home or becoming homeless? (Household - for ages 0-17 years) Not on file 0 12/05/2023 Are you homeless or worried that you might be in the future? (Adult - for ages 18 years and over) Not on file Are you (or your family) cyndi eless or worried that you might be in the future? (Household - for ages 0-17 years) Not on file Food Insecurity Answer Date Recorded Do you need food for this week? No 12/05/2023 Are you able to get enough f ood for your family? (Household - for ages 0-17 years) Not on file 12/05/2023 Does your family need food t his week? (Household - for ages 0-17 years) Not on file 12/05/2023 Do you always have enough fo od for your family? (Household - for ages 0-17 years) Not on file 12/05/2023 Comments Unknown Sex and Gender Information Value Date Recorded Sex Assigned at Not on file Legal Sex Female 4:09 PM EST Gender Identity Not on file Sexual Orientation Not on file documented as of this encounter Miscellaneous Notes * Telephone Encounter - Seymour Meng LPN - 07/07/2024 1:16 PM EST Left second message to call back to ask how she is taking this medication. * Telephone Encounter - Seymour Meng LPN - 07/06/2024 3:20 PM EST LMTCB to see if she needs this refilled * Telephone Encounter - Peg Galvan PA-C - 07/06/2024 11:49 AM EST Pt prescribed inhaler less than 1 month ago, if she is going through 1 inhaler a month she needs anappointment to discuss further tx options as that is not appropriate use of the inhaler * Telephone Encounter - Peg Galvan PA-C - 07/06/2024 11:49 AM ESTRefused Prescriptions: Disp Refills Albuterol Sulfate HFA 108 (90 Base) MCG/AC*18 g 0 Sig: Inhale 2 Puffs by mouth every 4 hours as needed for Wheezing or Shortness of Breath. Refused By: PEG GALVAN Reason for Refusal: Too soon * Telephone Encounter - Haley Ybarra MED ASSIST - 07/06/2024 11:41 AM EST Pending Prescriptions: Disp Refills Albuterol Sulfate HFA 108 (90 Base) MCG/AC*18 g 0 Sig: Inhale 2Puffs by mouth every 4 hours as needed for Wheezing or Shortness of Breath. documented in this encounter Plan of Treatment Upcoming Encounters Date Type Department Care Team (Late st Contact Info) Description 12/07/2024 9:00 AM EDT Office Visit [facility] [address] [address] [phone] Peg Galvan PA-C [address] [place] [address] Health Maintenance Due Date Last Done Comments Albumin/Creatinine Ratio 1967 Diabetic Eye Exam 1967 Hepatitis C Screening 1967 DXA Scan 2014 Pneumococcal Vaccine: 50+ Years (2 of 2 - PCV) 10/15/2018 10/15/2017 Depression Screening 12/04/2024 12/05/2023 HbA1c 12/07/2024 06/08/2024, 04/09/2023, 10/03/2022 GFR 06/08/2025 06/08/2024, 04/09/2023, 10/03/2022 TSH 06/08/2025 06/08/2024, 04/09/2023 COVID-19 Vaccine Discontinued DTap/Tdap Vaccines Discontinued Diabetic Foot Exam Discontinued HPV (Gardasil) Vaccine Aged Out No lo nger eligible based on patient's age to complete this topic Hepatitis B Vaccine Aged Out No longe r eligible based on patient's age to complete this topic MENINGOCOCCAL (MENACTRA/MENVEO) Aged Out No longer eligible based on patient's age to complete this topic Zoster Vaccines Discontinued documented as of this encounter Medical Devices Not on filedocumented as of this encounter Visit Diagnoses Diagnosis Wheezing- Primary documented in this encounter Care Teams Steel Heater Relationship Specialty Start Date End Date Peg Galvan PA-C [address] [place] [address] PCP - General Physician Field Administrator 06/08/24 documented as of this encounter
--- OUTSIDE RECORDS SUMMARY | 2024-07-25 21:09 | External Medical Summary | Summary of Care ---
Author Name Unknown Organization [facility] Address [address] [facility] [address] [address] [address] Care Team Providers Care Aeronautical Engineering Technologist Name Role Phone Peg Galvan PA-C Primary Care Pr ovider Reason for Visit * Reason Comments eRx-Medication Refill Encounter Details Date Type Department Care Team (Late st Contact Info) Description 07/06/2024 Refill Family Medicine, [place] [facility] [address] [place] [phone] Tabby Diana PA-C [address] [place] [address] [address] Wheezing* Allergies No known active allergiesdocumented as of this encounter (statuses as of 07/06/2024) Medications Folic Acid 1 MG Oral Tablet [...] as of this encounter (statuses as of 07/06/2024) Active Problems Problem Noted Date Diagnosed Date Anemia 10/02/2022 Diastolic heart failure 10/02/2022 Type 2 diabetes mellitus wit h hemoglobin A1c goal of less than 7.0% 10/02/2022 Essential hypertension 10/02/2022 Hypothyroidism 10/02/2022 Hyperlipidemia 10/02/2022 H/O heart artery stent 10/02/2022 Microalbuminuria 10/02/2022 GERD (gastroesophageal reflux disease) Coronary arteriosclerosis 10/02/2022 Chronic ischemic heart disease 10/02/2022 documented as of this encounter (statuses as of 07/06/2024) Immunizations Name Administration Dates Next Due Pneumococcal [...] Description 12/07/2024 9:00 AM EDT Office Visit [facility] [address] [place] [address] [address] [phone] Peg Galvan PA-C [address] [facility] [place] [id number] Health Maintenance Due Date Last Done Comments [...] Primary documented in this encounter Care Teams Aeronautical Engineering Technologist Relationship Specialty Start Date End Date Peg Galvan PA-C [address] [place] [id number] PCP - General Physician Treer 06/08/24 documented as of this encounter
--- OUTSIDE RECORDS SUMMARY | 2024-07-25 21:09 | External Medical Summary ---
Author Name Unknown Address Unknown Organization [place] [address] Laboratory Report Ordering Provider Test Date Status COLE RUVALCABA 06/08/2024 09:40:55 Final Observation Date Value Abnormality Reference (Units ) Status [facility] TSH 06/08/2024 09:40:55 6.44 Above high normal 0.27-4.20 (mIU/mL) [place] [address]
--- OUTSIDE RECORDS SUMMARY | 2024-07-25 21:09 | External Medical Summary | Summary of Care ---
Author Name Unknown Organization [facility] Address 1 [facility] [place] [address] Care Team Providers Care Architectural Associate Name Role Phone Peg Galvan PA-C Primary Care Pr ovider Reason for Visit * Reason Comments eRx-Medication Refill Encounter Details Date Type Department Care Team (Late st Contact Info) Description 07/06/2024 Refill Family [facility], [place] [facility] [address] [place] [phone] Tabby Diana PA-C [address] [place] [address] [address] Wheezing* Allergies No known active allergiesdocumented as of this encounter (statuses as of 07/09/2024) Medications Folic Acid 1 MG Oral Tablet [...] as of this encounter (statuses as of 07/09/2024) Active Problems Problem Noted Date Diagnosed Date Anemia 10/02/2022 Diastolic heart failure 10/02/2022 Type 2 diabetes mellitus wit h hemoglobin A1c goal of less than 7.0% 10/02/2022 Essential hypertension 10/02/2022 Hypothyroidism 10/02/2022 Hyperlipidemia 10/02/2022 H/O heart artery stent 10/02/2022 Microalbuminuria 10/02/2022 GERD (gastroesophageal reflux disease) Coronary arteriosclerosis 10/02/2022 Chronic ischemic heart disease 10/02/2022 documented as of this encounter (statuses as of 07/09/2024) Immunizations Name Administration Dates Next Due Pneumococcal [...] as of this encounter Miscellaneous Notes * Addendum Note - Aniya Cortés OSA - 07/09/2024 10:05 AM ESTAddended by: ANIYA CORTÉS on: 07/09/2024 10:05 AM Modules accepted: Orders * Telephone Encounter - Aniya Cortés OSA - 07/09/2024 10:04 AM EST Spoke to she is not using it very often, but he would like to have one on hand in case she needs it and since they live so far away and only come to town once a month if that. * Telephone Encounter - Seymour Meng LPN [...] Description 12/07/2024 9:00 AM EDT [facility] [address] [facility] [place] [phone] Peg Galvan PA-C [address] [place] [address] Health Maintenance Due Date Last Done Comments [...] Primary documented in this encounter Care Teams Architectural Associate Relationship Specialty Start Date End Date Peg Galvan PA-C [address] [place] [address] PCP - General Physician Hydropress Operator 06/08/24 documented as of this encounter
--- OUTSIDE RECORDS SUMMARY | 2024-07-25 21:09 | External Medical Summary ---
Author Name Unknown Address Unknown Organization K0N:[place] [address] Laboratory Report Ordering Provider Test Date Status COLE RUVALCABA 06/08/2024 09:40:55 Final Observation Date Value Abnormality Reference (Units ) Status [facility] NEUTROPHIL % - AUTO 06/08/2024 09:40:55 61.7 37.0-63.0 (%) Final [facility] LYMPHOCYTE % - AUTO 06/08/2024 09:40:55 27.3 Below low normal 33.0-37.0 (%) Final [facility] MONOCYTE % - AUTO 06/08/2024 09:40:55 8.1 0.0-9.0 (%) Final [facility] EOSINOPHIL % - AUTO 06/08/2024 09:40:55 2.4 0.0-7.0 (%) Final [facility] BASOPHILS % - AUTO 06/08/2024 09:40:55 0.5 0.0-1.0 (%) Final [facility] NEUTROPHIL # - AUTO 06/08/2024 09:40:55 6.7 Above high normal 1.5-6.6 (K/uL) Final [facility] LYMPHOCYTE # - AUTO 06/08/2024 09:40:55 3.0 1.5-3.5 (K/uL) Final [facility] MONOCYTE # - AUTO 06/08/2024 09:40:55 0.9 0.0-1.0 (K/uL) Final [facility] EOSINOPHIL # - AUTO 06/08/2024 09:40:55 0.3 0.0-0.7 (K/uL) Final [facility] BASOPHILS # - AUTO 06/08/2024 09:40:55 0.1 0.0-0.1 (K/uL) Final [facility] NRBC% AUTOMATED DIFFERENTIAL 06/08/2024 09:40:55 0.0 <0.01 (%) Final Performing Location [place] [address]
--- OUTSIDE RECORDS SUMMARY | 2024-07-25 21:09 | External Medical Summary ---
Author Name Unknown Address Unknown Organization K0N:[facility], [place] [address] Laboratory Report Ordering Provider Test Date Status COLE RUVALCABA 06/08/2024 09:40:55 Final Observation Date Value Abnormality Reference (Units ) Status [facility] WHITE BLOOD CELL COUNT 06/08/2024 09:40:55 10.9 Above high normal 4.0-10.5 (K/uL) Final [facility] RED BLOOD CELL COUNT 06/08/2024 09:40:55 3.59 Below low normal 4.20-5.40 Final Hemoglobin 06/08/2024 09:40:55 9.8 Below low normal 12.5-16 (g/dL) Final HCT 06/08/2024 09:40:55 31.3 Below low normal 37-47 (%) Final [facility] MEAN CORPUSCULAR VOLUME 06/08/2024 09:40:55 87.2 78.0-100.0 (fl) Final [facility] MCH 06/08/2024 09:40:55 27.2 27.0-31.0 (pg) Final [facility] MCHC 06/08/2024 09:40:55 31.2 Below low normal 32.5-36.0 (g/dL) Final [facility] RED CELL DIST WIDTH 06/08/2024 09:40:55 16.5 Above high normal 11.5-14.0 (%) Final [facility] PLATELET COUNT 06/08/2024 09:40:55 359 150-450 (K/uL) Final [facility] MPV 06/08/2024 09:40:55 9.1 6.5-9.5 (fL) Final Performing Location [facility], [place] [address]
--- OUTSIDE RECORDS SUMMARY | 2024-07-25 21:09 | External Medical Summary ---
Author Name Unknown Address Unknown Organization K0N:[facility], [place] [address] Laboratory Report Ordering Provider Test Date Status COLE RUVALCABA 06/08/2024 09:40:55 Final Observation Date Value Abnormality Reference (Units ) Status [facility] GLYCOHEMOGLOBIN (A1C) 06/08/2024 09:40:55 9.7 Above high normal 4.0-6.4 (%) Final Based on 2015 guidelines fro m the [place] [employer]:

Normal <= 5.6%
Prediabetes 5.7-6.4%
Diabetes >= 6.5%
Glycemic goals for adult diabetes <7.0%

HbA1c values are lowered in hemolytic anemia because of the shortened life of erythrocytes. Iron deficiency anemia can lead to an increased erythrocyte mass. In either case, the average age of the erythrocytes is altered. Caution should be exercised when interpreting the HbA1c results from patients with these conditions, and when the total hemoglobin is <9.0 mgdL[place] [address]
--- OUTSIDE RECORDS SUMMARY | 2024-07-25 21:09 | External Medical Summary ---
Author Name Unknown Address Unknown Organization K0N:[facility], [place] [address] Laboratory Report Ordering Provider Test Date Status COLE RUVALCABA 06/08/2024 09:40:55 Final Observation Date Value Abnormality Reference (Units ) Status [facility] SODIUM 06/08/2024 09:40:55 141 135-146 (mmol/L) Final [facility] POTASSIUM 06/08/2024 09:40:55 5.2 Above high normal 3.5-5.1 (mmol/L) Final [facility] CHLORIDE 06/08/2024 09:40:55 112 Above high normal 98-107 (mmol/L) Final [facility] CO2 06/08/2024 09:40:55 18 Below low normal 22-32 (mmol/L) Final [facility] ANION GAP 06/08/2024 09:40:55 16 10-20 (mmol/L) Final [facility] BUN 06/08/2024 09:40:55 74 Above high normal 6-20 (mg/dL) Final [facility] CREATININE 06/08/2024 09:40:55 3.9 Above high normal 0.5-0.9 (mg/dL) Final [facility] ESTIMATED GLOMERULAR FILTRATION RATE 06/08/2024 09:40:55 11 Final [facility] BUN/CREATININE RATIO 06/08/2024 09:40:55 19.0 12.0-20.0 Final [facility] GLUCOSE 06/08/2024 09:40:55 83 70-120 (mg/dL) Final [facility] CALCIUM 06/08/2024 09:40:55 8.5 8.4-10.2 (mg/dL) Final [facility] AST/SGOT 06/08/2024 09:40:55 15 10-35 (U/L) Final [facility] ALKALINE PHOSPHATASE 06/08/2024 09:40:55 93 48-153 (U/L) Final [facility] ALT/SGPT 06/08/2024 09:40:55 10 10-35 (U/L) Final [facility] BILIRUBIN, TOTAL 06/08/2024 09:40:55 <^0.15 0.00-1.20 (mg/dL) Final [facility] PROTEIN, TOTAL 06/08/2024 09:40:55 7.6 6.0-8.3 (g/dL) Final [facility] ALBUMIN 06/08/2024 09:40:55 3.4 Below low normal 3.8-5.0 (g/dL) Final [facility] GLOBULIN 06/08/2024 09:40:55 4.2 Above high normal 1.8-3.8 (g/dL) Final [facility] ALBUMIN/GLOBULIN RATIO 06/08/2024 09:40:55 0.8 Below low normal 1.0-2.4 [place] [address]
--- OUTSIDE RECORDS SUMMARY | 2024-07-25 21:09 | External Medical Summary | Summary of Care ---
Author Name Unknown Organization [facility] Address 1 [facility] [place] [address] Care Team Providers Care Corrections Lieutenant Name Role Phone Kelly Riggs PA-C Primary Care Pr ovider Reason for Visit * Reason Comments Follow Up The patient is here for a 6 mo f/u of chronic conditions. DM-2, Heart failure, HTN, hypothyroidism, hyperlipidemia and GERD. No recent labs obtained. She has a cough that started yesterday. Encounter Details Date Type Department Care Team (Late st Contact Info) Description 06/08/2024 9:00 AM EST Office Visit [facility] EMS [address] [facility] [place] [phone] Kelly Riggs PA-C [address] [place] [address] Type 2 diabetes mellitus with hemoglobin A1c goal of less than 7.0% ([facility])*; Essential hypertension; Acquired hypothyroidism; Anemia due to stage 4 chronic kidney disease (HCC); Wheezing Allergies No known active allergiesdocumented as of this encounter (statuses as of 06/08/2024) Medications Folic Acid 1 MG Oral Tablet [...] as of this encounter (statuses as of 06/08/2024) Active Problems Problem Noted Date Diagnosed Date Anemia 10/02/2022 Diastolic heart failure 10/02/2022 Type 2 diabetes mellitus wit h hemoglobin A1c goal of less than 7.0% 10/02/2022 Essential hypertension 10/02/2022 Hypothyroidism 10/02/2022 Hyperlipidemia 10/02/2022 H/O heart artery stent 10/02/2022 Microalbuminuria 10/02/2022 GERD (gastroesophageal reflux disease) Coronary arteriosclerosis 10/02/2022 Chronic ischemic heart disease 10/02/2022 documented as of this encounter (statuses as of 06/08/2024) Immunizations Name Administration Dates Next Due Pneumococcal [...] on file documented as of this encounter Last Filed Vital Signs Vital Sign Reading Time Taken Comments Blood Pressure 144/72 06/08/2024 8:55 AM EST Pulse 60 06/08/2024 8:55 AM EST Temperature - - Respiratory Rate 18 06/08/2024 8:55 AM EST Oxygen Saturation 99% 06/08/2024 8:55 AM EST Inhaled Oxygen Concentration - - Weight 90.8 kg (200 lb 3.2 oz) 06/08/2024 8:55 A M EST Height - - Body Mass Index 39.1 12/05/2023 10:11 AM EDT documented in this encounter Progress Notes * Kelly Riggs PA-C - 06/08/2024 9:02 AM EST Images from the original note were not included. History of Present Illness Rica Madden is a 74 year old female that presents for Follow Up (The patient is here for a 6 mof/u of chronic conditions. DM-2, Heart failure, HTN, hypothyroidism, hyperlipidemia and GERD. No recent labs obtained. She has a cough that started yesterday. ) Patient presents for routine follow up Cold sxs for a few days No sore throat, ear pain Some sinus sxs Productive cough No fever, chills, SOB BS's Around 200's, up and down Checking BS's About 1x daily or fwhen she doesn't feel good Low 87 BP slightly above goal Pt did take her meds today Pt did NOT get labs done from last visit Drinking 3 8oz water daily Physical Exam Vitals: 06/08/24 0855 Pulse: 60 Resp: 18 SpO2: 99% BP: 144/72 BP Readings from Last 3 Encounters: 06/08/24 144/72 12/05/23 140/70 04/09/23 136/60 Wt Readings from Last 3 Encounters: 06/08/24 90.8 kg (200 lb 3.2 oz) 12/05/23 90.8 kg (200 lb 4 oz) 04/09/23 88.5 kg (195 lb) Physical Exam Constitutional: General: She is not in acute distress. Appearance: She is obese. She is not ill-appearing or diaphoretic. Cardiovascular: Rate and Rhythm: Normal rate and regular rhythm. Pulmonary: Effort: Pulmonary effort is normal. Breath sounds: Decreased air movement present. Wheezing (throughout) present. No decreased breath sounds or rhonchi. Musculoskeletal: Right lower leg: No edema. Left lower leg: No edema. Neurological: General: No focal deficit present. Mental Status: She is alert. I have reviewed the following results: None Assessment and Plan Type 2 diabetes mellitus with hemoglobin A1c goal of less than 7.0% (HCC) (Primary) -likely uncontrolled from BS's pt is reporting, need updated labs, will adjust after labs received Essential hypertension -continue current regimen -increase water intake Acquired hypothyroidism -recheck levels -continue current regimen Anemia due to stage 4 chronic kidney disease (HCC) -due for labs -ckd likely due to uncontrolled DM -increase water intake -limit salt intake -avoid NSAIDS Wheezing - Ventolin HFA 108 (90 Base) MCG/ACT Inhalation Aerosol Solution; Inhale 2 Puffs by mouth every 4 hours as needed for Wheezing or Shortness of Breath. Wrap-Up Follow Up: Return in about 6 months (around 12/07/2024) for with Dr. Mcleod . | For: with Dr. Mcleod | Check-out note: Lab today Time: I spent a total of 30-39 minutes (exact time 32 mins) on the date of service in preparation, delivery, and documentation of the care provided to Rica Madden excluding any time spent in the performance of separately billed services. Kelly Riggs PA-C [place] [address] [place] [place] [phone] documented in this encounter Plan of Treatment Upcoming Encounters Date Type Department Care Team (Late st Contact Info) Description 12/07/2024 9:00 AM EDT Office Visit Family [place] [address] [phone] Kelly Riggs PA-C [address] [place] [address] Pending Results Name Type Priority Associated Diagnoses Date /Time CBC WITH WBC DIFFERENTIAL Lab Routine Type 2 diabetes mellitus with hemoglobin A1c goal of less than 7.0% ([facility]) 06/08/2024 9:40 AM EST HEMOGLOBIN A1C Lab Routine Type 2 diabetes mellitus with hemoglobin A1c goal of less than 7.0% ([facility]) 06/08/2024 9:40 AM EST LIPID PANEL - ([facility] ONLY) Lab Routine Type 2 diabetes mellitus with hemoglobin A1c goal of less than 7.0% ([facility]) 06/08/2024 9:40 AM EST TSH WITH FREE T4 IF INDICATED Lab Routine Type 2 diabetes mellitus with hemoglobin A1c goal of less than 7.0% (HCC) Acquired hypothyroidism 06/08/2024 9:40 AM EST COMPREHENSIVE METABOLIC PANEL Lab Routine Type 2 diabetes mellitus with hemoglobin A1c goal of less than 7.0% (HCC) 06/08/2024 9:40 AM EST CBC Lab Routine Type 2 diabetes mellitus with hemoglobin A1c goal of less than 7.0% (HCC) 06/08/2024 9:40 AM EST DIFFERENTIAL, AUTOMATED Lab Routine Type 2 diabetes mellitus with hemoglobin A1c goal of less than 7.0% (HCC) 06/08/2024 9:40 AM EST Scheduled Orders Name Type Priority Associated Diagnoses Orde r Schedule CBC WITH WBC DIFFERENTIAL Lab Routine Type 2 diabetes mellitus with hemoglobin A1c goal of less than 7.0% (HCC) Expected: 06/08/2024, Expires: 06/08/2025 HEMOGLOBIN A1C Lab Routine Type 2 diabetes mellitus with hemoglobin A1c goal of less than 7.0% (HCC) Expected: 06/08/2024, Expires: 06/08/2025 LIPID PANEL - ([facility] ONLY) Lab Routine Type 2 diabetes mellitus with hemoglobin A1c goal of less than 7.0% (HCC) Expected: 06/08/2024, Expires: 06/08/2025 ALBUMIN / CREATININE RATIO, URINE Lab Routine Type 2 diabetes mellitus with hemoglobin A1c goal of less than 7.0% (HCC) Expected: 06/08/2024, Expires: 06/08/2025 TSH WITH FREE T4 IF INDICATED Lab Routine Type 2 diabetes mellitus with hemoglobin A1c goal of less than 7.0% (HCC) Acquired hypothyroidism Expected: 06/08/2024, Expires: 06/08/2025 COMPREHENSIVE METABOLIC PANEL Lab Routine Type 2 diabetes mellitus with hemoglobin A1c goal of less than 7.0% (HCC) Expected: 06/08/2024, Expires: 06/08/2025 Health Maintenance Due Date Last Done Comments Albumin/Creatinine Ratio 1968 Diabetic Eye Exam 1968 Hepatitis C Screening 1968 DXA Scan 2014 Pneumococcal Vaccine: 65+ Years (2 of 2 - PCV) 10/15/2018 10/15/2017 HbA1c 10/09/2023 04/09/2023, 10/03/2022 GFR 04/09/2024 04/09/2023, 10/03/2022 TSH 04/09/2024 04/09/2023 Depression Screening 12/04/2024 12/05/2023 COVID-19 Vaccine Discontinued DTap/Tdap Vaccines Discontinued Diabetic [...] as of this encounter Visit Diagnoses Diagnosis Type 2 diabetes mellitus with hemoglobin A1c goal of less than 7.0% (HCC)- Primary Essential hypertension Unspecified essential hypertension Acquired hypothyroidism Unspecified hypothyroidism Anemia due to stage 4 chronic kidney disease (HCC) Wheezing documented in this encounter Care Teams Corrections Lieutenant Relationship Specialty Start Date End Date Kelly Riggs PA-C [address] [place] [address] [phone] PCP - General Physician Grounds Supervisor 06/08/24 documented as of this encounter"
--- OUTSIDE RECORDS SUMMARY | 2024-07-25 21:09 | External Medical Summary ---
Author Name Unknown Address Unknown Organization K0N:[facility] [address], [place] [address] Laboratory Report Ordering Provider Test Date Status PEGCOLE 06/08/2024 09:40:55 Final Observation Date Value Abnormality Reference (Units ) Status [facility] CHOLESTEROL 06/08/2024 09:40:55 131 <200 (mg/dL) Final Age <18 Years >=18 Years<br/ >Desirable <170 mgdL <200 mgdL
Borderline High 170-199 mgdL 200-239 mgdL
High >=200 mgdL >= 240 mgdL

Based on National Cholesterol Education program (NCEP) guidelines. [facility] TRIGLYCERIDES 06/08/2024 09:40:55 223 Above hi gh normal <150 (mg/dL) Final Normal <150 mgdL
Borderl ine High 150-199 mgdL
High 200-499 mgdL
Very High >499 mgdL

Based on National Cholesterol Education Program (NCEP) guidelines. [facility] HDL CHOLESTEROL 06/08/2024 09:40:55 30 Below low normal >=60 (mg/dL) Final Age <18 Years >=18 Years<br/ >Low (Undesirable) <35 mgdL <40 mgdL
High (Desirable) >45 mgdL >=60 mgdL

Based on National Cholesterol Education program (NCEP) guidelines. [facility] NON-HDL CHOLESTEROL 06/08/2024 09:40:55 101 <130 (mg/dL) Final Age <18 Years
Acceptab le <140 mgdL
Borderline High 140-159 mgdL
High >=160 mgdL

Age >=18 Years
Optimal <130 mgdL
Near or Above Optimal 130-159 mgdL
Borderline High 160-189 mgdL
High 190-219 mgdL
Very High >=220 mgdL [facility] LDL, CALCULATED 06/08/2024 09:40:55 56 <100 (mg/dL) Final Age <18 Years
Acceptabl e <110 mgdL
Borderline High 110-129 mgdL
High >=130 mgdL

Age >=18 Years
Optimal <100 mgdL
Near or Above Optimal 100-129 mgdL
Borderline High 130-159 mgdL
High 160-189 mgdL
Very High >=190 mgdL

Based on National Cholesterol Education Program (NCEP) guidelines. [facility] VLDL, CALCULATED 06/08/2024 09:40:55 45 Above high normal 8-32 (mg/dL) Final Performing Location [facility] [place] [address]
--- OUTSIDE RECORDS SUMMARY | 2024-07-25 21:09 | External Medical Summary | Summary of Care ---
Author Name Unknown Organization [facility] Address 1 [facility] [place] [address] Care Team Providers Care Delivery Driver Name Role Phone Peg Galvan PA-C Primary Care Pr ovider Reason for Visit * Reason Onset Date Comments Medication Refill 07/09/2024 Encounter Details Date Type Department Care Team (Late st Contact Info) Description 07/09/2024 Refill [facility] E[facility] [address] [place] [phone] Peg Galvan PA-C [address] [place] [address] Pure hypercholesterolemia*; Diastolic heart failure (HCC); Essential hypertension Allergies No known active allergiesdocumented as of this encounter (statuses as of 07/09/2024) Medications Folic Acid 1 MG Oral Tablet TAKE 1 TABLET BY MOUTH DAILY 90 Tablet 3 07/18/19 23 Active Aspirin 81 MG Oral Tablet Delayed [...] tongue every 5 minutes as needed. Active Ventolin HFA 108 (90 Base) MCG/ACT Inhalation Aerosol SolutionIndications:Whe ezing Inhale 2 Puffs by mouth every 4 hours as needed for Wheezing or Shortness of Breath. 18 g 06/08/20 24 Active Metoprolol Tartrate 50 MG Oral Tablet (Lopressor)Indications: Essential hypertension Take 1 Tablet by mouth in the morning. 90 Tablet 1 07/09/19 25 Active Furosemide 20 MG Oral Tablet (Lasix)Indications:Gloria tolic heart failure (HCC) Take 2 Tablets by mouth in the morning. 180 Tablet 1 07/09/19 25 Active Atorvastatin Calcium 80 MG Oral Tablet (Lipitor)Indications:Pu re hypercholesterolemia Take 1 Tablet by mouth in the morning. 90 Tablet 1 07/09/19 25 Active Metoprolol Tartrate 50 MG Oral Tablet (Lopressor) TAKE 1 TABLET BY MOUTH DAILY 90 Tablet 3 07/04/20 23 2024 Disconti nued(Ref ill) Furosemide 20 MG Oral Tablet (Lasix) TAKE 2 TABLETS ONCE DAILY FOR FLUID 180 Tablet 3 07/04/20 23 2024 Disconti nued(Ref ill) Atorvastatin Calcium 80 MG Oral Tablet (Lipitor) TAKE 1 TABLET ONCE DAILY FOR CHOLESTEROL. 90 Tablet 3 07/04/20 23 2024 Disconti nued(Ref ill) documented as of this encounter (statuses as [...] 12/05/2023 Does the household have a re gular source of income? (Household - for ages [...] encounter Miscellaneous Notes * Telephone Encounter - Peg Galvan PA-C - 07/09/2024 12:35 PM ESTSigned Prescriptions: Disp Refills Metoprolol Tartrate 50 MG Oral Tablet (Lop*90 Tab*1 Sig: Take 1 Tablet by mouth in the morning.Authorizing Provider: PEG GALVAN Furosemide 20 MG Oral Tablet (Lasix) 180 Ta*1 Sig: Take 2 Tablets by mouth in the morning.Authorizing Provider: PEG GALVAN Atorvastatin Calcium 80 MG Oral Tablet (Li*90 Tab*1 Sig: Take 1 Tabletby mouth in the morning.Authorizing Provider: PEG GALVAN documented in this encounter Plan of Treatment Upcoming Encounters Date Type Department Care Team (Late st Contact Info) Description 12/07/2024 9:00 AM EDT Office Visit [facility] EMS 101 [facility] [place] [address] Peg Galvan PA-C [address] [place] [address] Health Maintenance Due Date Last Done Comments [...] as of this encounter Visit Diagnoses Diagnosis Pure hypercholesterolemia- Primary Diastolic heart failure (HCC) Unspecified diastolic heart failure Essential hypertension Unspecified essential hypertension documented in this encounter Care Teams Delivery Driver Relationship Specialty Start Date End Date Peg Galvan PA-C [address] [place] [address] [phone] PCP - General Physician Wind Site Manager 06/08/24 documented as of this encounter
--- OUTSIDE RECORDS SUMMARY | 2024-07-25 21:09 | External Medical Summary ---
Author Name Unknown Address Unknown Organization K0N:[facility] [place] [address] Laboratory Report Ordering Provider Test Date Status COLE RUVALCABA 06/08/2024 09:40:55 Final Observation Date Value Abnormality Reference (Units ) Status [facility] T4 FREE 06/08/2024 09:40:55 0.89 Below low norm al 0.90-1.70 (ng/dL) [place] [address]
--- NOTE | 2024-07-25 21:19 | Emergency Department Note ---
Impression & Plan Acute respiratory failure with hypoxia and hypercarbia, Non-ST elevation HI (NSTEMI), ELLA (acute kidney injury), Hyperkalemia, Hyperglycemia, Acute CHF (congestive heart failure) ED Provider Note Provider: Carson Gray MD CHIEF COMPLAINT: Shortness of breath HISTORY OF PRESENT ILLNESS: Patient is a 74-year-old female history of type 2 diabetes, hypothyroidism, CHF, CAD, and anemia presenting here today from home via ambulance. Patient with a bit of a cough shortness breath last night significant worsened today. Improved a little bit in the afternoon and worsened again this evening. No chest pain or syncope or trauma reported. EMS reports she was in the 60s on room air and confused upon arrival. They initiated CPAP and gave the patient nitroglycerin for significant hypertension. Patient's mentation upon arrival according to them is much improved. Patient herself denies significant abdominal pain or any chest pain. Reports she is feels like she cannot really breathe but is doing better now. No other sick contacts reported. PAST MEDICAL HISTORY: As noted above MEDICATIONS: Reviewed home medications SOCIAL HISTORY: PHYSICAL EXAM: GENERAL: alert and oriented CPAP in place fatigued in appearance Head: normocephalic and atraumatic EYES: No injection, discharge or icterus. NECK: Trachea midline. Supple. ENT: Mucous membranes pink and moist. LUNGS: Airway patent. No retractions but some tachypnea and mild work of breathing. Breath sounds diffusely coarse diminished in the bases HEART: Regular rate and rhythm. No chest wall tenderness ABDOMEN: Soft and non-tender, without guarding or rebound. SKIN: Acyanotic, warm, dry, with some mild slight erythema to the bilateral breasts EXTREMITIES: With 2+ edema of the lower extremities bilaterally. NEUROLOGICAL: No focal deficits. No aphasia. No facial droop or slurred speech. Ambulatory. EK bpm sinus tachycardia with first-degree AV block. No PVC. Inferior lateral T wave inversions and ST depression with QTc of 453. Isolated elevation of aVR. CONTINUOUS CARDIAC MONITORING: was ordered and showed a heart rate of 90s-110s bpm in normal sinus rhythm to sinus tachycardia Patient's laboratory studies and imaging reviewed. Differential includes Reactive airway disease, pneumonia, pneumothorax, COPD, CHF, infections, cardiac ischemia, pulmonary embolism, musculoskeletal, gastrointestinal, as well as other pathologies. IMPRESSION/MEDICAL DECISION MAKING: Patient placed on BiPAP upon arrival. Significantly toxic prior to arrival. EKG with diffuse ST depression and question if this is more demand. Not having active chest pain according to her. Does have significant medical history including history of prior stenting and significant anemia. No bleeding reported. No abdominal symptoms reported. Does appear somewhat swollen and lungs sound coarse. Give a DuoNeb in case there is any reactive airway component but given the significant hypertension and swelling question more of a CHF picture. Chest x-ray does appear to show more pulmonary edema without evidence of pneumothorax and small effusions are noted per my review and interpretation. Is on Lasix normally and given additional IV here. Blood work and cultures were sent as well as procalcitonin. [id number] blood work without severe anemia but does show worsened renal function with creatinine 3.9 and a potassium of 6.0. Given this and her critical nature did give some insulin and bicarb as well as some calcium in case hypercalcemia is confirmed on formal labs. This should help her hyperglycemia as well. VBG does return acidotic 7.05 with a CO2 of 60. Bicarb 17. Leukocytosis of 13 is noted with mild anemia of 9.6 but not severe. Platelet count 436 just above normal. Nursing does report a rectal temperature of 95 and Chuckie hugger initiated. Given her critical illness with leukocytosis and hypothermia, will empirically cover with a dose of Zosyn for broad-spectrum antibiotics. Given her significant swelling and concerns for heart failure no additional IV fluids were administered and she is not hypotensive. Lactate is not elevated. Formal labs do confirm hyperglycemia as well as an elevated potassium of 6.1. Not hemolyzed. Troponin of 6500. Patient again confirms is not having active chest pain. Discussed with patient and family member at bedside. Will discuss briefly with Dr. Ch of cardiology and will anticoagulate with heparin drip for the night. Will give an additional dose nitroglycerin as she still hypertensive and she says she responds to this. May help offload some of the pulmonary edema. Did reach out to the hospitalist team. Will likely need ICU care. Patient states she would want intubation but not CPR and discussion with her family at bedside. Respiratory viral panel does return positive for influenza A. Discussed with the ICU [employer] overnight and will trial nitroglycerin drip to see if that improves things with her hypertension and CHF. 2nd VBG ordered to see trend for acidosis and CO2. Patient with a still fairly poor VBG on repeat and tachypneic. In discussion with hospitalist and ICU team intubated in the ICU as below without significant application. Further care per the ICU. DIAGNOSIS: Acute hypoxic and hypercapnic respiratory failure, acute CHF, hyperkalemia, ELLA, influenza A DISPOSITION: Hospitalist will evaluate as well as the ICU [employer]. Patient was agreeable with this plan. Critical Care I have personally spent 75 minutes of critical care time in the direct management of this patient. This includes bedside care, interpretation of diagnostic studies, and testing, discussion with consultants, patient, and family members, and other required patient management activities. These 75 minutes is in excess of all separately billable procedures. ED Intubation Indication-acute hypoxic and hypercapnic respiratory failure, flu A The patient was on 100% oxygen via NRB prior to the procedure. Suction, airway equipment, RSI drugs, respiratory equipment, and appropriate personnel were prepared prior to the initiation of the procedure. A time out was taken. Induction was performed with 30 mg of etomidate and 60 mg of rocuronium; 2 additional amps of sodium bicarb were administered as well. Nitroglycerin drip held for intubation. After observing the clinical benefit of the medications, the airway was easily visualized utilizing a S3 GlideScope. A 7.5 size ETT tube was placed atraumatically to 24 cm using standard technique. The cuff inflated without signs of malfunction. There were bilateral breath sounds, positive colormetric change, no gastric sounds, a good capnography waveform, and post procedure pulse oximetry was 100% %. No apparent complications and dentures were removed and with nursing staff. Further care per the ICU. Past Med/Surg History Problem List (Updated 07/26/24 @ 00:42 by BRUCE Hitchcock) Influenza A Respiratory failure requiring intubation Respiratory failure with hypoxia and hypercapnia Acute CHF (congestive heart failure) (Acute) Hyperglycemia (Acute) Hyperkalemia (Acute) ELLA (acute kidney injury) (Acute) Non-ST elevation HI (NSTEMI) (Acute) Acute respiratory failure with hypoxia and hypercarbia (Acute) NSTEMI (non-ST elevated myocardial infarction) (Acute) Acute diastolic heart failure (Acute) Diabetes mellitus Hypothyroidism DVT prophylaxis DM II (diabetes mellitus, type II), controlled (Chronic) CAD (coronary artery disease) (Chronic) HLD (hyperlipidemia) HTN (hypertension) (Chronic) Respiratory failure (Acute) Myocardial infarction (Acute) Acute pulmonary edema (Acute) Anemia (Acute) Pneumonia Medical History (Updated 07/26/24 @ 00:42 by BRUCE Hitchcock) Non-STEMI (non-ST elevated myocardial infarction) Diabetes Surgical History Hx of cardiac catheterization Family History Other Diabetes Social History Smoking Status: Never smoker Second Hand Exposure: No; Do You Dip or Chew Tobacco: No; Hx Alcohol Use: No Hx Substance Use: No Preferred Language: Taiwanese Communication Ability: Effective Application Packaging Consultant Required: No Beliefs That Will Affect Care: None marital status: Current Living Situation: Spouse and Family Feels Safe at Home: Yes Assistive Devices: Denture - Upper, Glasses and Walker Allergies Allergies Allergy/AdvReac Type Severity Reaction Status Date / Time No Known Allergies Allergy Unverified 04/06/19 11:11 Home Meds Home Medications Medication Instructions Recorded Confirmed aspirin 81 mg tablet,delayed 81 mg PO QAM 08/08/18 04/06/19 release atorvastatin 80 mg tablet 40 mg PO BID 08/08/18 04/06/19 insulin NPH-regular 70-30 U-100 70 - 80 unit subcut BIDM 08/08/18 04/06/19 insulin 100 unit/mL subcutaneous pen (Novolin 70-30 FlexPen U-100 Insulin) metformin 1,000 mg tablet 1,000 mg PO BID 08/08/18 04/06/19 nitroglycerin 0.4 mg sublingual 0.4 mg sublingual UD 08/08/18 04/06/19 tablet (Nitrostat) furosemide 20 mg tablet 40 mg PO DAILY #60 tabs 03/13/19 03/13/19 levothyroxine 50 mcg tablet 50 mcg PO DAILY #90 tabs 03/13/19 03/13/19 pantoprazole 40 mg tablet,delayed 40 mg PO DAILY #90 tabs 03/13/19 03/13/19 release Previous Rx's Medication Instructions Recorded folic acid 1 mg tablet 1 mg PO QAM #90 tabs 06/03/19 metoprolol tartrate 50 mg tablet 50 mg PO BID #180 tabs 06/03/19 (Lopressor) Results & Data (ED) Vital Signs Vital Signs - 24 hr 07/25/24 21:09 07/25/24 21:12 07/25/24 21:14 Temperature Temperature Source Pulse Rate 99 H 101 H Pulse Rate [Apical] 101 H Pulse Rate from SpO2 Sensor Respiratory Rate 26 H Respiratory Effort / Characteristics Respiratory Depth Blood Pressure Blood Pressure [Right Arm] 154/104 H Blood Pressure Mean Blood Pressure Mean [Right Arm] 120 Pulse Oximetry 99 Oxygen Delivery Method CPAP Oxygen Flow Rate Fraction of Inspired Oxygen Sepsis Recent Fever Within 48 Hours No Sepsis New/Unexplained Change in Mental Status No Sepsis Action Taken by Nursing No Action Required 07/25/24 21:27 07/25/24 21:30 07/25/24 21:37 Temperature Temperature Source Pulse Rate 99 H Pulse Rate [Apical] Pulse Rate from SpO2 Sensor Respiratory Rate 25 H 24 Respiratory Effort / Characteristics Non-Labored Spontaneous Accessory Muscle Use Short of Breath Respiratory Depth Normal Blood Pressure 181/88 H Blood Pressure [Right Arm] Blood Pressure Mean 103 Blood Pressure Mean [Right Arm] Pulse Oximetry 99 95 Oxygen Delivery Method CPAP CPAP Oxygen Flow Rate Fraction of Inspired Oxygen 40 Sepsis Recent Fever Within 48 Hours Sepsis New/Unexplained Change in Mental Status Sepsis Action Taken by Nursing 07/25/24 21:39 07/25/24 21:41 07/25/24 21:50 Temperature Temperature Source Pulse Rate 100 H Pulse Rate [Apical] 100 H Pulse Rate from SpO2 Sensor Respiratory Rate 28 H 25 H Respiratory Effort / Characteristics Non-Labored Spontaneous Respiratory Depth Blood Pressure Blood Pressure [Right Arm] Blood Pressure Mean Blood Pressure Mean [Right Arm] Pulse Oximetry 96 95 95 Oxygen Delivery Method CPAP CPAP BiPAP Oxygen Flow Rate 40 Fraction of Inspired Oxygen Sepsis Recent Fever Within 48 Hours Sepsis New/Unexplained Change in Mental Status Sepsis Action Taken by Nursing 07/25/24 22:00 07/25/24 22:06 07/25/24 23:00 Temperature 35 C L Temperature Source Rectal Pulse Rate 104 H 107 H Pulse Rate [Apical] Pulse Rate from SpO2 Sensor 107 H Respiratory Rate 26 H 20 Respiratory Effort / Characteristics Respiratory Depth Blood Pressure 160/113 H 179/106 H Blood Pressure [Right Arm] Blood Pressure Mean 129 130 Blood Pressure Mean [Right Arm] Pulse Oximetry 98 98 Oxygen Delivery Method CPAP CPAP Oxygen Flow Rate Fraction of Inspired Oxygen Sepsis Recent Fever Within 48 Hours Sepsis New/Unexplained Change in Mental Status Sepsis Action Taken by Nursing 07/25/24 23:02 07/25/24 23:33 07/25/24 23:39 Temperature 36.4 C L Temperature Source Oral Pulse Rate 107 H 105 H Pulse Rate [Apical] Pulse Rate from SpO2 Sensor 107 H 105 H Respiratory Rate 24 26 H Respiratory Effort / Characteristics Respiratory Depth Blood Pressure 164/103 H 186/104 H Blood Pressure [Right Arm] Blood Pressure Mean 123 131 Blood Pressure Mean [Right Arm] Pulse Oximetry 98 96 Oxygen Delivery Method CPAP CPAP Oxygen Flow Rate Fraction of Inspired Oxygen Sepsis Recent Fever Within 48 Hours Sepsis New/Unexplained Change in Mental Status Sepsis Action Taken by Nursing Laboratory Data 07/25/24 21:36 07/25/24 21:36 Lab Results 07/25/24 07/25/24 07/25/24 Range/Units 21:18 21:36 21:40 WBC 13.08 H (4.8-10.8) K/ul RBC 3.62 L (4.20-5.40) M/uL Hgb 9.6 L (12.0-16.0) g/dl POC Hgb 10.9 L (12.0-16.0) g/dl Hct 32.2 L (37.0-47.0) % POC Hct 32 L (37-47) % MCV 89.0 (80.0-100.0) fL MCH 26.5 (25.0-34.0) pg MCHC 29.8 L (32.0-36.0) g/dL RDW Std Deviation 51.6 H (36.4-46.3) fL RDW Coeff of Ching 15.9 H (11.5-14.5) % Plt Count 436 H (130-400) K/uL MPV 10.8 (9.4-12.4) fL Immature Gran % (Auto) 0.6 % Neut % (Auto) 91.8 % Lymph % (Auto) 4.0 % Falls % (Auto) 3.4 % Eos % (Auto) 0.0 % Baso % (Auto) 0.2 % Neut # (Auto) 12.01 H (1.40-6.50) K/uL Lymph # (Auto) 0.52 L (1.20-3.40) K/uL Falls # (Auto) 0.44 (0.11-0.59) K/uL Eos # (Auto) 0.00 (0.00-0.50) K/uL Baso # (Auto) 0.03 (0.00-0.20) K/uL Immature Gran # (Auto) 0.08 (0.01-0.20) K/uL Echinocytes 1+ PT 12.1 H (9.0-12.0) Seconds INR 1.1 (0.9-1.1) APTT 30 (21-31) Seconds PTT Ratio 1.1 VBG pH 7.05 L (7.36-7.41) VBG pCO2 60 H (38-50) mmHg VBG pO2 47 mmHg VBG HCO3 17 mmol/L VBG O2 Saturation 65.9 % VBG Base Excess -14.3 mEq/L POC Sodium 134 L (135-144) mmol/L Sodium 133 L (136-145) mmol/L POC Potassium 6.0 H (3.3-5.0) mmol/L Potassium 6.1 H* (3.5-5.1) mmol/L POC Chloride 111 (101-112) mmol/L Chloride 104 (98-107) mmol/L Carbon Dioxide 18 L (21-32) mmol/L POC Total CO2 17 L (24-31) mmol/L Anion Gap 11 (3-11) POC Anion Gap 13.0 L (16-25) mmol/L POC BUN 72 H (7-18) mg/dl BUN 66 H (6-23) mg/dl Creatinine 3.89 H (0.6-1.2) mg/dl POC Creatinine 3.9 H (0.6-1.3) mg/dl Est Cr Clr Drug Dosing 13.9 ml/min eGFR 11.51 BUN/Creatinine Ratio 17.0 (10-20) Glucose 404 H* (70-99(Fasting)) mg/dl POC Glucose (other) 390 H* (70-99) mg/dl Lactate 1.9 (0.4-2.0) mmol/L Calcium 8.6 (8.6-10.3) mg/dl POC Ioniz Calcium Pablo 1.07 L (1.12-1.32) mmol/l Magnesium 2.1 (1.7-2.4) mg/dl Total Bilirubin 0.2 (0.2-1.0) mg/dl AST 33 (13-39) U/L ALT 10 (7-52) U/L Alkaline Phosphatase 93 (34-104) U/L Troponin I High Sens 6540.7 H* (0-14) pg/ml B-Natriuretic Peptide 1062 H (0-100) pg/ml Total Protein 8.1 (6.0-8.3) gm/dl Albumin 3.7 (3.4-5.0) gm/dl Globulin 4.4 H (2.5-4.0) gm/dl Albumin/Globulin Ratio 0.8 L (0.9-2) Procalcitonin 0.57 H (0-0.5) ng/ml Nasal Influ A H1 2008 PCR DETECTED A (NotDetected) Adenovirus (PCR) Not Detected (NotDetected) B. pertussis DNA (PCR) Not Detected (NotDetected) B.parapertussis DNA PCR Not Detected (NotDetected) C. pneumoniae DNA (PCR) Not Detected (NotDetected) Coronavirus OC43 (PCR) Not Detected (NotDetected) Coronavirus HKU1 (PCR) Not Detected (NotDetected) Coronavirus 229E (PCR) Not Detected (NotDetected) SARS-CoV-2 (PCR) Not Detected (NotDetected) Coronavirus NL63 (PCR) Not Detected (NotDetected) Human Metapneumovir PCR Not Detected (NotDetected) Influenza Type B (PCR) Not Detected (NotDetected) M. pneumoniae (PCR) Not Detected (NotDetected) Parainfluenza 1 (PCR) Not Detected (NotDetected) Parainfluenza 2 (PCR) Not Detected (NotDetected) Parainfluenza 3 (PCR) Not Detected (NotDetected) Parainfluenza 4 (PCR) Not Detected (NotDetected) RSV (PCR) Not Detected (NotDetected) Entero/Rhino (PCR) Not Detected (NotDetected) Blood Type A Positive Antibody Screen NEGATIVE 07/25/24 Range/Units 23:34 WBC (4.8-10.8) K/ul RBC (4.20-5.40) M/uL Hgb (12.0-16.0) g/dl POC Hgb (12.0-16.0) g/dl Hct (37.0-47.0) % POC Hct (37-47) % MCV (80.0-100.0) fL MCH (25.0-34.0) pg MCHC (32.0-36.0) g/dL RDW Std Deviation (36.4-46.3) fL RDW Coeff of Ching (11.5-14.5) % Plt Count (130-400) K/uL MPV (9.4-12.4) fL Immature Gran % (Auto) % Neut % (Auto) % Lymph % (Auto) % Falls % (Auto) % Eos % (Auto) % Baso % (Auto) % Neut # (Auto) (1.40-6.50) K/uL Lymph # (Auto) (1.20-3.40) K/uL Falls # (Auto) (0.11-0.59) K/uL Eos # (Auto) (0.00-0.50) K/uL Baso # (Auto) (0.00-0.20) K/uL Immature Gran # (Auto) (0.01-0.20) K/uL Echinocytes PT (9.0-12.0) Seconds INR (0.9-1.1) APTT (21-31) Seconds PTT Ratio VBG pH 7.14 L (7.36-7.41) VBG pCO2 54 H (38-50) mmHg VBG pO2 35 mmHg VBG HCO3 18 mmol/L VBG O2 Saturation < 60.0 % VBG Base Excess -10.9 mEq/L POC Sodium (135-144) mmol/L Sodium (136-145) mmol/L POC Potassium (3.3-5.0) mmol/L Potassium (3.5-5.1) mmol/L POC Chloride (101-112) mmol/L Chloride (98-107) mmol/L Carbon Dioxide (21-32) mmol/L POC Total CO2 (24-31) mmol/L Anion Gap (3-11) POC Anion Gap (16-25) mmol/L POC BUN (7-18) mg/dl BUN (6-23) mg/dl Creatinine (0.6-1.2) mg/dl POC Creatinine (0.6-1.3) mg/dl Est Cr Clr Drug Dosing ml/min eGFR BUN/Creatinine Ratio (10-20) Glucose (70-99(Fasting)) mg/dl POC Glucose (other) (70-99) mg/dl Lactate (0.4-2.0) mmol/L Calcium (8.6-10.3) mg/dl POC Ioniz Calcium Pablo (1.12-1.32) mmol/l Magnesium (1.7-2.4) mg/dl Total Bilirubin (0.2-1.0) mg/dl AST (13-39) U/L ALT (7-52) U/L Alkaline Phosphatase (34-104) U/L Troponin I High Sens (0-14) pg/ml B-Natriuretic Peptide (0-100) pg/ml Total Protein (6.0-8.3) gm/dl Albumin (3.4-5.0) gm/dl Globulin (2.5-4.0) gm/dl Albumin/Globulin Ratio (0.9-2) Procalcitonin (0-0.5) ng/ml Nasal Influ A H1 2009 PCR (NotDetected) Adenovirus (PCR) (NotDetected) B. pertussis DNA (PCR) (NotDetected) B.parapertussis DNA PCR (NotDetected) C. pneumoniae DNA (PCR) (NotDetected) Coronavirus OC43 (PCR) (NotDetected) Coronavirus HKU1 (PCR) (NotDetected) Coronavirus 229E (PCR) (NotDetected) SARS-CoV-2 (PCR) (NotDetected) Coronavirus NL63 (PCR) (NotDetected) Human Metapneumovir PCR (NotDetected) Influenza Type B (PCR) (NotDetected) M. pneumoniae (PCR) (NotDetected) Parainfluenza 1 (PCR) (NotDetected) Parainfluenza 2 (PCR) (NotDetected) Parainfluenza 3 (PCR) (NotDetected) Parainfluenza 4 (PCR) (NotDetected) RSV (PCR) (NotDetected) Entero/Rhino (PCR) (NotDetected) Blood Type Antibody Screen Administered Medications Nitroglycerin/Dextrose (Nitroglycerin/D5w 100 Mcg/Ml) 250 mls @ 48 mls/hr IV .Q5H13M [facility]; Protocol Stop: 08/24/24 23:14 Last Admin: 07/25/24 23:29 Dose: 80 mcg/min, 48 mls/hr Documented By: MAE Co-signed By: SEA Heparin Sodium/Dextrose (Heparin Sodium/Dextrose) 25,000 units in 500 mls @ 17 mls/hr IV .Q24H [facility]; Protocol Stop: 08/24/24 22:59 Last Admin: 07/25/24 23:54 Dose: 850 units/hr, 17 mls/hr Documented By: MAE Co-signed By: RAMSEY Discontinued Medications Albuterol (Albut/Ipratrop 3mg/0.5mg Neb 3 Ml Vial) 3 ml NEB NOW STA; Protocol Stop: 07/25/24 21:20 Last Admin: 07/25/24 21:38 Dose: 3 ml Documented By: ANGEL LUIS Furosemide (Furosemide 40 Mg/4 Ml Vial) 40 mg IV ONE ONE Stop: 07/25/24 21:23 Last Admin: 07/25/24 21:37 Dose: 40 mg Documented By: ANGEL LUIS Heparin Sodium (Porcine) (Heparin Sod (Porcine) 1000 Unit/Ml) 1 units IV NOW ONE Stop: 07/25/24 22:56 Last Admin: 07/25/24 23:51 Dose: 4,000 units Documented By: MAE Co-signed By: RAMSEY Heparin Sodium/Dextrose (Heparin Iv Adult Wt-Based Low-Dose W/ Initial Bolus Protocol) 1 each IV NOW STA; Protocol Stop: 07/25/24 22:41 Last Admin: 07/25/24 23:18 Dose: Not Given Documented By: MAE Calcium Gluconate () 1,000 mg in 60 mls @ 240 mls/hr IV NOW STA Stop: 07/25/24 22:02 Last Infusion: 07/25/24 22:14 Dose: Infused Documented By: Admin: 07/25/24 21:52 Dose: 240 mls/hr Documented By: MAE Piperacillin Sod/Tazobactam Sod (Zosyn) 4.5 gm in 100 mls @ 200 mls/hr IV NOW ONE; Protocol Stop: 07/25/24 22:36 Last Infusion: 07/25/24 23:13 Dose: Infused Documented By: Admin: 07/25/24 22:29 Dose: 200 mls/hr Documented By: MAE Insulin Human Regular (Novolin-R Insulin Per Unit Charge) 5 units IV NOW Stop: 07/25/24 21:52 Last Admin: 07/25/24 21:56 Dose: 5 units Documented By: MAE Co-signed By: IDD Miscellaneous (Stat Iv Infusion Titration Per Protocol) 1 each N/A NOW Stop: 07/25/24 23:06 Last Admin: 07/25/24 23:17 Dose: Not Given Documented By: MAE Nitroglycerin (Nitroglycerin Sl 0.4 Mg/Tab Tab) 0.4 mg SL NOW Stop: 07/25/24 22:41 Last Admin: 07/25/24 23:14 Dose: 0.4 mg Documented By: MAE Sodium Bicarbonate (Sodium Bicarb 8.4% Inj 50 Meq/50 Ml Syr) 50 meq IV NOW Stop: 07/25/24 21:49 Last Admin: 07/25/24 21:52 Dose: 50 meq Documented By: MAE Imaging Data Radiologist's Impression: Chest X-Ray 07/25/24 21:08 Exam(s): XR CXR 1 VIEW EXAM: XR Chest, 1 View CLINICAL HISTORY: Reason for exam: sob. TECHNIQUE: Frontal view of the chest. COMPARISON: August 08, 2018 FINDINGS: Lungs: Hazy increased density throughout the mid to lower lungs bilaterally, increased since previous. No consolidation. Pleural space: Slight blunting of both costophrenic angle suggesting small bilateral pleural effusions, increased since previous. No pneumothorax. Heart: The cardiac silhouette is moderately enlarged but partially obscured. Mediastinum: Unremarkable. Normal mediastinal contour. Bones/joints: Mild to moderate degenerative changes in the right shoulder. Mild osteophytosis is in the lower thoracic spine. No acute fracture. Vasculature: The aortic arch is mildly calcified. Upper abdomen: Unremarkable as visualized. No pneumoperitoneum under the diaphragm. IMPRESSION: 1. The cardiac silhouette is moderately enlarged but partially obscured. 2. Hazy increased density throughout the mid to lower lungs bilaterally, increased since previous. Consider CHF. 3. Slight blunting of both costophrenic angle suggesting small bilateral pleural effusions, increased since previous. Electronically signed by: Carson Bowen MD 07/25/24 22:06 PM Discharge Plan Visit Data Chief Complaint: Shortness of Breath/Dyspnea Stated Complaint: SOB ED Provider: Carson Gray Discharge Problem: Acute respiratory failure with hypoxia and hypercarbia, Non-ST elevation HI (NSTEMI), ELLA (acute kidney injury), Hyperkalemia, Hyperglycemia, Acute CHF (congestive heart failure) Patient Disposition: Being Evaluated by Hospitalist Discharge Instructions Interventions: ED Discharge Assessment Last Done: 07/26/24 00:25
[2024-07-25] MEDS: FUROSEMIDE 40 MG/4 ML VIAL IV ONE (21:37)
[2024-07-25] MEDS: ALBUT/IPRATROP 3MG/0.5MG NEB 3 ML VIAL NEB STA (21:38)
[2024-07-25] MEDS: SODIUM BICARB 8.4% INJ 50 MEQ/50 ML SYR IV STA (21:52)
[2024-07-25] MEDS: CALCIUM GLUCONATE 1,000 MG/60 ML BAG IV STA (21:52)
[2024-07-25 21:53] LABS: iSTAT Creatinine 3.9 mg/dl (0.6-1.3); iSTAT Hemoglobin 10.9 g/dl (12.0-16.0); iSTAT Ionized Calcium 1.07 mmol/l (1.12-1.32)
[2024-07-25] MEDS: NovoLIN-R INSULIN PER UNIT CHARGE IV STA (21:56)
[2024-07-25 21:57] LABS: Base Excess VBG -14.3 mEq/L; HCO3 VBG 17 mmol/L; Oxygen Saturation VBG 65.9 %; PCO2 VBG 60 mmHg (38-50); PO2 VBG 47 mmHg; pH VBG 7.05 (7.36-7.41)
[2024-07-25 22:00] LABS: Hematocrit (blood only) 32.2 % (37.0-47.0); Hemoglobin 9.6 g/dl (12.0-16.0); Mean Corpuscular Hemoglobin 26.5 pg (25.0-34.0); Mean Corpuscular Hgb Conc 29.8 g/dL (32.0-36.0); Mean Platelet Volume 10.8 fL (9.4-12.4); Platelet Count 436 K/uL (130-400); RDW Coefficient of Variation 15.9 % (11.5-14.5); RDW Standard Deviation 51.6 fL (36.4-46.3); Red Blood Count 3.62 M/uL (4.20-5.40); White Blood Count 13.08 K/ul (4.8-10.8)
--- NOTE | 2024-07-25 22:07 | XRay Report ---
Exam(s): XR CXR 1 VIEW EXAM: XR Chest, 1 View CLINICAL HISTORY: Reason for exam: sob. TECHNIQUE: Frontal view of the chest. COMPARISON: August 08, 2018 FINDINGS: Lungs: Hazy increased density throughout the mid to lower lungs bilaterally, increased since previous. No consolidation. Pleural space: Slight blunting of both costophrenic angle suggesting small bilateral pleural effusions, increased since previous. No pneumothorax. Heart: The cardiac silhouette is moderately enlarged but partially obscured. Mediastinum: Unremarkable. Normal mediastinal contour. Bones/joints: Mild to moderate degenerative changes in the right shoulder. Mild osteophytosis is in the lower thoracic spine. No acute fracture. Vasculature: The aortic arch is mildly calcified. Upper abdomen: Unremarkable as visualized. No pneumoperitoneum under the diaphragm. IMPRESSION: 1. The cardiac silhouette is moderately enlarged but partially obscured. 2. Hazy increased density throughout the mid to lower lungs bilaterally, increased since previous. Consider CHF. 3. Slight blunting of both costophrenic angle suggesting small bilateral pleural effusions, increased since previous. Electronically signed by: Carson Bowen MD 07/25/24 22:06 PM
[2024-07-25 22:29] LABS: Albumin Globulin Ratio 0.8 (0.9-2); Albumin Level 3.7 gm/dl (3.4-5.0); Bilirubin,Total 0.2 mg/dl (0.2-1.0); Calcium 8.6 mg/dl (8.6-10.3); Creatinine Clr Calc Pharmacy 13.9 ml/min; Globulin 4.4 gm/dl (2.5-4.0); Magnesium 2.1 mg/dl (1.7-2.4); Potassium 6.1 mmol/L (3.5-5.1); Total Protein 8.1 gm/dl (6.0-8.3); Troponin I High Sensitivity 6540.7 pg/ml (0-14)
[2024-07-25] MEDS: PIPERACILLIN/TAZOBACTAM 4.5 GM/100 ML BAG IV ONE (22:29)
[2024-07-25 22:35] LABS: Basophils # (auto) 0.03 K/uL (0.00-0.20); Basophils % (auto) 0.2 %; Echinocytes 1+; Immature Granulocytes # (auto) 0.08 K/uL (0.01-0.20); Immature Granulocytes % (auto) 0.6 %; Lymphocytes # (auto) 0.52 K/uL (1.20-3.40); Monocytes # (auto) 0.44 K/uL (0.11-0.59); Monocytes % (auto) 3.4 %; Neutrophils # (auto) 12.01 K/uL (1.40-6.50); Neutrophils % (auto) 91.8 %
[2024-07-25 22:37] LABS: INR 1.1 (0.9-1.1); Partial Thromboplastin Ratio 1.1; Partial Thromboplastin Time 30 Seconds (21-31); Prothrombin Time 12.1 Seconds (9.0-12.0)
[2024-07-25 22:38] LABS: Adenovirus PCR Not Detected (NotDetected); Bordetella parapertussis PCR Not Detected (NotDetected); Bordetella pertussis PCR Not Detected (NotDetected); Chlamydia pneumoniae PCR Not Detected (NotDetected); Coronavirus 229E PCR Not Detected (NotDetected); Coronavirus CoV-2 (COVID19)PCR Not Detected (NotDetected); Coronavirus HKU1 PCR Not Detected (NotDetected); Coronavirus NL63 PCR Not Detected (NotDetected); Coronavirus OC43PCR Not Detected (NotDetected); Human Metapneumovirus PCR Not Detected (NotDetected); Influenza A (H1 2009) PCR DETECTED (NotDetected); Influenza B PCR Not Detected (NotDetected); Mycoplasma pneumoniae PCR Not Detected (NotDetected); Parainfluenza Virus 1 PCR Not Detected (NotDetected); Parainfluenza Virus 2 PCR Not Detected (NotDetected); Parainfluenza Virus 3 PCR Not Detected (NotDetected); Parainfluenza Virus 4 PCR Not Detected (NotDetected); Respiratory Syncytial VirusPCR Not Detected (NotDetected); Rhinovirus/Enterovirus PCR Not Detected (NotDetected)
[2024-07-25] MEDS ORDERED: HEPARIN 25000 UNIT/500 ML 25,000 UNITS/500 ML BAG IV SCH (23:00)
[2024-07-25] MEDS: NITROGLYCERIN SL 0.4 MG/TAB TAB SL STA (23:14)
[2024-07-25] MEDS: STAT IV Infusion **Titration per Protocol STA (23:17)
[2024-07-25] MEDS: Heparin IV Adult Wt-Based Low-Dose w/ INITIAL Bolus Protocol IV STA (23:18)
[2024-07-25] MEDS: NITROGLYCERIN/D5W 100MCG/ML 250 ML IV SCH (23:29)
--- NOTE | 2024-07-25 23:41 | History & Physical Report ---
Date of Service July 25, 2024 Assessment & Plan (1) Admitted to intensive care unit: (2) Respiratory failure requiring intubation: (3) Respiratory failure with hypoxia and hypercapnia: (4) Non-ST elevation [place] (NSTEMI): (5) ELLA (acute kidney injury): (6) Influenza A virus subtype H1 2009 pandemic strain not detected: (7) Acute CHF (congestive heart failure): (8) Hyperkalemia: (9) Hyperglycemia due to type 2 diabetes mellitus: Plan The patient is a 74-year-old female with a past medical history including diabetes mellitus, hypothyroidism, CAD, hyperlipidemia, hypertension and GERD.The patient presents to the emergency department with extreme shortness of breath, that has been noted to develop over the past few days, and worsening considerably the day of arrival. Family notes that she had improved a little bit in the afternoon, then worsened significantly and evening again. Upon arrival from EMS, patient reportedly was 60% on room air, and confused. They initiated CPAP in the outpatient setting, was given nitroglycerin for significant hypertension. Patient's mentation reportedly had improved somewhat by time arrival to the ED, but she was still very lethargic and not very interactive. Patient was continued on CPAP while in the ED, and workup continued noting that chest x-ray showed moderately severe CHF, bio fire was positive for influenza A H1 2009 pandemic strain, troponin was significantly elevated at 6540.7, and EKG showed inferior lateral ST-T changes. Glucose was 404, potassium was 6.1, creatinine was 3.89. From the ED patient received the following: DuoNeb, furosemide 40 mg IV, calcium gluconate 1 g IV, Zosyn 4.5 g IV, send bicarbonate 50 mill equivalent IV push, regular insulin 5 units IV, and nitroglycerin sublingual. [facility] hospitalist service was consulted to admit patient to the ICU, and in ICU reactor fueling supervisor team was consulted while in the ED. Acute respiratory failure with hypoxia requiring intubation/CHF exacerbation/NSTEMI- Patient mid to intensive care unit, arterial blood gas with pH in the low sevens Due to declining status, patient did require intubation if transferred to the ICU The patient will be admitted to ICU for serial cardiac enzymes, serial EKG's, cardiac rhythm monitoring and a 2-D echocardiogram with Dopplers. Initial troponin 6540.7 with follow-up pending EKG with inferolateral ST depressions and T wave inversions Initial dose of furosemide 40 mg IV in ED, will continue at 60 mg IV every 12 hours Nitroglycerin drip as noted per protocol Protonix 40 mg IV twice daily Heparin drip IV per protocol Initial methylprednisolone dose 125 mg IV, followed by 40 mg IV every 8 hours Linezolid 60 mg IV every 12 hours Zosyn 4.5 g IV every 8 hours Acetaminophen 1 g IV every 8 hours as needed for mild pain or fever DuoNebs every 2 hours as needed Consult reactor fueling supervisor Consult manager residential Severe acidosis- Fluid resuscitation as noted Bicarbonate drip: Start bicarbonate 150 mEq at 100 mL/h Serial ABG along with CBC with differential, chemistry profile and magnesium level Acute renal failure Creatinine 3.89, and potassium 6.1 Calcium gluconate IV for protocol given Aggressive IV fluid rehydration Follow serial CBC with differential, chemistry profile, magnesium levels Influenza A H1 1999 nonpandemic strain- Tamiflu initially given orally/NG tube Chronic medical issues: GERD-pantoprazole 40 mg IV twice daily Hypothyroidism-resume levothyroxine when able Diabetes mellitus-hyperglycemic ICU protocol. Holding metformin Hyperlipidemia-resume atorvastatin when appropriate History of Present Illness Chief Complaint: The patient presents to the emergency department with extreme shortness of breath, that has been noted to develop over the past few days, and worsening considerably the day of arrival. Family notes that she had improved a little bit in the afternoon, then worsened significantly and evening again. Upon arrival from EMS, patient reportedly was 60% on room air, and confused. They initiated CPAP in the outpatient setting, was given nitroglycerin for significant hypertension. Patient's mentation reportedly had improved somewhat by time arrival to the ED, but she was still very lethargic and not very interactive. Patient was continued on CPAP while in the ED, and workup continued noting that chest x-ray showed moderately severe CHF, bio fire was positive for influenza A H1 2008 pandemic strain, troponin was significantly elevated at 6540.7, and EKG showed inferior lateral ST-T changes. Glucose was 404, potassium was 6.1, creatinine was 3.89. From the ED patient received the following: DuoNeb, furosemide 40 mg IV, calcium gluconate 1 g IV, Zosyn 4.5 g IV, send bicarbonate 50 mill equivalent IV push, regular insulin 5 units IV, and nitroglycerin sublingual. [facility] hospitalist service was consulted to admit patient to the ICU, and in ICU reactor fueling supervisor team was consulted while in the ED. Primary Care Provider: Geoffrey Milton The patient is a 74-year-old female with a past medical history including diabetes mellitus, hypothyroidism, CAD, hyperlipidemia, hypertension and GERD.The patient presents to the emergency department with extreme shortness of breath, that has been noted to develop over the past few days, and worsening considerably the day of arrival. Family notes that she had improved a little bit in the afternoon, then worsened significantly and evening again. Upon arrival from EMS, patient reportedly was 60% on room air, and confused. They initiated CPAP in the outpatient setting, was given nitroglycerin for significant hypertension. Patient's mentation reportedly had improved somewhat by time arrival to the ED, but she was still very lethargic and not very int eractive. Patient was continued on CPAP while in the ED, and workup continued noting that chest x-ray showed moderately severe CHF, bio fire was positive for influenza A H1 2009 pandemic strain, troponin was significantly elevated at 6540.7, and EKG showed inferior lateral ST-T changes. Glucose was 404, potassium was 6.1, creatinine was 3.89. From the ED patient received the following: DuoNeb, furosemide 40 mg IV, calcium gluconate 1 g IV, Zosyn 4.5 g IV, send bicarbonate 50 mill equivalent IV push, regular insulin 5 units IV, and nitroglycerin sublingual. [facility] and in ICU reactor fueling supervisor team was consulted while in the ED. Allergies Allergy/AdvReac Type Severity Reaction Status Date / Time No Known Allergies Allergy Unverified 04/06/19 11:11 Home Medications Medication Instructions Recorded Confirmed Type aspirin 81 mg tablet,delayed 81 mg PO QAM 08/08/18 04/06/19 History release atorvastatin 80 mg tablet 40 mg PO BID 08/08/18 04/06/19 History insulin NPH-regular 70-30 U-100 70 - 80 unit subcut BIDM 08/08/18 04/06/19 History insulin 100 unit/mL subcutaneous pen (Novolin 70-30 FlexPen U-100 Insulin) metformin 1,000 mg tablet 1,000 mg PO BID 08/08/18 04/06/19 History nitroglycerin 0.4 mg sublingual 0.4 mg sublingual UD 08/08/18 04/06/19 History tablet (Nitrostat) furosemide 20 mg tablet 40 mg PO DAILY #60 tabs 03/13/19 03/13/19 History levothyroxine 50 mcg tablet 50 mcg PO DAILY #90 tabs 03/13/19 03/13/19 History pantoprazole 40 mg tablet,delayed 40 mg PO DAILY #90 tabs 03/13/19 03/13/19 History release folic acid 1 mg tablet 1 mg PO QAM #90 tabs 06/03/19 Rx metoprolol tartrate 50 mg tablet 50 mg PO BID #180 tabs 06/03/19 Rx (Lopressor) Past Med/Surg History Problem List (Updated 07/26/24 @ 02:49 by Yves Walker MD) Hyperglycemia due to type 2 diabetes mellitus Influenza A virus subtype H1 2009 pandemic strain not detected Admitted to intensive care unit Respiratory failure requiring intubation Respiratory failure with hypoxia and hypercapnia Acute CHF (congestive heart failure) (Acute) Hyperglycemia (Acute) Hyperkalemia (Acute) ELLA (acute kidney injury) (Acute) Non-ST elevation OH (NSTEMI) (Acute) Acute respiratory failure with hypoxia and hypercarbia (Acute) NSTEMI (non-ST elevated myocardial infarction) (Acute) Acute diastolic heart failure (Acute) Diabetes mellitus Hypothyroidism DVT prophylaxis DM II (diabetes mellitus, type II), controlled (Chronic) CAD (coronary artery disease) (Chronic) HLD (hyperlipidemia) HTN (hypertension) (Chronic) Respiratory failure (Acute) Myocardial infarction (Acute) Acute pulmonary edema (Acute) Anemia (Acute) Pneumonia Medical History (Updated 07/26/24 @ 02:49 by Yves Walker MD) Non-STEMI (non-ST elevated myocardial infarction) Diabetes Surgical History Hx of cardiac catheterization Family History Other Diabetes Social History Smoking Status: Never smoker Second Hand Exposure: No; Do You Dip or Chew Tobacco: No; Hx Alcohol Use: No Hx Substance Use: No Preferred Language: Telugu Communication Ability: Effective [employer]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 HEENT--PERRL, EOMI, mucous membranes and oropharynx dry. Neck--supple. No JVD. No bruits. Thyroid normal, trachea midline, no adenopathy. Heart--normal S1 and S2. No murmurs, rubs or gallops. Lungs--crackles at the bases to group home up bilaterally right greater than left. Moderately severe respiratory distress, no accessory muscle use. Abdomen--normal bowel sounds and soft. Nontender. Nondistended, no hernias or masses, no organomegaly. Extremities--no cyanosis or clubbing. 1+ bilateral pretibial pitting edema. Dermatologic--normal skin turgor, normal color, no abnormal lymph nodes, no rash. Neurologic--cranial nerves II through XII grossly intact. Rheumatologic--normal range of motion. Psychiatric--normal affect. Results & Data Results & Data Vital Signs (Past 12 Hours) Vital Signs Temp Pulse Pulse Resp BP BP Pulse Ox 07/25/24 23:02 36.4 C L 07/25/24 23:00 107 H 20 179/106 H 98 07/25/24 22:06 35 C L 07/25/24 22:00 104 H 26 H 160/113 H 98 07/25/24 21:50 100 H 25 H 95 07/25/24 21:41 100 H 28 H 95 07/25/24 21:39 96 07/25/24 21:37 99 H 24 181/88 H 95 07/25/24 21:30 07/25/24 21:27 25 H 99 07/25/24 21:14 101 H 154/104 H 07/25/24 21:12 101 H 07/25/24 21:09 99 H 26 H 99 O2 Del Method O2 Flow Rate FiO2 07/25/24 23:02 07/25/24 23:00 CPAP 07/25/24 22:06 07/25/24 22:00 CPAP 07/25/24 21:50 BiPAP 40 07/25/24 21:41 CPAP 07/25/24 21:39 CPAP 07/25/24 21:37 CPAP 07/25/24 21:30 CPAP 07/25/24 21:27 40 07/25/24 21:14 07/25/24 21:12 07/25/24 21:09 CPAP Laboratory Results Laboratory Results WBC 13.08 K/ul (4.8-10.8) H 07/25/24 21:36 RBC 3.62 M/uL (4.20-5.40) L 07/25/24 21:36 Hgb 9.6 g/dl (12.0-16.0) L 07/25/24 21:36 POC Hgb 9.5 g/dl (12.0-16.0) L 07/26/24 02:17 Hct 32.2 % (37.0-47.0) L 07/25/24 21:36 POC Hct 28 % (37-47) L 07/26/24 02:17 MCV 89.0 fL (80.0-100.0) 07/25/24 21:36 MCH 26.5 pg (25.0-34.0) 07/25/24 21:36 MCHC 29.8 g/dL (32.0-36.0) L 07/25/24 21:36 RDW Std Deviation 51.6 fL (36.4-46.3) H 07/25/24 21:36 RDW Coeff of Ching 15.9 % (11.5-14.5) H 07/25/24 21:36 Plt Count 436 K/uL (130-400) H 07/25/24 21:36 MPV 10.8 fL (9.4-12.4) 07/25/24 21:36 Immature Gran % (Auto) 0.6 % 07/25/24 21:36 Neut % (Auto) 91.8 % 07/25/24 21:36 Lymph % (Auto) 4.0 % 07/25/24 21:36 Vermilion % (Auto) 3.4 % 07/25/24 21:36 Eos % (Auto) 0.0 % 07/25/24 21:36 Baso % (Auto) 0.2 % 07/25/24 21:36 Neut # (Auto) 12.01 K/uL (1.40-6.50) H 07/25/24 21:36 Lymph # (Auto) 0.52 K/uL (1.20-3.40) L 07/25/24 21:36 Vermilion # (Auto) 0.44 K/uL (0.11-0.59) 07/25/24 21:36 Eos # (Auto) 0.00 K/uL (0.00-0.50) 07/25/24 21:36 Baso # (Auto) 0.03 K/uL (0.00-0.20) 07/25/24 21:36 Immature Gran # (Auto) 0.08 K/uL (0.01-0.20) 07/25/24 21:36 Echinocytes 1+ 07/25/24 21:36 PT 12.1 Seconds (9.0-12.0) H 07/25/24 21:36 INR 1.1 (0.9-1.1) 07/25/24 21:36 APTT 30 Seconds (21-31) 07/25/24 21:36 PTT Ratio 1.1 07/25/24 21:36 Specimen Type Arterial 07/26/24 02:17 Sample Site R Radial 07/26/24 02:17 POC pH 7.38 (7.35-7.45) 07/26/24 02:17 POC pCO2 34 mmHg (35-46) L 07/26/24 02:17 POC pO2 318 mmHg (80-95) H 07/26/24 02:17 POC HCO3 20 leigh/L (19-24) 07/26/24 02:17 POC Total CO2 21 mmol/L (24-31) L 07/26/24 02:17 POC Base Excess -5.0 leigh/L (-9-1.8) 07/26/24 02:17 O2 Sat Pulse Oximetry 100 07/26/24 02:17 ABG pH (Temp Correct) 7.385 (7.35-7.45) 07/26/24 02:17 ABG pCO2 (Temp Corrct 34 mmHg (35-46) L 07/26/24 02:17 POC ABG pO2 at Pt Temp 316 07/26/24 02:17 POC ABG O2 Sat 100.0 % (90-95) H 07/26/24 02:17 Sidney Test Pass 07/26/24 02:17 VBG pH 7.14 (7.36-7.41) L 07/25/24 23:34 VBG pCO2 54 mmHg (38-50) H 07/25/24 23:34 VBG pO2 35 mmHg 07/25/24 23:34 VBG HCO3 18 mmol/L 07/25/24 23:34 VBG O2 Saturation < 60.0 % 07/25/24 23:34 VBG Base Excess -10.9 mEq/L 07/25/24 23:34 O2 Delivery Device Ventilator 07/26/24 02:17 Vent Mode AC 07/26/24 02:17 POC FiO2 80 % 07/26/24 02:17 End Tidal CO2 25 07/26/24 02:17 POC Sodium 137 mmol/L (135-144) 07/26/24 02:17 Sodium 136 mmol/L (136-145) 07/25/24 23:26 POC Potassium 5.7 mmol/L (3.3-5.0) H 07/26/24 02:17 Potassium 5.6 mmol/L (3.5-5.1) H 07/25/24 23:26 POC Chloride 111 mmol/L (101-112) 07/25/24 21:40 Chloride 104 mmol/L (98-107) 07/25/24 23:26 Carbon Dioxide 18 mmol/L (21-32) L 07/25/24 23:26 POC Total CO2 17 mmol/L (24-31) L 07/25/24 21:40 Anion Gap 14 (3-11) H 07/25/24 23:26 POC Anion Gap 13.0 mmol/L (16-25) L 07/25/24 21:40 POC BUN 72 mg/dl (7-18) H 07/25/24 21:40 BUN 71 mg/dl (6-23) H 07/25/24 23:26 Creatinine 3.87 mg/dl (0.6-1.2) H 07/25/24 23:26 POC Creatinine 3.9 mg/dl (0.6-1.3) H 07/25/24 21:40 Est Cr Clr Drug Dosing 14.0 ml/min 07/25/24 23: eGFR 11.58 07/25/24 23: BUN/Creatinine Ratio 18.3 (10-20) 07/25/24 23:26 Glucose 381 mg/dl (70-99(Fasting)) H* 07/25/24 23:26 POC Glucose 384 mg/dl (70-99) H* 07/26/24 01: POC Glucose (other) 390 mg/dl (70-99) H* 07/25/24 21:40 Lactate 1.9 mmol/L (0.4-2.0) 07/25/24 21:36 Calcium 9.1 mg/dl (8.6-10.3) 07/25/24 23: POC Ioniz Calcium Pablo 1.07 mmol/l (1.12-1.32) L 07/25/24 21:40 Magnesium 2.1 mg/dl (1.7-2.4) 07/25/24 21:36 Total Bilirubin 0.2 mg/dl (0.2-1.0) 07/25/24 21:36 AST 33 U/L (13-39) 07/25/24 21:36 ALT 10 U/L (7-52) 07/25/24 21:36 Alkaline Phosphatase 93 U/L (34-104) 07/25/24 21:36 Troponin I High Sens 6961.4 pg/ml (0-14) H* 07/25/24 23:26 B-Natriuretic Peptide 1062 pg/ml (0-100) H 07/25/24 21:36 Total Protein 8.1 gm/dl (6.0-8.3) 07/25/24 21:36 Albumin 3.7 gm/dl (3.4-5.0) 07/25/24 21:36 Globulin 4.4 gm/dl (2.5-4.0) H 07/25/24 21:36 Albumin/Globulin Ratio 0.8 (0.9-2) L 07/25/24 21:36 Procalcitonin 0.57 ng/ml (0-0.5) H 07/25/24 21:36 Urine Color Yellow 07/26/24 00:15 Urine Appearance Cloudy (Clear) A 07/26/24 00:15 Urine pH 5.0 (4.5-7.5) 07/26/24 00:15 Ur Specific Roy 1.015 (1.000-1.030) 07/26/24 00:15 Urine Protein 3+ (Negative) H 07/26/24 00:15 Urine Glucose (UA) 3+ (Negative) H 07/26/24 00:15 Urine Ketones Negative (Negative) 07/26/24 00:15 Urine Blood 2+ (Negative) H 07/26/24 00:15 Urine Nitrite Negative (Negative) 07/26/24 00:15 Urine Bilirubin Negative (Negative) 07/26/24 00:15 Urine Urobilinogen Negative (Negative) 07/26/24 00:15 Ur Leukocyte Esterase Negative (Negative) 07/26/24 00:15 Urine WBC (Auto) 6-10 /hpf (0-5) H 07/26/24 00:15 Urine RBC (Auto) 0-2 /hpf (0-2) 07/26/24 00:15 U Hyaline Cast (Auto) 3-5 /lpf (0-2) H 07/26/24 00:15 U Epithel Cells (Auto) 3-5 /hpf (0-2) H 07/26/24 00:15 Urine Bacteria (Auto) None Seen (None Seen) 07/26/24 00:15 Nasal Influ A H1 2008 PCR DETECTED (NotDetected) A 07/25/24 21:18 Adenovirus (PCR) Not Detected (NotDetected) 07/25/24 21:18 B. pertussis DNA (PCR) Not Detected (NotDetected) 07/25/24 21:18 B.parapertussis DNA PCR Not Detected (NotDetected) 07/25/24 21:18 C. pneumoniae DNA (PCR) Not Detected (NotDetected) 07/25/24 21:18 Coronavirus OC43 (PCR) Not Detected (NotDetected) 07/25/24 21:18 Coronavirus HKU1 (PCR) Not Detected (NotDetected) 07/25/24 21:18 Coronavirus 229E (PCR) Not Detected (NotDetected) 07/25/24 21:18 SARS-CoV-2 (PCR) Not Detected (NotDetected) 07/25/24 21:18 Coronavirus NL63 (PCR) Not Detected (NotDetected) 07/25/24 21:18 Human Metapneumovir PCR Not Detected (NotDetected) 07/25/24 21:18 Influenza Type B (PCR) Not Detected (NotDetected) 07/25/24 21:18 M. pneumoniae (PCR) Not Detected (NotDetected) 07/25/24 21:18 Parainfluenza 1 (PCR) Not Detected (NotDetected) 07/25/24 21:18 Parainfluenza 2 (PCR) Not Detected (NotDetected) 07/25/24 21:18 Parainfluenza 3 (PCR) Not Detected (NotDetected) 07/25/24 21:18 Parainfluenza 4 (PCR) Not Detected (NotDetected) 07/25/24 21:18 RSV (PCR) Not Detected (NotDetected) 07/25/24 21:18 Entero/Rhino (PCR) Not Detected (NotDetected) 07/25/24 21:18 Blood Type A Positive 07/25/24 21:36 Antibody Screen NEGATIVE 07/25/24 21:36 Code Status & VTE Plan Code Status Conditional code: Patient would except intubation, mechanical respiration, pressors. Patient does not want CPR or shocking VTE Prophylaxis Plan VTE Prophylaxis will be ordered: Yes PG Care Time/CCT Total # of Minutes Spent Total Time Spent with Patient: Total time spent is greater than 50% in coordination of care (as documented) at patient's floor/unit and/or counseling patient: Coding Level of Care Code 56293 INT INP/OBS CARE 3/75MIN Diagnoses Admitted to intensive care unit Z78.9 Respiratory failure requiring intubation J96.90 Respiratory failure with hypoxia and hypercapnia J96.91; J96.92 Non-ST elevation [place] (NSTEMI) I21.4 ELLA (acute kidney injury) N17.9 Influenza A virus subtype H1 2009 pandemic strain not detected Z01.89 Acute CHF (congestive heart failure) I50.9 Hyperkalemia E87.5 Hyperglycemia due to type 2 diabetes mellitus E11.65
[2024-07-25 23:47] LABS: Base Excess VBG -10.9 mEq/L; HCO3 VBG 18 mmol/L; Oxygen Saturation VBG < 60.0 %; PCO2 VBG 54 mmHg (38-50); PO2 VBG 35 mmHg; pH VBG 7.14 (7.36-7.41)
[2024-07-25] MEDS: HEPARIN SOD (PORCINE) 1000 UNIT/ML IV ONE (23:51)
[2024-07-25] MEDS: HEPARIN 25000 UNIT/500 ML 25,000 UNITS/500 ML BAG IV SCH (23:54)
--- NOTE | 2024-07-26 00:09 | Critical Care Consultation ---
Date of Consultation July 26, 2024 Assessment & Plan (1) Respiratory failure with hypoxia and hypercapnia: (2) Respiratory failure requiring intubation: (3) Influenza A: (4) Acute CHF (congestive heart failure): (5) Hyperglycemia: (6) Hyperkalemia: (7) ELLA (acute kidney injury): (8) Non-ST elevation LA (NSTEMI): (9) Hypothyroidism: (10) CAD (coronary artery disease): (11) HTN (hypertension): (12) HLD (hyperlipidemia): Plan Reason Critically Ill: Hypercarbic/hypoxic respiratory failure in setting of influenza illness and NSTEMI Neuro - Sedated for mechanical ventilation CAM ICU: TAY - Patient sedated with Fentanyl at this time for goal RASS -2, add Propofol if needed - Wean sedation when appropriate from a hemodynamic and pulmonary standpoint Cardiac - NSTEMI, Acute on chronic heart failure, HTN - Patient with pulmonary edema in setting of respiratory failure elevated blood pressure and elevated HsCTNI - Nitroglycerine infusion started for blood pressure control and afterload reduction - effective and blood pressure now in the 140s and on hold - Heparin infusion initiated for likely NSTEMI and history of CAD with stents - Bedside POCUS limited by body habitus, machine and technique however appears as all mayo with good contractility and no effusion noted - ECG with ST depressions inferior/anterior/lateral leads- heparinize as above, control BP would shoot for 140 or less - Trend HsCTNI and ECG with troponin - ECHO in morning eval for RWMA - Intubation for cardiopulmonary support as below - Diurese aggressively as hemodynamics permit at this time- Lasix 60mg Q12 can adjust based on hyperkalemia and fluid volume status - BNP 1062 Respiratory - Hypercarbic/hypoxic respiratory failure requiring intubation and mechanical ventilation, pleural effusions - Patient with poorly responsive respiratory acidosis to BiPAP- intubated and mechanically ventilated - ARDSnet protocol - Influenza- continue Tamiflu - Can't exclude bacterial pneumonia at this time as well- continue Zosyn/Zyvox- sputum yellow thick sent for gram stain and culture - DOMINGO nebs, Pulmicort BID nebs, continue methylprednisone - POCUS with b lines and small effusion GI - No acute needs - OGT to LIWS- NPO at this time - initiate early feeds if hemodynamics stable RENAL/LYTES - ARF on CKD, hyperkalemia, mixed respiratory/metabolic acidosis - Likely ARF secondary to sepsis and cardiac failure- diurese to obtain goal of at least -750-1000 ml would be goal - Baseline ACID STRENGTH INSPECTOR is 1.1-1.2 in 2020- currently with ACID STRENGTH INSPECTOR 3.87 and BUN 71 - Hyperkalemia - received Bicarb as well as insulin therapy- will kaliurese with Lasix - downtrended to 5.6 - Supportive care for metabolic acidosis - could initiate bicarb infusion however would like to diurese will trend PH and HCO3 - No current needs - Trinidad catheter while intubated and sedated ENDO - DM - ICU hyperglycemic protocol- initiate insulin infusion for goal BG 180mg/DL HEME - No acute needs ID - Influenza A, Sepsis - Technically meets septic criteria and can't exclude a bacterial pneumonia as well - Elevated WBC, oxygen requirement, Yellow sputum, CXR with opacities possibly in bases, elevated PCT - Sputum for gram stain and culture - Blood Cultures pending - Urine negative - Continue Zosyan and Zyvox for possible pulmonary component - Tamiflu for influenza- if does not improve can consider high dose Tamiflu LINES/IV ACCESS - PIV x3, ETT, OGT, Trinidad to gravity Continue use of these lines - Verbal consent from daughter and patient's (over phone) obtained for arterial line and CVL if needed DVT PROPHYLAXIS - SCDS, Heparin infusion DISPO: ICU while intubated and sedated I have personally spent 60 minutes of critical care time in the direct management of this patient. This is a life/limb threatening event. This includes time spent evaluating patient, direct bedside care, chart review, placing orders, interpretation of diagnostic studies, discussion with consultants, patient, and family members, as well as other required patient management ac tivities. This time is exclusive of all separately billable procedures, and separate from and in addition to any other critical care service time. Thank you for allowing us to participate in the care of this patient. Please refer to my attending physician's documentation for any further recommendations. History of Present Illness Reason for Consultation: respiratory failure secondary to influenza with multiorgan dysfunction Requesting Physician: Yves Walker MD Attending Physician: Yves Walker History of Present Illness 74 YO Roberth Female with medical history of: CAD with stent, HFpEF, DM, Hypothyroidism, HTN, HLD. She is accompanied by her daughter, who reports that she was feeling weak and tired for the past 2 days, and yesterday started to get a cough. They tried home salves/ointments and thought she was gettig better until this evening. She reports that she started to have difficult time breathing and was very noisy breathing and coughing. SHe also reports that she was also more fatigued and difficult to arouse. Patient presents to the ER in respiratory distress this evening, she was found to be hypoxic by report in the 60s as well as hypercarbic via labs. Patient was placed to CPAP/BiPAP initially and CXR was obtained as well as routine labs to include HsCTNI, BNP, PCT and lactate. She was noted to be acidotic to 7.0 with PaCO2 of 60, hyperkalemic at 6.1, HsCTNI of 6,540 as well as BNP of 1062. Patient was found to have influenza on respiratory biofire, CXR is with pulmonary edema as well as significantly hypertensive 180s-10s/100s. She was given lasix 40mg IV 1 amp of HCO3, Zosyn and admission was called. Patient was evaluated in the ER, she was appears comfortable on the BiPAP with VT 500-700 and RR 20s, however she remains with rhonchi bilaterally with inspiratory and expiratory wheezes and remains with a PH of 7.1 on 2 hours of previous settings. In light of her heart failure, renal failure, and shock like state, I did discuss with the patient treatment options to include continuing conservative NIPPV, blood pressure control and diuretics as well as nitroglycerine infusion. Patient is obese and at risk for aspiration with frequency of ventilations as well as support needed to reverse her acidosis. We did discuss risk of with both NIVV as well as with intubation and mechanical ventilation. Patient and daughter also understand that intubation in her state as well may also preclude her to cardiac arrest and/or . They both understand the risks and would like to proceed with intubation and mechanical ventilation to help support the rest of her illness and organs. CODE: Conditional- DNR in event of cardiac arrest; Ok for invasive airway and mechanical ventilation Allergies Allergy/AdvReac Type Severity Reaction Status Date / Time No Known Allergies Allergy Unverified 04/06/19 11:11 Home Medications Medication Instructions Recorded Confirmed Type aspirin 81 mg tablet,delayed 81 mg PO QAM 08/08/18 04/06/19 History release atorvastatin 80 mg tablet 40 mg PO BID 08/08/18 04/06/19 History insulin NPH-regular 70-30 U-100 70 - 80 unit subcut BIDM 08/08/18 04/06/19 History insulin 100 unit/mL subcutaneous pen (Novolin 70-30 FlexPen U-100 Insulin) metformin 1,000 mg tablet 1,000 mg PO BID 08/08/18 04/06/19 History nitroglycerin 0.4 mg sublingual 0.4 mg sublingual UD 08/08/18 04/06/19 History tablet (Nitrostat) furosemide 20 mg tablet 40 mg PO DAILY #60 tabs 03/13/19 03/13/19 History levothyroxine 50 mcg tablet 50 mcg PO DAILY #90 tabs 03/13/19 03/13/19 History pantoprazole 40 mg tablet,delayed 40 mg PO DAILY #90 tabs 03/13/19 03/13/19 History release folic acid 1 mg tablet 1 mg PO QAM #90 tabs 06/03/19 Rx metoprolol tartrate 50 mg tablet 50 mg PO BID #180 tabs 06/03/19 Rx (Lopressor) Patient History Medical History (Updated 07/26/24 @ 02:49 by Yves Walker MD) Non-STEMI (non-ST elevated myocardial infarction) Diabetes Surgical History Hx of cardiac catheterization Family History Other Diabetes Social History Smoking Status: Never smoker Second Hand Exposure: No; Do You Dip or Chew Tobacco: No; Tobacco Cessation Education Requested by Patient: No Hx Alcohol Use: No Hx Substance Use: No Preferred Language: Bolivian Communication Ability: Effective Wet Cleaner Machine Required: No Beliefs That Will Affect Care: Sabianism Sabianism Beliefs: Roberth marital status: Current Living Situation: Spouse Other Information That Helps Us Care for You: No Feels Safe at Home: Yes Safety Concerns: Feels Safe At This Time Assistive Devices: Denture - Upper and Denture - Lower Review of Systems Review of Systems: REVIEW OF SYSTEMS: Constitutional: (+) fever, sweats or chills Eyes: No diplopia, no worsening or blurred vision ENT: normal hearing, no trouble swallowing Respiratory: (+) cough, sputum, dyspnea at rest or on exertion Cardiovascular: No chest pain, tightness or palpitations Abdomen:(+) n/v and diarrhea, No pain, or constipation Musculoskeletal: No joint pain, calf pain, swelling Neurologic: No weakness, numbness/tingling, or balance problems Physical Exam Physical Exam: PHYSICAL EXAM: General: awake, alert, fatigued appearing Head: Normocephalic, atraumatic ENT: PERRLA, EOMI, no pharyngeal exudate, mucous membranes dry Neuro: AAO x 3, speech clear and appropriate, strength intact bilaterally 5/5, sensation intact and equal all extremities and dermatomes, no pronator drift Chest: equal rise and fall of the chest, accessory muscle use, inspiratory and expiratory wheeze with coarse rhonchi throughout Cardiac: Regular rate and rhythm, telemetry reviewed- NSR, skin warm dry, cap refill <3 seconds, peripheral pulses +2 no JVD, no murmur, +2 lower extremity edema GI: NABS x 4 quadrants, softly obese, nontender to palpation, no rebound, guarding or tenderness : trinidad to gravity draining dilute yellow urine Skin: excoriations and yeasty odor under bilateral breasts Results & Data Results & Data Vital Signs (Past 12 Hours) Vital Signs Temp Pulse Pulse Resp BP BP Pulse Ox 07/25/24 23:45 36.4 C L 07/25/24 23:39 105 H 26 H 186/104 H 96 07/25/24 23:33 107 H 24 164/103 H 98 07/25/24 23:02 36.4 C L 07/25/24 23:00 107 H 20 179/106 H 98 07/25/24 22:06 35 C L 07/25/24 22:00 104 H 26 H 160/113 H 98 07/25/24 21:50 100 H 25 H 95 07/25/24 21:41 100 H 28 H 95 07/25/24 21:39 96 07/25/24 21:37 99 H 24 181/88 H 95 07/25/24 21:30 07/25/24 21:27 25 H 99 07/25/24 21:14 101 H 154/104 H 07/25/24 21:12 101 H 07/25/24 21:09 99 H 26 H 99 O2 Del Method O2 Flow Rate FiO2 07/25/24 23:45 07/25/24 23:39 CPAP 07/25/24 23:33 CPAP 07/25/24 23:02 07/25/24 23:00 CPAP 07/25/24 22:06 07/25/24 22:00 CPAP 07/25/24 21:50 BiPAP 40 07/25/24 21:41 CPAP 07/25/24 21:39 CPAP 07/25/24 21:37 CPAP 07/25/24 21:30 CPAP 07/25/24 21:27 40 07/25/24 21:14 07/25/24 21:12 07/25/24 21:09 CPAP Laboratory Results Abnormal lab results 07/25/24 07/25/24 07/25/24 Range/Units 21:18 21:36 21:40 WBC 13.08 H (4.8-10.8) K/ul RBC 3.62 L (4.20-5.40) M/uL Hgb 9.6 L (12.0-16.0) g/dl POC Hgb 10.9 L (12.0-16.0) g/dl Hct 32.2 L (37.0-47.0) % POC Hct 32 L (37-47) % MCHC 29.8 L (32.0-36.0) g/dL RDW Std Deviation 51.6 H (36.4-46.3) fL RDW Coeff of Ching 15.9 H (11.5-14.5) % Plt Count 436 H (130-400) K/uL Neut # (Auto) 12.01 H (1.40-6.50) K/uL Lymph # (Auto) 0.52 L (1.20-3.40) K/uL PT 12.1 H (9.0-12.0) Seconds VBG pH 7.05 L (7.36-7.41) VBG pCO2 60 H (38-50) mmHg POC Sodium 134 L (135-144) mmol/L Sodium 133 L (136-145) mmol/L POC Potassium 6.0 H (3.3-5.0) mmol/L Potassium 6.1 H* (3.5-5.1) mmol/L Carbon Dioxide 18 L (21-32) mmol/L POC Total CO2 17 L (24-31) mmol/L POC Anion Gap 13.0 L (16-25) mmol/L POC BUN 72 H (7-18) mg/dl BUN 66 H (6-23) mg/dl Creatinine 3.89 H (0.6-1.2) mg/dl POC Creatinine 3.9 H (0.6-1.3) mg/dl Glucose 404 H* (70-99(Fasting)) mg/dl POC Glucose (other) 390 H* (70-99) mg/dl POC Ioniz Calcium Pablo 1.07 L (1.12-1.32) mmol/l Troponin I High Sens 6540.7 H* (0-14) pg/ml B-Natriuretic Peptide 1062 H (0-100) pg/ml Globulin 4.4 H (2.5-4.0) gm/dl Albumin/Globulin Ratio 0.8 L (0.9-2) Procalcitonin 0.57 H (0-0.5) ng/ml Nasal Influ A H1 2008 PCR DETECTED A (NotDetected) 07/25/24 Range/Units 23:34 WBC (4.8-10.8) K/ul RBC (4.20-5.40) M/uL Hgb (12.0-16.0) g/dl POC Hgb (12.0-16.0) g/dl Hct (37.0-47.0) % POC Hct (37-47) % MCHC (32.0-36.0) g/dL RDW Std Deviation (36.4-46.3) fL RDW Coeff of Ching (11.5-14.5) % Plt Count (130-400) K/uL Neut # (Auto) (1.40-6.50) K/uL Lymph # (Auto) (1.20-3.40) K/uL PT (9.0-12.0) Seconds VBG pH 7.14 L (7.36-7.41) VBG pCO2 54 H (38-50) mmHg POC Sodium (135-144) mmol/L Sodium (136-145) mmol/L POC Potassium (3.3-5.0) mmol/L Potassium (3.5-5.1) mmol/L Carbon Dioxide (21-32) mmol/L POC Total CO2 (24-31) mmol/L POC Anion Gap (16-25) mmol/L POC BUN (7-18) mg/dl BUN (6-23) mg/dl Creatinine (0.6-1.2) mg/dl POC Creatinine (0.6-1.3) mg/dl Glucose (70-99(Fasting)) mg/dl POC Glucose (other) (70-99) mg/dl POC Ioniz Calcium Pablo (1.12-1.32) mmol/l Troponin I High Sens (0-14) pg/ml B-Natriuretic Peptide (0-100) pg/ml Globulin (2.5-4.0) gm/dl Albumin/Globulin Ratio (0.9-2) Procalcitonin (0-0.5) ng/ml Nasal Influ A H1 2008 PCR (NotDetected) Diagnostic Findings Chest X-Ray 07/25/24 21:08 Exam(s): XR CXR 1 VIEW EXAM: XR Chest, 1 View CLINICAL HISTORY: Reason for exam: sob. TECHNIQUE: Frontal view of the chest. COMPARISON: August 08, 2018 FINDINGS: Lungs: Hazy increased density throughout the mid to lower lungs bilaterally, increased since previous. No consolidation. Pleural space: Slight blunting of both costophrenic angle suggesting small bilateral pleural effusions, increased since previous. No pneumothorax. Heart: The cardiac silhouette is moderately enlarged but partially obscured. Mediastinum: Unremarkable. Normal mediastinal contour. Bones/joints: Mild to moderate degenerative changes in the right shoulder. Mild osteophytosis is in the lower thoracic spine. No acute fracture. Vasculature: The aortic arch is mildly calcified. Upper abdomen: Unremarkable as visualized. No pneumoperitoneum under the diaphragm. IMPRESSION: 1. The cardiac silhouette is moderately enlarged but partially obscured. 2. Hazy increased density throughout the mid to lower lungs bilaterally, increased since previous. Consider CHF. 3. Slight blunting of both costophrenic angle suggesting small bilateral pleural effusions, increased since previous. Electronically signed by: Carson Bowen MD 07/25/24 22:06 PM Medications Administered Home Medications aspirin 81 mg tablet,delayed release 81 mg PO QAM 08/08/18 [History Confirmed 04/06/19] atorvastatin 80 mg tablet 40 mg PO BID 08/08/18 [History Confirmed 04/06/19] insulin NPH-regular 70-30 U-100 insulin 100 unit/mL subcutaneous pen (Novolin 70-30 FlexPen U-100 Insulin) 70 - 80 unit subcut BIDM 08/08/18 [History Confirmed 04/06/19] metformin 1,000 mg tablet 1,000 mg PO BID 08/08/18 [History Confirmed 04/06/19] nitroglycerin 0.4 mg sublingual tablet (Nitrostat) 0.4 mg sublingual UD 08/08/18 [History Confirmed 04/06/19] furosemide 20 mg tablet 40 mg PO DAILY #60 tabs 03/13/19 [History Confirmed 03/13/19] levothyroxine 50 mcg tablet 50 mcg PO DAILY #90 tabs 03/13/19 [History Confirmed 03/13/19] pantoprazole 40 mg tablet,delayed release 40 mg PO DAILY #90 tabs 03/13/19 [History Confirmed 03/13/19] folic acid 1 mg tablet 1 mg PO QAM #90 tabs 06/03/19 [Rx] metoprolol tartrate 50 mg tablet (Lopressor) 50 mg PO BID #180 tabs 06/03/19 [Rx] Active Medications Nitroglycerin/Dextrose (Nitroglycerin/D5w 100 Mcg/Ml) 250 mls @ 48 mls/hr IV .Q5H13M [facility]; Protocol Stop: 08/24/24 23:14 Last Admin: 07/25/24 23:29 Dose: 80 mcg/min, 48 mls/hr Heparin Sodium/Dextrose (Heparin Sodium/Dextrose) 25,000 units in 500 mls @ 17 mls/hr IV .Q24H [facility]; Protocol Stop: 08/24/24 22:59 Last Admin: 07/25/24 23:54 Dose: 850 units/hr, 17 mls/hr Oseltamivir Phosphate (Oseltamivir Phosphate 75 Mg Cap) 75 mg PO BID [facility] Stop: 07/31/24 08:59 ECG Additional Comments: Sinus tachycardiawith 1st degree A-V block Marked ST abnormality, possible inferolateral subendocardial injury Abnormal ECG When compared with ECG 06:20, MN intervalhas increased QRS durationhas increased ST now depressed inInferior leads ST now depressed inAnterior leads T wave inversion now evident inInferior leads T wave inversion now evident inAnterolateral leads Coding Level of Care Code 91906 CRITICAL CARE 1ST 30-74M Diagnoses Respiratory failure with hypoxia and hypercapnia J96.91; J96.92 Respiratory failure requiring intubation J96.90 Influenza A J10.1 Acute CHF (congestive heart failure) I50.9 Hyperglycemia R73.9 Hyperkalemia E87.5 ELLA (acute kidney injury) N17.9 Non-ST elevation LA (NSTEMI) I21.4 Hypothyroidism E03.9 CAD (coronary artery disease) I25.10 HTN (hypertension) I10 HLD (hyperlipidemia) E78.5
[2024-07-26 00:53] LABS: Appearance Urine Cloudy (Clear); Bacteria Urine Automated None Seen (None Seen); Bilirubin Urine Negative (Negative); Blood Urine 2+ (Negative); Color Urine Yellow; Glucose Urine UA 3+ (Negative); Ketones Urine Negative (Negative); Leukocyte Esterase Urine Negative (Negative); Nitrite Urine Negative (Negative); Protein Urine 3+ (Negative); RBC Urine Automated 0-2 /hpf (0-2); Specific Gravity Urine 1.015 (1.000-1.030); Urobilinogen Urine Negative (Negative)
[2024-07-26] MEDS ORDERED: fentaNYL BOLUS from BAG IV PRN (01:02)
[2024-07-26] MEDS ORDERED: STAT IV Infusion **Titration per Protocol STA ×4 (01:02→12:11)
[2024-07-26] MEDS ORDERED: ACETAMINOPHEN 1000 MG/100 ML IV IV PRN (01:02)
[2024-07-26] MEDS ORDERED: GLUCOSE 10 TAB/TUBE PO PRN (01:02)
[2024-07-26] MEDS ORDERED: SODIUM BICARBONATE 8.4% 150 MEQ in DEXTROSE 5% 1,000 ML IV SCH (01:02)
[2024-07-26] MEDS ORDERED: GLUCOSE 40% GEL 15 GM TUBE PO PRN (01:02)
[2024-07-26] MEDS ORDERED: CARBOHYDRATES FOR HYPOGLYCEMIA PO PRN (01:02)
[2024-07-26] MEDS ORDERED: INSULIN PROTOCOL GOAL RANGE ONE (01:02)
[2024-07-26] MEDS ORDERED: STAT IV/IM STA (01:02)
[2024-07-26] MEDS ORDERED: PHARMACY GLYCEMIC MGMT CONSULT PRN (01:02)
[2024-07-26] MEDS ORDERED: GLUCAGON FOR INJ 1 MG VIAL SQ PRN (01:02)
[2024-07-26 01:03] LABS: BUN Creatinine Ratio 18.3 (10-20); Calcium 9.1 mg/dl (8.6-10.3); Potassium 5.6 mmol/L (3.5-5.1); Troponin I High Sensitivity 6961.4 pg/ml (0-14)
[2024-07-26] MEDS: SODIUM BICARB 8.4% INJ 50 MEQ/50 ML SYR IV STA (01:37)
[2024-07-26] MEDS: fentaNYL citrate 2,500 MCG/250 ML BAG IV SCH (01:38)
[2024-07-26] MEDS: SODIUM BICARB 8.4% INJ 50 MEQ/50 ML SYR IV ONE (01:38)
[2024-07-26] MEDS: fentaNYL citrate 2,500 MCG/250 ML BAG IV ONE (01:39)
[2024-07-26] MEDS: INSULIN REGULAR 250 UNITS in SODIUM CHLORIDE 0.9% 247.5 ML IV SCH (02:14)
[2024-07-26] MEDS ORDERED: PROPOFOL BOLUS FROM BAG IV PRN (02:22)
[2024-07-26] MEDS: PANTOprazole 40 MG/10 ML SYR IV SCH (02:29)
[2024-07-26 02:30] LABS: iSTAT Allen Test Pass; iSTAT Art Bld Gas pCO2 Correct 34 mmHg (35-46); iSTAT Art Bld Gas pH Corrected 7.385 (7.35-7.45); iSTAT Arterial Blood Gas HCO3 20 meg/L (19-24); iSTAT Arterial Blood Gas pCO2 34 mmHg (35-46); iSTAT Arterial Blood Gas pH 7.38 (7.35-7.45); iSTAT Arterial Blood Gas pO2 318 mmHg (80-95); iSTAT Arterial Blood Gas pO2 C 316; iSTAT Carbon Dioxide 21 mmol/L (24-31); iSTAT FiO2 80 %; iSTAT Hematocrit 28 % (37-47); iSTAT Hemoglobin 9.5 g/dl (12.0-16.0); iSTAT Potassium 5.7 mmol/L (3.3-5.0); iSTAT Sample Type Arterial; iSTAT Site R Radial; iSTAT Sodium 137 mmol/L (135-144); iSTAT SpO2 100
[2024-07-26] MEDS: methylPREDNISolone 125 MG/2 ML VIAL IV STA (02:30)
[2024-07-26] MEDS: LINEZOLID 600 MG/300 ML BAG IV SCH (02:30)
[2024-07-26] MEDS: PROPOFOL IV EMULSION 10 MG/ML 100 ML VIAL IV ONE (02:33)
[2024-07-26] MEDS: propofoL 1,000 MG/100 ML VIAL IV SCH (02:33)
[2024-07-26] MEDS: STERILE IV SCH (02:36)
[2024-07-26] MEDS: WATER IV SCH (02:36)
[2024-07-26] MEDS: SODIUM BICARBONATE IV SCH (02:36)
[2024-07-26] MEDS: DEXTROSE 50% IV SCH (02:36)
[2024-07-26 02:55] LABS: BUN Creatinine Ratio 18.6 (10-20); Calcium 8.8 mg/dl (8.6-10.3); Creatinine Clr Calc Pharmacy 14.4 ml/min; Potassium 5.4 mmol/L (3.5-5.1); Troponin I High Sensitivity 9705.7 pg/ml (0-14)
--- NOTE | 2024-07-26 02:57 | Billing Data ---
Date of Service July 26, 2024 Coding Level of Care Code 32959 CRITICAL CARE 1ST 30-74M Time Spent (min) 65 Comment Total critical care time 65 minutes
--- NOTE | 2024-07-26 03:02 | XRay Report ---
EXAM: XR chest 1V portable CLINICAL HISTORY: POST INTUBATION, EVAL TUBE PLACEMENT. TECHNIQUE: An X-ray image of the chest is obtained in AP projection. COMPARISON: comparison with the previous study dated 08/08/2018. FINDINGS: Pulmonary Parenchyma: ET tube appears to be in the right main bronchus with a distance of about 1.4 cm below the michel. Complete opacification of the left lung with obscuration of the cardiac border and left hemidiaphragm suggesting left lung collapse. Diffuse increase interstitial lung markings seen in the right lung, a cardiac cause should be considered. Heart and Mediastinum: Heart size can not be assessed due to complete opacification of left hemithorax. Bony Thorax: Atherosclerotic changes of both AC joints. The bony thorax appears intact without fractures or deformities. Soft Tissues: Soft tissues overlying the chest wall are unremarkable. IMPRESSION: 1. A malpositioned ET tube appears to be in the right main bronchus with a distance of about 1.4 cm below the michel. (new finding) 2. Nearly total opacification of the left lung suggests left lung collapse. (new finding) 3. Right lung increase interstitial lung markings, cardiac cause should be considered, please correlate clinically. ( stable finding) Electronically signed by Félix Carreon 07-26-2024 03:01 AM
[2024-07-26 04:46] LABS: Hematocrit (blood only) 26.4 % (37.0-47.0); Mean Corpuscular Hemoglobin 26.6 pg (25.0-34.0); Mean Corpuscular Hgb Conc 30.3 g/dL (32.0-36.0); Mean Corpuscular Volume 87.7 fL (80.0-100.0); Mean Platelet Volume 10.7 fL (9.4-12.4); Nucleated RBC # (auto) 0.02 K/uL (0.00-0.12); Nucleated RBC % (auto) 0.2 %; Platelet Count 334 K/uL (130-400); RDW Coefficient of Variation 15.8 % (11.5-14.5); RDW Standard Deviation 49.9 fL (36.4-46.3); Red Blood Count 3.01 M/uL (4.20-5.40); White Blood Count 12.91 K/ul (4.8-10.8)
[2024-07-26 05:03] LABS: Albumin Globulin Ratio 0.9 (0.9-2); Albumin Level 3.1 gm/dl (3.4-5.0); BUN Creatinine Ratio 18.6 (10-20); Bilirubin,Total 0.2 mg/dl (0.2-1.0); Calcium 8.2 mg/dl (8.6-10.3); Creatinine Clr Calc Pharmacy 14.4 ml/min; Globulin 3.6 gm/dl (2.5-4.0); Magnesium 1.9 mg/dl (1.7-2.4); Phosphorus 6.2 mg/dl (2.5-4.9); Potassium 4.8 mmol/L (3.5-5.1); Total Protein 6.7 gm/dl (6.0-8.3)
[2024-07-26 05:11] LABS: INR 1.2 (0.9-1.1); Partial Thromboplastin Ratio 2.5; Partial Thromboplastin Time 68 Seconds (21-31); Prothrombin Time 12.6 Seconds (9.0-12.0)
[2024-07-26 05:16] LABS: Basophils # (auto) 0.02 K/uL (0.00-0.20); Basophils % (auto) 0.2 %; Echinocytes 1+; Immature Granulocytes # (auto) 0.09 K/uL (0.01-0.20); Immature Granulocytes % (auto) 0.7 %; Lymphocytes # (auto) 0.51 K/uL (1.20-3.40); Monocytes # (auto) 0.29 K/uL (0.11-0.59); Monocytes % (auto) 2.2 %; Neutrophils % (auto) 92.9 %; Tear Drop Cells 1+
[2024-07-26] MEDS: FUROSEMIDE 40 MG/4 ML VIAL IV SCH (05:58)
[2024-07-26] MEDS ORDERED: FUROSEMIDE 40 MG/4 ML VIAL IV SCH (06:00)
[2024-07-26 06:50] LABS: ANTI-Xa, UFH(UnfractionatedHep 0.57 IU/ml (0.3-0.7)
[2024-07-26] MEDS: RAPID SEQUENCE INDUCTION BAG ONE (07:22)
[2024-07-26] MEDS: INSULIN ASPART PER UNIT CHARGE SC SCH (07:25)
--- NOTE | 2024-07-26 07:27 | Electrocardiogram Report ---
Test Reason : Blood Pressure : */* mmHG Vent. Rate : 101 BPM Atrial Rate : 101 BPM P-R Int : 224 ms QRS Dur : 94 ms QT Int : 350 ms P-R-T Axes : 84 49 235 degrees QTcB Int : 453 ms Sinus tachycardia with 1st degree A-V block Marked ST abnormality, possible inferolateral subendocardial injury Abnormal ECG When compared with ECG of 09-Aug-2018 06:20, IA interval has increased QRS duration has increased ST now depressed in Inferior leads ST now depressed in Anterior leads T wave inversion now evident in Inferior leads T wave inversion now evident in Anterolateral leads Confirmed by Luke Ch ([id number]) on 07/26/2024 7:27:07 AM Referred By: REFERRED SELF Confirmed By: Luke Ch
[2024-07-26] MEDS ORDERED: ICU Protocol for HYPERglycemia SCH (07:30)
[2024-07-26] MEDS: BUDESONIDE 0.5 MG/2 ML VIAL (PULMICORT) NEB SCH (07:40)
[2024-07-26] MEDS ORDERED: methylPREDNISolone 10 mg/mL (For Ped Dose < 7mg) IV SCH (08:00)
[2024-07-26] MEDS: CEFEPIME 1000MG 1,000 MG/10 ML SYR IV SCH (08:27)
[2024-07-26] MEDS: methylPREDNISolone 40 MG in SYRINGE 0 ML IV SCH (08:27)
--- NOTE | 2024-07-26 08:37 | XRay Report ---
EXAM: XR chest 1V portable CLINICAL HISTORY: WHILE INTUBATED, EVAL TUBES/LINES/LUNG EDMOND TECHNIQUE: X-ray image of the chest obtained in 1 frontal projection. COMPARISON: Prior X-ray dated 07/26/2024 for comparison. FINDINGS: ETT with tip 1.7 cm above michel. NG tube in situ. Pulmonary Parenchyma: Interval complete resolution of left lung collapse and showing haziness in lower zone. Unchanged air space opacities and interstitial thickening in right lung. obliteration of the left costophrenic angle No evidence of right pleural effusion or pleural thickening. Heart and Mediastinum: Cardiomegaly. No mediastinal widening or masses. No hilar or mediastinal lymphadenopathy. Bony Thorax: Spondylotic changes in thoracic spine. Bony thorax appears intact without fractures or deformities. Soft Tissues: Soft tissues overlying the chest wall are unremarkable. IMPRESSION: 1. ETT with tip 1.7 cm above michel. New 2. NG tube in situ. 3. Interval complete resolution of left lung collapse and showing haziness in lower zone With obliteration of the left costophrenic angle suggesting underlying small effusion. 4. Unchanged air space opacities and interstitial thickening in right lung. suggesting infiltrates. Electronically signed by Félix Carreon 07-26-2024 08:37 AM
--- NOTE | 2024-07-26 08:48 | Cardiology Consultation ---
Date of Consultation July 26, 2024 Assessment & Plan (1) Acute CHF (congestive heart failure): (2) NSTEMI (non-ST elevated myocardial infarction): (3) CAD (coronary artery disease): (4) HTN (hypertension): Plan 1. Acute on chronic heart failure with preserved ejection fraction: She likely has an element of pulmonary vascular congestion. Whether this was the precipitant for her respiratory failure simply part of another illness is unclear. It seems her symptoms were fairly sudden in onset. LV systolic function appears preserved. Diuresis continuing in an attempt to reduce pulmonary vascular congestion and improve respiratory function. Given her decompensation we could consider the addition of an SGLT2 antagonist once her clinical condition improves. 2. NSTEMI: She had markedly elevated biomarkers at the time of admission. Most likely related to ischemia from hypoxia and hypertension. However, she is known to have significant coronary disease and a recent acute coronary event cannot be definitively excluded. By report she was not having symptoms of chest pain which would be unlikely with an acute coronary syndrome. I think is reasonable continue systemic heparinization for 24 to 48 hours if there is no contraindication. 3. Coronary artery disease: She is known to have severe coronary artery disease. She previously underwent percutaneous intervention to the right coronary artery. She had significant residual disease in 2019. This is likely responsible for her elevated biomarkers in the setting of hypoxia and hypertension. Will consider reevaluation prior to discharge depending on her clinical course. No urgent indication for coronary angiography. 4. Mitral regurgitation: Moderate previously. More mild on current evaluation although images were suboptimal. 5. Hypertension: Markedly hypertensive at the time of admission. Much improved. Only on metoprolol as an antihypertensive. Unclear control overall. 6. Acute kidney injury 7. Anemia: She has a history of anemia of unclear etiology. Hemoglobin has been low in the past. No evidence of active bleeding although on heparin will need to monitor this closely. History of Present Illness Reason for Consultation: NSTEMI, congestive heart failure Requesting Physician: Mitchell Attending Physician: Alfredito Simmons MD History of Present Illness The patient is a 74-year-old woman with a history of coronary artery disease having previously undergone percutaneous intervention to the right coronary artery. He is also known to have heart failure with preserved ejection fraction. Currently the patient is intubated and sedated and the entire history was obtained from a family member, the nursing staff, the medical staff and the medical record. It seems that she was feeling well until approximately 2 days ago when she began to have some symptoms of respiratory difficulty. These were fairly mild in the beginning, but yesterday evening became much more severe. As result, her family brought her to the hospital where she was found to be notably hypoxic and acidotic. Initial attempts at noninvasive ventilation were made with little improvement. The patient remained tachypneic and acidotic and she underwent endotracheal intubation and mechanical ventilation. According to her family member she did not have fevers or chills. No close contacts with significant illness. She is fairly sedentary and is noted to "puff" when she walks. However, she does not generally complain of breathing difficulty and has not had any complaints of chest discomfort recently. Her family member thought that she may have had some swollen legs recently, but this does not appear to be a chronic problem to her knowledge. The patient has a scale at home but does not weigh herself regularly. Allergies Allergy/AdvReac Type Severity Reaction Status Date / Time No Known Allergies Allergy Unverified 04/06/19 11:11 Home Medications Medication Instructions Recorded Confirmed Type aspirin 81 mg tablet,delayed 81 mg PO QAM 08/08/18 04/06/19 History release atorvastatin 80 mg tablet 40 mg PO BID 08/08/18 04/06/19 History insulin NPH-regular 70-30 U-100 70 - 80 unit subcut BIDM 08/08/18 04/06/19 History insulin 100 unit/mL subcutaneous pen (Novolin 70-30 FlexPen U-100 Insulin) metformin 1,000 mg tablet 1,000 mg PO BID 08/08/18 04/06/19 History nitroglycerin 0.4 mg sublingual 0.4 mg sublingual UD 08/08/18 04/06/19 History tablet (Nitrostat) furosemide 20 mg tablet 40 mg PO DAILY #60 tabs 03/13/19 03/13/19 History levothyroxine 50 mcg tablet 50 mcg PO DAILY #90 tabs 03/13/19 03/13/19 History pantoprazole 40 mg tablet,delayed 40 mg PO DAILY #90 tabs 03/13/19 03/13/19 History release folic acid 1 mg tablet 1 mg PO QAM #90 tabs 06/03/19 Rx metoprolol tartrate 50 mg tablet 50 mg PO BID #180 tabs 06/03/19 Rx (Lopressor) Patient History Medical History (Updated 07/26/24 @ 02:49 by Yves Walker MD) Non-STEMI (non-ST elevated myocardial infarction) Diabetes Surgical History Hx of cardiac catheterization Family History Other Diabetes Social History Smoking Status: Never smoker Second Hand Exposure: No; Do You Dip or Chew Tobacco: No; Tobacco Cessation Education Requested by Patient: No Hx Alcohol Use: No Hx Substance Use: No Preferred Language: Greek Communication Ability: Effective Nail Galvanizer Required: No Beliefs That Will Affect Care: Confucianist Confucianist Beliefs: Roberth marital status: Current Living Situation: Spouse Other Information That Helps Us Care for You: No Feels Safe at Home: Yes Safety Concerns: Feels Safe At This Time Assistive Devices: Denture - Upper and Denture - Lower Review of Systems Review of Systems: Unobtainable due to endotracheal tube Physical Exam Physical Exam: Intubated and sedated. HEENT: Sclerae are anicteric. Pupils are equal and reactive to light and accommodation. Extraocular movements were intact. Alopecia noted Neuro: Could not be assessed. Lungs: Generally clear with occasional crackle in the right base primarily. No expiratory wheezing. Cardiac: The rhythm was regular. S1 and S2 were normal. There are no murmurs on examination. Abdomen: Obese Extremities: Patient has bilateral radial pulses that are equal in intensity. There is no evidence cyanosis or clubbing. Compression devices on both legs Skin: There are no rashes noted on examination today. Depigmentation on the scalp, possibly vitiligo Results & Data Vital Signs (Past 12 Hours) Vital Signs Temp Pulse Pulse Resp BP BP Pulse Ox 07/26/24 07:56 07/26/24 07:31 98/60 L 07/26/24 07:25 89 18 99 07/26/24 07:24 37.6 C H 80 18 97 07/26/24 07:00 37.6 C H 81 18 96 07/26/24 07:00 106/53 L 07/26/24 05:00 108/53 L 07/26/24 04:54 37.3 C 88 18 96 07/26/24 04:33 37.2 C 88 18 99 07/26/24 04:30 101/50 L 07/26/24 04:30 101/50 L 07/26/24 04:24 37.2 C 88 18 98 07/26/24 04:09 37.1 C 86 19 97 07/26/24 04:03 83 18 99 07/26/24 04:00 100/64 07/26/24 04:00 100/64 07/26/24 04:00 100/64 07/26/24 04:00 07/26/24 03:57 37.0 C 86 24 100 07/26/24 03:54 07/26/24 03:45 105/59 L 07/26/24 03:45 37.0 C 86 24 100 07/26/24 03:39 37.0 C 85 24 100 07/26/24 03:31 100/56 L 07/26/24 03:31 100/56 L 07/26/24 03:15 121/63 07/26/24 03:15 121/63 07/26/24 03:09 36.9 C 86 24 100 07/26/24 03:03 36.9 C 92 H 24 100 07/26/24 03:01 116/69 07/26/24 03:01 116/69 07/26/24 03:01 116/69 07/26/24 02:31 156/79 H 07/26/24 02:31 156/79 H 07/26/24 02:24 36.7 C 106 H 24 99 07/26/24 02:16 237/141 H 07/26/24 02:03 36.6 C 91 H 24 100 07/26/24 02:01 169/98 H 07/26/24 02:01 169/98 H 07/26/24 01:57 36.6 C 111 H 24 100 07/26/24 01:45 141/87 H 07/26/24 01:45 36.5 C 97 H 22 100 07/26/24 01:31 179/109 H 07/26/24 01:30 36.4 C L 107 H 24 100 07/26/24 01:16 136/83 07/26/24 01:16 136/83 07/26/24 01:15 36.4 C L 114 H 24 94 07/26/24 01:12 115 H 24 97 07/26/24 01:07 84/60 L 07/26/24 01:07 84/60 L 07/26/24 01:03 109 H 24 98 07/26/24 01:02 07/26/24 00:51 176/97 H 07/26/24 00:51 176/97 H 07/26/24 00:36 108 H 22 100 07/26/24 00:15 109 H 15 159/95 H 97 07/25/24 23:45 36.4 C L 07/25/24 23:39 105 H 26 H 186/104 H 96 07/25/24 23:33 107 H 24 164/103 H 98 07/25/24 23:02 36.4 C L 07/25/24 23:00 107 H 20 179/106 H 98 07/25/24 22:06 35 C L 07/25/24 22:00 104 H 26 H 160/113 H 98 07/25/24 21:50 100 H 25 H 95 07/25/24 21:41 100 H 28 H 95 07/25/24 21:39 96 07/25/24 21:37 99 H 24 181/88 H 95 07/25/24 21:30 07/25/24 21:27 25 H 99 07/25/24 21:14 101 H 154/104 H 07/25/24 21:12 101 H 07/25/24 21:09 99 H 26 H 99 Pulse Ox O2 Del Method O2 Del Method O2 Flow Rate FiO2 07/26/24 07:56 Mechanical Vent 07/26/24 07:31 07/26/24 07:25 40 07/26/24 07:24 07/26/24 07:00 07/26/24 07:00 07/26/24 05:00 07/26/24 04:54 07/26/24 04:33 07/26/24 04:30 07/26/24 04:30 07/26/24 04:24 07/26/24 04:09 07/26/24 04:03 40 07/26/24 04:00 07/26/24 04:00 07/26/24 04:00 07/26/24 04:00 40 07/26/24 03:57 07/26/24 03:54 Mechanical Vent 40 07/26/24 03:45 07/26/24 03:45 07/26/24 03:39 07/26/24 03:31 07/26/24 03:31 07/26/24 03:15 07/26/24 03:15 07/26/24 03:09 07/26/24 03:03 07/26/24 03:01 07/26/24 03:01 07/26/24 03:01 07/26/24 02:31 07/26/24 02:31 07/26/24 02:24 07/26/24 02:16 07/26/24 02:03 07/26/24 02:01 07/26/24 02:01 07/26/24 01:57 07/26/24 01:45 07/26/24 01:45 07/26/24 01:31 07/26/24 01:30 07/26/24 01:16 07/26/24 01:16 07/26/24 01:15 07/26/24 01:12 07/26/24 01:07 07/26/24 01:07 07/26/24 01:03 80 07/26/24 01:02 99 Mechanical Vent 07/26/24 00:51 07/26/24 00:51 07/26/24 00:36 07/26/24 00:15 CPAP 07/25/24 23:45 07/25/24 23:39 CPAP 07/25/24 23:33 CPAP 07/25/24 23:02 07/25/24 23:00 CPAP 07/25/24 22:06 07/25/24 22:00 CPAP 07/25/24 21:50 BiPAP 40 07/25/24 21:41 CPAP 07/25/24 21:39 CPAP 07/25/24 21:37 CPAP 07/25/24 21:30 CPAP 07/25/24 21:27 40 07/25/24 21:14 07/25/24 21:12 07/25/24 21:09 CPAP Laboratory Results Abnormal Lab Results 07/25/24 07/25/24 07/25/24 21:18 21:36 21:40 WBC 13.08 H RBC 3.62 L Hgb 9.6 L POC Hgb 10.9 L Hct 32.2 L POC Hct 32 L MCV 89.0 MCH 26.5 MCHC 29.8 L RDW Std Deviation 51.6 H RDW Coeff of Ching 15.9 H Plt Count 436 H MPV 10.8 Immature Gran % (Auto) 0.6 Neut % (Auto) 91.8 Lymph % (Auto) 4.0 [place] % (Auto) 3.4 Eos % (Auto) 0.0 Baso % (Auto) 0.2 Neut # (Auto) 12.01 H Lymph # (Auto) 0.52 L [place] # (Auto) 0.44 Eos # (Auto) 0.00 Baso # (Auto) 0.03 Immature Gran # (Auto) 0.08 Absolute Nucleated RBC Nucleated RBC % (auto) Tear Drop Cells Echinocytes 1+ PT 12.1 H INR 1.1 APTT 30 PTT Ratio 1.1 Heparin Anti-Xa, Unfract Specimen Type Sample Site POC pH POC pCO2 POC pO2 POC HCO3 POC Base Excess O2 Sat Pulse Oximetry ABG pH (Temp Correct) ABG pCO2 (Temp Corrct POC ABG pO2 at Pt Temp POC ABG O2 Sat Sidney Test VBG pH 7.05 L VBG pCO2 60 H VBG pO2 47 VBG HCO3 17 VBG O2 Saturation 65.9 VBG Base Excess -14.3 O2 Delivery Device Vent Mode POC FiO2 End Tidal CO2 POC Sodium 134 L Sodium 133 L POC Potassium 6.0 H Potassium 6.1 H* POC Chloride 111 Chloride 104 Carbon Dioxide 18 L POC Total CO2 17 L Anion Gap 11 POC Anion Gap 13.0 L POC BUN 72 H BUN 66 H Creatinine 3.89 H POC Creatinine 3.9 H Est Cr Clr Drug Dosing 13.9 eGFR 11.51 BUN/Creatinine Ratio 17.0 Glucose 404 H* POC Glucose POC Glucose (other) 390 H* Lactate 1.9 Calcium 8.6 POC Ioniz Calcium Pablo 1.07 L Phosphorus Magnesium 2.1 Total Bilirubin 0.2 AST 33 ALT 10 Alkaline Phosphatase 93 Troponin I High Sens 6540.7 H* B-Natriuretic Peptide 1062 H Total Protein 8.1 Albumin 3.7 Globulin 4.4 H Albumin/Globulin Ratio 0.8 L Procalcitonin 0.57 H Urine Color Urine Appearance Urine pH Ur Specific [place] Urine Protein Urine Glucose (UA) Urine Ketones Urine Blood Urine Nitrite Urine Bilirubin Urine Urobilinogen Ur Leukocyte Esterase Urine WBC (Auto) Urine RBC (Auto) U Hyaline Cast (Auto) U Epithel Cells (Auto) Urine Bacteria (Auto) Nasal Influ A H1 2008 PCR DETECTED A Nasal Screen MRSA (PCR) Adenovirus (PCR) Not Detected B. pertussis DNA (PCR) Not Detected B.parapertussis DNA PCR Not Detected C. pneumoniae DNA (PCR) Not Detected Coronavirus OC43 (PCR) Not Detected Coronavirus HKU1 (PCR) Not Detected Coronavirus 229E (PCR) Not Detected SARS-CoV-2 (PCR) Not Detected Coronavirus NL63 (PCR) Not Detected Human Metapneumovir PCR Not Detected Influenza Type B (PCR) Not Detected M. pneumoniae (PCR) Not Detected Parainfluenza 1 (PCR) Not Detected Parainfluenza 2 (PCR) Not Detected Parainfluenza 3 (PCR) Not Detected Parainfluenza 4 (PCR) Not Detected RSV (PCR) Not Detected Entero/Rhino (PCR) Not Detected Blood Type A Positive Antibody Screen NEGATIVE 07/25/24 07/25/24 07/26/24 23:26 23:34 00:15 WBC RBC Hgb POC Hgb Hct POC Hct MCV MCH MCHC RDW Std Deviation RDW Coeff of Ching Plt Count MPV Immature Gran % (Auto) Neut % (Auto) Lymph % (Auto) [place] % (Auto) Eos % (Auto) Baso % (Auto) Neut # (Auto) Lymph # (Auto) [place] # (Auto) Eos # (Auto) Baso # (Auto) Immature Gran # (Auto) Absolute Nucleated RBC Nucleated RBC % (auto) Tear Drop Cells Echinocytes PT INR APTT PTT Ratio Heparin Anti-Xa, Unfract Specimen Type Sample Site POC pH POC pCO2 POC pO2 POC HCO3 POC Base Excess O2 Sat Pulse Oximetry ABG pH (Temp Correct) ABG pCO2 (Temp Corrct POC ABG pO2 at Pt Temp POC ABG O2 Sat Sidney Test VBG pH 7.14 L VBG pCO2 54 H VBG pO2 35 VBG HCO3 18 VBG O2 Saturation < 60.0 VBG Base Excess -10.9 O2 Delivery Device Vent Mode POC FiO2 End Tidal CO2 POC Sodium Sodium 136 POC Potassium Potassium 5.6 H POC Chloride Chloride 104 Carbon Dioxide 18 L POC Total CO2 Anion Gap 14 H POC Anion Gap POC BUN BUN 71 H Creatinine 3.87 H POC Creatinine Est Cr Clr Drug Dosing 14.0 eGFR 11.58 BUN/Creatinine Ratio 18.3 Glucose 381 H* POC Glucose POC Glucose (other) Lactate Calcium 9.1 POC Ioniz Calcium Pablo Phosphorus Magnesium Total Bilirubin AST ALT Alkaline Phosphatase Troponin I High Sens 6961.4 H* B-Natriuretic Peptide Total Protein Albumin Globulin Albumin/Globulin Ratio Procalcitonin Urine Color Yellow Urine Appearance Cloudy A Urine pH 5.0 Ur Specific [place] 1.015 Urine Protein 3+ H Urine Glucose (UA) 3+ H Urine Ketones Negative Urine Blood 2+ H Urine Nitrite Negative Urine Bilirubin Negative Urine Urobilinogen Negative Ur Leukocyte Esterase Negative Urine WBC (Auto) 6-10 H Urine RBC (Auto) 0-2 U Hyaline Cast (Auto) 3-5 H U Epithel Cells (Auto) 3-5 H Urine Bacteria (Auto) None Seen Nasal Influ A H1 2008 PCR Nasal Screen MRSA (PCR) Adenovirus (PCR) B. pertussis DNA (PCR) B.parapertussis DNA PCR C. pneumoniae DNA (PCR) Coronavirus OC43 (PCR) Coronavirus HKU1 (PCR) Coronavirus 229E (PCR) SARS-CoV-2 (PCR) Coronavirus NL63 (PCR) Human Metapneumovir PCR Influenza Type B (PCR) M. pneumoniae (PCR) Parainfluenza 1 (PCR) Parainfluenza 2 (PCR) Parainfluenza 3 (PCR) Parainfluenza 4 (PCR) RSV (PCR) Entero/Rhino (PCR) Blood Type Antibody Screen 07/26/24 07/26/24 07/26/24 01:25 01:26 01:32 WBC RBC Hgb POC Hgb Hct POC Hct MCV MCH MCHC RDW Std Deviation RDW Coeff of Ching Plt Count MPV Immature Gran % (Auto) Neut % (Auto) Lymph % (Auto) [place] % (Auto) Eos % (Auto) Baso % (Auto) Neut # (Auto) Lymph # (Auto) [place] # (Auto) Eos # (Auto) Baso # (Auto) Immature Gran # (Auto) Absolute Nucleated RBC Nucleated RBC % (auto) Tear Drop Cells Echinocytes PT INR APTT PTT Ratio Heparin Anti-Xa, Unfract Specimen Type Sample Site POC pH POC pCO2 POC pO2 POC HCO3 POC Base Excess O2 Sat Pulse Oximetry ABG pH (Temp Correct) ABG pCO2 (Temp Corrct POC ABG pO2 at Pt Temp POC ABG O2 Sat Sidney Test VBG pH VBG pCO2 VBG pO2 VBG HCO3 VBG O2 Saturation VBG Base Excess O2 Delivery Device Vent Mode POC FiO2 End Tidal CO2 POC Sodium Sodium 137 POC Potassium Potassium 5.4 H POC Chloride Chloride 104 Carbon Dioxide 21 POC Total CO2 Anion Gap 12 H POC Anion Gap POC BUN BUN 70 H Creatinine 3.76 H POC Creatinine Est Cr Clr Drug Dosing 14.4 eGFR 11.99 BUN/Creatinine Ratio 18.6 Glucose 384 H* POC Glucose 384 H* POC Glucose (other) Lactate Calcium 8.8 POC Ioniz Calcium Pablo Phosphorus Magnesium Total Bilirubin AST ALT Alkaline Phosphatase Troponin I High Sens 9705.7 H* D B-Natriuretic Peptide Total Protein Albumin Globulin Albumin/Globulin Ratio Procalcitonin Urine Color Urine Appearance Urine pH Ur Specific [place] Urine Protein Urine Glucose (UA) Urine Ketones Urine Blood Urine Nitrite Urine Bilirubin Urine Urobilinogen Ur Leukocyte Esterase Urine WBC (Auto) Urine RBC (Auto) U Hyaline Cast (Auto) U Epithel Cells (Auto) Urine Bacteria (Auto) Nasal Influ A H1 2008 PCR Nasal Screen MRSA (PCR) Positive A Adenovirus (PCR) B. pertussis DNA (PCR) B.parapertussis DNA PCR C. pneumoniae DNA (PCR) Coronavirus OC43 (PCR) Coronavirus HKU1 (PCR) Coronavirus 229E (PCR) SARS-CoV-2 (PCR) Coronavirus NL63 (PCR) Human Metapneumovir PCR Influenza Type B (PCR) M. pneumoniae (PCR) Parainfluenza 1 (PCR) Parainfluenza 2 (PCR) Parainfluenza 3 (PCR) Parainfluenza 4 (PCR) RSV (PCR) Entero/Rhino (PCR) Blood Type Antibody Screen 07/26/24 07/26/24 07/26/24 02:17 03:22 04:17 WBC 12.91 H RBC 3.01 L Hgb 8.0 L POC Hgb 9.5 L Hct 26.4 L POC Hct 28 L MCV 87.7 MCH 26.6 MCHC 30.3 L RDW Std Deviation 49.9 H RDW Coeff of Ching 15.8 H Plt Count 334 MPV 10.7 Immature Gran % (Auto) 0.7 Neut % (Auto) 92.9 Lymph % (Auto) 4.0 [place] % (Auto) 2.2 Eos % (Auto) 0.0 Baso % (Auto) 0.2 Neut # (Auto) 12.00 H Lymph # (Auto) 0.51 L [place] # (Auto) 0.29 Eos # (Auto) 0.00 Baso # (Auto) 0.02 Immature Gran # (Auto) 0.09 Absolute Nucleated RBC 0.02 Nucleated RBC % (auto) 0.2 Tear Drop Cells 1+ Echinocytes 1+ PT 12.6 H INR 1.2 H APTT 68 H PTT Ratio 2.5 Heparin Anti-Xa, Unfract Specimen Type Arterial Sample Site R Radial POC pH 7.38 POC pCO2 34 L POC pO2 318 H POC HCO3 20 POC Base Excess -5.0 O2 Sat Pulse Oximetry 100 ABG pH (Temp Correct) 7.385 ABG pCO2 (Temp Corrct 34 L POC ABG pO2 at Pt Temp 316 POC ABG O2 Sat 100.0 H Sidney Test Pass VBG pH VBG pCO2 VBG pO2 VBG HCO3 VBG O2 Saturation VBG Base Excess O2 Delivery Device Ventilator Vent Mode AC POC FiO2 80 End Tidal CO2 25 POC Sodium 137 Sodium 136 POC Potassium 5.7 H Potassium 4.8 POC Chloride Chloride 103 Carbon Dioxide 21 POC Total CO2 21 L Anion Gap 12 H POC Anion Gap POC BUN BUN 70 H Creatinine 3.76 H POC Creatinine Est Cr Clr Drug Dosing 14.4 eGFR 11.99 BUN/Creatinine Ratio 18.6 Glucose 404 H* POC Glucose 382 H* POC Glucose (other) Lactate Calcium 8.2 L POC Ioniz Calcium Pablo Phosphorus 6.2 H Magnesium 1.9 Total Bilirubin 0.2 AST 35 ALT 9 Alkaline Phosphatase 72 Troponin I High Sens B-Natriuretic Peptide Total Protein 6.7 Albumin 3.1 L Globulin 3.6 Albumin/Globulin Ratio 0.9 Procalcitonin Urine Color Urine Appearance Urine pH Ur Specific [place] Urine Protein Urine Glucose (UA) Urine Ketones Urine Blood Urine Nitrite Urine Bilirubin Urine Urobilinogen Ur Leukocyte Esterase Urine WBC (Auto) Urine RBC (Auto) U Hyaline Cast (Auto) U Epithel Cells (Auto) Urine Bacteria (Auto) Nasal Influ A H1 2008 PCR Nasal Screen MRSA (PCR) Adenovirus (PCR) B. pertussis DNA (PCR) B.parapertussis DNA PCR C. pneumoniae DNA (PCR) Coronavirus OC43 (PCR) Coronavirus HKU1 (PCR) Coronavirus 229E (PCR) SARS-CoV-2 (PCR) Coronavirus NL63 (PCR) Human Metapneumovir PCR Influenza Type B (PCR) M. pneumoniae (PCR) Parainfluenza 1 (PCR) Parainfluenza 2 (PCR) Parainfluenza 3 (PCR) Parainfluenza 4 (PCR) RSV (PCR) Entero/Rhino (PCR) Blood Type Antibody Screen 07/26/24 07/26/24 07/26/24 04:29 05:20 05:57 WBC RBC Hgb POC Hgb Hct POC Hct MCV MCH MCHC RDW Std Deviation RDW Coeff of Ching Plt Count MPV Immature Gran % (Auto) Neut % (Auto) Lymph % (Auto) [place] % (Auto) Eos % (Auto) Baso % (Auto) Neut # (Auto) Lymph # (Auto) [place] # (Auto) Eos # (Auto) Baso # (Auto) Immature Gran # (Auto) Absolute Nucleated RBC Nucleated RBC % (auto) Tear Drop Cells Echinocytes PT INR APTT PTT Ratio Heparin Anti-Xa, Unfract 0.57 Specimen Type Sample Site POC pH POC pCO2 POC pO2 POC HCO3 POC Base Excess O2 Sat Pulse Oximetry ABG pH (Temp Correct) ABG pCO2 (Temp Corrct POC ABG pO2 at Pt Temp POC ABG O2 Sat [place] Test VBG pH VBG pCO2 VBG pO2 VBG HCO3 VBG O2 Saturation VBG Base Excess O2 Delivery Device Vent Mode POC FiO2 End Tidal CO2 POC Sodium Sodium POC Potassium Potassium POC Chloride Chloride Carbon Dioxide POC Total CO2 Anion Gap POC Anion Gap POC BUN BUN Creatinine POC Creatinine Est Cr Clr Drug Dosing eGFR BUN/Creatinine Ratio Glucose POC Glucose 380 H* 373 H* POC Glucose (other) Lactate Calcium POC Ioniz Calcium Pablo Phosphorus Magnesium Total Bilirubin AST ALT Alkaline Phosphatase Troponin I High Sens B-Natriuretic Peptide Total Protein Albumin Globulin Albumin/Globulin Ratio Procalcitonin Urine Color Urine Appearance Urine pH Ur Specific [place] Urine Protein Urine Glucose (UA) Urine Ketones Urine Blood Urine Nitrite Urine Bilirubin Urine Urobilinogen Ur Leukocyte Esterase Urine WBC (Auto) Urine RBC (Auto) U Hyaline Cast (Auto) U Epithel Cells (Auto) Urine Bacteria (Auto) Nasal Influ A H1 2008 PCR Nasal Screen MRSA (PCR) Adenovirus (PCR) B. pertussis DNA (PCR) B.parapertussis DNA PCR C. pneumoniae DNA (PCR) Coronavirus OC43 (PCR) Coronavirus HKU1 (PCR) Coronavirus 229E (PCR) SARS-CoV-2 (PCR) Coronavirus NL63 (PCR) Human Metapneumovir PCR Influenza Type B (PCR) M. pneumoniae (PCR) Parainfluenza 1 (PCR) Parainfluenza 2 (PCR) Parainfluenza 3 (PCR) Parainfluenza 4 (PCR) RSV (PCR) Entero/Rhino (PCR) Blood Type Antibody Screen 07/26/24 07/26/24 07/26/24 06:18 07:18 07:51 WBC RBC Hgb POC Hgb Hct POC Hct MCV MCH MCHC RDW Std Deviation RDW Coeff of Ching Plt Count MPV Immature Gran % (Auto) Neut % (Auto) Lymph % (Auto) [place] % (Auto) Eos % (Auto) Baso % (Auto) Neut # (Auto) Lymph # (Auto) [place] # (Auto) Eos # (Auto) Baso # (Auto) Immature Gran # (Auto) Absolute Nucleated RBC Nucleated RBC % (auto) Tear Drop Cells Echinocytes PT INR APTT PTT Ratio Heparin Anti-Xa, Unfract Specimen Type Sample Site POC pH POC pCO2 POC pO2 POC HCO3 POC Base Excess O2 Sat Pulse Oximetry ABG pH (Temp Correct) ABG pCO2 (Temp Corrct POC ABG pO2 at Pt Temp POC ABG O2 Sat [place] Test VBG pH VBG pCO2 VBG pO2 VBG HCO3 VBG O2 Saturation VBG Base Excess O2 Delivery Device Vent Mode POC FiO2 End Tidal CO2 POC Sodium Sodium POC Potassium Potassium POC Chloride Chloride Carbon Dioxide POC Total CO2 Anion Gap POC Anion Gap POC BUN BUN Creatinine POC Creatinine Est Cr Clr Drug Dosing eGFR BUN/Creatinine Ratio Glucose POC Glucose 337 H* 292 H POC Glucose (other) Lactate Calcium POC Ioniz Calcium Pablo Phosphorus Magnesium Total Bilirubin AST ALT Alkaline Phosphatase Troponin I High Sens 44755.5 H* D B-Natriuretic Peptide Total Protein Albumin Globulin Albumin/Globulin Ratio Procalcitonin Urine Color Urine Appearance Urine pH Ur Specific [place] Urine Protein Urine Glucose (UA) Urine Ketones Urine Blood Urine Nitrite Urine Bilirubin Urine Urobilinogen Ur Leukocyte Esterase Urine WBC (Auto) Urine RBC (Auto) U Hyaline Cast (Auto) U Epithel Cells (Auto) Urine Bacteria (Auto) Nasal Influ A H1 2008 PCR Nasal Screen MRSA (PCR) Adenovirus (PCR) B. pertussis DNA (PCR) B.parapertussis DNA PCR C. pneumoniae DNA (PCR) Coronavirus OC43 (PCR) Coronavirus HKU1 (PCR) Coronavirus 229E (PCR) SARS-CoV-2 (PCR) Coronavirus NL63 (PCR) Human Metapneumovir PCR Influenza Type B (PCR) M. pneumoniae (PCR) Parainfluenza 1 (PCR) Parainfluenza 2 (PCR) Parainfluenza 3 (PCR) Parainfluenza 4 (PCR) RSV (PCR) Entero/Rhino (PCR) Blood Type Antibody Screen 07/26/24 08:25 WBC RBC Hgb POC Hgb Hct POC Hct MCV MCH MCHC RDW Std Deviation RDW Coeff of Ching Plt Count MPV Immature Gran % (Auto) Neut % (Auto) Lymph % (Auto) [place] % (Auto) Eos % (Auto) Baso % (Auto) Neut # (Auto) Lymph # (Auto) [place] # (Auto) Eos # (Auto) Baso # (Auto) Immature Gran # (Auto) Absolute Nucleated RBC Nucleated RBC % (auto) Tear Drop Cells Echinocytes PT INR APTT PTT Ratio Heparin Anti-Xa, Unfract Specimen Type Sample Site POC pH POC pCO2 POC pO2 POC HCO3 POC Base Excess O2 Sat Pulse Oximetry ABG pH (Temp Correct) ABG pCO2 (Temp Corrct POC ABG pO2 at Pt Temp POC ABG O2 Sat [place] Test VBG pH VBG pCO2 VBG pO2 VBG HCO3 VBG O2 Saturation VBG Base Excess O2 Delivery Device Vent Mode POC FiO2 End Tidal CO2 POC Sodium Sodium POC Potassium Potassium POC Chloride Chloride Carbon Dioxide POC Total CO2 Anion Gap POC Anion Gap POC BUN BUN Creatinine POC Creatinine Est Cr Clr Drug Dosing eGFR BUN/Creatinine Ratio Glucose POC Glucose 300 H POC Glucose (other) Lactate Calcium POC Ioniz Calcium Pablo Phosphorus Magnesium Total Bilirubin AST ALT Alkaline Phosphatase Troponin I High Sens B-Natriuretic Peptide Total Protein Albumin Globulin Albumin/Globulin Ratio Procalcitonin Urine Color Urine Appearance Urine pH Ur Specific [place] Urine Protein Urine Glucose (UA) Urine Ketones Urine Blood Urine Nitrite Urine Bilirubin Urine Urobilinogen Ur Leukocyte Esterase Urine WBC (Auto) Urine RBC (Auto) U Hyaline Cast (Auto) U Epithel Cells (Auto) Urine Bacteria (Auto) Nasal Influ A H1 2009 PCR Nasal Screen MRSA (PCR) Adenovirus (PCR) B. pertussis DNA (PCR) B.parapertussis DNA PCR C. pneumoniae DNA (PCR) Coronavirus OC43 (PCR) Coronavirus HKU1 (PCR) Coronavirus 229E (PCR) SARS-CoV-2 (PCR) Coronavirus NL63 (PCR) Human Metapneumovir PCR Influenza Type B (PCR) M. pneumoniae (PCR) Parainfluenza 1 (PCR) Parainfluenza 2 (PCR) Parainfluenza 3 (PCR) Parainfluenza 4 (PCR) RSV (PCR) Entero/Rhino (PCR) Blood Type Antibody Screen Diagnostic Findings Cardiac catheterization (10/2017): Lad to 50% distal, moderate caliber ramus with 60-70% ostial, codominant circumflex gives off large OM 2 with 60-70% distal stenosis; RCA dominant focal 99% mid segment stenosis, small PDA with some [id number]-[id number] collaterals noted PCI to mid RCA with single drug-eluting stent (2.25 x 15 bong) PG Care Time/CCT Total # of Minutes Spent Total Time Spent with Patient: Total time spent is greater than 50% in coordination of care (as documented) at patient's floor/unit and/or counseling patient: Coding Level of Care Code 20357 INT INP/OBS CARE 3/75MIN Diagnoses Acute CHF (congestive heart failure) I50.9 NSTEMI (non-ST elevated myocardial infarction) I21.4 CAD (coronary artery disease) I25.10 HTN (hypertension) I10
--- NOTE | 2024-07-26 09:00 | XCELERA ---
[id number] \\[email or web address]\[id number]
[2024-07-26] MEDS: OSELTAMIVIR PHOSPHATE SUSP 30 MG/5 ML UDP PO SCH (09:28)
[2024-07-26] MEDS: ASPIRIN 81 MG CHEW NG SCH (09:30)
[2024-07-26] MEDS ORDERED: ROCURONIUM BROMIDE 10 MG/ML 5 ML VIAL IV ONE (09:34)
[2024-07-26] MEDS ORDERED: ETOMIDATE 2 MG/ML 20 ML VIAL IV ONE (09:34)
--- NOTE | 2024-07-26 09:44 | Electrocardiogram Report ---
Test Reason : Blood Pressure : */* mmHG Vent. Rate : 88 BPM Atrial Rate : 88 BPM P-R Int : 180 ms QRS Dur : 84 ms QT Int : 356 ms P-R-T Axes : 25 57 210 degrees QTcB Int : 430 ms Normal sinus rhythm Abnormal ECG When compared with ECG of 25-Jul-2024 21:13, FL interval has decreased ST no longer depressed in Inferior leads ST no longer depressed in Anterior leads Confirmed by Luke Ch ([id number]) on 07/26/2024 9:44:01 AM Referred By: REFERRED SELF Confirmed By: Luke Ch
--- NOTE | 2024-07-26 09:44 | Electrocardiogram Report ---
Test Reason : Blood Pressure : */* mmHG Vent. Rate : 85 BPM Atrial Rate : 85 BPM P-R Int : 206 ms QRS Dur : 84 ms QT Int : 360 ms P-R-T Axes : 9 56 225 degrees QTcB Int : 428 ms Normal sinus rhythm Abnormal ECG When compared with ECG of 26-Jul-2024 03:08, (unconfirmed) No significant change was found Confirmed by Luke Ch ([id number]) on 07/26/2024 9:44:06 AM Referred By: REFERRED SELF Confirmed By: Luke Ch
--- NOTE | 2024-07-26 09:53 | Hospitalist Progress Note ---
Date of Service July 26, 2024 Assessment & Plan (1) Respiratory failure requiring intubation: Plan: -2nd to CHF exacerbation/NSTEMI/Influenza + -intubated, sedated -critical care following -Troponin >10,000 -heparin drip -lasix 60mg Q12hrs -nitro drip -on zosyn/linezolid for MRSA + -solu-medrol q8hrs -duonebs -cardiology consulted (2) Respiratory failure with hypoxia and hypercapnia: Plan: -on zosyn/linezolid for MRSA + -solu-medrol q8hrs -duonebs (3) Non-ST elevation MS (NSTEMI): Plan: -heparin drip -nitro drip -cardiology consulted (4) ELLA (acute kidney injury): Plan: -cr 3.87=>3.76 -s/p bicarb drip (5) Influenza A virus subtype H1 2009 pandemic strain not detected: Plan: -on tamiflu (6) Acute CHF (congestive heart failure): Plan: -lasix 60mg IV Q12hrs -echo -cardiology consulted (7) Hyperkalemia: Plan: -K+ 5.8 (8) Hyperglycemia due to type 2 diabetes mellitus: Plan: -Hyperglycemic ICU protocol Plan The patient is a 74-year-old female with a past medical history including diabetes mellitus, hypothyroidism, CAD, hyperlipidemia, hypertension and GERD.The patient presents to the emergency department with extreme shortness of breath, that has been noted to develop over the past few days, and worsening considerably the day of arrival. Family notes that she had improved a little bit in the afternoon, then worsened significantly and evening again. Upon arrival from EMS, patient reportedly was 60% on room air, and confused. They initiated CPAP in the outpatient setting, was given nitroglycerin for significant hypertension. Patient's mentation reportedly had improved somewhat by time arrival to the ED, but she was still very lethargic and not very interactive. Patient was continued on CPAP while in the ED, and workup continued noting that chest x-ray showed moderately severe CHF, bio fire was positive for influenza A H1 2009 pandemic strain, troponin was significantly elevated at 6540.7, and EKG showed inferior lateral ST-T changes. Glucose was 404, potassium was 6.1, creatinine was 3.89. From the ED patient received the following: DuoNeb, furosemide 40 mg IV, calcium gluconate 1 g IV, Zosyn 4.5 g IV, send bicarbonate 50 mill equivalent IV push, regular insulin 5 units IV, and nitroglycerin sublingual. [facility] hospitalist service was consulted to admit patient to the ICU, and in ICU system support technician team was consulted while in the ED. Acute respiratory failure with hypoxia requiring intubation/CHF exacerbation/NSTEMI- Patient mid to intensive care unit, arterial blood gas with pH in the low sevens Due to declining status, patient did require intubation if transferred to the ICU The patient will be admitted to ICU for serial cardiac enzymes, serial EKG's, cardiac rhythm monitoring and a 2-D echocardiogram with Dopplers. Initial troponin 6540.7 with follow-up pending EKG with inferolateral ST depressions and T wave inversions Initial dose of furosemide 40 mg IV in ED, will continue at 60 mg IV every 12 hours Nitroglycerin drip as noted per protocol Protonix 40 mg IV twice daily Heparin drip IV per protocol Initial methylprednisolone dose 125 mg IV, followed by 40 mg IV every 8 hours Linezolid 60 mg IV every 12 hours Zosyn 4.5 g IV every 8 hours Acetaminophen 1 g IV every 8 hours as needed for mild pain or fever DuoNebs every 2 hours as needed Consult system support technician Consult fireworks maker Severe acidosis- Fluid resuscitation as noted Bicarbonate drip: Start bicarbonate 150 mEq at 100 mL/h Serial ABG along with CBC with differential, chemistry profile and magnesium level Acute renal failure Creatinine 3.89, and potassium 6.1 Calcium gluconate IV for protocol given Aggressive IV fluid rehydration Follow serial CBC with differential, chemistry profile, magnesium levels Influenza A H1 1999 nonpandemic strain- Tamiflu initially given orally/NG tube Chronic medical issues: GERD-pantoprazole 40 mg IV twice daily Hypothyroidism-resume levothyroxine when able Diabetes mellitus-hyperglycemic ICU protocol. Holding metformin Hyperlipidemia-resume atorvastatin when appropriate Admission and Anticipated Discharge Date Admission Date: July 25, 2024 Subjective Pt intubated, and sedated. Review of Systems Review of Systems: Intubated, sedated Physical Exam Physical Exam: GENERAL APPEARANCE Intubated,sedated EYES lids/conjunctiva normal. EARS/NOSE/THROAT Mucous membranes moist, nares normal, lips/teeth normal uvula midline without oral pharyngeal erythema, exudate or swelling TMs normal bilaterally. No lymphangitis/lymphedema. HEAD/NECK normocephalic atraumatic, no facial trauma, neck is supple. RESPIRATORY b/l rales CARDIAC Regular rate and rhythm, no edema. ABDOMINAL Soft, ND/NT. No evidence of fluid wave. No pulsatile masses on exam, rebound tenderness, Bernstein sign or pain over Mcburney's point. MUSCLES/EXTREMITIES No abnormal range of motion, no swelling. SKIN Warm, pink and dry. No rashes, dermatoses, petechiae or lesions. NEUROLOGICAL Sedated PSYCH NA Results & Data Results & Data Vital Signs (Past 12 Hours) Vital Signs Temp Pulse Pulse Resp BP Pulse Ox Pulse Ox 07/26/24 09:06 37.7 C H 77 18 100 07/26/24 08:45 99/51 L 07/26/24 08:34 104/52 L 07/26/24 08:12 37.6 C H 77 18 100 07/26/24 08:07 85/37 L 07/26/24 08:00 07/26/24 08:00 79 07/26/24 07:56 07/26/24 07:31 98/60 L 07/26/24 07:25 89 18 99 07/26/24 07:24 37.6 C H 80 18 97 07/26/24 07:00 37.6 C H 81 18 96 07/26/24 07:00 106/53 L 07/26/24 05:00 108/53 L 07/26/24 04:54 37.3 C 88 18 96 07/26/24 04:33 37.2 C 88 18 99 07/26/24 04:30 101/50 L 07/26/24 04:30 101/50 L 07/26/24 04:24 37.2 C 88 18 98 07/26/24 04:09 37.1 C 86 19 97 07/26/24 04:03 83 18 99 07/26/24 04:00 100/64 07/26/24 04:00 100/64 07/26/24 04:00 100/64 07/26/24 04:00 07/26/24 03:57 37.0 C 86 24 100 07/26/24 03:54 07/26/24 03:45 105/59 L 07/26/24 03:45 37.0 C 86 24 100 07/26/24 03:39 37.0 C 85 24 100 07/26/24 03:31 100/56 L 07/26/24 03:31 100/56 L 07/26/24 03:15 121/63 07/26/24 03:15 121/63 07/26/24 03:09 36.9 C 86 24 100 07/26/24 03:03 36.9 C 92 H 24 100 07/26/24 03:01 116/69 07/26/24 03:01 116/69 07/26/24 03:01 116/69 07/26/24 02:31 156/79 H 07/26/24 02:31 156/79 H 07/26/24 02:24 36.7 C 106 H 24 99 07/26/24 02:16 237/141 H 07/26/24 02:03 36.6 C 91 H 24 100 07/26/24 02:01 169/98 H 07/26/24 02:01 169/98 H 07/26/24 01:57 36.6 C 111 H 24 100 07/26/24 01:45 141/87 H 07/26/24 01:45 36.5 C 97 H 22 100 07/26/24 01:31 179/109 H 07/26/24 01:30 36.4 C L 107 H 24 100 07/26/24 01:16 136/83 07/26/24 01:16 136/83 07/26/24 01:15 36.4 C L 114 H 24 94 07/26/24 01:12 115 H 24 97 07/26/24 01:07 84/60 L 07/26/24 01:07 84/60 L 07/26/24 01:03 109 H 24 98 07/26/24 01:02 99 07/26/24 00:51 176/97 H 07/26/24 00:51 176/97 H 07/26/24 00:36 108 H 22 100 07/26/24 00:15 109 H 15 159/95 H 97 07/25/24 23:45 36.4 C L 07/25/24 23:39 105 H 26 H 186/104 H 96 07/25/24 23:33 107 H 24 164/103 H 98 07/25/24 23:02 36.4 C L 07/25/24 23:00 107 H 20 179/106 H 98 07/25/24 22:06 35 C L 07/25/24 22:00 104 H 26 H 160/113 H 98 07/25/24 21:50 100 H 25 H 95 07/25/24 21:41 100 H 28 H 95 07/25/24 21:39 96 O2 Del Method O2 Del Method O2 Flow Rate FiO2 07/26/24 09:06 07/26/24 08:45 07/26/24 08:34 07/26/24 08:12 07/26/24 08:07 07/26/24 08:00 40 07/26/24 08:00 07/26/24 07:56 Mechanical Vent 07/26/24 07:31 07/26/24 07:25 40 07/26/24 07:24 07/26/24 07:00 07/26/24 07:00 07/26/24 05:00 07/26/24 04:54 07/26/24 04:33 07/26/24 04:30 07/26/24 04:30 07/26/24 04:24 07/26/24 04:09 07/26/24 04:03 40 07/26/24 04:00 07/26/24 04:00 07/26/24 04:00 07/26/24 04:00 40 07/26/24 03:57 07/26/24 03:54 Mechanical Vent 40 07/26/24 03:45 07/26/24 03:45 07/26/24 03:39 07/26/24 03:31 07/26/24 03:31 07/26/24 03:15 07/26/24 03:15 07/26/24 03:09 07/26/24 03:03 07/26/24 03:01 07/26/24 03:01 07/26/24 03:01 07/26/24 02:31 07/26/24 02:31 07/26/24 02:24 07/26/24 02:16 07/26/24 02:03 07/26/24 02:01 07/26/24 02:01 07/26/24 01:57 07/26/24 01:45 07/26/24 01:45 07/26/24 01:31 07/26/24 01:30 07/26/24 01:16 07/26/24 01:16 07/26/24 01:15 07/26/24 01:12 07/26/24 01:07 07/26/24 01:07 07/26/24 01:03 80 07/26/24 01:02 Mechanical Vent 07/26/24 00:51 07/26/24 00:51 07/26/24 00:36 07/26/24 00:15 CPAP 07/25/24 23:45 07/25/24 23:39 CPAP 07/25/24 23:33 CPAP 07/25/24 23:02 07/25/24 23:00 CPAP 07/25/24 22:06 07/25/24 22:00 CPAP 07/25/24 21:50 BiPAP 40 07/25/24 21:41 CPAP 07/25/24 21:39 CPAP PG Care Time/CCT Total # of Minutes Spent Total Time Spent with Patient: Total time spent is greater than 50% in coordination of care (as documented) at patient's floor/unit and/or counseling patient: Coding Level of Care Code 70505 SUB INP/OBS CARE 235MIN Diagnoses Respiratory failure requiring intubation J96.90 Respiratory failure with hypoxia and hypercapnia J96.91; J96.92 Non-ST elevation MS (NSTEMI) I21.4 ELLA (acute kidney injury) N17.9 Influenza A virus subtype H1 2009 pandemic strain not detected Z01.89 Acute CHF (congestive heart failure) I50.9 Hyperkalemia E87.5 Hyperglycemia due to type 2 diabetes mellitus E11.65
--- NOTE | 2024-07-26 10:24 | Critical Care Progress Note ---
Date of Service July 26, 2024 Assessment & Plan (1) Respiratory failure with hypoxia and hypercapnia: (2) Respiratory failure requiring intubation: (3) Influenza A: (4) Acute CHF (congestive heart failure): (5) Hyperglycemia: (6) Hyperkalemia: (7) ELLA (acute kidney injury): (8) Non-ST elevation TN (NSTEMI): (9) Hypothyroidism: (10) CAD (coronary artery disease): (11) HTN (hypertension): (12) HLD (hyperlipidemia): Plan Reason Critically Ill: Hypercarbic/hypoxic respiratory failure in setting of influenza illness and NSTEMI Neuro - Sedated for mechanical ventilation CAM ICU: TAY - Patient sedated with Fentanyl at this time for goal RASS -2, add Propofol if needed - Wean sedation when appropriate from a hemodynamic and pulmonary standpoint Cardiac - NSTEMI, Acute on chronic heart failure, HTN -Possibly an element of mild CHF. More likely viral pneumonia with superimposed bacterial pneumonia. Will discontinue diuresis. Echo findings noted with "low normal EF. Right ventricular systolic function is reduced. Troponin is climbing. Appreciate cardiology input. Continue heparin. Will start the patient on atorvastatin. Respiratory - Hypercarbic/hypoxic respiratory failure requiring intubation and mechanical ventilation, pleural effusions - Patient with poorly responsive respiratory acidosis to BiPAP- intubated and mechanically ventilated - ARDSnet protocol - Influenza- continue Tamiflu - Can't exclude bacterial pneumonia at this time as well- continue Zosyn/Zyvox- sputum yellow thick sent for gram stain and culture - DOMINGO nebs, Pulmicort BID nebs. Discontinue methylprednisone. -Consider bronchoscopy once stabilized from a coronary ischemia perspective. GI - No acute needs - OGT to LIWS- NPO at this time - initiate early feeds if hemodynamics stable RENAL/LYTES - ARF on CKD, hyperkalemia, mixed respiratory/metabolic acidosis - Likely ARF secondary to sepsis and cardiac failure- diurese to obtain goal of at least -750-1000 ml would be goal - Baseline INTERFACE DESIGNER is 1.1-1.2 in 2020-currently with a ELLA. -Hyperkalemia resolved. -Acidosis resolving. Suspect an element of lactic acidosis and DKA. - No current needs - Trinidad catheter while intubated and sedated ENDO - DM - ICU hyperglycemic protocol- initiate insulin infusion for goal BG 180mg/DL. Likely mild DKA on admission. HEME - No acute needs ID - Influenza A, Sepsis - Sputum for gram stain and culture - Blood Cultures pending - Urine negative - Continue Zosyan and Zyvox for possible pulmonary component - Tamiflu for influenza- if does not improve can consider high dose Tamiflu LINES/IV ACCESS - PIV x3, ETT, OGT, Trin[place] to gravity Continue use of these lines - Verbal consent from daughter and patient's (over phone) obtained for arterial line and CVL if needed DVT PROPHYLAXIS - SCDS, Heparin infusion DISPO: ICU while intubated and sedated I have personally spent 42 minutes of critical care time in the direct management of this patient. This is a life/limb threatening event. This includes time spent evaluating patient, direct bedside care, chart review, placing orders, interpretation of diagnostic studies, discussion with consultants, patient, and family members, as well as other required patient management activities. This time is exclusive of all separately billable procedures, and separate from and in addition to any other critical care service time. Thank you for allowing us to participate in the care of this patient. Please refer to my attending physician's documentation for any further recommendations. Admission and Anticipated Discharge Date Admission Date: July 25, 2024 Subjective Patient currently intubated and sedated. Responds to simple questions with head nodding and hand motions. Currently on minimal ventilator settings. No hemodynamic issues at present. Remains febrile. Review of Systems Review of Systems: Unobtainable due to endotracheal tube Physical Exam Physical Exam: PHYSICAL EXAM: General: awake, alert, fatigued appearing Head: Normocephalic, atraumatic ENT: PERRLA, EOMI, ET tube in place. Neuro: No focal signs at this time. Difficult to completely assess due to intubation status. Chest: equal rise and fall of the chest, accessory muscle use, inspiratory and expiratory wheeze with coarse rhonchi throughout Cardiac: Regular rate and rhythm, telemetry reviewed- NSR, skin warm dry, cap refill <3 seconds, peripheral pulses +2 no JVD, no murmur, +2 lower extremity edema GI: NABS x 4 quadrants, softly obese, nontender to palpation, no rebound, guarding or tenderness : trinidad to gravity draining dilute yellow urine Skin: excoriations and yeasty odor under bilateral breasts Results & Data Results & Data Vital Signs (Past 12 Hours) Vital Signs Temp Pulse Resp BP Pulse Ox Pulse Ox O2 Del Method 07/26/24 09:06 37.7 C H 77 18 100 07/26/24 08:45 99/51 L 07/26/24 08:34 104/52 L 07/26/24 08:12 37.6 C H 77 18 100 07/26/24 08:07 85/37 L 07/26/24 08:00 07/26/24 08:00 79 07/26/24 07:56 Mechanical Vent 07/26/24 07:31 98/60 L 07/26/24 07:25 89 18 99 07/26/24 07:24 37.6 C H 80 18 97 07/26/24 07:00 37.6 C H 81 18 96 07/26/24 07:00 106/53 L 07/26/24 05:00 108/53 L 07/26/24 04:54 37.3 C 88 18 96 07/26/24 04:33 37.2 C 88 18 99 07/26/24 04:30 101/50 L 07/26/24 04:30 101/50 L 07/26/24 04:24 37.2 C 88 18 98 07/26/24 04:09 37.1 C 86 19 97 07/26/24 04:03 83 18 99 07/26/24 04:00 100/64 07/26/24 04:00 100/64 07/26/24 04:00 100/64 07/26/24 04:00 07/26/24 03:57 37.0 C 86 24 100 07/26/24 03:54 Mechanical Vent 07/26/24 03:45 105/59 L 07/26/24 03:45 37.0 C 86 24 100 07/26/24 03:39 37.0 C 85 24 100 07/26/24 03:31 100/56 L 07/26/24 03:31 100/56 L 07/26/24 03:15 121/63 07/26/24 03:15 121/63 07/26/24 03:09 36.9 C 86 24 100 07/26/24 03:03 36.9 C 92 H 24 100 07/26/24 03:01 116/69 07/26/24 03:01 116/69 07/26/24 03:01 116/69 07/26/24 02:31 156/79 H 07/26/24 02:31 156/79 H 07/26/24 02:24 36.7 C 106 H 24 99 07/26/24 02:16 237/141 H 07/26/24 02:03 36.6 C 91 H 24 100 07/26/24 02:01 169/98 H 07/26/24 02:01 169/98 H 07/26/24 01:57 36.6 C 111 H 24 100 07/26/24 01:45 141/87 H 07/26/24 01:45 36.5 C 97 H 22 100 07/26/24 01:31 179/109 H 07/26/24 01:30 36.4 C L 107 H 24 100 07/26/24 01:16 136/83 07/26/24 01:16 136/83 07/26/24 01:15 36.4 C L 114 H 24 94 07/26/24 01:12 115 H 24 97 07/26/24 01:07 84/60 L 07/26/24 01:07 84/60 L 07/26/24 01:03 109 H 24 98 07/26/24 01:02 99 07/26/24 00:51 176/97 H 07/26/24 00:51 176/97 H 07/26/24 00:36 108 H 22 100 07/26/24 00:15 109 H 15 159/95 H 97 CPAP 07/25/24 23:45 36.4 C L 07/25/24 23:39 105 H 26 H 186/104 H 96 CPAP 07/25/24 23:33 107 H 24 164/103 H 98 CPAP 07/25/24 23:02 36.4 C L 07/25/24 23:00 107 H 20 179/106 H 98 CPAP O2 Del Method FiO2 07/26/24 09:06 07/26/24 08:45 07/26/24 08:34 07/26/24 08:12 07/26/24 08:07 07/26/24 08:00 40 07/26/24 08:00 07/26/24 07:56 07/26/24 07:31 07/26/24 07:25 40 07/26/24 07:24 07/26/24 07:00 07/26/24 07:00 07/26/24 05:00 07/26/24 04:54 07/26/24 04:33 07/26/24 04:30 07/26/24 04:30 07/26/24 04:24 07/26/24 04:09 07/26/24 04:03 40 07/26/24 04:00 07/26/24 04:00 07/26/24 04:00 07/26/24 04:00 40 07/26/24 03:57 07/26/24 03:54 40 07/26/24 03:45 07/26/24 03:45 07/26/24 03:39 07/26/24 03:31 07/26/24 03:31 07/26/24 03:15 07/26/24 03:15 07/26/24 03:09 07/26/24 03:03 07/26/24 03:01 07/26/24 03:01 07/26/24 03:01 07/26/24 02:31 07/26/24 02:31 07/26/24 02:24 07/26/24 02:16 07/26/24 02:03 07/26/24 02:01 07/26/24 02:01 07/26/24 01:57 07/26/24 01:45 07/26/24 01:45 07/26/24 01:31 07/26/24 01:30 07/26/24 01:16 07/26/24 01:16 07/26/24 01:15 07/26/24 01:12 07/26/24 01:07 07/26/24 01:07 07/26/24 01:03 80 07/26/24 01:02 Mechanical Vent 07/26/24 00:51 07/26/24 00:51 07/26/24 00:36 07/26/24 00:15 07/25/24 23:45 07/25/24 23:39 07/25/24 23:33 07/25/24 23:02 07/25/24 23:00 Coding Level of Care Code 80579 CRITICAL CARE 1ST 30-74M Diagnoses Respiratory failure with hypoxia and hypercapnia J96.91; J96.92 Respiratory failure requiring intubation J96.90 Influenza A J10.1 Acute CHF (congestive heart failure) I50.9 Hyperglycemia R73.9 Hyperkalemia E87.5 ELLA (acute kidney injury) N17.9 Non-ST elevation TN (NSTEMI) I21.4 Hypothyroidism E03.9 CAD (coronary artery disease) I25.10 HTN (hypertension) I10 HLD (hyperlipidemia) E78.5
[2024-07-26] MEDS: ACETAMINOPHEN 325 MG TAB PO PRN (10:53)
[2024-07-26] MEDS: ATORVASTATIN 40 MG TAB PO SCH (10:53)
[2024-07-26] MEDS: NOREPINEPHRINE/D5W 4 MG/250 ML PLCT IV SCH (11:45)
[2024-07-26] MEDS: NOREPINEPHRINE/D5W 4 MG/250 ML IV ONE (12:25)
[2024-07-26 12:59] LABS: ANTI-Xa, UFH(UnfractionatedHep 0.44 IU/ml (0.3-0.7)
[2024-07-26 13:41] LABS: BUN Creatinine Ratio 17.7 (10-20); Calcium 8.4 mg/dl (8.6-10.3); Creatinine Clr Calc Pharmacy 12.9 ml/min; Magnesium 1.9 mg/dl (1.7-2.4); Potassium 4.9 mmol/L (3.5-5.1)
--- NOTE | 2024-07-26 13:56 | Procedure Note ---
Procedure Note Date of Service July 26, 2024 INTERNAL JUGULAR CENTRAL LINE PROCEDURE NOTE: Procedure: Internal Jugular Central Line Placement Indication: Central Drug Administration, Poor Venous Access, Multiple Lab Draws Necessary, etc. Anesthesia: Propofol and fentanyl/10 mL lidocaine 1% Consent was signed by her and placed on the chart prior to procedure. Indication, risks, and benefits were explained at length. Timeout performed immediately prior to the procedure. A time-out was completed verifying correct patient, procedure, site, positioning, and implants(s) or special equipment if applicable. Patients right neck was cleansed and draped in the typical sterile fashion using Chloraprep. The Internal Jugular Vein and Carotid Artery were identified using ultrasound. The superficial tissue was anesthetized using 10 mL of 1% lidocaine without epinephrine under direct visualization with the ultrasound. After adequate anesthetization was achieved, the Internal Jugular vein was cannulated under direct ultrasound guidance using an introducer needle on a syringe. Good venous blood return was maintained prior to removal of syringe from introducer needle. Using Seldinger Technique, a guide wire was advanced through the introducer needle without resistance. The introducer needle was removed and ultrasound images were obtained of the guide wire within the Internal Jugular Vein and saved to the patients medical record. A small incision was made in penetrating fashion at the guide wire insertion site utilizing an 11 blade scalpel. The dilator was advanced to the vessel without resistance. The dilator was exchanged for the triple lumen catheter which was advanced into the vessel without resistance. The guide wire was removed intact from the catheter without issue. Claves were placed on each catheter tip with confirmation of good blood flow from each lumen. Each port was easily flushed with sterile saline. The catheter was placed at 16 cm and sutured in place. Sterile dressing placed over the insertion site. Patient tolerated procedure well. No immediate complications were met. Postprocedure chest x-ray pending. Images obtained are saved for permanent record. [facility] [place] Procedure Codes (Charges) Tubes, Drains, and Vasc Access Procedure 1: Tubes, Drains, and Vasc Access: [id number] Ultrasound Guidance For Vascular Procedure 2: Tubes, Drains, and Vasc Access: [id number] Place catheter in vein superior or inferior vena cava Coding CPT Codes Tubes, Drains, and Vasc Access - Tubes, Drains, and Vasc Access: [id number] Ultrasound Guidance For Vascular ([id number]) Tubes, Drains, and Vasc Access - Tubes, Drains, and Vasc Access: [id number] Place catheter in vein superior or inferior vena cava ([id number]) Additional Codes Date of Service ([facility].SURGERY)
--- NOTE | 2024-07-26 14:10 | XRay Report ---
EXAM: Radiograph of the Chest 1 View INDICATION: Line placement. TECHNIQUE: Frontal view of the chest. COMPARISON: Image 7:15 AM the same day. FINDINGS: Lungs and pleural spaces: Bilateral vascular congestion and pulmonary infiltrates relatively sparing the left upper lobe and most confluent in the left base are stable. Stable small bilateral pleural effusions. No pneumothorax. Heart: Stable prominent cardiac shadow. Mediastinum: Normal contour. Bones/joints: No fracture, erosion or dislocation. Soft tissues: No abnormality noted. No radiopaque foreign body noted. Tubes, lines and devices: The endotracheal tube terminates 2.4 cm above the michel. Right internal jugular central venous catheter tip in the distal superior vena cava. Nasogastric tube below the diaphragm. The tip is not included in the image field. Upper abdomen: No abnormality noted. IMPRESSION: 1. Stable CHF and/or pneumonia. 2. Lines and tubes as above. ACT 112: Negative or not required by law. Electronically signed by Neetu Rangel 07-26-2024 2:10 PM
--- NOTE | 2024-07-26 14:15 | Procedure Note ---
Procedure Note Date of Service July 26, 2024 PREOPERATIVE DIAGNOSIS: Viral and bacterial pneumonia POSTOPERATIVE DIAGNOSIS: Viral and bacterial pneumonia PROCEDURE PERFORMED: Flexible fiberoptic bronchoscopy with bronchial washings from the right lower lobe COMPLICATIONS: None. INDICATION: Evaluate for bacterial pneumonia PROCEDURE: Informed consent was obtained from the patient's as the patient is currently intubated and sedated. Risk and benefits discussed in detail. Timeout performed prior to the procedure. Patient was on continuous fentanyl and propofol during the time of the procedure. Patient was ventilated on a 100% FiO2. Bronchoscope was inserted via the endotracheal tube adapter. Endotracheal tube appeared approximately 3 cm above the michel. Michel was sharp. Mucosa appeared hyperemic and edematous in the bilateral tracheobronchial tree. Thick yellow mucopurulent secretions were noted emanating from the right lower lobe. Approximately 40 mL was instilled into the right lower lobe and approximately 30 mL of thick yellow purulent fluid was aspirated back. No bleeding was encountered. No endobronchial lesion seen in the bilateral tracheobronchial tree. Saline was used to flush secretions from the right upper lobe, right lower lobe, left upper lobe the left lower lobe. Bronchoscope was then removed. Recommendations: Follow cultures and cytology from right lower lobe bronchial fluid. [facility] [place] Procedure Codes (Charges) Pulmonary/Thoracic Procedure 1: Pulmonary and Thoracic: 30864 Dx bronchoscopy/wash Coding CPT Codes Pulmonary/Thoracic - Pulmonary and Thoracic: 27485 Dx bronchoscopy/wash ([id number]) Additional Codes Date of Service (PG.SURGERY)
[2024-07-26] MEDS: PLASMA-LYTE A 1,000 ML IV SCH (14:28)
--- NOTE | 2024-07-26 14:37 | Pharmacy Report ---
Pharmacy Glycemic Short Note 2 - Date of Service July 26, 2024 - Glycemic Short BSG Results (Last 24 hours): 07/25/24 07/25/24 07/25/24 21:36 21:40 23:26 Glucose 404 H* 381 H* POC Glucose POC Glucose (other) 390 H* 07/26/24 07/26/24 07/26/24 01:26 01:32 03:22 Glucose 384 H* POC Glucose 384 H* 382 H* POC Glucose (other) 07/26/24 07/26/24 07/26/24 04:17 04:29 05:20 Glucose 404 H* POC Glucose 380 H* 373 H* POC Glucose (other) 07/26/24 07/26/24 07/26/24 06:18 07:18 08:25 Glucose POC Glucose 337 H* 292 H 300 H POC Glucose (other) 07/26/24 07/26/24 07/26/24 09:16 10:19 11:22 Glucose POC Glucose 225 H 189 H 136 H POC Glucose (other) 07/26/24 07/26/24 07/26/24 12:18 12:20 13:21 Glucose 133 H POC Glucose 133 H 120 H POC Glucose (other) OUTPATIENT ANTIDIABETIC REGIMEN: * Novolin 70/30 70-80 units BID * Metformin 1000 mg PO BID * A1c - pending ASSESSMENT: * 74 yo T2DM admitted with hypercarbic/hypoxic respiratory failure in setting of influenza illness and NSTEMI. * Patient admitted to ICU and sedated for mechanical ventilation. Currently receiving heparin, norepinephrine, fentanyl and propofol infusions. Also given two doses of methylprednisolone which has since be discontinued. * Started on insulin IV infusion for severe hyperglycemia/? DKA. Currently on hold for BSG at goal. I suspect this will be resumed based on significant home insulin needs and ICU level stressors. PLAN FOR INPATIENT GLYCEMIC CONTROL: * Hold outpatient oral diabetes medications * Continue IV insulin infusion while critically ill * goal range: 110 - 180 mg/dL * Basal insulin * none at this time * Bolus insulin * NovoLog per scale ACHS or Q6hrs while NPO * Goal Range: Low 110 mg/dL - High 180 mg/dL * Correction Factor: -- mg/dL/unit (per insulin infusion) * Nutritional / Prandial insulin per carb ratio --- NPO
[2024-07-26 14:47] LABS: Troponin I High Sensitivity 24040.8 pg/ml (0-14)
[2024-07-26] MEDS: PLASMA-LYTE A 1,000 ML IV ONE (18:30)
[2024-07-27 05:14] LABS: Albumin Globulin Ratio 0.9 (0.9-2); Albumin Level 2.6 gm/dl (3.4-5.0); BUN Creatinine Ratio 16.9 (10-20); Bilirubin,Total 0.2 mg/dl (0.2-1.0); Calcium 7.6 mg/dl (8.6-10.3); Creatinine Clr Calc Pharmacy 12.3 ml/min; Globulin 2.9 gm/dl (2.5-4.0); Phosphorus 6.4 mg/dl (2.5-4.9); Potassium 4.9 mmol/L (3.5-5.1); Total Protein 5.5 gm/dl (6.0-8.3)
[2024-07-27 05:16] LABS: Hematocrit (blood only) 21.8 % (37.0-47.0); Hemoglobin 6.8 g/dl (12.0-16.0); Mean Corpuscular Hemoglobin 26.6 pg (25.0-34.0); Mean Corpuscular Hgb Conc 31.2 g/dL (32.0-36.0); Mean Corpuscular Volume 85.2 fL (80.0-100.0); Nucleated RBC # (auto) 0.03 K/uL (0.00-0.12); Nucleated RBC % (auto) 0.2 %; Platelet Count 293 K/uL (130-400); RDW Standard Deviation 50.4 fL (36.4-46.3); Red Blood Count 2.56 M/uL (4.20-5.40)
[2024-07-27 05:25] LABS: Troponin I High Sensitivity 16716.4 pg/ml (0-14)
[2024-07-27 05:27] LABS: Basophils # (auto) 0.01 K/uL (0.00-0.20); Basophils % (auto) 0.1 %; Immature Granulocytes # (auto) 0.07 K/uL (0.01-0.20); Immature Granulocytes % (auto) 0.5 %; Lymphocytes % (auto) 5.6 %; Monocytes # (auto) 0.43 K/uL (0.11-0.59); Neutrophils # (auto) 13.09 K/uL (1.40-6.50); Neutrophils % (auto) 90.8 %; RBC Morphology Unremarkable
[2024-07-27 05:42] LABS: INR 1.1 (0.9-1.1); Partial Thromboplastin Ratio 4.6; Prothrombin Time 12.2 Seconds (9.0-12.0)
[2024-07-27 05:44] LABS: Partial Thromboplastin Time 125 Seconds (21-31)
[2024-07-27] MEDS ORDERED: SODIUM CHLORIDE 0.9% 50 ML IV PRN (05:51)
[2024-07-27] MEDS ORDERED: SODIUM CHLORIDE 0.9% 100 ML IV PRN (05:51)
--- NOTE | 2024-07-27 06:14 | Communication Note ---
Date of Service: July 27, 2024 S: HGB level down trend to 6.8 from 8.0 and 9.6 within last 24 hours. O: Patient is without escalating doses of vasopressors and no evidence of acute bleeding from pulmonary, OGT, naso/oropharynx, abd softly distended without bruising. WBC count is within her range, Platlet count decreased to 293 from 334. She has not been over therapeutic on her anti-XA levels in regards to her heparin infusion. A/P- Anemia - Will re-check HGB level stat as drawn from CVL - Type and cross - Transfuse if indicated - Heparin infusion stopped at this time - WT is also up this AM 3 kg with increasing SUB PRIOR and decreasing UO - Consider CT scan of abd/pelvis, however this will be without contrast secondary to renal function - to eval for occult bleed on anticoagulation - Will discuss with AM attending above plan while awaiting re-check HGB level Ritchie BARRERA ([facility]-)
[2024-07-27] MEDS: DEXTROSE 50% 50 ML SYRINGE IV PRN (08:37)
[2024-07-27 09:03] LABS: Estimated Average Glucose 214 mg/dl; Hemoglobin A1C 9.1 % (4.5-5.6)
[2024-07-27] MEDS ORDERED: fentaNYL citrate PF 100 MCG/2 ML VIAL IV PRN (10:15)
--- NOTE | 2024-07-27 10:19 | Critical Care Progress Note ---
Date of Service July 27, 2024 Assessment & Plan (1) Respiratory failure with hypoxia and hypercapnia: (2) Respiratory failure requiring intubation: (3) Influenza A: (4) Acute CHF (congestive heart failure): (5) Hyperglycemia: (6) Hyperkalemia: (7) ELLA (acute kidney injury): (8) Non-ST elevation ND (NSTEMI): (9) Hypothyroidism: (10) CAD (coronary artery disease): (11) HTN (hypertension): (12) HLD (hyperlipidemia): Plan Reason Critically Ill: Hypercarbic/hypoxic respiratory failure in setting of influenza illness and NSTEMI Neuro - Sedated for mechanical ventilation CAM ICU: TAY - Patient sedated with Fentanyl at this time for goal RASS -2, add Propofol if needed - Wean sedation when appropriate from a hemodynamic and pulmonary standpoint Cardiac - NSTEMI, Acute on chronic heart failure, HTN -Possibly an element of mild CHF. More likely viral pneumonia with superimposed bacterial pneumonia. Will discontinue diuresis. Echo findings noted with "low normal EF. Right ventricular systolic function is reduced. Troponin is climbing. Appreciate cardiology input. - atorvastatin 40 mg daily -Clinically patient is volume up I believe she needs to be net negative Respiratory - Hypercarbic/hypoxic respiratory failure requiring intubation and mechanical ventilation, pleural effusions -Minimal vent settings will obtain spontaneous breathing trial today - ARDSnet protocol - Influenza- continue Tamiflu -Probable secondary bacterial pneumonia- continue cefepime/Zyvox-MRSA nasal swab positive -Awaiting sputum culture - DOMINGO nebs, Pulmicort BID nebs GI - No acute needs -Start trickle feeds RENAL/LYTES - ARF on CKD, hyperkalemia, mixed respiratory/metabolic acidosis - Baseline KETTLE GIRL is 1.1-1.2 in 2020-currently with a ELLA. - Hyperkalemia resolved. -Diuresis today 40 mg Lasix x 1 - No current needs - Harris catheter while intubated and sedated ENDO - DM - ICU hyperglycemic protocol- initiate insulin infusion for goal BG 180mg/DL. Likely mild DKA on admission. HEME -anemia history of anemia dating back to 2018 not otherwise specified -Anemia panel History of thrombocytosis extending to 2018: Currently within normal limits -Was on heparin infusion given elevation of troponins, this was discontinued given drop in blood counts Given critical illness we will transfuse 1 unit packed red blood cells if family willing to accept blood -Trend H&H ID - Influenza A, Sepsis - Sputum for gram stain and culture - Blood Cultures no growth to date at 24 hours - Urine negative - Continue cefepime and Zyvox day 2 antibiotics - Tamiflu for influenza-given renal function will not increase Tamiflu dose LINES/IV ACCESS - PIV x3, ETT, OGT, Harris to gravity Continue use of these lines - Verbal consent from daughter and patient's (over phone) obtained for arterial line and CVL if needed DVT PROPHYLAXIS - SCDS DISPO: ICU while intubated and sedated CODE STATUS: DO NOT RESUSCITATE in event of cardiac arrest Clinical update, patient passed spontaneous breathing trial, able to follow complex commands. Minimal secretion burden, will proceed with trial of extubation is okay with reintubation should she fail. Admission and Anticipated Discharge Date Admission Date: July 25, 2024 Supervising Physician Co-Signing Physician Notes I have personally spent 45 minutes of critical care time in the direct management of this patient. This is a life/limb threatening event. This includes time spent evaluating patient, direct bedside care, chart review, placing orders, interpretation of diagnostic studies, discussion with consultants, patient, and family members, as well as other required patient management activities. This time is exclusive of all separately billable procedures, and separate from and in addition to any other critical care service time. Subjective No overnight events. Discussed with daughter and son-in-law, report patient would not want to undergo artificial renal replacement therapy. Physical Exam Physical Exam: General: Sedated. nontoxic. Skin: Warm, dry, Head: Atraumatic Ears, nose, mouth and throat: airway obscured by endotracheal tube Cardiovascular: Normal peripheral perfusion Respiratory: Ventilator settings reviewed Gastrointestinal: Non distended Musculoskeletal: No deformity Results & Data Results & Data Vital Signs (Past 12 Hours) Vital Signs Temp Pulse Resp BP Pulse Ox FiO2 07/27/24 09:03 60 18 100 07/27/24 09:00 113/61 07/27/24 09:00 113/61 07/27/24 08:45 36.5 C 60 18 98 07/27/24 08:30 108/61 07/27/24 08:30 36.5 C 62 18 99 07/27/24 08:00 35 07/27/24 08:00 35 07/27/24 08:00 36.6 C 62 18 99 07/27/24 08:00 109/63 07/27/24 08:00 109/63 07/27/24 07:30 36.6 C 62 18 07/27/24 07:08 63 18 100 35 07/27/24 07:00 117/70 07/27/24 06:54 63 07/27/24 06:45 36.6 C 63 18 100 07/27/24 05:30 104/57 L 07/27/24 05:30 104/57 L 07/27/24 05:30 104/57 L 07/27/24 05:30 36.7 C 63 18 07/27/24 05:09 36.7 C 64 18 99 07/27/24 05:00 103/62 07/27/24 04:48 36.8 C 64 18 99 07/27/24 04:30 106/61 07/27/24 04:30 36.8 C 65 18 07/27/24 04:00 99/59 L 07/27/24 04:00 99/59 L 07/27/24 04:00 99/59 L 07/27/24 04:00 36.9 C 68 18 07/27/24 04:00 35 07/27/24 03:44 70 18 100 35 07/27/24 03:30 116/64 07/27/24 03:30 116/64 07/27/24 03:30 116/64 07/27/24 03:09 36.9 C 70 18 99 07/27/24 03:03 36.9 C 71 18 99 07/27/24 03:00 124/96 07/27/24 03:00 124/96 07/27/24 02:54 36.8 C 71 18 100 07/27/24 02:30 109/62 07/27/24 02:30 109/62 07/27/24 02:30 109/62 07/27/24 02:15 36.8 C 69 18 99 07/27/24 02:06 36.8 C 69 18 99 07/27/24 02:00 109/60 07/27/24 02:00 109/60 07/27/24 01:57 36.8 C 68 18 99 07/27/24 01:30 112/58 L 07/27/24 01:30 112/58 L 07/27/24 01:30 36.8 C 68 18 07/27/24 01:15 36.9 C 68 18 99 07/27/24 01:00 114/59 L 07/27/24 00:57 36.9 C 68 18 99 07/27/24 00:00 111/63 07/27/24 00:00 111/63 07/27/24 00:00 36.9 C 70 18 07/27/24 00:00 35 07/26/24 23:39 69 18 98 35 07/26/24 23:30 117/66 07/26/24 23:30 117/66 07/26/24 23:27 36.9 C 69 18 98 07/26/24 23:06 36.9 C 68 18 98 07/26/24 23:00 108/60 07/26/24 22:54 36.9 C 68 18 98 07/26/24 22:42 36.9 C 69 18 98 07/26/24 22:30 106/58 L 07/26/24 22:30 106/58 L 07/26/24 22:27 37.0 C 69 18 98 07/26/24 22:06 37.0 C 69 18 98 Critical Care Results & Data Vital Signs (Past 12 Hours) Vital Signs Temp Pulse Resp BP Pulse Ox FiO2 07/27/24 09:03 60 18 100 07/27/24 09:00 113/61 07/27/24 09:00 113/61 07/27/24 08:45 36.5 C 60 18 98 07/27/24 08:30 108/61 07/27/24 08:30 36.5 C 62 18 99 07/27/24 08:00 35 07/27/24 08:00 35 07/27/24 08:00 36.6 C 62 18 99 07/27/24 08:00 109/63 07/27/24 08:00 109/63 07/27/24 07:30 36.6 C 62 18 07/27/24 07:08 63 18 100 35 07/27/24 07:00 117/70 07/27/24 06:54 63 07/27/24 06:45 36.6 C 63 18 100 07/27/24 05:30 104/57 L 07/27/24 05:30 104/57 L 07/27/24 05:30 104/57 L 07/27/24 05:30 36.7 C 63 18 07/27/24 05:09 36.7 C 64 18 99 07/27/24 05:00 103/62 07/27/24 04:48 36.8 C 64 18 99 07/27/24 04:30 106/61 07/27/24 04:30 36.8 C 65 18 07/27/24 04:00 99/59 L 07/27/24 04:00 99/59 L 07/27/24 04:00 99/59 L 07/27/24 04:00 36.9 C 68 18 07/27/24 04:00 35 07/27/24 03:44 70 18 100 35 07/27/24 03:30 116/64 07/27/24 03:30 116/64 07/27/24 03:30 116/64 07/27/24 03:09 36.9 C 70 18 99 07/27/24 03:03 36.9 C 71 18 99 07/27/24 03:00 124/96 07/27/24 03:00 124/96 07/27/24 02:54 36.8 C 71 18 100 07/27/24 02:30 109/62 07/27/24 02:30 109/62 07/27/24 02:30 109/62 07/27/24 02:15 36.8 C 69 18 99 07/27/24 02:06 36.8 C 69 18 99 07/27/24 02:00 109/60 07/27/24 02:00 109/60 07/27/24 01:57 36.8 C 68 18 99 07/27/24 01:30 112/58 L 07/27/24 01:30 112/58 L 07/27/24 01:30 36.8 C 68 18 07/27/24 01:15 36.9 C 68 18 99 07/27/24 01:00 114/59 L 07/27/24 00:57 36.9 C 68 18 99 07/27/24 00:00 111/63 07/27/24 00:00 111/63 07/27/24 00:00 36.9 C 70 18 07/27/24 00:00 35 07/26/24 23:39 69 18 98 35 01/19/25 23:30 117/66 07/26/24 23:30 117/66 07/26/24 23:27 36.9 C 69 18 98 07/26/24 23:06 36.9 C 68 18 98 07/26/24 23:00 108/60 07/26/24 22:54 36.9 C 68 18 98 07/26/24 22:42 36.9 C 69 18 98 07/26/24 22:30 106/58 L 07/26/24 22:30 106/58 L 07/26/24 22:27 37.0 C 69 18 98 Lab & Micro Results (Past 24 Hours) RBC 2.56 M/uL (4.20-5.40) L 07/27/24 WBC 14.40 K/ul (4.8-10.8) H 07/27/24 Hgb 7.1 g/dl (12.0-16.0) L 07/27/24 Hct 21.8 % (37.0-47.0) L 07/27/24 MCV 85.2 fL (80.0-100.0) 07/27/24 MCH 26.6 pg (25.0-34.0) 07/27/24 MCHC 31.2 g/dL (32.0-36.0) L 07/27/24 RDW Standard Deviation 50.4 fL (36.4-46.3) H 07/27/24 RDW Coefficient of Variation 16.0 % (11.5-14.5) H 07/27/24 Plt Count 293 K/uL (130-400) 07/27/24 MPV 11.0 fL (9.4-12.4) 07/27/24 Nucleated Red Blood Cells % (auto) 0.2 % 07/27 Nucleated RBC Absolute Count (auto) 0.03 K/uL (0.00-0.12) 0 07/27/24 Neutrophils (%) (Auto) 90.8 % 07/27/24 Lymphocytes (%) (Auto) 5.6 % 07/27/24 Monocytes # (Auto) 0.43 K/uL (0.11-0.59) 07/27/24 Eosinophils # (Auto) 0.00 K/uL (0.00-0.50) 07/27/24 Immature Granulocyte % (Auto) 0.5 % 07/27/24 Neutrophils # (Auto) 13.09 K/uL (1.40-6.50) H 07/27/24 Lymphocytes # (Auto) 0.80 K/uL (1.20-3.40) L 07/27/24 Monocytes # (Auto) 0.43 K/uL (0.11-0.59) 07/27/24 Eosinophils # (Auto) 0.00 K/uL (0.00-0.50) 07/27/24 Basophils # (Auto) 0.01 K/uL (0.00-0.20) 07/27/24 Immature Granulocyte # (Auto) 0.07 K/uL (0.01-0.20) 5 Red Blood Cell Morphology Unremarkable 07/27/24 Na 136 mmol/L (136-145) 07/27/24 K 4.9 mmol/L (3.5-5.1) 07/27/24 Cl 103 mmol/L (98-107) 07/27/24 CO2 19 mmol/L (21-32) L 07/27/24 Anion Gap 14 (3-11) H 07/27/24 BUN 73 mg/dl (6-23) H 07/27/24 Creatinine 4.33 mg/dl (0.6-1.2) H 07/27/24 BUN/Creatinine Ratio 16.9 (10-20) 07/27/24 Glu 132 mg/dl (70-99(Fasting)) H 07/27/24 Ca 7.6 mg/dl (8.6-10.3) L 07/27/24 Phosphorus Level 6.4 mg/dl (2.5-4.9) H 07/27/24 Total Bilirubin 0.2 mg/dl (0.2-1.0) 07/27/24 AST 35 U/L (13-39) 07/27/24 ALT 10 U/L (7-52) 07/27/24 Alkaline Phosphatase 52 U/L (34-104) 07/27/24 TP 5.5 gm/dl (6.0-8.3) L 07/27/24 Albumin 2.6 gm/dl (3.4-5.0) L 07/27/24 Globulin 2.9 gm/dl (2.5-4.0) 07/27/24 Albumin/Globulin Ratio 0.9 (0.9-2) 07/27/24 Mg 2.0 mg/dl (1.7-2.4) 07/27/24 04:34 Calcium Level 7.6 mg/dl (8.6-10.3) L 07/27/24 04:34 Prothromb Time International Ratio 1.1 (0.9-1.1) 07/27/24 04:3 4 Microbiology 07/26/24 14:05 Fungal Smear - Final Bronch Wash,Right Lower Lobe 07/26/24 14:05 Gram Stain - Final Bronch Wash,Right Lower Lobe 07/25/24 22:22 Aerobic Blood Culture - Preliminary Blood No growth in Aerobic bottle after 24 hours. Anaerobic Blood Culture - Preliminary No growth in Anaerobic bottle after 24 hours. 07/25/24 21:36 Aerobic Blood Culture - Preliminary Blood No growth in Aerobic bottle after 24 hours. Anaerobic Blood Culture - Preliminary No growth in Anaerobic bottle after 24 hours. 07/26/24 01:20 Gram Stain - Final Sputum,Vent Suction Diagnostic Findings (Past 24 Hours) Chest X-Ray 07/26/24 06:00 EXAM: XR chest 1V portable CLINICAL HISTORY: WHILE INTUBATED, EVAL TUBES/LINES/LUNG EDMOND TECHNIQUE: X-ray image of the chest obtained in 1 frontal projection. COMPARISON: Prior X-ray dated 07/26/2024 for comparison. FINDINGS: ETT with tip 1.7 cm above michel. NG tube in situ. Pulmonary Parenchyma: Interval complete resolution of left lung collapse and showing haziness in lower zone. Unchanged air space opacities and interstitial thickening in right lung. obliteration of the left costophrenic angle No evidence of right pleural effusion or pleural thickening. Heart and Mediastinum: Cardiomegaly. No mediastinal widening or masses. No hilar or mediastinal lymphadenopathy. Bony Thorax: Spondylotic changes in thoracic spine. Bony thorax appears intact without fractures or deformities. Soft Tissues: Soft tissues overlying the chest wall are unremarkable. IMPRESSION: 1. ETT with tip 1.7 cm above michel. New 2. NG tube in situ. 3. Interval complete resolution of left lung collapse and showing haziness in lower zone With obliteration of the left costophrenic angle suggesting underlying small effusion. 4. Unchanged air space opacities and interstitial thickening in right lung. suggesting infiltrates. Electronically signed by Félix Carreon 07-26-2024 08:37 AM Chest X-Ray 07/26/24 13:54 EXAM: Radiograph of the Chest 1 View INDICATION: Line placement. TECHNIQUE: Frontal view of the chest. COMPARISON: Image 7:15 AM the same day. FINDINGS: Lungs and pleural spaces: Bilateral vascular congestion and pulmonary infiltrates relatively sparing the left upper lobe and most confluent in the left base are stable. Stable small bilateral pleural effusions. No pneumothorax. Heart: Stable prominent cardiac shadow. Mediastinum: Normal contour. Bones/joints: No fracture, erosion or dislocation. Soft tissues: No abnormality noted. No radiopaque foreign body noted. Tubes, lines and devices: The endotracheal tube terminates 2.4 cm above the michel. Right internal jugular central venous catheter tip in the distal superior vena cava. Nasogastric tube below the diaphragm. The tip is not included in the image field. Upper abdomen: No abnormality noted. IMPRESSION: 1. Stable CHF and/or pneumonia. 2. Lines and tubes as above. ACT 112: Negative or not required by law. Electronically signed by Neetu Rangel 07-26-2024 2:10 PM I & O Totals 24 Hours 07/26/24 07/27/24 07/28/24 06:59 06:59 06:59 Intake Total 720.367 / 710.170 3837.355 / 3835.355 59.732 / 59.732 Output Total 325 / 325 255 / 255 50 / 50 Balance 395.367 / 420.888 1898.355 / 3580.355 9.732 / 9.732 Cumulative 07/25/24 20:53 thru 07/27/24 09:59 Intake Total 4615.454 Output Total 630 Balance 3985.454 RT Ventilator Mngmt (Last Documented) Ventilator Ordered Settings Ventilator Support Mode Assist Control 07/27/24 08:00 Respiratory Rate 18 07/27/24 09:03 Ventilator Tidal Volume 450 07/27/24 08:00 Setting Minute Ventilation 8 07/27/24 07:08 Ventilator Positive Pressure 6 07/26/24 20:00 Support Setting Positive End Expiratory 6 07/27/24 08:00 Pressure Fraction of Inspired Oxygen 35 07/27/24 08:00 Ventilator - PT Measurements Respiratory Rate 18 Exhaled Tidal Volume 450 Minute Ventilation 8 Peak Inspiratory Airway 28 Pressure Plateau Pressure 14 Respiratory Cycle Inspiratory: 1:2.7 Expiratory Ratio Inspiratory Phase Time 0.90 End-Tidal CO2 21 Static Lung Compliance 56.25 Dynamic Lung Compliance 20.45 Normal Static Lung Compliance 46.00 Patient Measurements Comment FiO2 decreased to 35%. Sputum obtained from bronchoscopy and sent to lab. Coding Level of Care Code 30053 CRITICAL CARE 1ST 30-74M Diagnoses Respiratory failure with hypoxia and hypercapnia J96.91; J96.92 Respiratory failure requiring intubation J96.90 Influenza A J10.1 Acute CHF (congestive heart failure) I50.9 Hyperglycemia R73.9 Hyperkalemia E87.5 ELLA (acute kidney injury) N17.9 Non-ST elevation ND (NSTEMI) I21.4 Hypothyroidism E03.9 CAD (coronary artery disease) I25.10 HTN (hypertension) I10 HLD (hyperlipidemia) E78.5
--- NOTE | 2024-07-27 10:49 | XRay Report ---
XR chest 1V portable CLINICAL HISTORY: lines TECHNIQUE: Single frontal radiograph of the chest was obtained. Comparison: Comparison is made to chest radiograph 07/26/2024 FINDINGS: Endotracheal tube terminates 1 cm from the michel. Enteric tube tip and side-port lie below the diaph ragm. Cardiomegaly is noted. The aortic arch is calcified. Lungs are underinflated but clear. Small b ilateral pleural effusions are seen. IMPRESSION: 1. Lines and tubes as above. Endotracheal tube can be drawn approximately 2 cm for improved position ing. 2. Bilateral lower lung airspace opacities are slightly more conspicuous than in the prior exam. Sma ll bilateral pleural effusions. ACT 112: Negative or not required by law. Electronically signed by: Jm Morton M.D. 07/27/2024 10:47 AM
[2024-07-27 10:55] LABS: Ferritin 104.1 ng/ml (8-388)
[2024-07-27 11:01] LABS: Folate (Folic Acid),Ser orPlas 12.72 ng/ml (>5.38)
[2024-07-27 11:23] LABS: Hemoglobin 7.1 g/dl (12.0-16.0); Reticulocyte % 1.77 % (0.50-2.00); Reticulocytes # 0.05 10^6/uL (0.020-0.100)
[2024-07-27] MEDS: ONDANSETRON INJ 2 MG/ML 2 ML VIAL IV PRN (11:32)
[2024-07-27] MEDS: FUROSEMIDE 40 MG/4 ML VIAL IV ONE ×2 (11:32→20:29)
--- NOTE | 2024-07-27 13:49 | Pharmacy Report ---
Pharmacy Glycemic Short Note 2 - Date of Service July 27, 2024 - Glycemic Short BSG Results (Last 24 hours): 07/26/24 07/26/24 07/26/24 14:32 15:25 16:35 Glucose POC Glucose 139 H 187 H 151 H 07/26/24 07/26/24 07/26/24 17:31 18:22 19:48 Glucose POC Glucose 129 H 120 H 98 07/26/24 07/26/24 07/26/24 21:29 22:26 23:27 Glucose POC Glucose 91 95 114 H 07/27/24 07/27/24 07/27/24 00:30 02:30 04:30 Glucose POC Glucose 128 H 122 H 129 H 07/27/24 07/27/24 07/27/24 04:34 08:29 08:32 Glucose 132 H POC Glucose 59 L* 62 L* 07/27/24 07/27/24 07/27/24 09:03 09:58 11:39 Glucose POC Glucose 194 H 146 H 101 H 07/27/24 07/27/24 12:10 13:14 Glucose POC Glucose 93 106 H OUTPATIENT ANTIDIABETIC REGIMEN: * Novolin 70/30 70-80 units BID * Metformin 1000 mg PO BID * A1c - 9.1% ASSESSMENT: 07/27 * Patient continues on mechanical ventilation today with plans for SBT today. Norepinephrine has been titrated off. * Continues w/ insulin infusion for now given uncertain plans for extubation/changing status 07/26 * 74 yo T2DM admitted with hypercarbic/hypoxic respiratory failure in setting of influenza illness and NSTEMI. * Patient admitted to ICU and sedated for mechanical ventilation. Currently receiving heparin, norepinephrine, fentanyl and propofol infusions. Also given two doses of methylprednisolone which has since be discontinued. * Started on insulin IV infusion for severe hyperglycemia/? DKA. Currently on hold for BSG at goal. I suspect this will be resumed based on significant home insulin needs and ICU level stressors. PLAN FOR INPATIENT GLYCEMIC CONTROL: * Hold outpatient oral diabetes medications * Continue IV insulin infusion while critically ill * goal range: 110 - 180 mg/dL * Basal insulin * none at this time * Bolus insulin * NovoLog per scale ACHS or Q6hrs while NPO * Goal Range: Low 110 mg/dL - High 180 mg/dL * Correction Factor: -- mg/dL/unit (per insulin infusion) * Nutritional / Prandial insulin per carb ratio --- NPO
[2024-07-27] MEDS ORDERED: NOVASOURCE RENAL 2.0 CAL 1000ML BAG NG SCH (14:15)
[2024-07-27] MEDS: LABETALOL HCL IV 5 MG/ML 20ML IV STA (14:47)
--- NOTE | 2024-07-27 15:19 | Cardiology Progress Note ---
Date of Service July 27, 2024 Assessment & Plan (1) Acute CHF (congestive heart failure): (2) NSTEMI (non-ST elevated myocardial infarction): (3) CAD (coronary artery disease): (4) HTN (hypertension): Plan 1. Acute on chronic heart failure with preserved ejection fraction: She likely has an element of pulmonary vascular congestion. Attempted diuresis have been hampered by her renal dysfunction. Escalating doses of Lasix have resulted in some benefit. 2. NSTEMI: Biomarkers have peaked. Most likely related to an acute coronary syndrome. More likely related to her hypoxia and hypertension at the time of admission. Heparin has been discontinued due to concerns of dropping hemoglobin. I think this is reasonable. Continue aspirin. 3. Coronary artery disease: She is known to have severe coronary artery disease. She previously underwent percutaneous intervention to the right coronary artery. She had significant residual disease in 2019. This is likely responsible for her elevated biomarkers in the setting of hypoxia and hypertension. Will consider reevaluation prior to discharge depending on her clinical course. No urgent indication for coronary angiography. 4. Mitral regurgitation: Moderate previously. More mild on current evaluation although images were suboptimal. 5. Hypertension: Markedly hypertensive at the time of admission. Much improved. Only on metoprolol as an antihypertensive. Unclear control overall. 6. Acute kidney injury: Unfortunately renal function has declined. Poor urine production and difficulty with diuresis. I suspect renal perfusion overall is good given relatively preserved LV systolic function and normal blood pressures. 7. Anemia: She has a history of anemia of unclear etiology. Hemoglobin has been low in the past. Hemoglobin has declined further. Evaluating for occult bleeding. Admission and Anticipated Discharge Date Admission Date: July 25, 2024 Subjective This afternoon the patient remained intubated. Review of Systems Review of Systems: Unobtainable due to endotracheal tube Physical Exam Physical Exam: Intubated. However she was alert and appeared to follow commands. HEENT: Sclerae are anicteric. Pupils are equal and reactive to light and accommodation. Extraocular movements were intact. Alopecia noted Neuro: Could not be assessed. Lungs: Coarse breath sounds in all lung schmid. No expiratory wheezing. Somewhat blunted excursion. Cardiac: The rhythm was regular. S1 and S2 were normal. There are no murmurs on examination. Abdomen: Obese Extremities: Patient has bilateral radial pulses that are equal in intensity. There is no evidence cyanosis or clubbing. Compression devices on both legs Skin: There are no rashes noted on examination today. Depigmentation on the scalp, possibly vitiligo Results & Data Vital Signs (Past 12 Hours) Vital Signs Temp Pulse Resp BP Pulse Ox O2 Del Method FiO2 07/27/24 14:12 36.7 C 88 18 93 07/27/24 14:10 198/69 H 07/27/24 13:51 36.7 C 94 H 17 94 07/27/24 13:50 208/89 H 07/27/24 13:39 36.7 C 83 14 94 07/27/24 13:31 179/63 H 07/27/24 13:03 36.7 C 86 15 93 07/27/24 13:01 191/67 H 07/27/24 12:48 36.7 C 83 15 93 07/27/24 12:39 36.7 C 84 15 92 07/27/24 12:18 36.7 C 82 15 92 07/27/24 12:00 174/77 H 07/27/24 12:00 35 07/27/24 11:57 36.6 C 68 18 98 07/27/24 11:37 188/70 H 07/27/24 11:30 36.5 C 75 18 97 07/27/24 10:27 36.3 C L 59 L 18 98 07/27/24 10:00 110/59 L 07/27/24 09:54 36.4 C L 59 L 18 98 07/27/24 09:30 111/70 07/27/24 09:30 36.4 C L 59 L 18 98 07/27/24 09:03 60 18 100 07/27/24 09:00 113/61 07/27/24 09:00 113/61 07/27/24 08:45 36.5 C 60 18 98 07/27/24 08:30 108/61 07/27/24 08:30 36.5 C 62 18 99 07/27/24 08:00 Mechanical Vent 07/27/24 08:00 35 07/27/24 08:00 35 07/27/24 08:00 36.6 C 62 18 99 07/27/24 08:00 109/63 07/27/24 08:00 109/63 07/27/24 07:30 36.6 C 62 18 07/27/24 07:08 63 18 100 35 07/27/24 07:00 117/70 07/27/24 06:54 63 07/27/24 06:45 36.6 C 63 18 100 07/27/24 05:30 104/57 L 07/27/24 05:30 104/57 L 07/27/24 05:30 104/57 L 07/27/24 05:30 36.7 C 63 18 07/27/24 05:09 36.7 C 64 18 99 07/27/24 05:00 103/62 07/27/24 04:48 36.8 C 64 18 99 07/27/24 04:30 106/61 07/27/24 04:30 36.8 C 65 18 07/27/24 04:00 99/59 L 07/27/24 04:00 99/59 L 07/27/24 04:00 99/59 L 07/27/24 04:00 36.9 C 68 18 07/27/24 04:00 35 07/27/24 03:44 70 18 100 35 07/27/24 03:30 116/64 07/27/24 03:30 116/64 07/27/24 03:30 116/64 Laboratory Results Abnormal Lab Results 07/25/24 07/26/24 07/26/24 21:36 15:25 16:35 WBC RBC Hgb Hct MCV MCH MCHC RDW Std Deviation RDW Coeff of Ching Plt Count MPV Immature Gran % (Auto) Neut % (Auto) Lymph % (Auto) [place] % (Auto) Eos % (Auto) Baso % (Auto) Reticulocyte % (Auto) Neut # (Auto) Lymph # (Auto) [place] # (Auto) Eos # (Auto) Baso # (Auto) Reticulocyte # Immature Gran # (Auto) Absolute Nucleated RBC Nucleated RBC % (auto) RBC Morphology PT INR APTT PTT Ratio Sodium Potassium Chloride Carbon Dioxide Anion Gap BUN Creatinine Est Cr Clr Drug Dosing eGFR BUN/Creatinine Ratio Glucose POC Glucose 187 H 151 H Estimat Average Glucose Hemoglobin A1c Calcium Phosphorus Magnesium Iron Transferrin Ferritin Total Bilirubin AST ALT Alkaline Phosphatase Troponin I High Sens Total Protein Albumin Globulin Albumin/Globulin Ratio Vitamin B12 Folate Blood Type A Positive Antibody Screen NEGATIVE Crossmatch See Detail 07/26/24 07/26/24 07/26/24 17:31 18:22 19:28 WBC RBC Hgb Hct MCV MCH MCHC RDW Std Deviation RDW Coeff of Ching Plt Count MPV Immature Gran % (Auto) Neut % (Auto) Lymph % (Auto) [place] % (Auto) Eos % (Auto) Baso % (Auto) Reticulocyte % (Auto) Neut # (Auto) Lymph # (Auto) [place] # (Auto) Eos # (Auto) Baso # (Auto) Reticulocyte # Immature Gran # (Auto) Absolute Nucleated RBC Nucleated RBC % (auto) RBC Morphology PT INR APTT PTT Ratio Sodium Potassium Chloride Carbon Dioxide Anion Gap BUN Creatinine Est Cr Clr Drug Dosing eGFR BUN/Creatinine Ratio Glucose POC Glucose 129 H 120 H Estimat Average Glucose Hemoglobin A1c Calcium Phosphorus Magnesium Iron Transferrin Ferritin Total Bilirubin AST ALT Alkaline Phosphatase Troponin I High Sens 73223.6 H* Total Protein Albumin Globulin Albumin/Globulin Ratio Vitamin B12 Folate Blood Type Antibody Screen Crossmatch 07/26/24 07/26/24 07/26/24 19:48 21:29 22:26 WBC RBC Hgb Hct MCV MCH MCHC RDW Std Deviation RDW Coeff of Ching Plt Count MPV Immature Gran % (Auto) Neut % (Auto) Lymph % (Auto) [place] % (Auto) Eos % (Auto) Baso % (Auto) Reticulocyte % (Auto) Neut # (Auto) Lymph # (Auto) [place] # (Auto) Eos # (Auto) Baso # (Auto) Reticulocyte # Immature Gran # (Auto) Absolute Nucleated RBC Nucleated RBC % (auto) RBC Morphology PT INR APTT PTT Ratio Sodium Potassium Chloride Carbon Dioxide Anion Gap BUN Creatinine Est Cr Clr Drug Dosing eGFR BUN/Creatinine Ratio Glucose POC Glucose 98 91 95 Estimat Average Glucose Hemoglobin A1c Calcium Phosphorus Magnesium Iron Transferrin Ferritin Total Bilirubin AST ALT Alkaline Phosphatase Troponin I High Sens Total Protein Albumin Globulin Albumin/Globulin Ratio Vitamin B12 Folate Blood Type Antibody Screen Crossmatch 07/26/24 07/27/24 07/27/24 23:27 00:30 02:30 WBC RBC Hgb Hct MCV MCH MCHC RDW Std Deviation RDW Coeff of Ching Plt Count MPV Immature Gran % (Auto) Neut % (Auto) Lymph % (Auto) [place] % (Auto) Eos % (Auto) Baso % (Auto) Reticulocyte % (Auto) Neut # (Auto) Lymph # (Auto) [place] # (Auto) Eos # (Auto) Baso # (Auto) Reticulocyte # Immature Gran # (Auto) Absolute Nucleated RBC Nucleated RBC % (auto) RBC Morphology PT INR APTT PTT Ratio Sodium Potassium Chloride Carbon Dioxide Anion Gap BUN Creatinine Est Cr Clr Drug Dosing eGFR BUN/Creatinine Ratio Glucose POC Glucose 114 H 128 H 122 H Estimat Average Glucose Hemoglobin A1c Calcium Phosphorus Magnesium Iron Transferrin Ferritin Total Bilirubin AST ALT Alkaline Phosphatase Troponin I High Sens Total Protein Albumin Globulin Albumin/Globulin Ratio Vitamin B12 Folate Blood Type Antibody Screen Crossmatch 07/27/24 07/27/24 07/27/24 04:30 04:34 06:03 WBC 14.40 H RBC 2.56 L Hgb 6.8 L* 7.0 L Hct 21.8 L MCV 85.2 MCH 26.6 MCHC 31.2 L RDW Std Deviation 50.4 H RDW Coeff of Ching 16.0 H Plt Count 293 MPV 11.0 Immature Gran % (Auto) 0.5 Neut % (Auto) 90.8 Lymph % (Auto) 5.6 [place] % (Auto) 3.0 Eos % (Auto) 0.0 Baso % (Auto) 0.1 Reticulocyte % (Auto) Neut # (Auto) 13.09 H Lymph # (Auto) 0.80 L [place] # (Auto) 0.43 Eos # (Auto) 0.00 Baso # (Auto) 0.01 Reticulocyte # Immature Gran # (Auto) 0.07 Absolute Nucleated RBC 0.03 Nucleated RBC % (auto) 0.2 RBC Morphology Unremarkable PT 12.2 H INR 1.1 APTT 125 H* PTT Ratio 4.6 Sodium 136 Potassium 4.9 Chloride 103 Carbon Dioxide 19 L Anion Gap 14 H BUN 73 H Creatinine 4.33 H Est Cr Clr Drug Dosing 12.3 eGFR 10.12 BUN/Creatinine Ratio 16.9 Glucose 132 H POC Glucose 129 H Estimat Average Glucose 214 Hemoglobin A1c 9.1 H Calcium 7.6 L Phosphorus 6.4 H Magnesium 2.0 Iron Transferrin Ferritin Total Bilirubin 0.2 AST 35 ALT 10 Alkaline Phosphatase 52 Troponin I High Sens 64739.4 H* D Total Protein 5.5 L Albumin 2.6 L Globulin 2.9 Albumin/Globulin Ratio 0.9 Vitamin B12 Folate Blood Type Antibody Screen Crossmatch 07/27/24 07/27/24 07/27/24 06:07 08:29 08:32 WBC RBC Hgb Hct MCV MCH MCHC RDW Std Deviation RDW Coeff of Ching Plt Count MPV Immature Gran % (Auto) Neut % (Auto) Lymph % (Auto) [place] % (Auto) Eos % (Auto) Baso % (Auto) Reticulocyte % (Auto) Neut # (Auto) Lymph # (Auto) [place] # (Auto) Eos # (Auto) Baso # (Auto) Reticulocyte # Immature Gran # (Auto) Absolute Nucleated RBC Nucleated RBC % (auto) RBC Morphology PT INR APTT PTT Ratio Sodium Potassium Chloride Carbon Dioxide Anion Gap BUN Creatinine Est Cr Clr Drug Dosing eGFR BUN/Creatinine Ratio Glucose POC Glucose 59 L* 62 L* Estimat Average Glucose Hemoglobin A1c Calcium Phosphorus Magnesium Iron 16 L Transferrin 146 L Ferritin 104.1 Total Bilirubin AST ALT Alkaline Phosphatase Troponin I High Sens Total Protein Albumin Globulin Albumin/Globulin Ratio Vitamin B12 181 Folate 12.72 Blood Type Antibody Screen Crossmatch 07/27/24 07/27/24 07/27/24 09:03 09:58 10:35 WBC RBC Hgb 7.1 L Hct MCV MCH MCHC RDW Std Deviation RDW Coeff of Ching Plt Count MPV Immature Gran % (Auto) Neut % (Auto) Lymph % (Auto) [place] % (Auto) Eos % (Auto) Baso % (Auto) Reticulocyte % (Auto) 1.77 Neut # (Auto) Lymph # (Auto) [place] # (Auto) Eos # (Auto) Baso # (Auto) Reticulocyte # 0.050 Immature Gran # (Auto) Absolute Nucleated RBC Nucleated RBC % (auto) RBC Morphology PT INR APTT PTT Ratio Sodium Potassium Chloride Carbon Dioxide Anion Gap BUN Creatinine Est Cr Clr Drug Dosing eGFR BUN/Creatinine Ratio Glucose POC Glucose 194 H 146 H Estimat Average Glucose Hemoglobin A1c Calcium Phosphorus Magnesium Iron Transferrin Ferritin Total Bilirubin AST ALT Alkaline Phosphatase Troponin I High Sens Total Protein Albumin Globulin Albumin/Globulin Ratio Vitamin B12 Folate Blood Type Antibody Screen Crossmatch 07/27/24 07/27/24 07/27/24 11:39 12:10 13:14 WBC RBC Hgb Hct MCV MCH MCHC RDW Std Deviation RDW Coeff of Ching Plt Count MPV Immature Gran % (Auto) Neut % (Auto) Lymph % (Auto) [place] % (Auto) Eos % (Auto) Baso % (Auto) Reticulocyte % (Auto) Neut # (Auto) Lymph # (Auto) [place] # (Auto) Eos # (Auto) Baso # (Auto) Reticulocyte # Immature Gran # (Auto) Absolute Nucleated RBC Nucleated RBC % (auto) RBC Morphology PT INR APTT PTT Ratio Sodium Potassium Chloride Carbon Dioxide Anion Gap BUN Creatinine Est Cr Clr Drug Dosing eGFR BUN/Creatinine Ratio Glucose POC Glucose 101 H 93 106 H Estimat Average Glucose Hemoglobin A1c Calcium Phosphorus Magnesium Iron Transferrin Ferritin Total Bilirubin AST ALT Alkaline Phosphatase Troponin I High Sens Total Protein Albumin Globulin Albumin/Globulin Ratio Vitamin B12 Folate Blood Type Antibody Screen Crossmatch 07/27/24 07/27/24 14:13 15:11 WBC RBC Hgb Hct MCV MCH MCHC RDW Std Deviation RDW Coeff of Ching Plt Count MPV Immature Gran % (Auto) Neut % (Auto) Lymph % (Auto) [place] % (Auto) Eos % (Auto) Baso % (Auto) Reticulocyte % (Auto) Neut # (Auto) Lymph # (Auto) [place] # (Auto) Eos # (Auto) Baso # (Auto) Reticulocyte # Immature Gran # (Auto) Absolute Nucleated RBC Nucleated RBC % (auto) RBC Morphology PT INR APTT PTT Ratio Sodium Potassium Chloride Carbon Dioxide Anion Gap BUN Creatinine Est Cr Clr Drug Dosing eGFR BUN/Creatinine Ratio Glucose POC Glucose 126 H 167 H Estimat Average Glucose Hemoglobin A1c Calcium Phosphorus Magnesium Iron Transferrin Ferritin Total Bilirubin AST ALT Alkaline Phosphatase Troponin I High Sens Total Protein Albumin Globulin Albumin/Globulin Ratio Vitamin B12 Folate Blood Type Antibody Screen Crossmatch PG Care Time/CCT Total # of Minutes Spent Total Time Spent with Patient: Total time spent is greater than 50% in coordination of care (as documented) at patient's floor/unit and/or counseling patient: Coding Level of Care Code 40945 SUB INP/OBS CARE 2/35MIN Diagnoses Acute CHF (congestive heart failure) I50.9 NSTEMI (non-ST elevated myocardial infarction) I21.4 CAD (coronary artery disease) I25.10 HTN (hypertension) I10
[2024-07-27] MEDS: TUBE FEEDING WATER FLUSH NG SCH (15:21)
[2024-07-27] MEDS ORDERED: LABETALOL HCL IV 5 MG/ML 20ML IV PRN ×2 (18:45→23:59)
[2024-07-27 18:48] LABS: Hematocrit (blood only) 29.5 % (37.0-47.0); Hemoglobin 8.9 g/dl (12.0-16.0)
[2024-07-27 19:25] LABS: BUN Creatinine Ratio 16.6 (10-20); Calcium 7.6 mg/dl (8.6-10.3); Creatinine Clr Calc Pharmacy 11.7 ml/min; Magnesium 2.1 mg/dl (1.7-2.4); Potassium 5.1 mmol/L (3.5-5.1)
--- NOTE | 2024-07-27 21:30 | Hospitalist Progress Note ---
Date of Service July 27, 2024 Assessment & Plan (1) Respiratory failure requiring intubation: Plan: -2nd to CHF exacerbation/NSTEMI/Influenza + -intubated, sedated -critical care following -Troponin >10,000 -heparin drip -lasix 60mg Q12hrs -nitro drip -on zosyn/linezolid for MRSA + -solu-medrol q8hrs -duonebs -cardiology consulted trying to wean patient today. Acute blood loss anemia: hemglobin is now 7. may require transfusion, cornelio recheck hemoglbin in he evening. D/W processor grain (2) Respiratory failure with hypoxia and hypercapnia: Plan: -on zosyn/linezolid for MRSA + -solu-medrol q8hrs -duonebs (3) Non-ST elevation [place] (NSTEMI): Plan: -heparin drip -nitro drip -cardiology consulted (4) ELLA (acute kidney injury): Plan: -cr 3.87=>3.76 -s/p bicarb drip (5) Influenza A virus subtype H1 2009 pandemic strain not detected: Plan: -on tamiflu (6) Acute CHF (congestive heart failure): Plan: -lasix 60mg IV Q12hrs -echo -cardiology consulted (7) Hyperkalemia: Plan: -K+ 5.8 (8) Hyperglycemia due to type 2 diabetes mellitus: Plan: -Hyperglycemic ICU protocol Plan The patient is a 74-year-old female with a past medical history including diabetes mellitus, hypothyroidism, CAD, hyperlipidemia, hypertension and GERD.The patient presents to the emergency department with extreme shortness of breath, that has been noted to develop over the past few days, and worsening considerably the day of arrival. Family notes that she had improved a little bit in the afternoon, then worsened significantly and evening again. Upon arrival from EMS, patient reportedly was 60% on room air, and confused. They initiated CPAP in the outpatient setting, was given nitroglycerin for significant hypertension. Patient's mentation reportedly had improved somewhat by time arrival to the ED, but she was still very lethargic and not very interactive. Patient was continued on CPAP while in the ED, and workup continued noting that chest x-ray showed moderately severe CHF, bio fire was positive for influenza A H1 2009 pandemic strain, troponin was significantly elevated at 6540.7, and EKG showed inferior lateral ST-T changes. Glucose was 404, potassium was 6.1, creatinine was 3.89. From the ED patient received the following: DuoNeb, furosemide 40 mg IV, calcium gluconate 1 g IV, Zosyn 4.5 g IV, send bicarbonate 50 mill equivalent IV push, regular insulin 5 units IV, and nitroglycerin sublingual. [facility], and in ICU processor grain team was consulted while in the ED. Severe acidosis- Fluid resuscitation as noted improved. will monitor Chronic medical issues: GERD-pantoprazole 40 mg IV twice daily Hypothyroidism-resume levothyroxine when able Diabetes mellitus-hyperglycemic ICU protocol. Holding metformin Hyperlipidemia-resume atorvastatin when appropriate Admission and Anticipated Discharge Date Admission Date: July 25, 2024 Subjective Patient is sedated and able to squeeze hand. Physical Exam Physical Exam: Patient is intubated and sedated. skin: warm, dry heart: RRR lung: vent settings reviewed during rounds extremities: no edema. Results & Data Results & Data Vital Signs (Past 12 Hours) Vital Signs Temp Pulse Pulse Resp BP Pulse Ox O2 Del Method 07/27/24 20:57 89 20 95 07/27/24 20:13 87 18 97 Nasal Cannula 07/27/24 17:48 88 07/27/24 17:39 36.5 C 87 18 97 07/27/24 17:31 179/70 H 07/27/24 17:31 179/70 H 07/27/24 17:31 179/70 H 07/27/24 17:24 36.5 C 89 19 97 07/27/24 17:12 36.5 C 89 19 97 07/27/24 17:01 186/79 H 07/27/24 16:54 36.6 C 90 19 97 07/27/24 16:33 36.6 C 90 22 97 07/27/24 16:31 192/88 H 07/27/24 16:31 192/88 H 07/27/24 16:31 192/88 H 07/27/24 16:24 36.6 C 89 25 H 96 07/27/24 16:03 36.7 C 86 19 97 07/27/24 16:01 182/73 H 07/27/24 16:01 182/73 H 07/27/24 15:57 36.7 C 86 19 97 07/27/24 15:33 36.7 C 85 19 96 07/27/24 15:31 185/70 H 07/27/24 15:31 185/70 H 07/27/24 15:31 185/70 H 07/27/24 15:06 36.7 C 87 22 97 07/27/24 15:03 36.7 C 85 29 H 96 07/27/24 15:02 85 176/72 H 07/27/24 15:01 176/72 H 07/27/24 15:01 176/72 H 07/27/24 15:01 176/72 H 07/27/24 15:01 176/72 H 07/27/24 15:01 176/72 H 07/27/24 14:57 36.7 C 83 19 96 07/27/24 14:51 36.7 C 97 H 32 H 96 07/27/24 14:31 188/69 H 07/27/24 14:27 36.7 C 104 H 22 93 07/27/24 14:12 36.7 C 88 18 93 07/27/24 14:10 198/69 H 07/27/24 13:51 36.7 C 94 H 17 94 07/27/24 13:50 208/89 H 07/27/24 13:39 36.7 C 83 14 94 07/27/24 13:31 179/63 H 07/27/24 13:03 36.7 C 86 15 93 07/27/24 13:01 191/67 H 07/27/24 12:48 36.7 C 83 15 93 07/27/24 12:39 36.7 C 84 15 92 07/27/24 12:18 36.7 C 82 15 92 07/27/24 12:00 174/77 H 07/27/24 12:00 07/27/24 11:57 36.6 C 68 18 98 07/27/24 11:37 188/70 H 07/27/24 11:30 36.5 C 75 18 97 07/27/24 10:27 36.3 C L 59 L 18 98 07/27/24 10:00 110/59 L 07/27/24 09:54 36.4 C L 59 L 18 98 07/27/24 09:30 111/70 01/20/25 09:30 36.4 C L 59 L 18 98 O2 Flow Rate FiO2 07/27/24 20:57 30 07/27/24 20:13 2 07/27/24 17:48 07/27/24 17:39 07/27/24 17:31 07/27/24 17:31 07/27/24 17:31 07/27/24 17:24 07/27/24 17:12 07/27/24 17:01 07/27/24 16:54 07/27/24 16:33 07/27/24 16:31 07/27/24 16:31 07/27/24 16:31 07/27/24 16:24 07/27/24 16:03 07/27/24 16:01 07/27/24 16:01 07/27/24 15:57 07/27/24 15:33 07/27/24 15:31 07/27/24 15:31 07/27/24 15:31 07/27/24 15:06 07/27/24 15:03 07/27/24 15:02 07/27/24 15:01 07/27/24 15:01 07/27/24 15:01 07/27/24 15:01 07/27/24 15:01 07/27/24 14:57 07/27/24 14:51 07/27/24 14:31 07/27/24 14:27 07/27/24 14:12 07/27/24 14:10 07/27/24 13:51 07/27/24 13:50 07/27/24 13:39 07/27/24 13:31 07/27/24 13:03 07/27/24 13:01 07/27/24 12:48 07/27/24 12:39 07/27/24 12:18 07/27/24 12:00 07/27/24 12:00 35 07/27/24 11:57 07/27/24 11:37 07/27/24 11:30 07/27/24 10:27 07/27/24 10:00 07/27/24 09:54 07/27/24 09:30 07/27/24 09:30 PG Care Time/CCT Total # of Minutes Spent Total Time Spent with Patient: Total time spent is greater than 50% in coordination of care (as documented) at patient's floor/unit and/or counseling patient: Coding Level of Care Code 87896 SUB INP/OBS CARE 3/50MIN Diagnoses Respiratory failure requiring intubation J96.90 Respiratory failure with hypoxia and hypercapnia J96.91; J96.92 Non-ST elevation [place] (NSTEMI) I21.4 ELLA (acute kidney injury) N17.9 Influenza A virus subtype H1 2009 pandemic strain not detected Z01.89 Acute CHF (congestive heart failure) I50.9 Hyperkalemia E87.5 Hyperglycemia due to type 2 diabetes mellitus E11.65
[2024-07-28] MEDS: LABETALOL HCL IV 5 MG/ML 20ML IV ONE (00:04)
[2024-07-28 04:38] LABS: Hematocrit (blood only) 27.9 % (37.0-47.0); Hemoglobin 8.4 g/dl (12.0-16.0); Mean Corpuscular Hemoglobin 26.6 pg (25.0-34.0); Mean Corpuscular Hgb Conc 30.1 g/dL (32.0-36.0); Mean Corpuscular Volume 88.3 fL (80.0-100.0); Mean Platelet Volume 10.5 fL (9.4-12.4); Platelet Count 323 K/uL (130-400); RDW Coefficient of Variation 16.3 % (11.5-14.5); RDW Standard Deviation 53.3 fL (36.4-46.3); Red Blood Count 3.16 M/uL (4.20-5.40); White Blood Count 18.31 K/ul (4.8-10.8)
[2024-07-28 04:55] LABS: Basophils # (auto) 0.03 K/uL (0.00-0.20); Basophils % (auto) 0.2 %; Eosinophils # (auto) 0.01 K/uL (0.00-0.50); Eosinophils % (auto) 0.1 %; Immature Granulocytes # (auto) 0.09 K/uL (0.01-0.20); Immature Granulocytes % (auto) 0.5 %; Lymphocytes # (auto) 0.74 K/uL (1.20-3.40); Monocytes # (auto) 0.59 K/uL (0.11-0.59); Monocytes % (auto) 3.2 %; Neutrophils # (auto) 16.85 K/uL (1.40-6.50); Polychromasia 1+
[2024-07-28 04:58] LABS: Albumin Globulin Ratio 0.8 (0.9-2); Bilirubin,Total 0.2 mg/dl (0.2-1.0); Calcium 7.3 mg/dl (8.6-10.3); Creatinine Clr Calc Pharmacy 11.3 ml/min; Globulin 3.6 gm/dl (2.5-4.0); Phosphorus 8.8 mg/dl (2.5-4.9); Potassium 5.3 mmol/L (3.5-5.1); Total Protein 6.6 gm/dl (6.0-8.3)
[2024-07-28 05:01] LABS: INR 1.1 (0.9-1.1); Partial Thromboplastin Ratio 1.2; Partial Thromboplastin Time 33 Seconds (21-31); Prothrombin Time 11.4 Seconds (9.0-12.0)
[2024-07-28] MEDS ORDERED: STAT IV Infusion **Titration per Protocol STA (05:06)
[2024-07-28] MEDS: ALBUT/IPRATROP 3MG/0.5MG NEB 3 ML VIAL NEB PRN (05:10)
[2024-07-28] MEDS: FUROSEMIDE 40 MG/4 ML VIAL IV ONE ×3 (05:13→10:54)
[2024-07-28] MEDS: niCARdipine 25 MG in SODIUM CHLORIDE 0.9% 240 ML IV SCH (05:29)
--- NOTE | 2024-07-28 06:55 | Critical Care Progress Note ---
Date of Service July 28, 2024 Assessment & Plan (1) Respiratory failure requiring intubation: (2) Respiratory failure with hypoxia and hypercapnia: (3) Non-ST elevation LA (NSTEMI): (4) ELLA (acute kidney injury): (5) Influenza A virus subtype H1 2009 pandemic strain not detected: (6) Acute CHF (congestive heart failure): (7) Hyperkalemia: (8) Hyperglycemia due to type 2 diabetes mellitus: Plan Reason Critically Ill: Hypercarbic/hypoxic respiratory failure in setting of influenza illness, NSTEMI, and CHF exacerbation Neuro - no longer sedated as she was successfully extubated yesterday evening 07/27/24 [facility] ICU: TAY - continuing to improve from a pulmonary and hemodynamic standpoint - PT/OT ordered: physiotherapy encouraged with goal to be out of bed to chair, starting activity while in bed Cardiac - NSTEMI, Acute on chronic heart failure, HTN -Possibly an element of mild CHF. More likely viral pneumonia with superimposed bacterial pneumonia. Will discontinue diuresis. Echo findings noted with "low normal EF". Right ventricular systolic function is reduced. - Troponin downtrending, restarting metoprolol 50mg BID - atorvastatin 40 mg daily -Clinically patient is volume up I believe she needs to be net negative Respiratory - Hypercarbic/hypoxic respiratory failure requiring intubation and mechanical ventilation, pleural effusions - successfully extubated yesterday evening 07/27/24, currently satting upper 90s on 2L NC - ARDSnet protocol - Influenza- continue Tamiflu -Probable secondary bacterial pneumonia however MRSA swab neg, deescalated abx to Rocephin -Awaiting sputum culture - DOMINGO nebs, Pulmicort BID nebs GI - No acute needs -Start trickle feeds RENAL/LYTES - ARF on CKD, hyperkalemia, mixed respiratory/metabolic acidosis - per nephrology consultation note, patient is net 3 L volume + since admission - 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 - Hyperkalemia mild, 5.3: nephro recommendation to provide 150 mEq NaHCO3 gtt IV - continue Lasix per nephro recommendation: 40mg IV today to continue gentle diuresis - No current needs - Harris catheter while intubated and sedated ENDO - DM - ICU hyperglycemic protocol- initiate insulin infusion for goal BG 180mg/DL. Likely mild DKA on admission. - TSH with reflex to free T4 ordered HEME -anemia history of anemia dating back to 2018 not otherwise specified -Anemia panel History of thrombocytosis extending to 2018: Currently within normal limits -Was on heparin infusion given elevation of troponins, this was discontinued given drop in blood counts, continuing aspirin Given critical illness we will transfuse 1 unit packed red blood cells if family willing to accept blood -Trend H&H ID - Influenza A, Sepsis - Sputum for gram stain and culture - Blood Cultures no growth to date at 48 hours, RLL bronchial cultures (bact & fungal) pending - Urine negative - deescalating abx to Rocephin, cont. through 7 days - Tamiflu for influenza-given renal function will not increase Tamiflu dose LINES/IV ACCESS - PIV x3, ETT, OGT, Harris to gravity Continue use of these lines - Verbal consent from daughter and patient's (over phone) obtained for arterial line and CVL if needed DVT PROPHYLAXIS - SCDS DISPO: ICU while intubated and sedated CODE STATUS: DO NOT RESUSCITATE in event of cardiac arrest Clinical update, was successfully extubated last night 07/27/24. Admission and Anticipated Discharge Date Admission Date: July 25, 2024 Supervising Physician Co-Signing Physician Notes Dr. Liu was resident physician during care of patient. I separately evaluated patient for culp portions of the history and the exam. I was present during the critical portion of medical decision making, and I discussed the case with the resident. I generally agree with the findings and plan. Cardene started overnight secondary to refractory elevated blood pressure. At risk for CHF and volume overload. Discussed with nephrology this morning will administer bicarb and continue diuretics. Hopefully creatinine will alisia. Nephrology to help inform family of medical treatments including renal replacement therapy if needed. Tenacious secretions having difficulty mobilizing. Physiotherapy in bed, patient needs PT OT. Restart metoprolol 50 mg twice daily. PT OT consult if we can discontinue the nicardipine. Out of bed to chair and attempt to encourage mobilization and secretion clearance. Requiring 4 L oxygen, CPAP at night. Continue nebulized treatments. Patient critically ill at risk of requiring reintubation or respiratory failure hypoxic or hypercapnic, especially in the setting of ongoing kidney failure. De- escalate to Rocephin for empiric 7-day treatment, scant normal valencia from [facility] culture, can discontinue linezolid. Patient remains afebrile Subjective Patient was seen and evaluated at bedside this AM, appearing lethargic with NC in place at 4L O2. Unable to report how she was feeling, but shakes her head "no" when asked about any particular pain. Continuing on 3L NC, satting in lower 90s and not appearing in respiratory distress. Physical Exam Physical Exam: General: Alert and able to follow simple commands, NC in place delivering 3L/min O2, not in respiratory distress HEENT: Sclerae are anicteric. Pupils are equal and reactive to light and accommodation. EOM intact Neuro: no facial droop, followed command to wiggle fingers and toes with success Lungs: Coarse breath sounds in all lung schmid, L>R, scattered wheezes heard on auscultation Cardiac: RRR, +s1/s2. No murmurs/rubs/gallops heard on auscultation Abdomen: Obese, mildly tense but no apparent guarding, no bruising seen, hypoactive BS, mild tenderness to palpation of upper abdominal quadrants, negative Bernstein's sign Extremities: 1+ pitting edema in b/l hands, 2+ b/l radial pulses, 2+ posterior tibial pulses. No cyanosis or clubbing seen. Compression devices on both legs Skin: There are no rashes noted on examination today. Depigmentation on the scalp, possibly vitiligo Results & Data Results & Data Vital Signs (Past 12 Hours) Vital Signs Temp Pulse Pulse Resp BP Pulse Ox O2 Del Method 07/28/24 06:16 159/66 H 07/28/24 06:16 159/66 H 07/28/24 06:16 159/66 H 07/28/24 06:16 159/66 H 07/28/24 06:06 36.8 C 83 19 93 07/28/24 05:33 36.8 C 83 22 96 07/28/24 05:10 84 26 H 99 Nasal Cannula 07/28/24 05:08 36.8 C 84 23 100 07/28/24 05:00 190/105 H 07/28/24 05:00 190/105 H 07/28/24 04:57 36.8 C 82 24 97 07/28/24 04:35 36.8 C 86 24 95 07/28/24 04:30 186/90 H 07/28/24 04:30 186/90 H 07/28/24 04:30 186/90 H 07/28/24 04:29 36.8 C 85 23 95 07/28/24 04:08 36.8 C 83 21 97 07/28/24 04:00 175/76 H 07/28/24 04:00 175/76 H 07/28/24 03:57 36.8 C 81 23 95 07/28/24 03:36 36.8 C 81 23 94 07/28/24 03:03 36.8 C 80 24 93 07/28/24 03:00 179/70 H 07/28/24 02:48 36.8 C 80 25 H 91 07/28/24 02:45 36.8 C 80 23 91 07/28/24 02:45 80 20 93 07/28/24 02:30 166/73 H 07/28/24 02:12 36.8 C 76 23 97 07/28/24 02:03 36.7 C 77 20 97 07/28/24 02:00 169/82 H 07/28/24 01:48 36.7 C 76 20 97 07/28/24 01:39 36.7 C 76 19 97 07/28/24 01:30 167/81 H 07/28/24 01:30 167/81 H 07/28/24 01:15 36.7 C 79 23 96 07/28/24 01:03 36.6 C 79 22 96 07/28/24 01:00 154/85 H 07/28/24 01:00 154/85 H 07/28/24 01:00 154/85 H 07/28/24 00:54 36.6 C 78 23 96 07/28/24 00:30 150/76 H 07/28/24 00:30 150/76 H 07/28/24 00:30 150/76 H 07/28/24 00:30 150/76 H 07/28/24 00:30 36.6 C 77 20 95 07/28/24 00:25 77 156/68 H 07/28/24 00:23 156/68 H 07/28/24 00:12 36.6 C 79 24 96 07/28/24 00:06 36.6 C 90 24 96 07/28/24 00:04 90 181/75 H 07/28/24 00:01 181/75 H 07/27/24 23:51 36.5 C 91 H 21 97 07/27/24 23:33 36.5 C 90 23 97 07/27/24 23:30 196/86 H 07/27/24 23:30 196/86 H 07/27/24 23:30 196/86 H 07/27/24 23:30 196/86 H 07/27/24 23:15 36.4 C L 85 18 97 07/27/24 23:03 36.4 C L 87 22 98 07/27/24 23:00 192/88 H 07/27/24 23:00 192/88 H 07/27/24 23:00 89 24 96 07/27/24 22:57 36.4 C L 86 19 97 07/27/24 22:30 36.3 C L 85 19 97 07/27/24 22:30 178/82 H 07/27/24 22:30 178/82 H 07/27/24 22:03 36.3 C L 83 17 96 07/27/24 22:00 168/77 H 07/27/24 21:57 36.3 C L 82 17 96 07/27/24 21:39 36.2 C L 83 19 96 07/27/24 21:30 181/74 H 07/27/24 21:27 36.2 C L 84 18 96 07/27/24 21:03 36.2 C L 92 H 23 95 07/27/24 21:01 180/71 H 07/27/24 20:57 89 20 95 07/27/24 20:42 36.2 C L 91 H 19 95 07/27/24 20:13 87 18 97 Nasal Cannula 07/27/24 20:00 Nasal Cannula O2 Flow Rate FiO2 07/28/24 06:16 07/28/24 06:16 07/28/24 06:16 07/28/24 06:16 07/28/24 06:06 07/28/24 05:33 07/28/24 05:10 2 07/28/24 05:08 07/28/24 05:00 07/28/24 05:00 07/28/24 04:57 07/28/24 04:35 07/28/24 04:30 07/28/24 04:30 07/28/24 04:30 07/28/24 04:29 07/28/24 04:08 07/28/24 04:00 07/28/24 04:00 07/28/24 03:57 07/28/24 03:36 07/28/24 03:03 07/28/24 03:00 07/28/24 02:48 07/28/24 02:45 07/28/24 02:45 35 07/28/24 02:30 07/28/24 02:12 07/28/24 02:03 07/28/24 02:00 07/28/24 01:48 07/28/24 01:39 07/28/24 01:30 07/28/24 01:30 07/28/24 01:15 07/28/24 01:03 07/28/24 01:00 07/28/24 01:00 07/28/24 01:00 07/28/24 00:54 07/28/24 00:30 07/28/24 00:30 07/28/24 00:30 07/28/24 00:30 07/28/24 00:30 07/28/24 00:25 07/28/24 00:23 07/28/24 00:12 07/28/24 00:06 07/28/24 00:04 07/28/24 00:01 07/27/24 23:51 07/27/24 23:33 07/27/24 23:30 07/27/24 23:30 07/27/24 23:30 07/27/24 23:30 07/27/24 23:15 07/27/24 23:03 07/27/24 23:00 07/27/24 23:00 07/27/24 23:00 30 07/27/24 22:57 07/27/24 22:30 07/27/24 22:30 07/27/24 22:30 07/27/24 22:03 07/27/24 22:00 07/27/24 21:57 07/27/24 21:39 07/27/24 21:30 07/27/24 21:27 07/27/24 21:03 07/27/24 21:01 07/27/24 20:57 30 07/27/24 20:42 07/27/24 20:13 2 07/27/24 20:00 4 Critical Care Time Critical Care Time: Yes 45 minutes Resident Activity Tracking Resident Involvement: Resident Care Provided Care Provided: Adult Hospital Medicine
--- NOTE | 2024-07-28 09:40 | Billing Data ---
Date of Service July 28, 2024 Coding Level of Care Code 24232 CRITICAL CARE
--- NOTE | 2024-07-28 10:19 | Nephrology Consultation ---
Date of Consultation July 28, 2024 Assessment & Plan (1) ELLA (acute kidney injury): * Nonoliguric ELLA likely related to combination influenza, NSTEMI * CXR w/ mild vascular congestion and RLL infiltrate/effusion * Patient is net 3 L volume + since admission * Will provide furosemide 40 mg IV x1 today to continue gentle diuresis * Mild hyperkalemia and high AGA related to ELLA. 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 Madden is a 74 [facility] who is seen at the request of the [facility] hospitalist service for evaluation of ELLA. The patient is currently in the ICU and nonverbal. Information for the HPI is obtained from review of the medical record. HPI is summarized as follows: Mrs. Madden has CKD stage G3 (moderate impairment). She has not undergone nephrology evaluation in the past. Her baseline Cr is 1.2. Mrs. Madden was admitted to [facility] 07/25/24 with respiratory failure requiring mechanical ventilation, NSTEMI, CHF and + influenza. staff auditor reports that she was extubated yesterday evening and has been breathing well w/ SaO2 98% on 2 L NC. Since admission patient has been hypertensive. She has not received NSAIDS or IV contrast. Cr has risen to 4.8. Patient has trin[place] catheter in place and had 1580 cc UO last 24 hours. She is net 3.3 L volume + since admission. Allergies Allergy/AdvReac Type Severity Reaction Status Date / Time No Known Allergies Allergy Unverified 04/06/19 11:11 Home Medications Medication Instructions Recorded Confirmed Type aspirin 81 mg tablet,delayed 81 mg PO QAM 08/08/18 04/06/19 History release atorvastatin 80 mg tablet 40 mg PO BID 08/08/18 04/06/19 History insulin NPH-regular 70-30 U-100 70 - 80 unit subcut BIDM 08/08/18 04/06/19 History insulin 100 unit/mL subcutaneous pen (Novolin 70-30 FlexPen U-100 Insulin) metformin 1,000 mg tablet 1,000 mg PO BID 08/08/18 04/06/19 History nitroglycerin 0.4 mg sublingual 0.4 mg sublingual UD 08/08/18 04/06/19 History tablet (Nitrostat) furosemide 20 mg tablet 40 mg PO DAILY #60 tabs 03/13/19 03/13/19 History levothyroxine 50 mcg tablet 50 mcg PO DAILY #90 tabs 03/13/19 03/13/19 History pantoprazole 40 mg tablet,delayed 40 mg PO DAILY #90 tabs 03/13/19 03/13/19 History release folic acid 1 mg tablet 1 mg PO QAM #90 tabs 06/03/19 Rx metoprolol tartrate 50 mg tablet 50 mg PO BID #180 tabs 06/03/19 Rx (Lopressor) Patient History Medical History Non-STEMI (non-ST elevated myocardial infarction) Diabetes Surgical History Hx of cardiac catheterization Family History Other Diabetes Social History Smoking Status: Never smoker Second Hand Exposure: No; Do You Dip or Chew Tobacco: No; Tobacco Cessation Education Requested by Patient: No Hx Alcohol Use: No Hx Substance Use: No Preferred Language: Upper Sorbian Communication Ability: Impaired 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 Beliefs That Will Affect Care: Worship Worship Beliefs: Roberth marital status: Current Living Situation: Spouse Other Information That Helps Us Care for You: No Feels Safe at Home: Yes Safety Concerns: Feels Safe At This Time Assistive Devices: Cane Review of Systems Review of Systems: Unobtainable due to cognitive status Physical Exam Constitutional: + ill appearing (nonconversant) Eyes: PERRL, conjunctivae normal, anicteric sclerae ENMT: Mouth: + dry oral mucous membranes Neck: trachea midline, no thyromegaly Respiratory: normal respiratory effort, lungs clear to auscultation Cardiovascular: RRR, no murmur, no edema Gastrointestinal (Abdomen): normal bowel sounds, soft, nontender, no hepatosplenomegaly Musculoskeletal: Extremities: no cyanosis and no clubbing Skin: no rashes, warm and dry Neurologic: awake (nonverbal) Results & Data Vital Signs (Past 12 Hours) Vital Signs Temp Pulse Pulse Resp BP Pulse Ox O2 Del Method 07/28/24 07:32 36.7 C 87 23 98 07/28/24 07:31 168/73 H 07/28/24 07:31 168/73 H 07/28/24 07:31 168/73 H 07/28/24 07:31 168/73 H 07/28/24 07:30 86 19 97 Nasal Cannula 07/28/24 07:29 36.7 C 85 21 98 07/28/24 07:16 156/68 H 07/28/24 07:05 36.7 C 83 17 94 07/28/24 07:01 162/72 H 07/28/24 07:01 162/72 H 07/28/24 07:01 162/72 H 07/28/24 06:53 36.7 C 83 17 94 07/28/24 06:46 161/65 H 07/28/24 06:45 36.7 C 83 19 94 07/28/24 06:33 36.7 C 83 17 93 07/28/24 06:31 160/69 H 07/28/24 06:31 160/69 H 07/28/24 06:31 160/69 H 07/28/24 06:31 160/69 H 07/28/24 06:31 160/69 H 07/28/24 06:16 159/66 H 07/28/24 06:16 159/66 H 07/28/24 06:16 159/66 H 07/28/24 06:16 159/66 H 07/28/24 06:06 36.8 C 83 19 93 07/28/24 05:33 36.8 C 83 22 96 07/28/24 05:10 84 26 H 99 Nasal Cannula 07/28/24 05:08 36.8 C 84 23 100 07/28/24 05:00 190/105 H 07/28/24 05:00 190/105 H 07/28/24 04:57 36.8 C 82 24 97 07/28/24 04:35 36.8 C 86 24 95 07/28/24 04:30 186/90 H 07/28/24 04:30 186/90 H 07/28/24 04:30 186/90 H 07/28/24 04:29 36.8 C 85 23 95 07/28/24 04:08 36.8 C 83 21 97 07/28/24 04:00 175/76 H 07/28/24 04:00 175/76 H 07/28/24 03:57 36.8 C 81 23 95 07/28/24 03:36 36.8 C 81 23 94 07/28/24 03:03 36.8 C 80 24 93 07/28/24 03:00 179/70 H 07/28/24 02:48 36.8 C 80 25 H 91 07/28/24 02:45 36.8 C 80 23 91 07/28/24 02:45 80 20 93 07/28/24 02:30 166/73 H 07/28/24 02:12 36.8 C 76 23 97 07/28/24 02:03 36.7 C 77 20 97 07/28/24 02:00 169/82 H 07/28/24 01:48 36.7 C 76 20 97 07/28/24 01:39 36.7 C 76 19 97 07/28/24 01:30 167/81 H 07/28/24 01:30 167/81 H 07/28/24 01:15 36.7 C 79 23 96 07/28/24 01:03 36.6 C 79 22 96 07/28/24 01:00 154/85 H 07/28/24 01:00 154/85 H 07/28/24 01:00 154/85 H 07/28/24 00:54 36.6 C 78 23 96 07/28/24 00:30 150/76 H 07/28/24 00:30 150/76 H 07/28/24 00:30 150/76 H 07/28/24 00:30 150/76 H 07/28/24 00:30 36.6 C 77 20 95 07/28/24 00:25 77 156/68 H 07/28/24 00:23 156/68 H 07/28/24 00:12 36.6 C 79 24 96 07/28/24 00:06 36.6 C 90 24 96 07/28/24 00:04 90 181/75 H 07/28/24 00:01 181/75 H 07/27/24 23:51 36.5 C 91 H 21 97 07/27/24 23:33 36.5 C 90 23 97 07/27/24 23:30 196/86 H 07/27/24 23:30 196/86 H 07/27/24 23:30 196/86 H 07/27/24 23:30 196/86 H 07/27/24 23:15 36.4 C L 85 18 97 07/27/24 23:03 36.4 C L 87 22 98 07/27/24 23:00 192/88 H 07/27/24 23:00 192/88 H 07/27/24 23:00 89 24 96 07/27/24 22:57 36.4 C L 86 19 97 07/27/24 22:30 36.3 C L 85 19 97 07/27/24 22:30 178/82 H 07/27/24 22:30 178/82 H O2 Flow Rate FiO2 07/28/24 07:32 07/28/24 07:31 07/28/24 07:31 07/28/24 07:31 07/28/24 07:31 07/28/24 07:30 2 07/28/24 07:29 07/28/24 07:16 07/28/24 07:05 07/28/24 07:01 07/28/24 07:01 07/28/24 07:01 07/28/24 06:53 07/28/24 06:46 07/28/24 06:45 07/28/24 06:33 07/28/24 06:31 07/28/24 06:31 07/28/24 06:31 07/28/24 06:31 07/28/24 06:31 07/28/24 06:16 07/28/24 06:16 07/28/24 06:16 07/28/24 06:16 07/28/24 06:06 07/28/24 05:33 07/28/24 05:10 2 07/28/24 05:08 07/28/24 05:00 07/28/24 05:00 07/28/24 04:57 07/28/24 04:35 07/28/24 04:30 07/28/24 04:30 07/28/24 04:30 07/28/24 04:29 07/28/24 04:08 07/28/24 04:00 07/28/24 04:00 07/28/24 03:57 07/28/24 03:36 07/28/24 03:03 07/28/24 03:00 07/28/24 02:48 07/28/24 02:45 07/28/24 02:45 35 07/28/24 02:30 07/28/24 02:12 07/28/24 02:03 07/28/24 02:00 07/28/24 01:48 07/28/24 01:39 07/28/24 01:30 07/28/24 01:30 07/28/24 01:15 07/28/24 01:03 07/28/24 01:00 07/28/24 01:00 07/28/24 01:00 07/28/24 00:54 07/28/24 00:30 07/28/24 00:30 07/28/24 00:30 07/28/24 00:30 07/28/24 00:30 07/28/24 00:25 07/28/24 00:23 07/28/24 00:12 07/28/24 00:06 07/28/24 00:04 07/28/24 00:01 07/27/24 23:51 07/27/24 23:33 07/27/24 23:30 07/27/24 23:30 07/27/24 23:30 07/27/24 23:30 07/27/24 23:15 07/27/24 23:03 07/27/24 23:00 07/27/24 23:00 07/27/24 23:00 30 07/27/24 22:57 07/27/24 22:30 07/27/24 22:30 07/27/24 22:30 Laboratory Results Laboratory Results WBC 18.31 K/ul (4.8-10.8) H 07/28/24 04:15 RBC 3.16 M/uL (4.20-5.40) L 07/28/24 04:15 Hgb 8.4 g/dl (12.0-16.0) L 07/28/24 04:15 POC Hgb 9.5 g/dl (12.0-16.0) L 07/26/24 02:17 Hct 27.9 % (37.0-47.0) L 07/28/24 04:15 POC Hct 28 % (37-47) L 07/26/24 02:17 MCV 88.3 fL (80.0-100.0) 07/28/24 04:15 MCH 26.6 pg (25.0-34.0) 07/28/24 04:15 MCHC 30.1 g/dL (32.0-36.0) L 07/28/24 04:15 RDW Std Deviation 53.3 fL (36.4-46.3) H 07/28/24 04:15 RDW Coeff of Ching 16.3 % (11.5-14.5) H 07/28/24 04:15 Plt Count 323 K/uL (130-400) 07/28/24 04:15 MPV 10.5 fL (9.4-12.4) 07/28/24 04:15 Immature Gran % (Auto) 0.5 % 07/28/24 04:15 Neut % (Auto) 92.0 % 07/28/24 04:15 Lymph % (Auto) 4.0 % 07/28/24 04:15 [place] % (Auto) 3.2 % 07/28/24 04:15 Eos % (Auto) 0.1 % 07/28/24 04:15 Baso % (Auto) 0.2 % 07/28/24 04:15 Reticulocyte % (Auto) 1.77 % (0.50-2.00) 07/27/24 10:35 Neut # (Auto) 16.85 K/uL (1.40-6.50) H 07/28/24 04:15 Lymph # (Auto) 0.74 K/uL (1.20-3.40) L 07/28/24 04:15 [place] # (Auto) 0.59 K/uL (0.11-0.59) 07/28/24 04:15 Eos # (Auto) 0.01 K/uL (0.00-0.50) 07/28/24 04:15 Baso # (Auto) 0.03 K/uL (0.00-0.20) 07/28/24 04:15 Reticulocyte # 0.050 10^6/uL (0.020-0.100) 07/27/24 10:35 Immature Gran # (Auto) 0.09 K/uL (0.01-0.20) 07/28/24 04:15 Absolute Nucleated RBC 0.03 K/uL (0.00-0.12) 07/27/24 04:34 Nucleated RBC % (auto) 0.2 % 07/27/24 04:34 RBC Morphology Unremarkable 07/27/24 04:34 Polychromasia 1+ 07/28/24 04:15 Tear Drop Cells 1+ 07/26/24 04:17 Echinocytes 1+ 07/26/24 04:17 PT 11.4 Seconds (9.0-12.0) 07/28/24 04:15 INR 1.1 (0.9-1.1) 07/28/24 04:15 APTT 33 Seconds (21-31) H 07/28/24 04:15 PTT Ratio 1.2 07/28/24 04:15 Heparin Anti-Xa, Unfract 0.44 IU/ml (0.3-0.7) 07/26/24 12:11 Specimen Type Arterial 07/26/24 02:17 Sample Site R Radial 07/26/24 02:17 POC pH 7.38 (7.35-7.45) 07/26/24 02:17 POC pCO2 34 mmHg (35-46) L 07/26/24 02:17 POC pO2 318 mmHg (80-95) H 07/26/24 02:17 POC HCO3 20 leigh/L (19-24) 07/26/24 02:17 POC Total CO2 21 mmol/L (24-31) L 07/26/24 02:17 POC Base Excess -5.0 leigh/L (-9-1.8) 07/26/24 02:17 O2 Sat Pulse Oximetry 100 07/26/24 02:17 ABG pH (Temp Correct) 7.385 (7.35-7.45) 07/26/24 02:17 ABG pCO2 (Temp Corrct 34 mmHg (35-46) L 07/26/24 02:17 POC ABG pO2 at Pt Temp 316 07/26/24 02:17 POC ABG O2 Sat 100.0 % (90-95) H 07/26/24 02:17 Sidney Test Pass 07/26/24 02:17 VBG pH 7.14 (7.36-7.41) L 07/25/24 23:34 VBG pCO2 54 mmHg (38-50) H 07/25/24 23:34 VBG pO2 35 mmHg 07/25/24 23:34 VBG HCO3 18 mmol/L 07/25/24 23:34 VBG O2 Saturation < 60.0 % 07/25/24 23:34 VBG Base Excess -10.9 mEq/L 07/25/24 23:34 O2 Delivery Device Ventilator 07/26/24 02:17 Vent Mode AC 07/26/24 02:17 POC FiO2 80 % 07/26/24 02:17 End Tidal CO2 07/26/24 02:17 POC Sodium 137 mmol/L (135-144) 07/26/24 02:17 Sodium 134 mmol/L (136-145) L 07/28/24 04:15 POC Potassium 5.7 mmol/L (3.3-5.0) H 07/26/24 02:17 Potassium 5.3 mmol/L (3.5-5.1) H 07/28/24 04:15 POC Chloride 111 mmol/L (101-112) 07/25/24 21:40 Chloride 101 mmol/L (98-107) 07/28/24 04:15 Carbon Dioxide 20 mmol/L (21-32) L 07/28/24 04:15 POC Total CO2 17 mmol/L (24-31) L 07/25/24 21:40 Anion Gap 13 (3-11) H 07/28/24 04:15 POC Anion Gap 13.0 mmol/L (16-25) L 07/25/24 21:40 POC BUN 72 mg/dl (7-18) H 07/25/24 21:40 BUN 77 mg/dl (6-23) H 07/28/24 04:15 Creatinine 4.80 mg/dl (0.6-1.2) H* 07/28/24 04:15 POC Creatinine 3.9 mg/dl (0.6-1.3) H 07/25/24 21:40 Est Cr Clr Drug Dosing 11.3 ml/min 07/28/24 04:15 eGFR 8.94 07/28/24 04:15 BUN/Creatinine Ratio 16.0 (10-20) 07/28/24 04:15 Glucose 152 mg/dl (70-99(Fasting)) H 07/28/24 04:15 POC Glucose 140 mg/dl (70-99) H 07/28/24 08:36 POC Glucose (other) 390 mg/dl (70-99) H* 07/25/24 21:40 Estimat Average Glucose 214 mg/dl 07/27/24 04:34 Hemoglobin A1c 9.1 % (4.5-5.6) H 07/27/24 04:34 Lactate 1.9 mmol/L (0.4-2.0) 07/25/24 21:36 Calcium 7.3 mg/dl (8.6-10.3) L 07/28/24 04:15 POC Ioniz Calcium Pablo 1.07 mmol/l (1.12-1.32) L 07/25/24 21:40 Phosphorus 8.8 mg/dl (2.5-4.9) H 07/28/24 04:15 Magnesium 2.0 mg/dl (1.7-2.4) 07/28/24 04:15 Iron 16 mcg/dl (35-150) L 07/27/24 06:07 Transferrin 146 mg/dl (200-360) L 07/27/24 06:07 Ferritin 104.1 ng/ml (8-388) 07/27/24 06:07 Total Bilirubin 0.2 mg/dl (0.2-1.0) 07/28/24 04:15 AST 88 U/L (13-39) H 07/28/24 04:15 ALT 22 U/L (7-52) 07/28/24 04:15 Alkaline Phosphatase 61 U/L (34-104) 07/28/24 04:15 Troponin I High Sens 65945.4 pg/ml (0-14) H* D 07/27/24 04:34 B-Natriuretic Peptide 1062 pg/ml (0-100) H 07/25/24 21:36 Total Protein 6.6 gm/dl (6.0-8.3) 07/28/24 04:15 Albumin 3.0 gm/dl (3.4-5.0) L 07/28/24 04:15 Globulin 3.6 gm/dl (2.5-4.0) 07/28/24 04:15 Albumin/Globulin Ratio 0.8 (0.9-2) L 07/28/24 04:15 Vitamin B12 181 pg/ml (180-914) 07/27/24 06:07 Folate 12.72 ng/ml (>5.38) 07/27/24 06:07 Procalcitonin 0.57 ng/ml (0-0.5) H 07/25/24 21:36 Urine Color Yellow 07/26/24 00:15 Urine Appearance Cloudy (Clear) A 07/26/24 00:15 Urine pH 5.0 (4.5-7.5) 07/26/24 00:15 Ur Specific Sharples 1.015 (1.000-1.030) 07/26/24 00:15 Urine Protein 3+ (Negative) H 07/26/24 00:15 Urine Glucose (UA) 3+ (Negative) H 07/26/24 00:15 Urine Ketones Negative (Negative) 07/26/24 00:15 Urine Blood 2+ (Negative) H 07/26/24 00:15 Urine Nitrite Negative (Negative) 07/26/24 00:15 Urine Bilirubin Negative (Negative) 07/26/24 00:15 Urine Urobilinogen Negative (Negative) 07/26/24 00:15 Ur Leukocyte Esterase Negative (Negative) 07/26/24 00:15 Urine WBC (Auto) 6-10 /hpf (0-5) H 07/26/24 00:15 Urine RBC (Auto) 0-2 /hpf (0-2) 07/26/24 00:15 U Hyaline Cast (Auto) 3-5 /lpf (0-2) H 07/26/24 00:15 U Epithel Cells (Auto) 3-5 /hpf (0-2) H 07/26/24 00:15 Urine Bacteria (Auto) None Seen (None Seen) 07/26/24 00:15 Nasal Influ A H1 2008 PCR DETECTED (NotDetected) A 07/25/24 21:18 Nasal Screen MRSA (PCR) Positive (Negative) A 07/26/24 01: Adenovirus (PCR) Not Detected (NotDetected) 07/25/24 21:18 B. pertussis DNA (PCR) Not Detected (NotDetected) 07/25/24 21:18 B.parapertussis DNA PCR Not Detected (NotDetected) 07/25/24 21:18 C. pneumoniae DNA (PCR) Not Detected (NotDetected) 07/25/24 21:18 Coronavirus OC43 (PCR) Not Detected (NotDetected) 07/25/24 21:18 Coronavirus HKU1 (PCR) Not Detected (NotDetected) 07/25/24 21:18 Coronavirus 229E (PCR) Not Detected (NotDetected) 07/25/24 21:18 SARS-CoV-2 (PCR) Not Detected (NotDetected) 07/25/24 21:18 Coronavirus NL63 (PCR) Not Detected (NotDetected) 07/25/24 21:18 Human Metapneumovir PCR Not Detected (NotDetected) 07/25/24 21:18 Influenza Type B (PCR) Not Detected (NotDetected) 07/25/24 21:18 M. pneumoniae (PCR) Not Detected (NotDetected) 07/25/24 21:18 Parainfluenza 1 (PCR) Not Detected (NotDetected) 07/25/24 21:18 Parainfluenza 2 (PCR) Not Detected (NotDetected) 07/25/24 21:18 Parainfluenza 3 (PCR) Not Detected (NotDetected) 07/25/24 21:18 Parainfluenza 4 (PCR) Not Detected (NotDetected) 07/25/24 21:18 RSV (PCR) Not Detected (NotDetected) 07/25/24 21:18 Entero/Rhino (PCR) Not Detected (NotDetected) 07/25/24 21:18 Blood Type A Positive 07/25/24 21:36 Antibody Screen NEGATIVE 07/25/24 21:36 Crossmatch See Detail 07/25/24 21:36 PG Care Time/CCT Total # of Minutes Spent Total Time Spent with Patient: Total time spent is greater than 50% in coordination of care (as documented) at patient's floor/unit and/or counseling patient: Coding Level of Care Code 97087 IN/OBS CONSULT LVL 5,80M Diagnoses ELLA (acute kidney injury) N17.9 Chronic kidney disease N18.9 Influenza A virus subtype H1 2009 pandemic strain not detected Z01.89 Non-ST elevation VT (NSTEMI) I21.4 Hyperglycemia due to type 2 diabetes mellitus E11.65
--- NOTE | 2024-07-28 10:22 | XRay Report ---
XR chest 1V portable CLINICAL HISTORY: hypoxia COMPARISON STUDY: 07/27/2024 FINDINGS: There is interval extubation. Stable right central catheter. Stable cardiomegaly without pu lmonary vascular congestion.There is increased dense opacity at the right lung base with curvilinear superior border. Otherwise there is stable reticular and patchy opacity throughout both lungs. No pne umothorax. IMPRESSION: 1. Increased dense opacity at the right base with curvilinear superior border. Differential diagnosis includes dense consolidation/lower lobe collapse, right pleural effusion, and interval elevation of the right hemidiaphragm. 2. Otherwise diffuse interstitial and patchy pulmonary opacities. ACT 112: Negative or not required by law. Electronically signed by: Agustin Webber M.D. 07/28/2024 10:21 AM
[2024-07-28 10:35] LABS: Thyroid Stimulating Hormone 3.674 uIu/ml (0.300-4.500)
[2024-07-28] MEDS: SODIUM BICARBONATE 8.4% 150 MEQ in WATER, STERILE 1,000 ML IV SCH (10:53)
[2024-07-28] MEDS: METOPROLOL TARTRATE 50 MG TAB PO SCH (11:52)
[2024-07-28] MEDS: LANTUS PER UNIT CHARGE SC ONE (11:52)
--- NOTE | 2024-07-28 13:43 | Cardiology Progress Note ---
Date of Service July 28, 2024 Assessment & Plan (1) Acute CHF (congestive heart failure): (2) NSTEMI (non-ST elevated myocardial infarction): (3) CAD (coronary artery disease): (4) HTN (hypertension): Plan 1. Acute on chronic heart failure with preserved ejection fraction: She likely has an element of pulmonary vascular congestion. Continue attempts at diuresis. Better urine output today and better response to Lasix. 2. NSTEMI: Biomarkers have peaked. Less likely related to an acute coronary syndrome and more likely related to her hypoxia and hypertension at the time of admission. Heparin has been discontinued due to concerns of dropping hemoglobin. I think this is reasonable. Continue aspirin. 3. Coronary artery disease: She is known to have severe coronary artery disease. She previously underwent percutaneous intervention to the right coronary artery. She had significant residual disease in 2019. This is likely responsible for her elevated biomarkers in the setting of hypoxia and hypertension. Will consider reevaluation prior to discharge depending on her clinical course and renal function. No urgent indication for coronary angiography. 4. Mitral regurgitation: Moderate previously. More mild on current evaluation although images were suboptimal. 5. Hypertension: Markedly hypertensive at the time of admission. started on nicardipine infusion. Now that she is taking oral medications metoprolol will be administered. 6. Acute kidney injury: Unfortunately renal function has declined. Continuing attempts at diuresis. 7. Anemia: Stable. No evidence of active bleeding. Admission and Anticipated Discharge Date Admission Date: July 25, 2024 Subjective This afternoon the patient was alert and able to answer questions. However, she was very fatigued. She reported some mild breathing difficulty. No chest pain reported. No sense of palpitation. Physical Exam Physical Exam: Alert. Answer questions appropriately. HEENT: Sclerae are anicteric. Pupils are equal and reactive to light and acco mmodation. Extraocular movements were intact. Alopecia noted Neuro: Cranial nerves appeared intact. Lungs: Coarse breath sounds in all lung schmid. No expiratory wheezing. Somewhat blunted excursion. Cardiac: The rhythm was regular. S1 and S2 were normal. There are no murmurs on examination. Abdomen: Obese. Somewhat distended. Nontender Extremities: Patient has bilateral radial pulses that are equal in intensity. There is no evidence cyanosis or clubbing. Compression devices on both legs Skin: There are no rashes noted on examination today. Depigmentation on the scalp, possibly vitiligo Results & Data Vital Signs (Past 12 Hours) Vital Signs Temp Pulse Pulse Resp BP Pulse Ox O2 Del Method 07/28/24 11:16 151/67 H 07/28/24 11:09 36.8 C 91 H 21 92 07/28/24 11:01 159/71 H 07/28/24 10:57 36.8 C 90 24 92 07/28/24 10:46 155/69 H 07/28/24 10:42 36.8 C 98 H 22 91 07/28/24 10:31 159/71 H 07/28/24 10:30 36.8 C 90 22 92 07/28/24 10:16 171/65 H 07/28/24 10:15 36.7 C 98 H 20 90 07/28/24 10:01 165/73 H 07/28/24 09:57 36.7 C 88 20 93 07/28/24 09:46 151/68 H 07/28/24 09:45 36.7 C 90 20 93 07/28/24 09:31 160/64 H 07/28/24 09:16 152/61 H 07/28/24 09:06 36.7 C 83 16 93 07/28/24 08:46 143/61 H 07/28/24 08:45 36.7 C 86 16 93 07/28/24 08:31 138/82 07/28/24 08:16 152/62 H 07/28/24 08:11 36.7 C 88 21 93 07/28/24 08:01 147/67 H 07/28/24 08:00 Nasal Cannula 07/28/24 07:53 36.7 C 87 22 92 07/28/24 07:32 36.7 C 87 23 98 07/28/24 07:31 168/73 H 07/28/24 07:31 168/73 H 07/28/24 07:31 168/73 H 07/28/24 07:31 168/73 H 07/28/24 07:30 86 19 97 Nasal Cannula 07/28/24 07:29 36.7 C 85 21 98 07/28/24 07:16 156/68 H 07/28/24 07:05 36.7 C 83 17 94 07/28/24 07:01 162/72 H 07/28/24 07:01 162/72 H 07/28/24 07:01 162/72 H 07/28/24 06:53 36.7 C 83 17 94 07/28/24 06:50 82 07/28/24 06:46 161/65 H 07/28/24 06:45 36.7 C 83 19 94 07/28/24 06:33 36.7 C 83 17 93 07/28/24 06:31 160/69 H 07/28/24 06:31 160/69 H 07/28/24 06:31 160/69 H 07/28/24 06:31 160/69 H 07/28/24 06:31 160/69 H 07/28/24 06:16 159/66 H 07/28/24 06:16 159/66 H 07/28/24 06:16 159/66 H 07/28/24 06:16 159/66 H 07/28/24 06:06 36.8 C 83 19 93 07/28/24 05:33 36.8 C 83 22 96 07/28/24 05:10 84 26 H 99 Nasal Cannula 07/28/24 05:08 36.8 C 84 23 100 07/28/24 05:00 190/105 H 07/28/24 05:00 190/105 H 07/28/24 04:57 36.8 C 82 24 97 07/28/24 04:35 36.8 C 86 24 95 07/28/24 04:30 186/90 H 07/28/24 04:30 186/90 H 07/28/24 04:30 186/90 H 07/28/24 04:29 36.8 C 85 23 95 07/28/24 04:08 36.8 C 83 21 97 07/28/24 04:00 175/76 H 07/28/24 04:00 175/76 H 07/28/24 03:57 36.8 C 81 23 95 07/28/24 03:36 36.8 C 81 23 94 07/28/24 03:03 36.8 C 80 24 93 07/28/24 03:00 179/70 H 07/28/24 02:48 36.8 C 80 25 H 91 07/28/24 02:45 36.8 C 80 23 91 07/28/24 02:45 80 20 93 07/28/24 02:30 166/73 H 07/28/24 02:12 36.8 C 76 23 97 07/28/24 02:03 36.7 C 77 20 97 07/28/24 02:00 169/82 H 07/28/24 01:48 36.7 C 76 20 97 07/28/24 01:39 36.7 C 76 19 97 O2 Flow Rate 07/28/24 11:16 07/28/24 11:09 07/28/24 11:01 07/28/24 10:57 07/28/24 10:46 07/28/24 10:42 07/28/24 10:31 07/28/24 10:30 07/28/24 10:16 07/28/24 10:15 07/28/24 10:01 07/28/24 09:57 07/28/24 09:46 07/28/24 09:45 07/28/24 09:31 07/28/24 09:16 07/28/24 09:06 07/28/24 08:46 07/28/24 08:45 07/28/24 08:31 07/28/24 08:16 07/28/24 08:11 07/28/24 08:01 07/28/24 08:00 4 07/28/24 07:53 07/28/24 07:32 07/28/24 07:31 07/28/24 07:31 07/28/24 07:31 07/28/24 07:31 07/28/24 07:30 2 07/28/24 07:29 07/28/24 07:16 07/28/24 07:05 07/28/24 07:01 07/28/24 07:01 07/28/24 07:01 07/28/24 06:53 07/28/24 06:50 07/28/24 06:46 07/28/24 06:45 07/28/24 06:33 07/28/24 06:31 07/28/24 06:31 07/28/24 06:31 07/28/24 06:31 07/28/24 06:31 07/28/24 06:16 07/28/24 06:16 07/28/24 06:16 07/28/24 06:16 07/28/24 06:06 07/28/24 05:33 07/28/24 05:10 2 07/28/24 05:08 07/28/24 05:00 07/28/24 05:00 07/28/24 04:57 07/28/24 04:35 07/28/24 04:30 07/28/24 04:30 07/28/24 04:30 07/28/24 04:29 07/28/24 04:08 07/28/24 04:00 07/28/24 04:00 07/28/24 03:57 07/28/24 03:36 07/28/24 03:03 07/28/24 03:00 07/28/24 02:48 07/28/24 02:45 07/28/24 02:45 35 07/28/24 02:30 07/28/24 02:12 07/28/24 02:03 07/28/24 02:00 07/28/24 01:48 07/28/24 01:39 Laboratory Results Abnormal Lab Results 07/27/24 07/27/24 07/27/24 14:13 15:11 16:20 WBC RBC Hgb Hct MCV MCH MCHC RDW Std Deviation RDW Coeff of Ching Plt Count MPV Immature Gran % (Auto) Neut % (Auto) Lymph % (Auto) Lane % (Auto) Eos % (Auto) Baso % (Auto) Neut # (Auto) Lymph # (Auto) Lane # (Auto) Eos # (Auto) Baso # (Auto) Immature Gran # (Auto) Polychromasia PT INR APTT PTT Ratio Sodium Potassium Chloride Carbon Dioxide Anion Gap BUN Creatinine Est Cr Clr Drug Dosing eGFR BUN/Creatinine Ratio Glucose POC Glucose 126 H 167 H 129 H Calcium Phosphorus Magnesium Total Bilirubin AST ALT Alkaline Phosphatase Total Protein Albumin Globulin Albumin/Globulin Ratio TSH 07/27/24 07/27/24 07/27/24 17:14 18:09 18:31 WBC RBC Hgb 8.9 L Hct 29.5 L MCV MCH MCHC RDW Std Deviation RDW Coeff of Ching Plt Count MPV Immature Gran % (Auto) Neut % (Auto) Lymph % (Auto) Lane % (Auto) Eos % (Auto) Baso % (Auto) Neut # (Auto) Lymph # (Auto) Lane # (Auto) Eos # (Auto) Baso # (Auto) Immature Gran # (Auto) Polychromasia PT INR APTT PTT Ratio Sodium 135 L Potassium 5.1 Chloride 101 Carbon Dioxide 21 Anion Gap 13 H BUN 77 H Creatinine 4.64 H* D Est Cr Clr Drug Dosing 11.7 eGFR 9.32 BUN/Creatinine Ratio 16.6 Glucose 106 H POC Glucose 122 H 112 H Calcium 7.6 L Phosphorus Magnesium 2.1 Total Bilirubin AST ALT Alkaline Phosphatase Total Protein Albumin Globulin Albumin/Globulin Ratio TSH 07/27/24 07/27/24 07/27/24 19:25 20:32 21:30 WBC RBC Hgb Hct MCV MCH MCHC RDW Std Deviation RDW Coeff of Ching Plt Count MPV Immature Gran % (Auto) Neut % (Auto) Lymph % (Auto) Lane % (Auto) Eos % (Auto) Baso % (Auto) Neut # (Auto) Lymph # (Auto) Lane # (Auto) Eos # (Auto) Baso # (Auto) Immature Gran # (Auto) Polychromasia PT INR APTT PTT Ratio Sodium Potassium Chloride Carbon Dioxide Anion Gap BUN Creatinine Est Cr Clr Drug Dosing eGFR BUN/Creatinine Ratio Glucose POC Glucose 91 123 H 103 H Calcium Phosphorus Magnesium Total Bilirubin AST ALT Alkaline Phosphatase Total Protein Albumin Globulin Albumin/Globulin Ratio TSH 07/27/24 07/27/24 07/28/24 22:19 23:38 00:07 WBC RBC Hgb Hct MCV MCH MCHC RDW Std Deviation RDW Coeff of Ching Plt Count MPV Immature Gran % (Auto) Neut % (Auto) Lymph % (Auto) Lane % (Auto) Eos % (Auto) Baso % (Auto) Neut # (Auto) Lymph # (Auto) Lane # (Auto) Eos # (Auto) Baso # (Auto) Immature Gran # (Auto) Polychromasia PT INR APTT PTT Ratio Sodium Potassium Chloride Carbon Dioxide Anion Gap BUN Creatinine Est Cr Clr Drug Dosing eGFR BUN/Creatinine Ratio Glucose POC Glucose 94 119 H 127 H Calcium Phosphorus Magnesium Total Bilirubin AST ALT Alkaline Phosphatase Total Protein Albumin Globulin Albumin/Globulin Ratio TSH 07/28/24 07/28/24 07/28/24 01:23 02:31 04:15 WBC 18.31 H RBC 3.16 L Hgb 8.4 L Hct 27.9 L MCV 88.3 MCH 26.6 MCHC 30.1 L RDW Std Deviation 53.3 H RDW Coeff of Ching 16.3 H Plt Count 323 MPV 10.5 Immature Gran % (Auto) 0.5 Neut % (Auto) 92.0 Lymph % (Auto) 4.0 Lane % (Auto) 3.2 Eos % (Auto) 0.1 Baso % (Auto) 0.2 Neut # (Auto) 16.85 H Lymph # (Auto) 0.74 L Lane # (Auto) 0.59 Eos # (Auto) 0.01 Baso # (Auto) 0.03 Immature Gran # (Auto) 0.09 Polychromasia 1+ PT 11.4 INR 1.1 APTT 33 H PTT Ratio 1.2 Sodium 134 L Potassium 5.3 H Chloride 101 Carbon Dioxide 20 L Anion Gap 13 H BUN 77 H Creatinine 4.80 H* Est Cr Clr Drug Dosing 11.3 eGFR 8.94 BUN/Creatinine Ratio 16.0 Glucose 152 H POC Glucose 123 H 112 H Calcium 7.3 L Phosphorus 8.8 H Magnesium 2.0 Total Bilirubin 0.2 AST 88 H ALT 22 Alkaline Phosphatase 61 Total Protein 6.6 Albumin 3.0 L Globulin 3.6 Albumin/Globulin Ratio 0.8 L TSH 3.674 07/28/24 07/28/24 07/28/24 04:25 06:05 08:36 WBC RBC Hgb Hct MCV MCH MCHC RDW Std Deviation RDW Coeff of Ching Plt Count MPV Immature Gran % (Auto) Neut % (Auto) Lymph % (Auto) Lane % (Auto) Eos % (Auto) Baso % (Auto) Neut # (Auto) Lymph # (Auto) Lane # (Auto) Eos # (Auto) Baso # (Auto) Immature Gran # (Auto) Polychromasia PT INR APTT PTT Ratio Sodium Potassium Chloride Carbon Dioxide Anion Gap BUN Creatinine Est Cr Clr Drug Dosing eGFR BUN/Creatinine Ratio Glucose POC Glucose 147 H 134 H 140 H Calcium Phosphorus Magnesium Total Bilirubin AST ALT Alkaline Phosphatase Total Protein Albumin Globulin Albumin/Globulin Ratio TSH 07/28/24 07/28/24 07/28/24 10:59 12:20 13:23 WBC RBC Hgb Hct MCV MCH MCHC RDW Std Deviation RDW Coeff of Ching Plt Count MPV Immature Gran % (Auto) Neut % (Auto) Lymph % (Auto) Lane % (Auto) Eos % (Auto) Baso % (Auto) Neut # (Auto) Lymph # (Auto) Lane # (Auto) Eos # (Auto) Baso # (Auto) Immature Gran # (Auto) Polychromasia PT INR APTT PTT Ratio Sodium Potassium Chloride Carbon Dioxide Anion Gap BUN Creatinine Est Cr Clr Drug Dosing eGFR BUN/Creatinine Ratio Glucose POC Glucose 120 H 128 H 114 H Calcium Phosphorus Magnesium Total Bilirubin AST ALT Alkaline Phosphatase Total Protein Albumin Globulin Albumin/Globulin Ratio TSH PG Care Time/CCT Total # of Minutes Spent Total Time Spent with Patient: Total time spent is greater than 50% in coordination of care (as documented) at patient's floor/unit and/or counseling patient: Coding Level of Care Code 13507 SUB INP/OBS CARE 235MIN Diagnoses Acute CHF (congestive heart failure) I50.9 NSTEMI (non-ST elevated myocardial infarction) I21.4 CAD (coronary artery disease) I25.10 HTN (hypertension) I10
--- NOTE | 2024-07-28 14:20 | Pharmacy Report ---
Pharmacy Glycemic Short Note 2 - Date of Service July 28, 2024 - Glycemic Short BSG Results (Last 24 hours): 07/27/24 07/27/24 07/27/24 15:11 16:20 17:14 Glucose POC Glucose 167 H 129 H 122 H 07/27/24 07/27/24 07/27/24 18:09 18:31 19:25 Glucose 106 H POC Glucose 112 H 91 07/27/24 07/27/24 07/27/24 20:32 21:30 22:19 Glucose POC Glucose 123 H 103 H 94 07/27/24 07/28/24 07/28/24 23:38 00:07 01:23 Glucose POC Glucose 119 H 127 H 123 H 07/28/24 07/28/24 07/28/24 02:31 04:15 04:25 Glucose 152 H POC Glucose 112 H 147 H 07/28/24 07/28/24 07/28/24 06:05 08:36 10:59 Glucose POC Glucose 134 H 140 H 120 H 07/28/24 07/28/24 12:20 13:23 Glucose POC Glucose 128 H 114 H OUTPATIENT ANTIDIABETIC REGIMEN: * Novolin 70/30 70-80 units BID * Metformin 1000 mg PO BID * A1c - 9.1% ASSESSMENT: 07/28 * Patient has been extubated. Clear liquid diet ordered. BSGs have been stable on insulin infusion @ 2.2 units/hr correlating to ~52 units/day * Will give half as basal- 25 units now for transition off insulin infusion. Patient will have PT/OT ordered. * Novolog parameters started with weight based stress of 2- this is similar to outpatient stress of 1 or TDD of 52 units stress of 2 07/27 * Patient continues on mechanical ventilation today with plans for SBT today. Norepinephrine has been titrated off. * Continues w/ insulin infusion for now given uncertain plans for extubation/changing status 07/26 * 74 yo T2DM admitted with hypercarbic/hypoxic respiratory failure in setting of influenza illness and NSTEMI. * Patient admitted to ICU and sedated for mechanical ventilation. Currently receiving heparin, norepinephrine, fentanyl and propofol infusions. Also given two doses of methylprednisolone which has since be discontinued. * Started on insulin IV infusion for severe hyperglycemia/? DKA. Currently on hold for BSG at goal. I suspect this will be resumed based on significant home insulin needs and ICU level stressors. PLAN FOR INPATIENT GLYCEMIC CONTROL: * Basal insulin * 25 units x 1- to be reassessed in AM * Bolus insulin * NovoLog per scale ACHS or Q6hrs while NPO * Goal Range: Low 110 mg/dL - High 180 mg/dL * Correction Factor: 25 mg/dL/unit * Nutritional / Prandial insulin 1 unit for every 8 grams of CHO consumed
[2024-07-28] MEDS: INSULIN ASPART PER UNIT CHARGE SC SCH (16:44)
[2024-07-28] MEDS: cefTRIAXone SODIUM 2,000 MG/50 ML BAG IV SCH (20:40)
--- NOTE | 2024-07-28 22:48 | Hospitalist Progress Note ---
Date of Service July 28, 2024 Assessment & Plan (1) Respiratory failure requiring intubation: Plan: -2nd to CHF exacerbation/NSTEMI/Influenza + -intubated, sedated -critical care following -Troponin >10,000 -heparin drip -discontineu lasix as most likely viral pneumonia with superimposed bacterial pneumonia. -cardene drip -on zosyn/linezolid for MRSA + -solu-medrol q8hrs -duonebs -cardiology consulted -continue tamiflu Acute blood loss anemia: Plan to transfuse on unit of blood given critical illness. 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 (2) Respiratory failure with hypoxia and hypercapnia: Plan: -on zosyn/linezolid for MRSA + -stopped solumedrol -duonebs (3) Non-ST elevation MS (NSTEMI): Plan: -heparin drip -cardene drip -cardiology consulted (4) ELLA (acute kidney injury): Plan: -cr 3.87=>3.76 -resumed bicarb drip due to worseneing metabolic acidosis (5) Influenza A virus subtype H1 2009 pandemic strain not detected: Plan: -on tamiflu (6) Acute CHF (congestive heart failure): Plan: -lasix 60mg IV Q12hrs -echo -cardiology consulted (7) Hyperkalemia: Plan: -K+ 5.8 (8) Hyperglycemia due to type 2 diabetes mellitus: Plan: -Hyperglycemic ICU protocol Plan The patient is a 74-year-old female with a past medical history including diabetes mellitus, hypothyroidism, CAD, hyperlipidemia, hypertension and GERD.The patient presents to the emergency department with extreme shortness of breath, that has been noted to develop over the past few days, and worsening considerably the day of arrival. Family notes that she had improved a little bi t in the afternoon, then worsened significantly and evening again. Upon arrival from EMS, patient reportedly was 60% on room air, and confused. They initiated CPAP in the outpatient setting, was given nitroglycerin for significant hypertension. Patient's mentation reportedly had improved somewhat by time arrival to the ED, but she was still very lethargic and not very interactive. Patient was continued on CPAP while in the ED, and workup continued noting that chest x-ray showed moderately severe CHF, bio fire was positive for influenza A H1 2009 pandemic strain, troponin was significantly elevated at 6540.7, and EKG showed inferior lateral ST-T changes. Glucose was 404, potassium was 6.1, creatinine was 3.89. From the ED patient received the following: DuoNeb, furosemide 40 mg IV, calcium gluconate 1 g IV, Zosyn 4.5 g IV, send bicarbonate 50 mill equivalent IV push, regular insulin 5 units IV, and nitroglycerin sublingual. [facility] service was consulted to admit patient to the ICU, and in ICU mechanical engineering lecturer team was consulted while in the ED. Severe acidosis- Fluid resuscitation as noted back on bicarb drip Chronic medical issues: GERD-pantoprazole 40 mg IV twice daily Hypothyroidism-resume levothyroxine when able Diabetes mellitus-hyperglycemic ICU protocol. Holding metformin Hyperlipidemia-resume atorvastatin when appropriate Admission and Anticipated Discharge Date Admission Date: July 25, 2024 Subjective Patient is awake and extubated. Physical Exam Physical Exam: Patient is awake and now extubated skin: warm, dry heart: RRR lung: coarse breath sounds extremities: no edema. Results & Data Results & Data Vital Signs (Past 12 Hours) Vital Signs Temp Pulse Pulse Resp BP Pulse Ox O2 Del Method 07/28/24 21:51 82 22 93 07/28/24 21:31 157/72 H 07/28/24 21:30 36.8 C 83 21 93 07/28/24 21:03 36.9 C 98 H 24 93 07/28/24 21:00 165/82 H 07/28/24 21:00 165/82 H 07/28/24 20:45 36.9 C 93 H 21 94 07/28/24 20:31 157/78 H 07/28/24 20:31 157/78 H 07/28/24 20:27 36.9 C 92 H 20 92 07/28/24 20:12 175/80 H 07/28/24 20:09 36.9 C 89 21 100 07/28/24 20:06 36.8 C 88 22 100 07/28/24 20:00 87 19 94 Nasal Cannula 07/28/24 19:46 163/81 H 07/28/24 19:31 164/72 H 07/28/24 19:24 36.8 C 89 22 94 07/28/24 19:20 Nasal Cannula 07/28/24 19:18 36.8 C 87 22 94 07/28/24 19:16 168/75 H 07/28/24 19:00 163/71 H 07/28/24 18:10 86 07/28/24 18:00 36.8 C 89 20 94 07/28/24 17:06 36.9 C 83 19 95 07/28/24 17:01 144/67 H 07/28/24 16:48 36.9 C 84 20 95 07/28/24 16:46 144/67 H 07/28/24 16:42 36.9 C 85 20 95 07/28/24 16:31 150/69 H 07/28/24 16:18 36.9 C 83 20 95 07/28/24 16:16 148/76 H 07/28/24 16:12 36.9 C 80 20 95 07/28/24 16:06 36.9 C 81 20 95 07/28/24 16:01 150/65 H 07/28/24 16:01 150/65 H 07/28/24 16:01 150/65 H 07/28/24 16:01 150/65 H 07/28/24 15:50 84 17 96 Nasal Cannula 07/28/24 15:45 36.9 C 78 21 95 07/28/24 15:31 142/68 H 07/28/24 15:31 142/68 H 07/28/24 15:27 36.8 C 75 19 96 07/28/24 15:16 146/66 H 07/28/24 15:12 36.8 C 75 19 95 07/28/24 15:09 36.8 C 75 19 95 07/28/24 15:01 134/66 07/28/24 15:01 134/66 07/28/24 14:51 36.8 C 74 19 95 07/28/24 14:46 144/61 H 07/28/24 14:46 144/61 H 07/28/24 14:45 36.8 C 75 19 95 07/28/24 14:31 144/64 H 07/28/24 14:31 144/64 H 07/28/24 14:30 36.8 C 75 20 95 07/28/24 14:16 134/64 07/28/24 14:15 36.7 C 74 19 95 07/28/24 14:12 36.7 C 74 19 94 07/28/24 14:01 146/66 H 07/28/24 14:01 146/66 H 07/28/24 13:51 36.7 C 77 20 94 07/28/24 13:46 142/62 H 07/28/24 13:46 142/62 H 07/28/24 13:46 142/62 H 07/28/24 13:45 36.7 C 77 19 93 07/28/24 13:31 131/58 L 07/28/24 13:31 131/58 L 07/28/24 13:31 131/58 L 07/28/24 13:27 36.7 C 75 18 93 07/28/24 13:16 135/60 07/28/24 13:09 36.7 C 76 20 92 07/28/24 13:06 36.7 C 73 21 92 07/28/24 13:01 136/59 L 07/28/24 13:01 136/59 L 07/28/24 11:16 151/67 H 07/28/24 11:09 36.8 C 91 H 21 92 07/28/24 11:01 159/71 H 07/28/24 10:57 36.8 C 90 24 92 O2 Flow Rate FiO2 07/28/24 21:51 35 07/28/24 21:31 07/28/24 21:30 07/28/24 21:03 07/28/24 21:00 07/28/24 21:00 07/28/24 20:45 07/28/24 20:31 07/28/24 20:31 07/28/24 20:27 07/28/24 20:12 07/28/24 20:09 07/28/24 20:06 07/28/24 20:00 3 07/28/24 19:46 07/28/24 19:31 07/28/24 19:24 07/28/24 19:20 2 07/28/24 19:18 07/28/24 19:16 07/28/24 19:00 07/28/24 18:10 07/28/24 18:00 07/28/24 17:06 07/28/24 17:01 07/28/24 16:48 07/28/24 16:46 07/28/24 16:42 07/28/24 16:31 07/28/24 16:18 07/28/24 16:16 07/28/24 16:12 07/28/24 16:06 07/28/24 16:01 07/28/24 16:01 07/28/24 16:01 07/28/24 16:01 07/28/24 15:50 3 07/28/24 15:45 07/28/24 15:31 07/28/24 15:31 07/28/24 15:27 07/28/24 15:16 07/28/24 15:12 07/28/24 15:09 07/28/24 15:01 07/28/24 15:01 07/28/24 14:51 07/28/24 14:46 07/28/24 14:46 07/28/24 14:45 07/28/24 14:31 07/28/24 14:31 07/28/24 14:30 07/28/24 14:16 07/28/24 14:15 07/28/24 14:12 07/28/24 14:01 07/28/24 14:01 07/28/24 13:51 07/28/24 13:46 07/28/24 13:46 07/28/24 13:46 07/28/24 13:45 07/28/24 13:31 07/28/24 13:31 07/28/24 13:31 07/28/24 13:27 07/28/24 13:16 07/28/24 13:09 07/28/24 13:06 07/28/24 13:01 07/28/24 13:01 07/28/24 11:16 07/28/24 11:09 07/28/24 11:01 07/28/24 10:57 PG Care Time/CCT Total # of Minutes Spent Total Time Spent with Patient: Total time spent is greater than 50% in coordination of care (as documented) at patient's floor/unit and/or counseling patient: Coding Level of Care Code 65062 SUB INP/OBS CARE 3/50MIN Diagnoses Respiratory failure requiring intubation J96.90 Respiratory failure with hypoxia and hypercapnia J96.91; J96.92 Non-ST elevation MS (NSTEMI) I21.4 ELLA (acute kidney injury) N17.9 Influenza A virus subtype H1 2009 pandemic strain not detected Z01.89 Acute CHF (congestive heart failure) I50.9 Hyperkalemia E87.5 Hyperglycemia due to type 2 diabetes mellitus E11.65
[2024-07-29 06:14] LABS: Basophils # (auto) 0.02 K/uL (0.00-0.20); Basophils % (auto) 0.2 %; Eosinophils # (auto) 0.25 K/uL (0.00-0.50); Eosinophils % (auto) 2.1 %; Hematocrit (blood only) 25.7 % (37.0-47.0); Hemoglobin 7.8 g/dl (12.0-16.0); Immature Granulocytes # (auto) 0.06 K/uL (0.01-0.20); Immature Granulocytes % (auto) 0.5 %; Lymphocytes # (auto) 0.59 K/uL (1.20-3.40); Lymphocytes % (auto) 4.8 %; Mean Corpuscular Hemoglobin 26.1 pg (25.0-34.0); Mean Corpuscular Hgb Conc 30.4 g/dL (32.0-36.0); Mean Platelet Volume 10.5 fL (9.4-12.4); Monocytes # (auto) 0.33 K/uL (0.11-0.59); Monocytes % (auto) 2.7 %; Neutrophils # (auto) 10.93 K/uL (1.40-6.50); Neutrophils % (auto) 89.7 %; Nucleated RBC # (auto) 0.02 K/uL (0.00-0.12); Nucleated RBC % (auto) 0.2 %; Platelet Count 287 K/uL (130-400); RDW Coefficient of Variation 16.3 % (11.5-14.5); RDW Standard Deviation 51.7 fL (36.4-46.3); Red Blood Count 2.99 M/uL (4.20-5.40); White Blood Count 12.18 K/ul (4.8-10.8)
[2024-07-29 06:28] LABS: Magnesium 2.1 mg/dl (1.7-2.4); Phosphorus 9.5 mg/dl (2.5-4.9)
[2024-07-29 06:39] LABS: Polychromasia 1+
--- NOTE | 2024-07-29 07:18 | Critical Care Progress Note ---
Date of Service July 29, 2024 Assessment & Plan (1) Respiratory failure requiring intubation: (2) Respiratory failure with hypoxia and hypercapnia: (3) Non-ST elevation NE (NSTEMI): (4) ELLA (acute kidney injury): (5) Influenza A virus subtype H1 2009 pandemic strain not detected: (6) Acute CHF (congestive heart failure): (7) Hyperkalemia: (8) Hyperglycemia due to type 2 diabetes mellitus: Plan Reason Critically Ill: Hypercarbic/hypoxic respiratory failure in setting of influenza illness, NSTEMI, and CHF exacerbation Neuro - no longer sedated post-extubation 07/27/24 - continuing to improve from a pulmonary and hemodynamic standpoint - PT/OT ordered: physiotherapy encouraged with goal to be out of bed to chair, starting activity in bed Cardiac - NSTEMI, Acute on chronic heart failure, HTN -Possibly an element of mild CHF. More likely viral pneumonia with superimposed bacterial pneumonia. Will discontinue diuresis. Echo findings noted with "low normal EF". Right ventricular systolic function is reduced. - Troponin downtrending as of 07/27/24 - increasing metoprolol to 75mg BID, from metoprolol 50mg BID - atorvastatin 40 mg daily - still +>3L net fluids since admission, non-oliguric Respiratory - Hypercarbic/hypoxic respiratory failure requiring intubation and mechanical ventilation, pleural effusions - successfully extubated evening 07/27/24, currently satting mid-upper 90s on 3L NC - Influenza- continue Tamiflu - Probable secondary bacterial pneumonia however MRSA swab neg, deescalated abx to Rocephin - Awaiting sputum culture, currently negative for growth - DOMINGO nebs, Pulmicort BID nebs - incentive spirometer q4 GI - PO protonix, PO meals as long as can tolerate RENAL/LYTES - ARF on CKD, hyperkalemia, mixed respiratory/metabolic acidosis - per nephrology consultation note, patient is still net 3 L volume + since admission - Baseline [employer] is 1.1-1.2 in 2020-currently with ELLA to 4.9 up from 4.8 day prior - hyperkalemia resolved, electrolytes acceptable, can stop bicarb IV - consider Lasix 40mg IV to continue gentle diuresis per urine output and fluid status on exam - continue monitoring urine output ENDO - DM - >200 glucose today, defer treatment to medicine team - TSH within normal limits HEME -anemia history of anemia dating back to 2018 not otherwise specified -Anemia panel History of thrombocytosis extending to 2018: Currently within normal limits -Was on heparin infusion given elevation of troponins, this was discontinued given drop in blood counts, continuing aspirin -Trend H&H ID - Influenza A, Sepsis - Sputum for gram stain and culture - Blood Cultures no growth to date at 48 hours, RLL bronchial cultures (bact & fungal) pending - Urine negative - deescalating abx to Rocephin, cont. through 7 days since start of abx - Tamiflu for influenza-given renal function will not increase Tamiflu dose LINES/IV ACCESS - PIV x3, Harris to gravity Continue use of these lines DVT PROPHYLAXIS - SCDs DISPO: -> telemetry CODE STATUS: DO NOT RESUSCITATE in event of cardiac arrest Admission and Anticipated Discharge Date Admission Date: July 25, 2024 Supervising Physician Co-Signing Physician Notes Dr. Liu was resident physician during care of patient. I separately evaluated patient for culp portions of the history and the exam. I was present during the critical portion of medical decision making, and I discussed the case with the resident. I generally agree with the findings and plan. Increase metoprolol from 50 mg twice daily to 75 for better blood pressure control. Incentive spirometer every 4 hours, encourage out of bed and ambulation. Nephrology following BUN and creatinine worse however hopefully have nadired negative fluid balance as of yesterday, deferring to nephrology however hopeful to be net negative today. 7-day total antibiotic duration therapy. Yes mildly decreased oxygen requirement. PT OT to follow the patient. Liberalize diet. Stable for downgrade out of ICU, discussed with hospitalist service Subjective Rica was seen and evaluated at bedside this AM, family present in room. She was slightly more alert compared to day prior, was able to respond to simple greetings, questions, and commands. Stated "no" when asked if she was having any pain or discomfort. Family understands patient is able to be downgraded to regular telemetry floor today. Review of Systems Review of Systems: no fever, body aches, chills at this time Physical Exam Physical Exam: General: Alert and able to follow simple commands, NC in place delivering 3L/min O2, not in respiratory distress HEENT: anicteric sclerae, EOM intact, PERRL b/l Neuro: no facial droop, followed command to wiggle fingers and toes with success Lungs: Coarse breath sounds in all lung schmid, scattered wheezes heard on auscultation Cardiac: RRR, +s1/s2. No murmurs/rubs/gallops heard on auscultation Abdomen: Obese, mildly tense but no apparent guarding, no bruising seen, hypoactive BS, mild tenderness to palpation of upper abdominal quadrants, negative Bernstein's sign Extremities: 1+ pitting edema in b/l hands, 2+ b/l radial pulses, 2+ posterior tibial pulses. No cyanosis or clubbing seen. ICDs on b/l LE Skin: There are no rashes noted on examination today. Depigmentation on the scalp Results & Data Results & Data Vital Signs (Past 12 Hours) Vital Signs Temp Pulse Pulse Resp BP Pulse Ox O2 Del Method 07/29/24 06:03 37.1 C 85 21 96 07/29/24 06:01 172/72 H 07/29/24 06:01 172/72 H 07/29/24 05:57 37.1 C 88 20 96 07/29/24 05:01 161/80 H 07/29/24 05:01 161/80 H 07/29/24 05:00 37.1 C 83 19 98 07/29/24 04:03 37.0 C 86 19 96 07/29/24 04:01 175/75 H 07/29/24 04:01 175/75 H 07/29/24 03:57 37.0 C 86 18 96 07/29/24 03:01 176/75 H 07/29/24 03:00 37.0 C 83 18 97 07/29/24 03:00 87 21 96 07/29/24 02:31 172/70 H 07/29/24 02:30 37.0 C 84 19 97 07/29/24 02:03 37.0 C 83 18 97 07/29/24 02:01 174/72 H 07/29/24 02:01 174/72 H 07/29/24 01:42 37.0 C 83 18 97 07/29/24 01:33 37.0 C 83 18 98 07/29/24 01:31 170/69 H 07/29/24 01:31 170/69 H 07/29/24 01:06 37.0 C 82 18 97 07/29/24 00:35 80 19 97 07/29/24 00:31 156/71 H 07/29/24 00:31 156/71 H 07/29/24 00:15 36.8 C 80 17 98 07/29/24 00:03 36.8 C 82 20 97 07/29/24 00:01 166/66 H 07/29/24 00:01 166/66 H 07/29/24 00:00 81 07/29/24 00:00 36.8 C 83 20 98 07/28/24 23:31 166/64 H 07/28/24 23:18 36.6 C 79 19 97 07/28/24 23:01 158/65 H 07/28/24 22:51 36.6 C 80 18 96 07/28/24 22:31 158/72 H 07/28/24 22:15 36.6 C 77 17 96 07/28/24 22:12 36.6 C 76 17 96 07/28/24 21:57 36.7 C 78 19 95 07/28/24 21:51 82 22 93 07/28/24 21:31 157/72 H 07/28/24 21:30 36.8 C 83 21 93 07/28/24 21:03 36.9 C 98 H 24 93 07/28/24 21:00 165/82 H 07/28/24 21:00 165/82 H 07/28/24 20:45 36.9 C 93 H 21 94 07/28/24 20:31 157/78 H 07/28/24 20:31 157/78 H 07/28/24 20:27 36.9 C 92 H 20 92 07/28/24 20:12 175/80 H 07/28/24 20:09 36.9 C 89 21 100 07/28/24 20:06 36.8 C 88 22 100 07/28/24 20:00 87 19 94 Nasal Cannula 07/28/24 19:46 163/81 H 07/28/24 19:31 164/72 H 07/28/24 19:24 36.8 C 89 22 94 07/28/24 19:20 Nasal Cannula O2 Flow Rate FiO2 07/29/24 06:03 07/29/24 06:01 07/29/24 06:01 07/29/24 05:57 07/29/24 05:01 07/29/24 05:01 07/29/24 05:00 07/29/24 04:03 07/29/24 04:01 07/29/24 04:01 07/29/24 03:57 07/29/24 03:01 07/29/24 03:00 07/29/24 03:00 35 07/29/24 02:31 07/29/24 02:30 07/29/24 02:03 07/29/24 02:01 07/29/24 02:01 07/29/24 01:42 07/29/24 01:33 07/29/24 01:31 07/29/24 01:31 07/29/24 01:06 07/29/24 00:35 35 07/29/24 00:31 07/29/24 00:31 07/29/24 00:15 07/29/24 00:03 07/29/24 00:01 07/29/24 00:01 07/29/24 00:00 07/29/24 00:00 07/28/24 23:31 07/28/24 23:18 07/28/24 23:01 07/28/24 22:51 07/28/24 22:31 07/28/24 22:15 07/28/24 22:12 07/28/24 21:57 07/28/24 21:51 35 07/28/24 21:31 07/28/24 21:30 07/28/24 21:03 07/28/24 21:00 07/28/24 21:00 07/28/24 20:45 07/28/24 20:31 07/28/24 20:31 07/28/24 20:27 07/28/24 20:12 07/28/24 20:09 07/28/24 20:06 07/28/24 20:00 3 07/28/24 19:46 07/28/24 19:31 07/28/24 19:24 07/28/24 19:20 2 Resident Activity Tracking Resident Involvement: Resident Care Provided Care Provided: Adult Hospital Medicine
--- NOTE | 2024-07-29 08:14 | Nephrology Progress Note ---
Date of Service July 29, 2024 Assessment & Plan (1) ELLA (acute kidney injury): Plan: * ELLA likely related to combination influenza, NSTEMI * Patient remains in injury phase of ELLA. Cr has risen to 4.9 * Electrolyte balance is acceptable. No acute indication for HD today * Although patient is net 3.7 L volume + she remains nonoliguric * HCO3 has corrected to 20. 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 Madden was evaluated in the ICU this morning. Her family was present at bedside. The patient was awake but non-verbal. Family states that she has been taking in sips of liquid Review of Systems Review of Systems: Unobtainable due to cognitive status Physical Exam Constitutional: + ill appearing (nonconversant) Eyes: PERRL, conjunctivae normal, anicteric sclerae ENMT: Mouth: + dry oral mucous membranes Neck: trachea midline, no thyromegaly Respiratory: normal respiratory effort, lungs clear to auscultation Cardiovascular: RRR, no murmur, no edema Gastrointestinal (Abdomen): normal bowel sounds, soft, nontender, no hepatosplenomegaly Musculoskeletal: Extremities: no cyanosis and no clubbing Skin: no rashes, warm and dry Neurologic: awake (nonverbal) Results & Data Vital Signs (Past 12 Hours) Vital Signs Temp Pulse Pulse Resp BP Pulse Ox O2 Del Method 07/29/24 07:50 90 20 96 Nasal Cannula 07/29/24 06:03 37.1 C 85 21 96 07/29/24 06:01 172/72 H 07/29/24 06:01 172/72 H 07/29/24 05:57 37.1 C 88 20 96 07/29/24 05:01 161/80 H 07/29/24 05:01 161/80 H 07/29/24 05:00 37.1 C 83 19 98 07/29/24 04:03 37.0 C 86 19 96 07/29/24 04:01 175/75 H 07/29/24 04:01 175/75 H 07/29/24 03:57 37.0 C 86 18 96 07/29/24 03:01 176/75 H 07/29/24 03:00 37.0 C 83 18 97 07/29/24 03:00 87 21 96 07/29/24 02:31 172/70 H 07/29/24 02:30 37.0 C 84 19 97 07/29/24 02:03 37.0 C 83 18 97 07/29/24 02:01 174/72 H 07/29/24 02:01 174/72 H 07/29/24 01:42 37.0 C 83 18 97 07/29/24 01:33 37.0 C 83 18 98 07/29/24 01:31 170/69 H 07/29/24 01:31 170/69 H 07/29/24 01:06 37.0 C 82 18 97 07/29/24 00:35 80 19 97 07/29/24 00:31 156/71 H 07/29/24 00:31 156/71 H 07/29/24 00:15 36.8 C 80 17 98 07/29/24 00:03 36.8 C 82 20 97 07/29/24 00:01 166/66 H 07/29/24 00:01 166/66 H 07/29/24 00:00 81 07/29/24 00:00 36.8 C 83 20 98 07/28/24 23:31 166/64 H 07/28/24 23:18 36.6 C 79 19 97 07/28/24 23:01 158/65 H 07/28/24 22:51 36.6 C 80 18 96 07/28/24 22:31 158/72 H 07/28/24 22:15 36.6 C 77 17 96 07/28/24 22:12 36.6 C 76 17 96 07/28/24 21:57 36.7 C 78 19 95 07/28/24 21:51 82 22 93 07/28/24 21:31 157/72 H 07/28/24 21:30 36.8 C 83 21 93 07/28/24 21:03 36.9 C 98 H 24 93 07/28/24 21:00 165/82 H 07/28/24 21:00 165/82 H 07/28/24 20:45 36.9 C 93 H 21 94 07/28/24 20:31 157/78 H 07/28/24 20:31 157/78 H 07/28/24 20:27 36.9 C 92 H 20 92 O2 Flow Rate FiO2 07/29/24 07:50 3 07/29/24 06:03 07/29/24 06:01 07/29/24 06:01 07/29/24 05:57 07/29/24 05:01 07/29/24 05:01 07/29/24 05:00 07/29/24 04:03 07/29/24 04:01 07/29/24 04:01 07/29/24 03:57 07/29/24 03:01 07/29/24 03:00 07/29/24 03:00 35 07/29/24 02:31 07/29/24 02:30 07/29/24 02:03 07/29/24 02:01 07/29/24 02:01 07/29/24 01:42 07/29/24 01:33 07/29/24 01:31 07/29/24 01:31 07/29/24 01:06 07/29/24 00:35 35 07/29/24 00:31 07/29/24 00:31 07/29/24 00:15 07/29/24 00:03 07/29/24 00:01 07/29/24 00:01 07/29/24 00:00 07/29/24 00:00 07/28/24 23:31 07/28/24 23:18 07/28/24 23:01 07/28/24 22:51 07/28/24 22:31 07/28/24 22:15 07/28/24 22:12 07/28/24 21:57 07/28/24 21:51 35 07/28/24 21:31 07/28/24 21:30 07/28/24 21:03 07/28/24 21:00 07/28/24 21:00 07/28/24 20:45 07/28/24 20:31 07/28/24 20:31 07/28/24 20:27 Laboratory Results Laboratory Results - last 24 hr 07/25/24 07/28/24 07/28/24 21:36 04:15 10:59 WBC RBC Hgb Hct MCV MCH MCHC RDW Std Deviation RDW Coeff of Ching Plt Count MPV Immature Gran % (Auto) Neut % (Auto) Lymph % (Auto) [place] % (Auto) Eos % (Auto) Baso % (Auto) Neut # (Auto) Lymph # (Auto) [place] # (Auto) Eos # (Auto) Baso # (Auto) Immature Gran # (Auto) Absolute Nucleated RBC Nucleated RBC % (auto) Polychromasia Sodium Potassium Chloride Carbon Dioxide Anion Gap BUN Creatinine Est Cr Clr Drug Dosing eGFR BUN/Creatinine Ratio Glucose POC Glucose 120 H Calcium Phosphorus Magnesium TSH 3.674 Crossmatch See Detail 07/28/24 07/28/24 07/28/24 12:20 13:23 14:51 WBC RBC Hgb Hct MCV MCH MCHC RDW Std Deviation RDW Coeff of Ching Plt Count MPV Immature Gran % (Auto) Neut % (Auto) Lymph % (Auto) [place] % (Auto) Eos % (Auto) Baso % (Auto) Neut # (Auto) Lymph # (Auto) [place] # (Auto) Eos # (Auto) Baso # (Auto) Immature Gran # (Auto) Absolute Nucleated RBC Nucleated RBC % (auto) Polychromasia Sodium Potassium Chloride Carbon Dioxide Anion Gap BUN Creatinine Est Cr Clr Drug Dosing eGFR BUN/Creatinine Ratio Glucose POC Glucose 128 H 114 H 93 Calcium Phosphorus Magnesium TSH Crossmatch 07/28/24 07/28/24 07/29/24 16:43 20:15 05:55 WBC 12.18 H RBC 2.99 L Hgb 7.8 L Hct 25.7 L MCV 86.0 MCH 26.1 MCHC 30.4 L RDW Std Deviation 51.7 H RDW Coeff of Ching 16.3 H Plt Count 287 MPV 10.5 Immature Gran % (Auto) 0.5 Neut % (Auto) 89.7 Lymph % (Auto) 4.8 [place] % (Auto) 2.7 Eos % (Auto) 2.1 Baso % (Auto) 0.2 Neut # (Auto) 10.93 H Lymph # (Auto) 0.59 L [place] # (Auto) 0.33 Eos # (Auto) 0.25 Baso # (Auto) 0.02 Immature Gran # (Auto) 0.06 Absolute Nucleated RBC 0.02 Nucleated RBC % (auto) 0.2 Polychromasia 1+ Sodium 134 L Potassium 5.1 Chloride 97 L Carbon Dioxide 20 L Anion Gap 17 H BUN 83 H Creatinine 4.93 H* Est Cr Clr Drug Dosing 11.0 eGFR 8.66 BUN/Creatinine Ratio 16.8 Glucose 195 H POC Glucose 133 H 166 H Calcium 7.1 L Phosphorus 9.5 H Magnesium 2.1 TSH Crossmatch 07/29/24 07:20 WBC RBC Hgb Hct MCV MCH MCHC RDW Std Deviation RDW Coeff of Ching Plt Count MPV Immature Gran % (Auto) Neut % (Auto) Lymph % (Auto) [place] % (Auto) Eos % (Auto) Baso % (Auto) Neut # (Auto) Lymph # (Auto) [place] # (Auto) Eos # (Auto) Baso # (Auto) Immature Gran # (Auto) Absolute Nucleated RBC Nucleated RBC % (auto) Polychromasia Sodium Potassium Chloride Carbon Dioxide Anion Gap BUN Creatinine Est Cr Clr Drug Dosing eGFR BUN/Creatinine Ratio Glucose POC Glucose 191 H Calcium Phosphorus Magnesium TSH Crossmatch PG Care Time/CCT Total # of Minutes Spent Total Time Spent with Patient: Total time spent is greater than 50% in coordination of care (as documented) at patient's floor/unit and/or counseling patient: Coding Level of Care Code 27573 SUB INP/OBS CARE 3/50MIN Diagnoses ELLA (acute kidney injury) N17.9 Chronic kidney disease N18.9 Influenza A virus subtype H1 2009 pandemic strain not detected Z01.89 Non-ST elevation CO (NSTEMI) I21.4 Hyperglycemia due to type 2 diabetes mellitus E11.65
[2024-07-29] MEDS: LANTUS PER UNIT CHARGE SC SCH ×2 (08:59→17:12)
[2024-07-29 09:00] LABS: BUN Creatinine Ratio 16.8 (10-20); Calcium 7.1 mg/dl (8.6-10.3); Potassium 5.1 mmol/L (3.5-5.1)
[2024-07-29] MEDS: METOPROLOL TARTRATE 25 MG TAB PO SCH (09:01)
--- NOTE | 2024-07-29 09:59 | Billing Data ---
Date of Service July 29, 2024 Coding Level of Care Code 57462 SUB INP/OBS CARE
--- NOTE | 2024-07-29 12:26 | Pharmacy Report ---
Pharmacy Glycemic Short Note 2 - Date of Service July 29, 2024 - Glycemic Short BSG Results (Last 24 hours): 07/28/24 07/28/24 07/28/24 12:20 13:23 14:51 Glucose POC Glucose 128 H 114 H 93 07/28/24 07/28/24 07/29/24 16:43 20:15 05:55 Glucose 195 H POC Glucose 133 H 166 H 07/29/24 07/29/24 07:20 11:11 Glucose POC Glucose 191 H 239 H OUTPATIENT ANTIDIABETIC REGIMEN: * Novolin 70/30 70-80 units BID * Metformin 1000 mg PO BID * A1c - 9.1% ASSESSMENT: 07/29 * BSGs [phone]/dL the last 24h. Insulin drip transitioned off last evening. Received 25 units of basal and 1 unit of bolus insulin yesterday. * Clear liquid diet, continues on antibiotics * Lantus 25 units this AM X 1. Will add additional scaled lantus with dinner. Novolog tightened. 07/28 * Patient has been extubated. Clear liquid diet ordered. BSGs have been stable on insulin infusion @ 2.2 units/hr correlating to ~52 units/day * Will give half as basal- 25 units now for transition off insulin infusion. Patient will have PT/OT ordered. * Novolog parameters started with weight based stress of 2- this is similar to outpatient stress of 1 or TDD of 52 units stress of 2 07/27 * Patient continues on mechanical ventilation today with plans for SBT today. Norepinephrine has been titrated off. * Continues w/ insulin infusion for now given uncertain plans for extubation/changing status 07/26 * 74 yo T2DM admitted with hypercarbic/hypoxic respiratory failure in setting of influenza illness and NSTEMI. * Patient admitted to ICU and sedated for mechanical ventilation. Currently receiving heparin, norepinephrine, fentanyl and propofol infusions. Also given two doses of methylprednisolone which has since be discontinued. * Started on insulin IV infusion for severe hyperglycemia/? DKA. Currently on hold for BSG at goal. I suspect this will be resumed based on significant home insulin needs and ICU level stressors. PLAN FOR INPATIENT GLYCEMIC CONTROL: * Basal insulin * 25 units x 1 + additional scale 0/10/15 units at dinner depending on BSG * Bolus insulin * NovoLog per scale ACHS or Q6hrs while NPO * Goal Range: Low 110 mg/dL - High 140 mg/dL * Correction Factor: 20 mg/dL/unit * Nutritional / Prandial insulin 1 unit for every 7 grams of CHO consumed
--- NOTE | 2024-07-29 16:48 | Cardiology Progress Note ---
Date of Service July 29, 2024 Assessment & Plan (1) Acute CHF (congestive heart failure): (2) NSTEMI (non-ST elevated myocardial infarction): (3) CAD (coronary artery disease): (4) HTN (hypertension): Plan 1. Acute on chronic heart failure with preserved ejection fraction: Still hypervolemic. She would benefit from some diuresis. She has a reasonable urine output that hopefully will improve over the next few days. 2. NSTEMI: Biomarkers have peaked. Less likely related to an acute coronary syndrome and more likely related to her hypoxia and hypertension at the time of admission. Heparin has been discontinued due to concerns of dropping hemoglobin. I think this is reasonable. Continue aspirin. 3. Coronary artery disease: She is known to have severe coronary artery disease. She previously underwent percutaneous intervention to the right coronary artery. She had significant residual disease in 2019. This is likely responsible for her elevated biomarkers in the setting of hypoxia and hypertension. Will consider reevaluation prior to discharge depending on her clinical course and renal function. No urgent indication for coronary angiography. 4. Mitral regurgitation: Moderate previously. More mild on current evaluation although images were suboptimal. 5. Hypertension: Markedly hypertensive at the time of admission. started on nicardipine infusion. Now that she is taking oral medications metoprolol will be administered. 6. Acute kidney injury: Renal function stable but not improved. Nonoliguric. 7. Anemia: Stable. No evidence of active bleeding. Overall improved slightly. Still an element of dyspnea likely related to under lying infection and pulmonary vascular congestion. Hopefully her renal function will improve in the next few days and will affect a better diuresis. Admission and Anticipated Discharge Date Admission Date: July 25, 2024 Subjective This afternoon the patient reported being tired. Poor appetite although she ate some food. Continue breathing trouble. No chest pain or abdominal discomfort. Review of Systems Review of Systems: Per HPI Physical Exam Physical Exam: Alert. Answer questions appropriately. HEENT: Sclerae are anicteric. Pupils are equal and reactive to light and accommodation. Extraocular movements were intact. Alopecia noted Neuro: Cranial nerves appeared intact. Lungs: Coarse breath sounds in all lung schmid. No expiratory wheezing. Somewhat blunted excursion. Cardiac: The rhythm was regular. S1 and S2 were normal. There are no murmurs on examination. Abdomen: Obese. Somewhat distended. Nontender Extremities: Patient has bilateral radial pulses that are equal in intensity. There is no evidence cyanosis or clubbing. Compression devices on both legs Skin: There are no rashes noted on examination today. Depigmentation on the scalp, possibly vitiligo Results & Data Vital Signs (Past 12 Hours) Vital Signs Temp Pulse Pulse Resp BP Pulse Ox O2 Del Method 07/29/24 14:01 149/70 H 07/29/24 13:54 36.9 C 82 19 95 07/29/24 13:01 158/66 H 07/29/24 13:00 36.9 C 80 18 94 07/29/24 12:15 36.9 C 74 21 94 07/29/24 12:01 162/61 H 07/29/24 11:54 36.9 C 76 20 93 07/29/24 11:06 36.9 C 73 18 96 07/29/24 11:01 160/58 H 07/29/24 10:48 36.8 C 75 20 96 07/29/24 10:03 36.7 C 81 18 96 07/29/24 10:00 161/76 H 07/29/24 09:54 36.7 C 82 17 96 07/29/24 09:09 36.8 C 89 20 94 07/29/24 09:01 157/70 H 07/29/24 08:57 36.9 C 91 H 21 94 07/29/24 08:24 37.0 C 93 H 22 94 07/29/24 08:01 180/77 H 07/29/24 08:00 Nasal Cannula 07/29/24 07:50 90 20 96 Nasal Cannula 07/29/24 07:27 37.0 C 91 H 19 93 07/29/24 07:01 176/73 H 07/29/24 07:00 37.0 C 87 19 96 07/29/24 06:03 37.1 C 85 21 96 07/29/24 06:01 172/72 H 07/29/24 06:01 172/72 H 07/29/24 05:57 37.1 C 88 20 96 07/29/24 05:01 161/80 H 07/29/24 05:01 161/80 H 07/29/24 05:00 37.1 C 83 19 98 O2 Flow Rate 07/29/24 14:01 07/29/24 13:54 07/29/24 13:01 07/29/24 13:00 07/29/24 12:15 07/29/24 12:01 07/29/24 11:54 07/29/24 11:06 07/29/24 11:01 07/29/24 10:48 07/29/24 10:03 07/29/24 10:00 07/29/24 09:54 07/29/24 09:09 07/29/24 09:01 07/29/24 08:57 07/29/24 08:24 07/29/24 08:01 07/29/24 08:00 3 07/29/24 07:50 3 07/29/24 07:27 07/29/24 07:01 07/29/24 07:00 07/29/24 06:03 07/29/24 06:01 07/29/24 06:01 07/29/24 05:57 07/29/24 05:01 07/29/24 05:01 07/29/24 05:00 Laboratory Results Abnormal Lab Results 07/25/24 07/28/24 07/28/24 21:36 16:43 20:15 WBC RBC Hgb Hct MCV MCH MCHC RDW Std Deviation RDW Coeff of Ching Plt Count MPV Immature Gran % (Auto) Neut % (Auto) Lymph % (Auto) [place] % (Auto) Eos % (Auto) Baso % (Auto) Neut # (Auto) Lymph # (Auto) [place] # (Auto) Eos # (Auto) Baso # (Auto) Immature Gran # (Auto) Absolute Nucleated RBC Nucleated RBC % (auto) Polychromasia Sodium Potassium Chloride Carbon Dioxide Anion Gap BUN Creatinine Est Cr Clr Drug Dosing eGFR BUN/Creatinine Ratio Glucose POC Glucose 133 H 166 H Calcium Phosphorus Magnesium Crossmatch See Detail 07/29/24 07/29/24 07/29/24 05:55 07:20 11:11 WBC 12.18 H RBC 2.99 L Hgb 7.8 L Hct 25.7 L MCV 86.0 MCH 26.1 MCHC 30.4 L RDW Std Deviation 51.7 H RDW Coeff of Ching 16.3 H Plt Count 287 MPV 10.5 Immature Gran % (Auto) 0.5 Neut % (Auto) 89.7 Lymph % (Auto) 4.8 [place] % (Auto) 2.7 Eos % (Auto) 2.1 Baso % (Auto) 0.2 Neut # (Auto) 10.93 H Lymph # (Auto) 0.59 L [place] # (Auto) 0.33 Eos # (Auto) 0.25 Baso # (Auto) 0.02 Immature Gran # (Auto) 0.06 Absolute Nucleated RBC 0.02 Nucleated RBC % (auto) 0.2 Polychromasia 1+ Sodium 134 L Potassium 5.1 Chloride 97 L Carbon Dioxide 20 L Anion Gap 17 H BUN 83 H Creatinine 4.93 H* Est Cr Clr Drug Dosing 11.0 eGFR 8.66 BUN/Creatinine Ratio 16.8 Glucose 195 H POC Glucose 191 H 239 H Calcium 7.1 L Phosphorus 9.5 H Magnesium 2.1 Crossmatch 07/29/24 16:02 WBC RBC Hgb Hct MCV MCH MCHC RDW Std Deviation RDW Coeff of Ching Plt Count MPV Immature Gran % (Auto) Neut % (Auto) Lymph % (Auto) [place] % (Auto) Eos % (Auto) Baso % (Auto) Neut # (Auto) Lymph # (Auto) [place] # (Auto) Eos # (Auto) Baso # (Auto) Immature Gran # (Auto) Absolute Nucleated RBC Nucleated RBC % (auto) Polychromasia Sodium Potassium Chloride Carbon Dioxide Anion Gap BUN Creatinine Est Cr Clr Drug Dosing eGFR BUN/Creatinine Ratio Glucose POC Glucose 169 H Calcium Phosphorus Magnesium Crossmatch PG Care Time/CCT Total # of Minutes Spent Total Time Spent with Patient: Total time spent is greater than 50% in coordination of care (as documented) at patient's floor/unit and/or counseling patient: Coding Level of Care Code 99091 SUB INP/OBS CARE 2/35MIN Diagnoses Acute CHF (congestive heart failure) I50.9 NSTEMI (non-ST elevated myocardial infarction) I21.4 CAD (coronary artery disease) I25.10 HTN (hypertension) I10
--- NOTE | 2024-07-29 22:25 | Hospitalist Progress Note ---
Date of Service July 29, 2024 Assessment & Plan (1) Respiratory failure requiring intubation: Plan: -2nd to CHF exacerbation/NSTEMI/Influenza + -now extubated. -d/w energy derivatives trader, will transfer out of the ICU. -Troponin >10,000 -heparin drip discontinued -discontineu lasix as most likely viral pneumonia with superimposed bacterial pneumonia. -cardene drip discontinued -on zosyn/linezolid for MRSA transitioned to rocephin -duonebs -cardiology consulted -continue tamiflu Acute blood loss anemia: hemoglobin stable, did not require transfusion (2) Respiratory failure with hypoxia and hypercapnia: Plan: -on zosyn/linezolid for MRSA + -stopped solumedrol -duonebs (3) Non-ST elevation DC (NSTEMI): Plan: -heparin drip -cardene drip -cardiology consulted (4) ELLA (acute kidney injury): Plan: -cr 3.87=>3.76 -resumed bicarb drip due to worseneing metabolic acidosis renal function now worseneing (5) Influenza A virus subtype H1 2009 pandemic strain not detected: Plan: -on tamiflu (6) Acute CHF (congestive heart failure): Plan: -lasix 60mg IV Q12hrs -echo -cardiology consulted (7) Hyperkalemia: Plan: -K+ 5.1 improved (8) Hyperglycemia due to type 2 diabetes mellitus: Plan: -Hyperglycemic ICU protocol Plan The patient is a 74-year-old female with a past medical history including diabetes mellitus, hypothyroidism, CAD, hyperlipidemia, hypertension and GERD.The patient presents to the emergency department with extreme shortness of breath, that has been noted to develop over the past few days, and worsening considerably the day of arrival. Family notes that she had improved a little bit in the afternoon, then worsened significantly and evening again. Upon arrival from EMS, patient reportedly was 60% on room air, and confused. They initiated CPAP in the outpatient setting, was given nitroglycerin for significant hypertension. Patient's mentation reportedly had improved somewhat by time arrival to the ED, but she was still very lethargic and not very interactive. Patient was continued on CPAP while in the ED, and workup continued noting that chest x-ray showed moderately severe CHF, bio fire was positive for influenza A H1 2009 pandemic strain, troponin was significantly elevated at 6540.7, and EKG showed inferior lateral ST-T changes. Glucose was 404, potassium was 6.1, creatinine was 3.89. From the ED patient received the following: DuoNeb, furosemide 40 mg IV, calcium gluconate 1 g IV, Zosyn 4.5 g IV, send bicarbonate 50 mill equivalent IV push, regular insulin 5 units IV, and nitroglycerin sublingual. [facility], and in ICU energy derivatives trader team was consulted while in the ED. Severe acidosis- Fluid resuscitation as noted back on bicarb drip Chronic medical issues: GERD-pantoprazole 40 mg IV twice daily Hypothyroidism-resume levothyroxine when able Diabetes mellitus-hyperglycemic ICU protocol. Holding metformin Hyperlipidemia-resume atorvastatin when appropriate Admission and Anticipated Discharge Date Admission Date: July 25, 2024 Subjective Patient is more awake today. Patient is able to answer more questions. She denies any pain. Physical Exam Physical Exam: Patient is awake and now extubated skin: warm, dry heart: RRR lung: coarse breath sounds extremities: no edema. Results & Data Results & Data Vital Signs (Past 12 Hours) Vital Signs Temp Pulse Resp BP Pulse Ox O2 Del Method O2 Flow Rate 07/29/24 22:00 36.9 C 71 20 93 07/29/24 21:00 36.9 C 82 19 92 07/29/24 20:37 159/105 H 07/29/24 20:21 36.9 C 86 21 92 07/29/24 20:09 36.9 C 86 19 92 07/29/24 20:00 Nasal Cannula 3 07/29/24 19:03 36.8 C 83 21 92 07/29/24 18:09 37.0 C 81 17 96 07/29/24 17:03 37.1 C 87 21 91 07/29/24 17:01 154/64 H 07/29/24 16:45 37.0 C 88 22 92 07/29/24 16:03 37.0 C 77 25 H 94 07/29/24 16:01 165/63 H 07/29/24 15:48 37.0 C 76 19 95 07/29/24 15:21 37.0 C 76 19 95 07/29/24 14:15 36.9 C 83 19 95 07/29/24 14:01 149/70 H 07/29/24 14:01 149/70 H 07/29/24 13:54 36.9 C 82 19 95 07/29/24 13:01 158/66 H 07/29/24 13:00 36.9 C 80 18 94 07/29/24 12:15 36.9 C 74 21 94 07/29/24 12:01 162/61 H 07/29/24 11:54 36.9 C 76 20 93 07/29/24 11:06 36.9 C 73 18 96 07/29/24 11:01 160/58 H 07/29/24 10:48 36.8 C 75 20 96 PG Care Time/CCT Total # of Minutes Spent Total Time Spent with Patient: Total time spent is greater than 50% in coordination of care (as documented) at patient's floor/unit and/or counseling patient: Coding Level of Care Code 88496 SUB INP/OBS CARE 3/50MIN Diagnoses Respiratory failure requiring intubation J96.90 Respiratory failure with hypoxia and hypercapnia J96.91; J96.92 Non-ST elevation DC (NSTEMI) I21.4 ELLA (acute kidney injury) N17.9 Influenza A virus subtype H1 2009 pandemic strain not detected Z01.89 Acute CHF (congestive heart failure) I50.9 Hyperkalemia E87.5 Hyperglycemia due to type 2 diabetes mellitus E11.65
[2024-07-30] MEDS: INSULIN ASPART PER UNIT CHARGE SC SCH (00:05)
[2024-07-30 06:27] LABS: Basophils # (auto) 0.01 K/uL (0.00-0.20); Basophils % (auto) 0.1 %; Eosinophils # (auto) 0.48 K/uL (0.00-0.50); Eosinophils % (auto) 4.2 %; Hematocrit (blood only) 26.4 % (37.0-47.0); Hemoglobin 7.9 g/dl (12.0-16.0); Immature Granulocytes # (auto) 0.04 K/uL (0.01-0.20); Immature Granulocytes % (auto) 0.4 %; Lymphocytes # (auto) 0.52 K/uL (1.20-3.40); Lymphocytes % (auto) 4.6 %; Mean Corpuscular Hemoglobin 26.2 pg (25.0-34.0); Mean Corpuscular Hgb Conc 29.9 g/dL (32.0-36.0); Mean Corpuscular Volume 87.4 fL (80.0-100.0); Mean Platelet Volume 10.9 fL (9.4-12.4); Monocytes # (auto) 0.38 K/uL (0.11-0.59); Monocytes % (auto) 3.3 %; Neutrophils # (auto) 9.96 K/uL (1.40-6.50); Neutrophils % (auto) 87.4 %; Nucleated RBC # (auto) 0.03 K/uL (0.00-0.12); Nucleated RBC % (auto) 0.3 %; Platelet Count 288 K/uL (130-400); RDW Coefficient of Variation 16.2 % (11.5-14.5); RDW Standard Deviation 51.7 fL (36.4-46.3); Red Blood Count 3.02 M/uL (4.20-5.40); White Blood Count 11.39 K/ul (4.8-10.8)
[2024-07-30 06:41] LABS: BUN Creatinine Ratio 16.6 (10-20); Calcium 7.1 mg/dl (8.6-10.3); Creatinine Clr Calc Pharmacy 10.2 ml/min; Magnesium 2.2 mg/dl (1.7-2.4); Phosphorus 10.4 mg/dl (2.5-4.9); Potassium 4.9 mmol/L (3.5-5.1)
[2024-07-30 07:11] LABS: Ovalocytes 1+
[2024-07-30] MEDS: LANTUS PER UNIT CHARGE SC SCH (08:52)
[2024-07-30] MEDS: PANTOprazole 40 MG TAB PO SCH (08:55)
--- NOTE | 2024-07-30 10:28 | Nephrology Progress Note ---
Date of Service July 30, 2024 Assessment & Plan (1) ELLA (acute kidney injury): Plan: * ELLA likely related to combination influenza, NSTEMI * Patient remains in injury phase of ELLA. Cr has risen to 5.3 * Electrolyte balance is acceptable. SaO2 93% on 2 L NC. No acute indication for HD today * Although patient is net 3.9 L volume + she remains nonoliguric * HCO3 has corrected to 22. Hold IV NaHCO3 and monitor * Discussed indications/benefits/risks/alternatives to HD w/ patient's family this morning. They are uncertain whether to escalate care. They request time today to discuss this as a family. * Monitor BMP, UO (2) Chronic kidney disease: Plan: * CKD stage G3 (moderate impairment) w/ baseline Cr 1.2 (3) Influenza A virus subtype H1 2009 pandemic strain not detected: Plan: * On tamiflu therapy (4) Non-ST elevation [place] (NSTEMI): Plan: * Known ASCVD with h/o PTCA R coronary artery * Heparin held due to progressive anemia * Remains on ASA * May require cardiac catheterization prior to discharge (5) Hyperglycemia due to type 2 diabetes mellitus: Admission and Anticipated Discharge Date Admission Date: July 25, 2024 Subjective Mrs. Madden was evaluated in her hospital room this morning. Her son & daughter were at bedside. The patient remains weak, nonverbal Review of Systems Review of Systems: Unobtainable due to cognitive status Physical Exam Constitutional: + ill appearing (nonconversant) Eyes: PERRL, conjunctivae normal, anicteric sclerae ENMT: Mouth: + dry oral mucous membranes Neck: trachea midline, no thyromegaly Respiratory: normal respiratory effort Auscultation: + rhonchi (bilaterally) Cardiovascular: RRR, no murmur, no edema Gastrointestinal (Abdomen): normal bowel sounds, soft, nontender, no hepatosplenomegaly Musculoskeletal: Extremities: no cyanosis and no clubbing Skin: no rashes, warm and dry Neurologic: awake (nonverbal) Results & Data Vital Signs (Past 12 Hours) Vital Signs Temp Pulse Pulse Resp BP BP Pulse Ox 07/30/24 08:51 36.7 C 84 19 160/96 H 93 07/30/24 03:06 36.7 C 77 19 175/70 H 95 07/30/24 00:18 74 18 92 07/29/24 23:59 36.7 C 77 19 174/82 H 95 07/29/24 23:45 76 O2 Del Method O2 Flow Rate 07/30/24 08:51 Nasal Cannula 2 07/30/24 03:06 07/30/24 00:18 Nasal Cannula 07/29/24 23:59 Nasal Cannula 3 07/29/24 23:45 Laboratory Results Laboratory Results - last 24 hr 07/29/24 07/29/24 07/29/24 11:11 16:02 20:44 WBC RBC Hgb Hct MCV MCH MCHC RDW Std Deviation RDW Coeff of Ching Plt Count MPV Immature Gran % (Auto) Neut % (Auto) Lymph % (Auto) [place] % (Auto) Eos % (Auto) Baso % (Auto) Neut # (Auto) Lymph # (Auto) [place] # (Auto) Eos # (Auto) Baso # (Auto) Immature Gran # (Auto) Absolute Nucleated RBC Nucleated RBC % (auto) Ovalocytes Sodium Potassium Chloride Carbon Dioxide Anion Gap BUN Creatinine Est Cr Clr Drug Dosing eGFR BUN/Creatinine Ratio Glucose POC Glucose 239 H 169 H 180 H Calcium Phosphorus Magnesium 07/29/24 07/30/24 07/30/24 23:50 05:51 05:53 WBC 11.39 H RBC 3.02 L Hgb 7.9 L Hct 26.4 L MCV 87.4 MCH 26.2 MCHC 29.9 L RDW Std Deviation 51.7 H RDW Coeff of Ching 16.2 H Plt Count 288 MPV 10.9 Immature Gran % (Auto) 0.4 Neut % (Auto) 87.4 Lymph % (Auto) 4.6 [place] % (Auto) 3.3 Eos % (Auto) 4.2 Baso % (Auto) 0.1 Neut # (Auto) 9.96 H Lymph # (Auto) 0.52 L [place] # (Auto) 0.38 Eos # (Auto) 0.48 Baso # (Auto) 0.01 Immature Gran # (Auto) 0.04 Absolute Nucleated RBC 0.03 Nucleated RBC % (auto) 0.3 Ovalocytes 1+ Sodium 138 Potassium 4.9 Chloride 100 Carbon Dioxide 22 Anion Gap 16 H BUN 89 H Creatinine 5.35 H* D Est Cr Clr Drug Dosing 10.2 eGFR 7.85 BUN/Creatinine Ratio 16.6 Glucose 119 H POC Glucose 134 H 126 H Calcium 7.1 L Phosphorus 10.4 H Magnesium 2.2 07/30/24 07:36 WBC RBC Hgb Hct MCV MCH MCHC RDW Std Deviation RDW Coeff of Ching Plt Count MPV Immature Gran % (Auto) Neut % (Auto) Lymph % (Auto) [place] % (Auto) Eos % (Auto) Baso % (Auto) Neut # (Auto) Lymph # (Auto) [place] # (Auto) Eos # (Auto) Baso # (Auto) Immature Gran # (Auto) Absolute Nucleated RBC Nucleated RBC % (auto) Ovalocytes Sodium Potassium Chloride Carbon Dioxide Anion Gap BUN Creatinine Est Cr Clr Drug Dosing eGFR BUN/Creatinine Ratio Glucose POC Glucose 121 H Calcium Phosphorus Magnesium PG Care Time/CCT Total # of Minutes Spent Total Time Spent with Patient: Total time spent is greater than 50% in coordination of care (as documented) at patient's floor/unit and/or counseling patient: Coding Level of Care Code 56052 SUB INP/OBS CARE 3/50MIN Diagnoses ELLA (acute kidney injury) N17.9 Chronic kidney disease N18.9 Influenza A virus subtype H1 2009 pandemic strain not detected Z01.89 Non-ST elevation IL (NSTEMI) I21.4 Hyperglycemia due to type 2 diabetes mellitus E11.65
--- NOTE | 2024-07-30 10:50 | Cardiology Progress Note ---
Date of Service July 30, 2024 Assessment & Plan (1) Acute CHF (congestive heart failure): (2) NSTEMI (non-ST elevated myocardial infarction): (3) CAD (coronary artery disease): (4) HTN (hypertension): Plan 1. Acute on chronic heart failure with preserved ejection fraction: While she is nonoliguric, unable to affect a significant diuresis. Hopefully his kidney function improves we will see some increased effect from diuretics. 2. NSTEMI: Biomarkers have peaked. Less likely related to an acute coronary syndrome and more likely related to her hypoxia and hypertension at the time of admission. Heparin has been discontinued due to concerns of dropping hemoglobin. I think this is reasonable. Continue aspirin. 3. Coronary artery disease: She is known to have severe coronary artery disease. She previously underwent percutaneous intervention to the right latha nary artery. She had significant residual disease in 2019. This is likely responsible for her elevated biomarkers in the setting of hypoxia and hypertension. Will consider reevaluation prior to discharge depending on her clinical course and renal function. No urgent indication for coronary angiography. 4. Mitral regurgitation: Moderate previously. More mild on current evaluation although images were suboptimal. 5. Hypertension: Back on her usual metoprolol. Avoiding some antihypertensives due to kidney dysfunction. 6. Acute kidney injury: Slightly worsened. Nonoliguric. 7. Anemia: Stable. No evidence of active bleeding. Still very tired and weak. Poor pulmonary toilet overall. Renal function not improving. Difficult to diuresis. Hopefully will see some improvement in her kidney function and affect a better diuresis. She seems unable or unwilling to perform aggressive pulmonary toilet. Admission and Anticipated Discharge Date Admission Date: July 25, 2024 Subjective This morning patient continued to be very fatigued. She reported some difficulty breathing. No abdominal pain or pain in other locations. Poor appetite. Review of Systems Review of Systems: Per HPI Physical Exam Physical Exam: Alert. Answer questions appropriately. HEENT: Sclerae are anicteric. Pupils are equal and reactive to light and accommodation. Extraocular movements were intact. Alopecia noted Neuro: Cranial nerves appeared intact. Lungs: Coarse breath sounds in all lung schmid. Some wheezing. Somewhat blunted excursion. Cardiac: The rhythm was regular. S1 and S2 were normal. There are no murmurs on examination. Abdomen: Obese. Somewhat distended. Nontender Extremities: Patient has bilateral radial pulses that are equal in intensity. There is no evidence cyanosis or clubbing. Compression devices on both legs Skin: There are no rashes noted on examination today. Depigmentation on the scalp, possibly vitiligo Results & Data Vital Signs (Past 12 Hours) Vital Signs Temp Pulse Pulse Resp BP BP Pulse Ox 07/30/24 08:51 36.7 C 84 19 160/96 H 93 07/30/24 03:06 36.7 C 77 19 175/70 H 95 07/30/24 00:18 74 18 92 07/29/24 23:59 36.7 C 77 19 174/82 H 95 07/29/24 23:45 76 O2 Del Method O2 Flow Rate 07/30/24 08:51 Nasal Cannula 2 07/30/24 03:06 07/30/24 00:18 Nasal Cannula 07/29/24 23:59 Nasal Cannula 3 07/29/24 23:45 Laboratory Results Abnormal Lab Results 07/29/24 07/29/24 07/29/24 11:11 16:02 20:44 WBC RBC Hgb Hct MCV MCH MCHC RDW Std Deviation RDW Coeff of Ching Plt Count MPV Immature Gran % (Auto) Neut % (Auto) Lymph % (Auto) [place] % (Auto) Eos % (Auto) Baso % (Auto) Neut # (Auto) Lymph # (Auto) [place] # (Auto) Eos # (Auto) Baso # (Auto) Immature Gran # (Auto) Absolute Nucleated RBC Nucleated RBC % (auto) Ovalocytes Sodium Potassium Chloride Carbon Dioxide Anion Gap BUN Creatinine Est Cr Clr Drug Dosing eGFR BUN/Creatinine Ratio Glucose POC Glucose 239 H 169 H 180 H Calcium Phosphorus Magnesium 07/29/24 07/30/24 07/30/24 23:50 05:51 05:53 WBC 11.39 H RBC 3.02 L Hgb 7.9 L Hct 26.4 L MCV 87.4 MCH 26.2 MCHC 29.9 L RDW Std Deviation 51.7 H RDW Coeff of Ching 16.2 H Plt Count 288 MPV 10.9 Immature Gran % (Auto) 0.4 Neut % (Auto) 87.4 Lymph % (Auto) 4.6 [place] % (Auto) 3.3 Eos % (Auto) 4.2 Baso % (Auto) 0.1 Neut # (Auto) 9.96 H Lymph # (Auto) 0.52 L [place] # (Auto) 0.38 Eos # (Auto) 0.48 Baso # (Auto) 0.01 Immature Gran # (Auto) 0.04 Absolute Nucleated RBC 0.03 Nucleated RBC % (auto) 0.3 Ovalocytes 1+ Sodium 138 Potassium 4.9 Chloride 100 Carbon Dioxide 22 Anion Gap 16 H BUN 89 H Creatinine 5.35 H* D Est Cr Clr Drug Dosing 10.2 eGFR 7.85 BUN/Creatinine Ratio 16.6 Glucose 119 H POC Glucose 134 H 126 H Calcium 7.1 L Phosphorus 10.4 H Magnesium 2.2 07/30/24 07:36 WBC RBC Hgb Hct MCV MCH MCHC RDW Std Deviation RDW Coeff of Ching Plt Count MPV Immature Gran % (Auto) Neut % (Auto) Lymph % (Auto) [place] % (Auto) Eos % (Auto) Baso % (Auto) Neut # (Auto) Lymph # (Auto) [place] # (Auto) Eos # (Auto) Baso # (Auto) Immature Gran # (Auto) Absolute Nucleated RBC Nucleated RBC % (auto) Ovalocytes Sodium Potassium Chloride Carbon Dioxide Anion Gap BUN Creatinine Est Cr Clr Drug Dosing eGFR BUN/Creatinine Ratio Glucose POC Glucose 121 H Calcium Phosphorus Magnesium PG Care Time/CCT Total # of Minutes Spent Total Time Spent with Patient: Total time spent is greater than 50% in coordination of care (as documented) at patient's floor/unit and/or counseling patient: Coding Level of Care Code 59689 SUB INP/OBS CARE 2/35MIN Diagnoses Acute CHF (congestive heart failure) I50.9 NSTEMI (non-ST elevated myocardial infarction) I21.4 CAD (coronary artery disease) I25.10 HTN (hypertension) I10
--- NOTE | 2024-07-30 12:10 | Pharmacy Report ---
Pharmacy Glycemic Short Note 2 - Date of Service July 30, 2024 - Glycemic Short BSG Results (Last 24 hours): 07/29/24 07/29/24 07/29/24 16:02 20:44 23:50 Glucose POC Glucose 169 H 180 H 134 H 07/30/24 07/30/24 07/30/24 05:51 05:53 07:36 Glucose 119 H POC Glucose 126 H 121 H 07/30/24 11:31 Glucose POC Glucose 153 H OUTPATIENT ANTIDIABETIC REGIMEN: * Novolin 70/30 70-80 units BID * Metformin 1000 mg PO BID * A1c - 9.1% ASSESSMENT: 07/30: * BSGs largely within goal the last 24h: [phone]/dL. Received 35 units of basal and 15 units of bolus insulin yesterday. * Full liquid diet ordered, however still not taking much PO. Continues on antibiotics * Lantus decreased this AM given ongoing decreased PO, increasing SCr and fasting BSG decrease to 121mg/dL. No change to Novolog parameters for now. 07/29 * BSGs [phone]/dL the last 24h. Insulin drip transitioned off last evening. Received 25 units of basal and 1 unit of bolus insulin yesterday. * Clear liquid diet, continues on antibiotics * Lantus 25 units this AM X 1. Will add additional scaled lantus with dinner. Novolog tightened. 07/28 * Patient has been extubated. Clear liquid diet ordered. BSGs have been stable on insulin infusion @ 2.2 units/hr correlating to ~52 units/day * Will give half as basal- 25 units now for transition off insulin infusion. Patient will have PT/OT ordered. * Novolog parameters started with weight based stress of 2- this is similar to outpatient stress of 1 or TDD of 52 units stress of 2 07/27 * Patient continues on mechanical ventilation today with plans for SBT today. Norepinephrine has been titrated off. * Continues w/ insulin infusion for now given uncertain plans for extuba tion/changing status 07/26 * 74 yo T2DM admitted with hypercarbic/hypoxic respiratory failure in setting of influenza illness and NSTEMI. * Patient admitted to ICU and sedated for mechanical ventilation. Currently receiving heparin, norepinephrine, fentanyl and propofol infusions. Also given two doses of methylprednisolone which has since be discontinued. * Started on insulin IV infusion for severe hyperglycemia/? DKA. Currently on hold for BSG at goal. I suspect this will be resumed based on significant home insulin needs and ICU level stressors. PLAN FOR INPATIENT GLYCEMIC CONTROL: * Basal insulin * Lantus 15 units SQ qAM * Bolus insulin * NovoLog per scale ACHS or Q6hrs while NPO * Goal Range: Low 110 mg/dL - High 140 mg/dL * Correction Factor: 20 mg/dL/unit * Nutritional / Prandial insulin 1 unit for every 7 grams of CHO consumed
[2024-07-30] MEDS ORDERED: MoRPHine SULFATE 2 MG/ML CARP IV STA (17:10)
[2024-07-30] MEDS ORDERED: HYDROmorphone INJ 0.5 MG/0.5 ML SYR IV PRN (17:13)
[2024-07-30] MEDS: HYDROmorphone INJ 0.5 MG/0.5 ML SYR IV STA (17:38)
[2024-07-30] MEDS: GLYCOPYRROLATE 0.2 MG/ML VIAL IV PRN (17:38)
[2024-07-30 19:56] VITALS: BP 155/59; PULSE 78; RESP 18; TEMP 97.9; O2SAT 99
[2024-07-30] MEDS: HYDROmorphone INJ 0.5 MG/0.5 ML SYR IV PRN (22:17)
--- NOTE | 2024-07-30 22:48 | Hospitalist Progress Note ---
Date of Service July 30, 2024 Assessment & Plan (1) Respiratory failure requiring intubation: Plan: -2nd to CHF exacerbation/NSTEMI/Influenza + -now extubated. -d/w coating machine feeder, will transfer out of the ICU. -Troponin >10,000 -heparin drip discontinued -discontineu lasix as most likely viral pneumonia with superimposed bacterial pneumonia. -cardene drip discontinued -on zosyn/linezolid for MRSA transitioned to rocephin -duonebs -cardiology consulted -continue tamiflu -given acute worsening in clinical presentation, worsening abdominal pain, worse kidney function, patient does not want machines to keep her alive, family opted to transition her to comfort measures only. will stop all meds and only continue medications for comfort. Acute blood loss anemia: hemoglobin stable, did not require transfusion (2) Respiratory failure with hypoxia and hypercapnia: Plan: -on zosyn/linezolid for MRSA + -stopped solumedrol -duonebs (3) Non-ST elevation [place] (NSTEMI): Plan: -heparin drip -cardene drip -cardiology consulted (4) ELLA (acute kidney injury): Plan: -cr 3.87=>3.76 -resumed bicarb drip due to worseneing metabolic acidosis renal function contiues to worsen on 07/30 (5) Influenza A virus subtype H1 2009 pandemic strain not detected: Plan: -on tamiflu (6) Acute CHF (congestive heart failure): Plan: -lasix 60mg IV Q12hrs -echo -cardiology consulted (7) Hyperkalemia: Plan: -K+ 5.1 improved (8) Hyperglycemia due to type 2 diabetes mellitus: Plan: -Hyperglycemic ICU protocol Plan The patient is a 74-year-old female with a past medical history including diabetes mellitus, hypothyroidism, CAD, hyperlipidemia, hypertension and GERD.The patient presents to the emergency department with extreme shortness of breath, that has been noted to develop over the past few days, and worsening considerably the day of arrival. Family notes that she had improved a little bit in the afternoon, then worsened significantly and evening again. Upon arrival from EMS, patient reportedly was 60% on room air, and confused. They initiated CPAP in the outpatient setting, was given nitroglycerin for significant hypertension. Patient's mentation reportedly had improved somewhat by time arrival to the ED, but she was still very lethargic and not very interactive. Patient was continued on CPAP while in the ED, and workup continued noting that chest x-ray showed moderately severe CHF, bio fire was positive for influenza A H1 2009 pandemic strain, troponin was significantly elevated at 6540.7, and EKG showed inferior lateral ST-T changes. Glucose was 404, potassium was 6.1, creatinine was 3.89. From the ED patient received the following: DuoNeb, furosemide 40 mg IV, calcium gluconate 1 g IV, Zosyn 4.5 g IV, send bicarbonate 50 mill equivalent IV push, regular insulin 5 units IV, and nitroglycerin sublingual. [facility] hospitalist service was consulted to admit patient to the ICU, and in ICU coating machine feeder team was consulted while in the ED. Severe acidosis- Fluid resuscitation as noted back on bicarb drip Chronic medical issues: GERD-pantoprazole 40 mg IV twice daily Hypothyroidism-resume levothyroxine when able Diabetes mellitus-hyperglycemic ICU protocol. Holding metformin Hyperlipidemia-resume atorvastatin when appropriate Admission and Anticipated Discharge Date Admission Date: July 25, 2024 Subjective Patient complaining of generalized abdominal pain. Physical Exam Physical Exam: Patient is awake and now extubated skin: warm, dry heart: RRR lung: coarse breath sounds abd: soft, tenderness to deep palpation mainly on right lower aspect, but pain is present throughout extremities: no edema. Results & Data Results & Data Vital Signs (Past 12 Hours) Vital Signs Temp Pulse Resp BP Pulse Ox O2 Del Method O2 Flow Rate 07/30/24 20:23 Nasal Cannula 3 07/30/24 19:54 36.6 C 78 18 155/59 H 99 Nasal Cannula 2 07/30/24 16:24 82 21 93 Nasal Cannula 3 07/30/24 16:09 36.8 C 83 18 151/103 H 91 Nasal Cannula 3 07/30/24 11:46 36.9 C 78 20 145/68 H 94 Nasal Cannula 3 PG Care Time/CCT Total # of Minutes Spent Total Time Spent with Patient: Total time spent is greater than 50% in coordination of care (as documented) at patient's floor/unit and/or counseling patient: Coding Level of Care Code 45830 SUB INP/OBS CARE 3/50MIN Diagnoses Respiratory failure requiring intubation J96.90 Respiratory failure with hypoxia and hypercapnia J96.91; J96.92 Non-ST elevation [place] (NSTEMI) I21.4 ELLA (acute kidney injury) N17.9 Influenza A virus subtype H1 2009 pandemic strain not detected Z01.89 Acute CHF (congestive heart failure) I50.9 Hyperkalemia E87.5 Hyperglycemia due to type 2 diabetes mellitus E11.65
--- NOTE | 2024-07-31 08:43 | Nephrology Progress Note ---
Date of Service July 31, 2024 Assessment & Plan (1) ELLA (acute kidney injury): Plan: * Progressive ELLA * Indication/benefits/risks/alternatives to PADDED BOX SEWER discussed with patient's family in detail yesterday. Informed me that they did not wish to escalate care. Th ey want to focus on patient's comfort * Chart reviewed this morning. Patient has been transition to HOUSE DETECTIVE * No further nephrology testing indicated at this time. Will sign off. Please call if further assistance is needed. (2) Chronic kidney disease: Plan: * CKD stage G3 (moderate impairment) w/ baseline Cr 1.2 (3) Influenza A virus subtype H1 2009 pandemic strain not detected: Plan: * On tamiflu therapy (4) Non-ST elevation [place] (NSTEMI): Plan: * Known ASCVD with h/o PTCA R coronary artery * Heparin held due to progressive anemia * Remains on ASA * May require cardiac catheterization prior to discharge (5) Hyperglycemia due to type 2 diabetes mellitus: Admission and Anticipated Discharge Date Admission Date: July 25, 2024 Results & Data Vital Signs (Past 12 Hours) Vital Signs O2 Del Method O2 Flow Rate 07/30/24 21:55 Nasal Cannula 4 PG Care Time/CCT Total # of Minutes Spent Total Time Spent with Patient: Total time spent is greater than 50% in coordination of care (as documented) at patient's floor/unit and/or counseling patient: Coding Level of Care Code 23169 SUB INP/OBS CARE 08/01MIN Diagnoses ELLA (acute kidney injury) N17.9 Chronic kidney disease N18.9 Influenza A virus subtype H1 2009 pandemic strain not detected Z01.89 Non-ST elevation [place] (NSTEMI) I21.4 Hyperglycemia due to type 2 diabetes mellitus E11.65
--- NOTE | 2024-07-31 23:50 | Hospitalist Progress Note ---
Date of Service July 31, 2024 Assessment & Plan (1) Respiratory failure requiring intubation: Plan: Sepsis, POA -2nd to CHF exacerbation/NSTEMI/Influenza + -now extubated. -d/w merchandise flow team member, will transfer out of the ICU. -Troponin >10,000 -heparin drip discontinued -discontineu lasix as most likely viral pneumonia with superimposed bacterial pneumonia. -cardene drip discontinued -on zosyn/linezolid for MRSA transitioned to rocephin -duonebs -cardiology consulted -continue tamiflu -given acute worsening in clinical presentation, worsening abdominal pain, worse kidney function, patient does not want machines to keep her alive, family opted to transition her to comfort measures only. will stop all meds and only continue medications for comfort. Will remain on comfort measures on 07/31; Family agreeable. Acute blood loss anemia: hemoglobin stable, did not require transfusion (2) Respiratory failure with hypoxia and hypercapnia: Plan: -on zosyn/linezolid for MRSA + -stopped solumedrol -duonebs (3) Non-ST elevation [place] (NSTEMI): Plan: -heparin drip now stopped. -cardene drip now stopped -cardiology consulted (4) ELLA (acute kidney injury): Plan: -cr 3.87=>3.76 -resumed bicarb drip due to worseneing metabolic acidosis renal function contiues to worsen on 07/30 (5) Influenza A virus subtype H1 2009 pandemic strain not detected: Plan: -on tamiflu (6) Acute CHF (congestive heart failure): Plan: -lasix 60mg IV Q12hrs -echo -cardiology consulted (7) Hyperkalemia: Plan: -K+ 5.1 improved (8) Hyperglycemia due to type 2 diabetes mellitus: Plan: -Hyperglycemic ICU protocol stopped as patient is on comfort measures. Plan The patient is a 74-year-old female with a past medical history including diab etes mellitus, hypothyroidism, CAD, hyperlipidemia, hypertension and GERD.The patient presents to the emergency department with extreme shortness of breath, that has been noted to develop over the past few days, and worsening considerably the day of arrival. Family notes that she had improved a little bit in the afternoon, then worsened significantly and evening again. Upon arrival from EMS, patient reportedly was 60% on room air, and confused. They initiated CPAP in the outpatient setting, was given nitroglycerin for significant hypertension. Patient's mentation reportedly had improved somewhat by time arrival to the ED, but she was still very lethargic and not very interactive. Patient was continued on CPAP while in the ED, and workup continued noting that chest x-ray showed moderately severe CHF, bio fire was positive for influenza A H1 2009 pandemic strain, troponin was significantly elevated at 6540.7, and EKG showed inferior lateral ST-T changes. Glucose was 404, potassium was 6.1, creatinine was 3.89. From the ED patient received the following: DuoNeb, furosemide 40 mg IV, calcium gluconate 1 g IV, Zosyn 4.5 g IV, send bicarbonate 50 mill equivalent IV push, regular insulin 5 units IV, and nitroglycerin sublingual. [facility] hospitalist service was consulted to admit patient to the ICU, and in ICU merchandise flow team member team was consulted while in the ED. Severe acidosis- Fluid resuscitation as noted back on bicarb drip Chronic medical issues: GERD-pantoprazole 40 mg IV twice daily Hypothyroidism-resume levothyroxine when able Diabetes mellitus-hyperglycemic ICU protocol. Holding metformin Hyperlipidemia-resume atorvastatin when appropriate Patient is now transitioned to comfort measures. Admission and Anticipated Discharge Date Admission Date: July 25, 2024 Subjective 74 yo female is comfortable. Family at bedside and are updated. Physical Exam Physical Exam: Patient is lying in bed. Patient in no apparent distress Results & Data Results & Data Vital Signs (Past 12 Hours) Vital Signs O2 Del Method O2 Flow Rate 07/31/24 20:00 Nasal Cannula 4 PG Care Time/CCT Total # of Minutes Spent Total Time Spent with Patient: Total time spent is greater than 50% in coordination of care (as documented) at patient's floor/unit and/or counseling patient: Coding Level of Care Code 75820 SUB INP/OBS CARE 2/35MIN Diagnoses Respiratory failure requiring intubation J96.90 Respiratory failure with hypoxia and hypercapnia J96.91; J96.92 Non-ST elevation [place] (NSTEMI) I21.4 ELLA (acute kidney injury) N17.9 Influenza A virus subtype H1 2009 pandemic strain not detected Z01.89 Acute CHF (congestive heart failure) I50.9 Hyperkalemia E87.5 Hyperglycemia due to type 2 diabetes mellitus E11.65
--- NOTE | 2024-08-01 07:07 | Death Pronouncement Note ---
Date of Service August 01, 2024 Pronouncement Note Admission Date Admission Date: July 25, 2024 Date and Time of Date of : 08/01/24 Time of : 06:57 Contributing Factors (1) Respiratory failure requiring intubation: (2) Respiratory failure with hypoxia and hypercapnia: (3) Non-ST elevation [place] (NSTEMI): (4) ELLA (acute kidney injury): (5) Influenza A virus subtype H1 2009 pandemic strain not detected: (6) Acute CHF (congestive heart failure): (7) Hyperkalemia: (8) Hyperglycemia due to type 2 diabetes mellitus: Summary Additional details: I was called to pronounce the of Rica Madden ( 1950) by Cande Stevens on 08/01/2024 Upon entering the room, patient was found to be in a terminal state. They were unresponsive to, and did not withdrawal from, verbal or tactile stimuli. They were unresponsive to corneal, pupillary, and oculocephalic reflexes. On cardiopulmonary exam, they were found to be without detectable carotid pulses, and without spontaneous heart tones or respirations. Time of was pronounced by me on 08/01/2024 at 0657. Attending physician was notified was notified. Family at bedside. Signed: Jesse Maurer DO Additional Data Confirmation of : no pulse, no respirations, no heart sounds and pupils fixed and dilated Family: at bedside Attending/PCP notified?: Yes Attending physician: Solo Valdes Was code activated?: No Autopsy requested?: No
--- NOTE | 2024-08-01 08:59 | Discharge Summary ---
Discharge Summary Date of Service August 01, 2024 Principal Dx & Hospital Course #1 = Principal Diagnosis (1) Respiratory failure requiring intubation: Sepsis, POA -2nd to CHF exacerbation/NSTEMI/Influenza + -now extubated. -d/w product safety engineer, will transfer out of the ICU. -Troponin >10,000 -heparin drip discontinued -discontineu lasix as most likely viral pneumonia with superimposed bacterial pneumonia. -cardene drip discontinued -on zosyn/linezolid for MRSA transitioned to rocephin -duonebs -cardiology consulted -continue tamiflu -given acute worsening in clinical presentation, worsening abdominal pain, worse kidney function, patient does not want machines to keep her alive, family opted to transition her to comfort measures only. will stop all meds and only continue medications for comfort. Patient on 08/01 Plan below was prior to transition to PREMIX CONCRETE BATCHER Acute blood loss anemia: hemoglobin stable, did not require transfusion (2) Respiratory failure with hypoxia and hypercapnia: -on zosyn/linezolid for MRSA + -stopped solumedrol -duonebs (3) Non-ST elevation [place] (NSTEMI): -heparin drip now stopped. -cardene drip now stopped -cardiology consulted (4) ELLA (acute kidney injury): Acute kidney failure -cr 3.87=>3.76 -resumed bicarb drip due to worseneing metabolic acidosis renal function contiues to worsen on 07/30 (5) Influenza A virus subtype H1 2009 pandemic strain not detected: -on tamiflu (6) Acute CHF (congestive heart failure): -lasix 60mg IV Q12hrs -echo -cardiology consulted (7) Hyperkalemia: -K+ 5.1 improved (8) Hyperglycemia due to type 2 diabetes mellitus: -Hyperglycemic ICU protocol stopped as patient is on comfort measures. Plan The patient is a 74-year-old female with a past medical history including diabetes mellitus, hypothyroidism, CAD, hyperlipidemia, hypertension and GERD.The patient presents to the emergency department with extreme shortness of breath, that has been noted to develop over the past few days, and worsening considerably the day of arrival. Family notes that she had improved a little bit in the afternoon, then worsened significantly and evening again. Upon arrival from EMS, patient reportedly was 60% on room air, and confused. They initiated CPAP in the outpatient setting, was given nitroglycerin for significant hypertension. Patient's mentation reportedly had improved somewhat by time arrival to the ED, but she was still very lethargic and not very interactive. Patient was continued on CPAP while in the ED, and workup continued noting that chest x-ray showed moderately severe CHF, bio fire was positive for influenza A H1 2009 pandemic strain, troponin was significantly elevated at 6540.7, and EKG showed inferior lateral ST-T changes. Glucose was 404, potassium was 6.1, creatinine was 3.89. From the ED patient received the following: DuoNeb, furosemide 40 mg IV, calcium gluconate 1 g IV, Zosyn 4.5 g IV, send bicarbonate 50 mill equivalent IV push, regular insulin 5 units IV, and nitroglycerin sublingual. [facility] hospitalist service was consulted to admit patient to the ICU, and in ICU product safety engineer team was consulted while in the ED. Severe acidosis- Fluid resuscitation as noted back on bicarb drip Chronic medical issues: GERD-pantoprazole 40 mg IV twice daily Hypothyroidism-resume levothyroxine when able Diabetes mellitus-hyperglycemic ICU protocol. Holding metformin Hyperlipidemia-resume atorvastatin when appropriate Patient is now transitioned to comfort measures. Admission HPI Per Admitting Provider The patient is a 74-year-old female with a past medical history including diabetes mellitus, hypothyroidism, CAD, hyperlipidemia, hypertension and GERD.The patient presents to the emergency department with extreme shortness of breath, that has been noted to develop over the past few days, and worsening considerably the day of arrival. Family notes that she had improved a little bit in the afternoon, then worsened significantly and evening again. Upon arrival from EMS, patient reportedly was 60% on room air, and confused. They initiated CPAP in the outpatient setting, was given nitroglycerin for significant hypertension. Patient's mentation reportedly had improved somewhat by time arrival to the ED, but she was still very lethargic and not very interactive. Patient was continued on CPAP while in the ED, and workup continued noting that chest x-ray showed moderately severe CHF, bio fire was positive for influenza A H1 2009 pandemic strain, troponin was significantly elevated at 6540.7, and EKG showed inferior lateral ST-T changes. Glucose was 404, potassium was 6.1, creatinine was 3.89. From the ED patient received the following: DuoNeb, furosemide 40 mg IV, calcium gluconate 1 g IV, Zosyn 4.5 g IV, send bicarbonate 50 mill equivalent IV push, regular insulin 5 units IV, and nitroglycerin sublingual. [facility] hospitalist service was consulted to admit patient to the ICU, and in ICU product safety engineer team was consulted while in the ED. Discharge Exam Patient . Discharge Plan Discharge Items Patient Disposition: Other Date/Time: 08/01/24 06:57 Hospital Stay Data Consultations 07/25/24 23:15 Consult Electrical Tryout Person Routine ED Decision to Admit Stat 07/26/24 01:02 Consult Electrical Tryout Person Routine 07/26/24 02:41 Consult Cardiology Routine 07/28/24 05:15 Consult Nephrology Routine Diagnostic Imagining Performed 07/26/24 13:21 US point of care ultrasound Stat Total Time Total Time Spent Total Time Spent (In Minutes): 20 Coding Level of Care Code None Diagnoses Respiratory failure requiring intubation J96.90 Respiratory failure with hypoxia and hypercapnia J96.91; J96.92 Non-ST elevation [place] (NSTEMI) I21.4 ELLA (acute kidney injury) N17.9 Influenza A virus subtype H1 2009 pandemic strain not detected Z01.89 Acute CHF (congestive heart failure) I50.9 Hyperkalemia E87.5 Hyperglycemia due to type 2 diabetes mellitus E11.65
[2024-08-03 10:16] LABS: Legionella DNA, Source BAL
== END 2024-08-01 09:35 | disposition expired | DRG 871 ==
LOC: ED 21:03 → 1E 23:40 → SUATTDRO 23:40 → 1E 07-26 00:25 → 2E 07-29 23:41 → 3E 07-30 21:57